=== PATIENT | female | born 1970 ===

== ENCOUNTER → 2020-02-05 07:34 | Outpatient (BNVA) | payer OTHER, SELFPAY | PROVIDERS: PCP Physician Assistant Medical; Visit Provider Student in an Organized Health Care Education/Training Program | DX: Z76.89 Persons encountering health services in other specified circumstances (principal) ==

== ENCOUNTER → 2020-05-20 07:28 | Outpatient (BNVA) | payer OTHER, SELFPAY | PROVIDERS: PCP Physician Assistant Medical; Referring Provider Physician Assistant Medical; Visit Provider Student in an Organized Health Care Education/Training Program | DX: Z76.89 Persons encountering health services in other specified circumstances (principal) ==

== ENCOUNTER → 2020-06-24 07:29 | Outpatient (BNVA) | payer OTHER, SELFPAY | PROVIDERS: PCP Physician Assistant Medical; Visit Provider Student in an Organized Health Care Education/Training Program ==

== ENCOUNTER → 2020-12-08 08:58 | Outpatient (BNVA) | payer OTHER, SELFPAY | PROVIDERS: PCP Physician Assistant Medical; Visit Provider Student in an Organized Health Care Education/Training Program ==

== ENCOUNTER → 2021-03-10 08:02 | Outpatient (BNVA) | payer OTHER, SELFPAY | PROVIDERS: PCP Physician Assistant Medical; Visit Provider Nurse Practitioner Family ==

== ENCOUNTER 2021-04-13 15:53 | Outpatient (REF) | payer OTHER, SELFPAY ==
[2021-04-13 16:04] LABS: MANUAL DIFF FLAG NO
[2021-04-13 16:06] LABS: Basophils Absolute Auto 0.1 X10*3/uL (0.0-0.2); Basophils Percent Auto 0.9 % (0-2); Eosinophils Absolute Auto 0.3 X10*3/uL (0.0-0.4); Eosinophils Percent Auto 2.5 % (0-4); Hematocrit 41.8 % (37.0-47.0); Hemoglobin 14.1 g/dl (12.0-16.0); Imm Gran Abs Auto 0.05 X10*3/uL (0.00-0.03); Imm Gran Pct Auto 0.4 % (0.0-0.4); Lymphocytes Absolute Auto 1.6 X10*3/uL (1.2-4.9); Lymphocytes Percent Auto 13.5 % (20-40); Mean Corpuscular HGB Conc 33.7 g/dl (31.0-35.0); Mean Corpuscular Hemoglobin 29.6 pg (27.0-33.0); Mean Corpuscular Volume 87.6 fL (80.0-98.0); Mean Platelet Volume 10.1 fL (9.4-12.3); Monocytes Absolute Auto 0.7 X10*3/uL (0.1-1.2); Monocytes Percent Auto 5.4 % (2-11); Neutrophils Absolute Auto 9.3 x10*3/uL (2.0-8.3); Neutrophils Percent Auto 77.3 % (45-73); Platelet Count 164 X10*3/uL (160-400); Red Blood Count 4.77 X10*6/uL (4.20-5.50); Red Cell Distribution Width 12.5 % (11.0-16.0)
[2021-04-13 16:32] LABS: Alanine Aminotransferase 30 U/L (0-31); Albumin Level 4.5 g/dL (3.5-5.0); Alkaline Phosphatase 59 U/L (39-117); Anion Gap 13 (12-20); Aspartate Amino Transferase 22 U/L (5-31); Bilirubin Total 0.2 mg/dL (0.0-1.0); Blood Urea Nitrogen 11 mg/dL (9-16); C Reactive Protein 0.37 mg/dL (< or = 0.50); Calcium 10.3 mg/dL (8.4-10.2); Carbon Dioxide 26 mmol/L (22-29); Chloride 105 mmol/L (96-108); Cholesterol 238 mg/dL; Estimated Glomerular Filt Rate > 60; Glucose Random 78 mg/dL (60-115); HDL Cholesterol 44 mg/dL; LDL Cholesterol Calculated 147 mg/dl; Potassium 4.2 mmol/L (3.3-5.1); Sodium 140 mmol/L (135-145); Total Protein 7.2 g/dL (6.5-8.0); Triglycerides 236 mg/dL
[2021-04-13 16:54] LABS: Erythrocyte Sedimentation Rate 9 MM/HR (0-20)
[2021-04-13 17:57] LABS: Reflex LDLD? No
== END 2021-04-13 15:54 | disposition home or self-care (01) ==
LOC: HO.LAB 15:53
PROVIDERS: PCP Physician Assistant Medical; Visit Provider Nurse Practitioner Family
DX: L40.50 Arthropathic psoriasis, unspecified (principal)
CPT/HCPCS: 36415; 80053; 80061; 85025; 85652; 86140

== ENCOUNTER → 2021-07-12 11:02 | Outpatient (BNVA) | payer OTHER, SELFPAY | PROVIDERS: PCP Physician Assistant Medical; Visit Provider Nurse Practitioner Family ==

== ENCOUNTER 2021-10-06 12:40 | Outpatient (REF) | payer OTHER, SELFPAY ==
[2021-10-06 12:53] LABS: MANUAL DIFF FLAG NO
[2021-10-06 13:08] LABS: Basophils Absolute Auto 0.2 X10*3/uL (0.0-0.2); Basophils Percent Auto 1.7 % (0-2); Eosinophils Absolute Auto 0.5 X10*3/uL (0.0-0.4); Eosinophils Percent Auto 5.8 % (0-4); Hemoglobin 13.4 g/dl (12.0-16.0); Imm Gran Abs Auto 0.02 X10*3/uL (0.00-0.03); Imm Gran Pct Auto 0.2 % (0.0-0.4); Lymphocytes Absolute Auto 1.9 X10*3/uL (1.2-4.9); Lymphocytes Percent Auto 21.1 % (20-40); Mean Corpuscular HGB Conc 34.4 g/dl (31.0-35.0); Mean Corpuscular Hemoglobin 29.3 pg (27.0-33.0); Mean Corpuscular Volume 85.3 fL (80.0-98.0); Mean Platelet Volume 9.9 fL (9.4-12.3); Monocytes Absolute Auto 0.6 X10*3/uL (0.1-1.2); Neutrophils Absolute Auto 5.8 x10*3/uL (2.0-8.3); Neutrophils Percent Auto 64.2 % (45-73); Platelet Count 163 X10*3/uL (160-400); Red Blood Count 4.57 X10*6/uL (4.20-5.50); Red Cell Distribution Width 12.3 % (11.0-16.0)
[2021-10-06 13:49] LABS: Alanine Aminotransferase 36 U/L (0-31); Albumin Level 4.3 g/dL (3.5-5.0); Alkaline Phosphatase 61 U/L (39-117); Anion Gap 13 (12-20); Aspartate Amino Transferase 26 U/L (5-31); Bilirubin Total 0.5 mg/dL (0.0-1.0); Blood Urea Nitrogen 11 mg/dL (9-16); C Reactive Protein 0.58 mg/dL (< or = 0.50); Calcium 10.1 mg/dL (8.4-10.2); Carbon Dioxide 27 mmol/L (22-29); Chloride 102 mmol/L (96-108); Estimated Glomerular Filt Rate > 60; Glucose Random 88 mg/dL (60-115); Sodium 138 mmol/L (135-145); Total Protein 6.7 g/dL (6.5-8.0)
[2021-10-06 13:50] LABS: Erythrocyte Sedimentation Rate 9 MM/HR (0-20)
== END 2021-10-06 12:41 | disposition home or self-care (01) ==
LOC: HO.LAB 12:40
PROVIDERS: Visit Provider Nurse Practitioner Family
DX: L40.50 Arthropathic psoriasis, unspecified (principal)
CPT/HCPCS: 36415; 80053; 85025; 85652; 86140

== ENCOUNTER → 2021-11-17 13:52 | Outpatient (REF) | payer OTHER, SELFPAY ==
--- NOTE | 2021-11-17 14:09 | CA_ITS ---
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 Normal LV systolic and diastolic function 2. Normal cardiac valvular Doppler 3. Normal RV systolic pressure 4. No gross pericardial effusion Findings Left Ventricle Normal left ventricular size, thickness, and systolic function. The visually estimated ejection fraction is between 55-60%. Spectral Doppler is indicative of a normal filling pattern. Right Ventricle Normal right ventricular cavity size and systolic function. Atria The left atrium is normal in size. There is no evidence of interatrial shunt. The right atrium is normal in size. Aortic Valve The aortic valve structure and function is likely normal. There is no aortic valve stenosis. There is no aortic valve regurgitation. Mitral Valve There is mild anterior and posterior mitral leaflet thickening. There is trace mitral valve regurgitation. There is no mitral valve stenosis. Pulmonic Valve The pulmonic valve was not well visualized. Tricuspid Valve Likely normal tricuspid valve structure and function. There is trace tricuspid valve regurgitation. The right ventricular systolic pressure is normal. The right ventricular systolic pressure is 26 mmHg. Normal right atrial pressure. There is no evidence of pulmonary hypertension. Great Vessels All visible segments of the aorta are normal in size. The pulmonary artery was not well visualized. Venous The inferior vena cava is normal in size and collapses greater than 50% with inspiration. Pericardium/Pleural There is no evidence of pericardial effusion. Prior Study Comparison No prior study available for comparison. Measurements 2D Linear Measurements IVSd: 0.98 0.6-0.9/0.6-1.0 cm LVIDd: 4.23 3.9-5.3/4.2-5.9 cm LVIDd Index: 1.84 2.4-3.2/2.2-3.1 cm/m2 LVIDs: 3.27 2.0-3.6 cm LVPWd: 0.96 0.7-1.1 cm LA Diam: 3.70 2.7-3.8/3.0-4.0 cm LAIDs Index: 1.61 1.5-2.3 cm/m2 LV Mass: 165.80 67-162/88-224 g LV Mass Index: 72.09 43-95/49-115 g/m2 LVOT Diam: 2.40 3.0+(-)1.3 cm 2D Systolic Function EF 4C: 53.60 >55% EF 2C: 56.60 >55% EF BiP: 55.20 >55% Mitral Valve MV Pk E: 0.86 MV PK A: 0.74 MV Decel Time: 233.00 E/A: 1.20 E'Lateral: 8.38 E'Medial: 8.16 E/E' Med: 10.50 E/E' Lat: 10.20 PHT: 68.00 MVA PHT: 3.24 Decel [place]: 3.68 Aortic Valve AoV Pk Lico: 1.31 AoV Mn Lico: 0.91 AoV VTI: 0.27 AoV Pk Grad: 7.00 Aov Mn Grad: 4.00 JUAN DANIEL Cont.VTI: 3.63 LVOT LVOT Pk Lico: 0.99 LVOT Mn Lico: 0.67 LVOT VTI: 0.22 LVOT Pk Grad: 4.00 LVOT Mn Grad: 2.00 LVOT Diam: 2.40 LVOT Area: 4.52 Diastolic Function MV Pk E: 0.86 MV Pk A: 0.74 E/A: 1.20 E'Medial: 8.16 E/E' Med: 10.50 E' Laterial: 8.38 E/E' Lat: 10.20 Right Ventricle TAPSE (mm): 20.80 TVS' Lico: 14.10 Tricuspid Valve TR Pk Lico: 2.39 TR Pk Grad: 23.00 RA Press: 3.00 RVSP: 26.00 Great Vessels Aorta Sinus of Valsalva: 3.64 2.0-3.[address] [place]: 2.90 1.7-3.4 cm Ao Asc: 3.60 2.1-3.4 cm Updated in Other Vendor System with Status of Final Nilo Perry MD electronically signed on 11/19/2021 1:07:20 PM with status of Final
== END ==
LOC: HO.CARD 13:52
PROVIDERS: Visit Provider Nurse Practitioner Family
DX: R00.2 Palpitations (principal); R60.1 Generalized edema
CPT/HCPCS: 93306

== ENCOUNTER 2022-01-11 10:26 | Outpatient (REF) | payer OTHER, SELFPAY ==
[2022-01-13 05:12] LABS: Lyme Abs Screen <0.90 index
== END 2022-01-11 10:27 | disposition home or self-care (01) ==
LOC: HO.10HDL 10:26
PROVIDERS: Visit Provider Nurse Practitioner Family
DX: M25.50 Pain in unspecified joint (principal)
CPT/HCPCS: 36415; 86617; 86618

== ENCOUNTER 2022-03-14 07:34 | Outpatient (REF) | payer OTHER, SELFPAY ==
[2022-03-14 08:02] LABS: MANUAL DIFF FLAG NO
[2022-03-14 08:04] LABS: Basophils Absolute Auto 0.1 X10*3/uL (0.0-0.2); Basophils Percent Auto 1.5 % (0-2); Eosinophils Absolute Auto 0.4 X10*3/uL (0.0-0.4); Eosinophils Percent Auto 4.4 % (0-4); Hemoglobin 15.4 g/dl (12.0-16.0); Imm Gran Abs Auto 0.02 X10*3/uL (0.00-0.03); Imm Gran Pct Auto 0.2 % (0.0-0.4); Lymphocytes Absolute Auto 1.7 X10*3/uL (1.2-4.9); Lymphocytes Percent Auto 20.4 % (20-40); Mean Corpuscular Hemoglobin 29.7 pg (27.0-33.0); Mean Corpuscular Volume 84.8 fL (80.0-98.0); Mean Platelet Volume 9.7 fL (9.4-12.3); Monocytes Absolute Auto 0.4 X10*3/uL (0.1-1.2); Monocytes Percent Auto 4.9 % (2-11); Neutrophils Absolute Auto 5.6 x10*3/uL (2.0-8.3); Neutrophils Percent Auto 68.6 % (45-73); Platelet Count 190 X10*3/uL (160-400); Red Blood Count 5.19 X10*6/uL (4.20-5.50); Red Cell Distribution Width 12.4 % (11.0-16.0); White Blood Count 8.1 X10*3/uL (4.8-10.8)
[2022-03-14 08:19] LABS: Alanine Aminotransferase 25 U/L (0-31); Albumin Level 4.6 g/dL (3.5-5.0); Alkaline Phosphatase 74 U/L (39-117); Anion Gap 16 (12-20); Aspartate Amino Transferase 19 U/L (5-31); Bilirubin Total 0.3 mg/dL (0.0-1.0); Blood Urea Nitrogen 17 mg/dL (9-16); Calcium 9.5 mg/dL (8.4-10.2); Carbon Dioxide 21 mmol/L (22-29); Chloride 105 mmol/L (96-108); Cholesterol 250 mg/dL; Estimated Glomerular Filt Rate > 60; Glucose Fasting 102 mg/dL (60-99); HDL Cholesterol 40 mg/dL; LDL Cholesterol Calculated 142 mg/dl; Magnesium 1.7 mg/dL (1.6-2.6); Potassium 4.2 mmol/L (3.3-5.1); Sodium 138 mmol/L (135-145); Total Protein 7.5 g/dL (6.5-8.0); Triglycerides 342 mg/dL
[2022-03-14 08:24] LABS: Estimated Average Glucose 100 mg/dL; Hemoglobin A1c % 5.1 %
[2022-03-14 08:32] LABS: Fibrinogen 500 MG/DL (259-690)
[2022-03-14 08:33] LABS: D Dimer High Sensitivity 277 NG/ML
[2022-03-14 08:41] LABS: Ferritin 69 ng/mL (10-250); Insulin 35 uU/mL (2-29); Thyroid Stimulating Hormone 2.12 uIU/mL (0.32-4.0); Vitamin D 25-OH Total 42.4 ng/mL (>30)
[2022-03-14 09:04] LABS: Vitamin B12 1059 pg/mL (200-900)
[2022-03-14 09:11] LABS: Cortisol Random 8.7 ug/dL
[2022-03-14 12:57] LABS: Glucose 2 Hour PP 97 mg/dL (60-115)
[2022-03-16 23:57] LABS: Triiodothyronine T3 Free 3.3 pg/mL (2.3-4.2)
[2022-03-17 00:27] LABS: DHEA Sulfate 50 mcg/dL (5-167)
[2022-03-17 00:42] LABS: Thyroglobulin Antibodies 4 IU/mL (< or = 1); Thyroid Peroxidase Antibodies 102 IU/mL (<9)
[2022-03-17 01:33] LABS: Follicle Stimulating Hormone 31.1 mIU/mL; Lutenizing Hormone 10.2 mIU/mL; Prolactin 6.7 ng/mL
[2022-03-19 17:27] LABS: EBV-VCA IgG Ab >750.00 U/mL; EBV-VCA IgM Ab <36.00 U/mL
[2022-03-19 17:32] LABS: Homocysteine 6.3 umol/L (<10.4)
[2022-03-19 18:07] LABS: CRP High Sensitivity 3.8 mg/L
[2022-03-20 01:02] LABS: Zinc 89 mcg/dL (60-130)
[2022-03-21 04:06] LABS: Magnesium, RBC 4.9 mg/dL (4.0-6.4)
[2022-03-21 12:42] LABS: CA-125 11 U/mL (<35)
[2022-03-22 14:06] LABS: Testosterone, Total 15 ng/dL (2-45)
[2022-03-22 22:36] LABS: Estradiol Free 0.37 pg/mL; Estradiol, Ultrasensitive 18 pg/mL
[2022-03-23 22:11] LABS: Progesterone <0.1 ng/mL
[2022-03-27 15:27] LABS: Cortisol, Free 0.18 mcg/dL
[2022-03-28 09:36] LABS: DHEA, Unconjugated 156 ng/dL
== END 2022-03-14 07:35 | disposition home or self-care (01) ==
LOC: HO.LAB 07:34
PROVIDERS: Visit Provider Preventive Medicine Public Health & General Preventive Medicine
DX: Z01.84 Encounter for antibody response examination (principal); N95.1 Menopausal and female climacteric states; E28.1 Androgen excess; E27.8 Other specified disorders of adrenal gland; R89.1 Abnormal level of hormones in specimens from other organs, systems and tissues; E03.9 Hypothyroidism, unspecified; E78.2 Mixed hyperlipidemia; E88.1 Lipodystrophy, not elsewhere classified; R73.09 Other abnormal glucose; E16.1 Other hypoglycemia; E61.8 Deficiency of other specified nutrient elements; E61.2 Magnesium deficiency; E55.9 Vitamin D deficiency, unspecified; E53.8 Deficiency of other specified B group vitamins; R79.9 Abnormal finding of blood chemistry, unspecified; R79.89 Other specified abnormal findings of blood chemistry
CPT/HCPCS: 36415; 80053; 80061; 82306; 82530; 82533; 82607; 82626; 82627; 82670; 82681; 82728; 82951; 83001; 83002; 83036; 83090; 83525; 83735; 84144; 84146; 84402; 84403; 84439; 84443; 84481; 84630; 85025; 85379; 85384; 86141; 86304; 86376; 86664; 86665; 86800

== ENCOUNTER 2022-06-29 07:44 | Outpatient (REF) | payer OTHER, SELFPAY ==
[2022-06-29 10:34] LABS: MANUAL DIFF FLAG NO
[2022-06-29 10:46] LABS: Basophils Percent Auto 0.2 % (0-2); Eosinophils Percent Auto 0.1 % (0-4); Hematocrit 42.2 % (37.0-47.0); Hemoglobin 14.4 g/dl (12.0-16.0); Imm Gran Abs Auto 0.07 X10*3/uL (0.00-0.03); Imm Gran Pct Auto 0.4 % (0.0-0.4); Lymphocytes Absolute Auto 1.9 X10*3/uL (1.2-4.9); Lymphocytes Percent Auto 10.3 % (20-40); Mean Corpuscular HGB Conc 34.1 g/dl (31.0-35.0); Mean Corpuscular Hemoglobin 29.9 pg (27.0-33.0); Mean Corpuscular Volume 87.7 fL (80.0-98.0); Mean Platelet Volume 10.6 fL (9.4-12.3); Monocytes Absolute Auto 0.7 X10*3/uL (0.1-1.2); Neutrophils Absolute Auto 15.5 x10*3/uL (2.0-8.3); Platelet Count 186 X10*3/uL (160-400); Red Blood Count 4.81 X10*6/uL (4.20-5.50); Red Cell Distribution Width 12.5 % (11.0-16.0); White Blood Count 18.2 X10*3/uL (4.8-10.8)
[2022-06-29 11:06] LABS: Alanine Aminotransferase 24 U/L (0-31); Aspartate Amino Transferase 13 U/L (5-31); C Reactive Protein 0.23 mg/dL (< or = 0.50); Estimated Glomerular Filt Rate > 60
[2022-06-29 11:14] LABS: Alanine Aminotransferase 26 U/L (0-31); Albumin Level 4.5 g/dL (3.5-5.0); Alkaline Phosphatase 65 U/L (39-117); Anion Gap 12 (12-20); Aspartate Amino Transferase 14 U/L (5-31); Bilirubin Total 0.4 mg/dL (0.0-1.0); Blood Urea Nitrogen 22 mg/dL (9-16); Calcium 9.7 mg/dL (8.4-10.2); Carbon Dioxide 25 mmol/L (22-29); Chloride 107 mmol/L (96-108); Cholesterol 195 mg/dL; Estimated Glomerular Filt Rate > 60; Glucose Fasting 91 mg/dL (60-99); HDL Cholesterol 44 mg/dL; LDL Cholesterol Calculated 119 mg/dl; Potassium 4.3 mmol/L (3.3-5.1); Sodium 140 mmol/L (135-145); Total Protein 6.9 g/dL (6.5-8.0); Triglycerides 161 mg/dL
[2022-06-29 11:15] LABS: D Dimer High Sensitivity < 150 NG/ML
[2022-06-29 11:20] LABS: Ferritin 64 ng/mL (10-250); Insulin 30 uU/mL (2-29); Thyroid Stimulating Hormone 1.62 uIU/mL (0.32-4.0); Vitamin D 25-OH Total 65.1 ng/mL (>30)
[2022-06-29 11:31] LABS: Erythrocyte Sedimentation Rate 5 MM/HR (0-20)
[2022-06-29 13:50] LABS: Amphetamine Screen Urine Not Detected (Not Detect); Barbiturates, Urine Not Detected (Not Detect); Benzodiazepines Screen Urine Not Detected (Not Detect); Cannabinoid Screen Urine Not Detected (Not Detect); Cocaine Screen Urine Not Detected (Not Detect); Fentanyl, urine Not Detected (Not Detect); Opiate Screen Urine Not Detected (Not Detect); Phencyclidine Screen Urine Not Detected (Not Detect)
[2022-06-29 14:19] LABS: Microalbum/Creatinine Ratio Ur 45.5 ug/mg cr
[2022-06-30 14:22] LABS: CRP High Sensitivity 2.1 mg/L
[2022-06-30 17:52] LABS: Follicle Stimulating Hormone 30.3 mIU/mL
[2022-07-02 15:14] LABS: Thyroid Peroxidase Antibodies 38 IU/mL (<9)
[2022-07-06 20:09] LABS: Estradiol Ultra Sensitive 27 pg/mL
== END 2022-06-29 07:45 | disposition home or self-care (01) ==
LOC: HO.10HDL 07:44
PROVIDERS: Absent Provider Preventive Medicine Public Health & General Preventive Medicine; Visit Provider Nurse Practitioner Family
DX: L40.50 Arthropathic psoriasis, unspecified (principal); N95.1 Menopausal and female climacteric states; E03.9 Hypothyroidism, unspecified; E78.2 Mixed hyperlipidemia; E88.1 Lipodystrophy, not elsewhere classified; E55.9 Vitamin D deficiency, unspecified; R79.89 Other specified abnormal findings of blood chemistry; E61.1 Iron deficiency; Z79.899 Other long term (current) drug therapy; Z78.9 Other specified health status
CPT/HCPCS: 36415; 80053; 80061; 80307; 80373; 82043; 82306; 82565; 82670; 82728; 83001; 83525; 84443; 84450; 84460; 85025; 85379; 85652; 86140; 86141; 86376

== ENCOUNTER 2022-07-06 12:24 | Outpatient (REF) | payer OTHER, SELFPAY ==
--- NOTE | ~2022-07-06 | MM_ITS ---
EXAMINATION: MM SCREENING DIGITAL BREAST TOMOSYNTHESIS, BILATERAL CLINICAL INFORMATION: Screening. Asymptomatic. No known family history breast cancer. The lifetime risk of breast cancer based on the Tyrer-Cuzick Model is 11%. COMPARISON: Outside mammography: 07/12/2020, 08/04/2018, 05/09/2017, 02/02/2016, 01/31/2016 ([facility]) TECHNIQUE: Digital breast tomosynthesis is performed in both the craniocaudal and mediolateral oblique views along with computer-aided detection (CAD). Synthesized 2D images are generated from the tomosynthesis. FINDINGS: There are scattered areas of fibroglandular density (ACR BI-RADS breast composition Category b). Parenchymal pattern is similar to prior outside studies. Scattered fine fibronodular changes are again noted without developing density or architectural abnormality or significant mass. No abnormal calcifications. The axilla and skin contours are unremarkable. No significant changes. MM/MM tomosynthesis screening BI IMPRESSION: No mammographic evidence of malignancy. ASSESSMENT: BI-RADS 2: Benign RECOMMENDATION: Routine annual mammography screening. This patient's information was entered into a reminder system with a target due date for their next mammogram.
== END 2022-07-06 12:25 | disposition home or self-care (01) ==
LOC: HO.MAMMO 12:24
PROVIDERS: Visit Provider Preventive Medicine Public Health & General Preventive Medicine
DX: Z12.31 Encounter for screening mammogram for malignant neoplasm of breast (principal)
CPT/HCPCS: 77063; 77067

== ENCOUNTER → 2022-07-25 07:27 | Outpatient (BNVA) | payer OTHER, SELFPAY | PROVIDERS: PCP Preventive Medicine Public Health & General Preventive Medicine; Visit Provider Nurse Practitioner Family | DX: Z13.89 Encounter for screening for other disorder (principal) ==

== ENCOUNTER 2022-11-17 08:24 | Outpatient (REF) | payer OTHER, SELFPAY ==
[2022-11-17 09:08] LABS: MANUAL DIFF FLAG NO
[2022-11-17 09:09] LABS: Basophils Absolute Auto 0.1 X10*3/uL (0.0-0.2); Basophils Percent Auto 1.4 % (0-2); Eosinophils Absolute Auto 0.3 X10*3/uL (0.0-0.4); Eosinophils Percent Auto 3.5 % (0-4); Hematocrit 40.5 % (37.0-47.0); Hemoglobin 14.1 g/dl (12.0-16.0); Imm Gran Abs Auto 0.02 X10*3/uL (0.00-0.03); Imm Gran Pct Auto 0.2 % (0.0-0.4); Lymphocytes Absolute Auto 1.5 X10*3/uL (1.2-4.9); Lymphocytes Percent Auto 18.7 % (20-40); Mean Corpuscular HGB Conc 34.8 g/dl (31.0-35.0); Mean Corpuscular Hemoglobin 29.9 pg (27.0-33.0); Mean Platelet Volume 10.4 fL (9.4-12.3); Monocytes Absolute Auto 0.4 X10*3/uL (0.1-1.2); Monocytes Percent Auto 5.2 % (2-11); Neutrophils Absolute Auto 5.7 x10*3/uL (2.0-8.3); Platelet Count 158 X10*3/uL (160-400); Red Blood Count 4.71 X10*6/uL (4.20-5.50); Red Cell Distribution Width 12.2 % (11.0-16.0)
[2022-11-17 09:38] LABS: Estimated Average Glucose 94 mg/dL; Hemoglobin A1c % 4.9 %
[2022-11-17 09:39] LABS: D Dimer High Sensitivity < 150 NG/ML
[2022-11-17 10:15] LABS: Alanine Aminotransferase 24 U/L (0-31); Albumin Level 4.3 g/dL (3.5-5.0); Alkaline Phosphatase 64 U/L (39-117); Anion Gap 13 (12-20); Aspartate Amino Transferase 18 U/L (5-31); Bilirubin Total 0.5 mg/dL (0.0-1.0); Blood Urea Nitrogen 20 mg/dL (9-16); Calcium 9.6 mg/dL (8.4-10.2); Carbon Dioxide 24 mmol/L (22-29); Chloride 105 mmol/L (96-108); Estimated Glomerular Filt Rate > 60; Glucose Fasting 89 mg/dL (60-99); Potassium 4.2 mmol/L (3.3-5.1); Sodium 138 mmol/L (135-145); Total Protein 6.9 g/dL (6.5-8.0)
[2022-11-17 10:33] LABS: Ferritin 86 ng/mL (10-250); Thyroid Stimulating Hormone 2.25 uIU/mL (0.32-4.0); Vitamin D 25-OH Total 69.8 ng/mL (>30)
[2022-11-17 10:40] LABS: Vitamin B12 1256 pg/mL (200-900)
[2022-11-17 10:57] LABS: Insulin 14 uU/mL (2-29)
[2022-11-17 11:39] LABS: Glucose 2 Hour PP 98 mg/dL (60-115)
[2022-11-19 01:44] LABS: Follicle Stimulating Hormone 58.5 mIU/mL
[2022-11-20 17:33] LABS: EBV-VCA IgG Ab >750.00 U/mL; EBV-VCA IgM Ab <36.00 U/mL
[2022-11-21 06:48] LABS: Zinc 88 mcg/dL (60-130)
[2022-11-21 15:03] LABS: Mycoplasma Pneumoniae - IgG 2.27 (<=0.90); Mycoplasma Pneumoniae - IgM 89 U/mL (<770)
[2022-11-22 18:03] LABS: CRP High Sensitivity 2.1 mg/L
[2022-11-23 11:04] LABS: CA-125 8 U/mL (<35)
[2022-11-23 16:59] LABS: Vitamin B1 24 nmol/L (8-30)
[2022-11-23 18:18] LABS: Testosterone, Free 1.9 pg/mL (0.1-6.4); Testosterone, Total 10 ng/dL (2-45)
[2022-11-30 22:04] LABS: Estradiol, Ultrasensitive 17 pg/mL
== END 2022-11-17 08:25 | disposition home or self-care (01) ==
LOC: HO.LAB 08:24
PROVIDERS: PCP Preventive Medicine Public Health & General Preventive Medicine; Visit Provider Preventive Medicine Public Health & General Preventive Medicine
DX: N95.1 Menopausal and female climacteric states (principal); E03.9 Hypothyroidism, unspecified; E88.81 Metabolic syndrome and other insulin resistance; E16.1 Other hypoglycemia; R79.9 Abnormal finding of blood chemistry, unspecified; E53.8 Deficiency of other specified B group vitamins; E61.8 Deficiency of other specified nutrient elements; Z78.9 Other specified health status; R79.89 Other specified abnormal findings of blood chemistry; E61.1 Iron deficiency; J15.9 Unspecified bacterial pneumonia; B27.90 Infectious mononucleosis, unspecified without complication; E55.9 Vitamin D deficiency, unspecified
CPT/HCPCS: 36415; 80053; 82306; 82607; 82670; 82681; 82728; 82947; 83001; 83036; 83525; 84402; 84403; 84425; 84443; 84630; 85025; 85379; 86141; 86304; 86664; 86665; 86738

== ENCOUNTER 2023-02-15 09:07 | Outpatient (AMB) | payer OTHER, SELFPAY ==
[2023-02-15 11:08] VITALS: BP 150/70; PULSE 89; O2SAT 97; BMI 40.7
--- NOTE | 2023-02-15 11:08 | MHC.OFFWIV ---
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 Patient complaining of wheezing, shortness of breath, and cough x 1 week since mold exposure. Hhe has been utilizing her inhalers and nebulizers at home with mild relief. She states that the cough has persisted and she feels more short of breath with heavy exertion. She denies any fevers or chills or congestion/rhinorrhea. [facility]LY [facility], [facility] Medical History Asthma Depression Glaucoma Lyme disease PCOS (polycystic ovarian syndrome) Surgical History History of hysterectomy Varicose vein of leg Social History Household Members: Significant Other Housing: House Are you a primary administrator health care facility to a significant other at home: No Do you presently have visiting nurse or other home services: No Alcohol intake: never Patient Tobacco Use Status: Former Tobacco user Second Hand Smoke Exposure: No service: No Current occupational status: employed Current occupation: [employer] Current occupational exposures/hazards: Yes Review of Systems Const All systems reviewed & are unremarkable except as noted in HPI and below Reports no additional complaints Eyes Reports no additional complaints ENT Reports no additional complaints Card Reports no additional complaints Resp Reports no additional complaints GI Reports no additional complaints Reports no additional complaints Musc Reports no additional complaints Skin/Breast Reports system reviewed and no additional complaints, except as documented Neuro Reports no additional complaints Psych Reports no additional complaints Endo Reports no additional complaints Antoine/Lymph Reports no additional complaints Aller/Immun Reports no additional complaints Physical Exam Vital Signs: Last Vital Signs Pulse 89 10/13/23 11:08 BP 150/70 H 02/15/23 11:08 Pulse Ox 97 02/15/23 11:08 Oxygen Delivery Method Room Air 02/15/23 11:08 BMI result Body Mass Index 40.7 Const Other: Vital signs reviewed. Constitutional: Non-toxic appearing. No acute distress. Well-developed and well-nourished. HEENT: Normocephalic and atraumatic. Tympanic membranes without erythema, edema, or bulging bilaterally. External auditory canals without erythema or edema bilaterally. Moist mucous membranes. No pharyngeal erythema or exudates. Skin: Warm and dry. No rashes or lesions noted. Neck: Full and painless range of motion. No cervical lymphadenopathy. Cardio: Regular rate and rhythm. No murmurs, gallops, or rubs. No lower extremity edema. No JVD. Pulmonary: No respiratory distress. No accessory muscle usage. Scant expiratory wheezing throughout. Occasional cough. Gastrointestinal: Soft, nontender, and nondistended in all 4 quadrants. Normoactive bowel sounds in all 4 quadrants. Genitourinary: No CVA tenderness. Musculoskeletal: Normal range of motion in joints throughout the body. No deformity or other signs of injury. Neuro: Alert and oriented x4. Cranial nerves 2-12 grossly intact. No focal deficits appreciated. Psych: Normal mood and affect. Assessment & Plan Assessment & Plan (1) Acute asthmatic bronchitis: Code(s): J45.909 - Unspecified asthma, uncomplicated Plan: This is a 52-year-old female presenting with cough, wheezing, and shortness of breath in the setting of mold exposure. On physical examination, she has scant expiratory wheezing but no respiratory distress or accessory muscle usage. Her vital signs are stable and she is overall nontoxic appearing. Her physical exam is otherwise benign. Her history and physical most consistent with an acute asthmatic bronchitis in the setting of mold exposure. Patient was sent home on a prednisone taper as well as a refill on her nebulizer solutions. She was advised to follow-up here go to the emergency room if she were to develop worsening sputum production, worsening shortness of breath, or worsening cough. Patient verbalized understanding and is agreeable with the plan. Medications: New prednisone Take 4 tablets daily x3 days followed by 3 tablets daily x3 days followed by 2 tablets daily x3 days followed by 1 tablet daily x3 days followed by 1/2 tablet daily x2 days. 10 mg PO DIRECTED 31 tabs 0RF ipratropium-albuterol 0.5 mg-3 mg(2.5 mg base)/3 mL 3 mL inhalation Q6-8H PRN 90 mL 0RF wheezing Coding Level of Care Code New Pt Level 3 (16081) Diagnoses Acute asthmatic bronchitis J45.909
== END 2023-02-15 11:32 | disposition home or self-care (01) ==
PROVIDERS: PCP Preventive Medicine Public Health & General Preventive Medicine; Visit Provider Physician Assistant Medical
DX: J45.909 Unspecified asthma, uncomplicated (principal)
CPT/HCPCS: 99203

== ENCOUNTER 2023-04-02 07:40 | Outpatient (REF) | payer OTHER, SELFPAY ==
[2023-04-02 11:19] LABS: Alanine Aminotransferase 21 U/L (0-31); Albumin Level 4.2 g/dL (3.5-5.0); Alkaline Phosphatase 59 U/L (39-117); Anion Gap 11 (12-20); Aspartate Amino Transferase 17 U/L (5-31); Bilirubin Total 0.4 mg/dL (0.0-1.0); Blood Urea Nitrogen 17 mg/dL (9-16); Calcium 9.3 mg/dL (8.4-10.2); Carbon Dioxide 24 mmol/L (22-29); Chloride 106 mmol/L (96-108); Estimated Glomerular Filt Rate > 60; Glucose Random 85 mg/dL (60-115); Potassium 4.2 mmol/L (3.3-5.1); Sodium 137 mmol/L (135-145); Total Protein 6.8 g/dL (6.5-8.0)
[2023-04-02 11:26] LABS: Ferritin 95 ng/mL (10-250); Insulin 12 uU/mL (2-29); Thyroid Stimulating Hormone 2.42 uIU/mL (0.32-4.0); Vitamin D 25-OH Total 56.6 ng/mL (>30)
[2023-04-02 11:32] LABS: Vitamin B12 987 pg/mL (200-900)
[2023-04-03 07:28] LABS: Follicle Stimulating Hormone 16.3 mIU/mL
[2023-04-03 08:10] LABS: Triiodothyronine T3 Free 3.2 pg/mL (2.3-4.2)
[2023-04-03 10:29] LABS: Thyroglobulin Antibodies 1 IU/mL (< or = 1); Thyroid Peroxidase Antibodies 28 IU/mL (<9)
[2023-04-06 12:39] LABS: Testosterone, Free 1.1 pg/mL (0.1-6.4); Testosterone, Total 12 ng/dL (2-45)
[2023-04-06 21:58] LABS: Estradiol, Ultrasensitive 76 pg/mL
== END 2023-04-02 07:41 | disposition home or self-care (01) ==
LOC: HO.10HDL 07:40
PROVIDERS: Visit Provider Preventive Medicine Public Health & General Preventive Medicine
DX: E66.1 Drug-induced obesity (principal); E88.810 Metabolic syndrome; E55.9 Vitamin D deficiency, unspecified; E53.8 Deficiency of other specified B group vitamins; E03.9 Hypothyroidism, unspecified; N95.1 Menopausal and female climacteric states; E61.1 Iron deficiency
CPT/HCPCS: 36415; 80053; 82306; 82607; 82670; 82681; 82728; 83001; 83525; 84402; 84403; 84439; 84443; 84481; 86376; 86800

== ENCOUNTER 2023-08-12 10:22 | Outpatient (REF) | payer OTHER, SELFPAY ==
[2023-08-12 13:16] LABS: MANUAL DIFF FLAG NO
[2023-08-12 13:19] LABS: Basophils Absolute Auto 0.1 X10*3/uL (0.0-0.2); Basophils Percent Auto 0.9 % (0-2); Eosinophils Absolute Auto 0.2 X10*3/uL (0.0-0.4); Hematocrit 42.2 % (37.0-47.0); Hemoglobin 14.5 g/dl (12.0-16.0); Imm Gran Abs Auto 0.02 X10*3/uL (0.00-0.03); Imm Gran Pct Auto 0.2 % (0.0-0.4); Lymphocytes Absolute Auto 1.8 X10*3/uL (1.2-4.9); Lymphocytes Percent Auto 16.5 % (20-40); Mean Corpuscular HGB Conc 34.4 g/dl (31.0-35.0); Mean Corpuscular Hemoglobin 30.1 pg (27.0-33.0); Mean Corpuscular Volume 87.7 fL (80.0-98.0); Mean Platelet Volume 10.3 fL (9.4-12.3); Monocytes Absolute Auto 0.4 X10*3/uL (0.1-1.2); Monocytes Percent Auto 3.9 % (2-11); Neutrophils Absolute Auto 8.5 x10*3/uL (2.0-8.3); Neutrophils Percent Auto 76.5 % (45-73); Platelet Count 206 X10*3/uL (160-400); Red Blood Count 4.81 X10*6/uL (4.20-5.50); Red Cell Distribution Width 11.8 % (11.0-16.0)
[2023-08-12 13:44] LABS: Alanine Aminotransferase 18 U/L (0-31); Albumin Level 4.4 g/dL (3.5-5.0); Alkaline Phosphatase 61 U/L (39-117); Anion Gap 10 (12-20); Aspartate Amino Transferase 14 U/L (5-31); Bilirubin Total 0.3 mg/dL (0.0-1.0); Blood Urea Nitrogen 15 mg/dL (9-16); C Reactive Protein 0.26 mg/dL (< or = 0.50); Calcium 9.6 mg/dL (8.4-10.2); Carbon Dioxide 26 mmol/L (22-29); Chloride 106 mmol/L (96-108); Cholesterol 178 mg/dL (<200); Estimated Glomerular Filt Rate > 60; Glucose Random 82 mg/dL (60-115); HDL Cholesterol 42 mg/dL (>40); LDL Cholesterol Calculated 98 mg/dL (<100); Potassium 4.4 mmol/L (3.3-5.1); Sodium 138 mmol/L (135-145); Total Protein 7.2 g/dL (6.5-8.0); Triglycerides 191 mg/dL (<150)
[2023-08-12 14:01] LABS: Erythrocyte Sedimentation Rate 5 MM/HR (0-20)
== END 2023-08-12 10:23 | disposition home or self-care (01) ==
LOC: HO.10HDL 10:22
PROVIDERS: Visit Provider Nurse Practitioner Family
DX: L40.50 Arthropathic psoriasis, unspecified (principal); Z79.899 Other long term (current) drug therapy
CPT/HCPCS: 36415; 80053; 80061; 85025; 85652; 86140

== ENCOUNTER 2023-08-15 14:01 | Outpatient (AMB) | payer OTHER, SELFPAY ==
--- NOTE | 2023-08-15 14:05 | MHC.OFFVIS ---
Vital Signs 08/15/23 14:15 Height 5 ft 7 in Weight 256 lb 13.416 oz BMI 40.2 BP 124/84 Blood Pressure Location Rt brachial Position Sitting Pulse 87 Pulse Source Pulse Oximeter Pulse Oximetry (%) 98 Oxygen Delivery Method Room Air Intake Visit Reasons: psoriatic arthritis Intake Note: Patient last seen 07/25/22 by Roseann, presents today for follow up. 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 Wagner is a 53-year-old female who returns for follow-up of psoriatic arthritis. She was last seen July 2022. She continues on hydroxychloroquine 200 mg daily and says her joint pain and psoriasis has essentially remained the same has described below. However today she has some some increased achiness which she says largely because of the weather. She says her left ankle is also swollen. She stopped Xeljanz. 07/23/2022 visit Suki: Patient continues on Xeljanz XR. She has reestablished with Endocrine for fatigue and PCOS. Patient reports she was experiencing chronic generalized intermittent aching in her hands, wrists, and back. She was also experiencing intermittent swelling and fatigue. She states since last visit her primary care doctor in [place] started her on hydroxychloroquine 200mg po daily and all of her pain/fatigue symptoms have resolved. She is interested in tapering off Xeljanz XR. She reports 20 lb weight loss, she attributes her weight loss to drinking celery juice every morning. She states her bilateral knee pain has been stable. She received bilateral knee injections with [facility] approximately 1 week ago. She states overall she is feeling much better. She denies any joint pain or swelling at this time. She states her psoriasis is well controlled with very small dry patches on both elbows. [facility] Medical History (Updated 08/30/23 @ 08:34 by KAMALA Bustillos) Left ankle pain Long-term current use of high risk medication other than anticoagulant PCOS (polycystic ovarian syndrome) Asthma Depression Glaucoma Lyme disease Surgical History History of hysterectomy Varicose vein of leg Social History Household Members: Significant Other Housing: House Are you a primary geriatric personal care aide to a significant other at home: No Do you presently have visiting nurse or other home services: No Alcohol intake: never Patient Tobacco Use Status: Former Tobacco user Second Hand Smoke Exposure: No service: No Current occupational status: employed Current occupation: [employer] Current occupational exposures/hazards: Yes Review of Systems Const All systems reviewed & are unremarkable except as noted in HPI and below Physical Exam Vital Signs: Last Vital Signs Pulse 87 08/15/23 14:15 BP 124/84 08/15/23 14:15 Pulse Ox 98 08/15/23 14:15 Oxygen Delivery Method Room Air 08/15/23 14:15 BMI result Body Mass Index 40.2 APPEARANCE: Patient in no acute distress EYES: no redness, eyelids normal EARS: External ear normal NOSE/SINUS: Airflow through both nares, no nasal discharge, no bleeding THROAT: Oral mucosa moist, no ulcerations NECK: No thyromegaly or masses, no adenopathy, trachea midline. HEART: Regular rhythm, S1-S2 heard, no murmurs, rubs or gallops. LUNG: Clear to auscultation throughout bilaterally, respiratory rate regular nonlabored. EXTREMITIES: No edema, no calf tenderness, normal peripheral pulses. NEURO: Oriented and alert x3. No focal weakness. Gait normal. SKIN: No neoplastic lesions. Normal color and turgor. Slight patches of dry skin on bilateral elbows. JOINT EXAM: Cervical: Normal range of motion without tenderness. Thoracic: And normal range of motion without tenderness. Lumbar Spine: Normal range of motion, no tenderness to palpation. Hands: LEFT:? Normal pain-free range of motion without, swelling, increased warmth or erythema. Able to make a full fist and has a good extended insurance clerk strength. Slight tenderness to palpation at the base of the thumb. RIGHT: Normal pain free range of motion without tenderness, swelling, increased warmth erythema. To make a full fist and has good extended insurance clerk strength. Slight tenderness to palpation at the base of the thumb. Wrists: Normal pain-free range of motion without tenderness, swelling, increased warmth or erythema. Elbows: Normal pain-free range of motion without tenderness, swelling, increased warmth or erythema. Shoulders:? Full range of motion without pain. No tenderness, weakness, swelling, increased warmth or erythema. Hip bursa:.? No tenderness. Knees: LEFT:?? Normal pain-free range of motion. No tenderness, swelling, increased warmth or erythema.? There is no effusion or crepitation. RIGHT: Normal pain free range of motion. No tenderness, swelling, increased warmth or erythema. No effusion or crepitation. Ankles:.? Normal pain-free range of motion with left mild tenderness, left swelling but no increased warmth or erythema. Feet:.? Normal pain-free range of motion with mild tenderness to left dorsum, but no swelling, increased warmth or erythema. Results Reviewed Results Reviewed: Laboratory Tests 08/12/23 10:25 WBC 11.0 H RBC 4.81 Hgb 14.5 Hct 42.2 ESR 5 Creatinine 0.76 AST 14 ALT 18 C-Reactive Protein 0.26 Assessment & Plan Assessment & Plan (1) Psoriatic arthritis: Comment: Methotrexate: 01/09/2017- stopped d/t alopecia Humira: 01/15/2017 - 06/21/2017- no improvement in joint pain Trialed on Simponi per notes, unable to locate script/may have come from dermatology Cosentyx: 06/21/2017- 01/2019 no improvement in joint pain Xeljanz: 07/2019- present Code(s): L40.50 - Arthropathic psoriasis, unspecified Category: Medical Plan: Patient with psoriatic arthritis, history of dactylitis in fingers and toes. On Xeljanz XR since July 2019. No synovitis or psoriasis on exam. She has tenderness to palpation at the base of the both thumbs likely due to OA. Her psoriatic arthritis appears to be well controlled. Inflammatory markers are stable, LFTs, CBC, lipids are stable. Patient started hydroxychloroquine by her PCP with further improvement in her joint pain and fatigue. She would like to see how she does off Xeljanz. I recommend she switch to Xeljanz 5 mg once a day and monitor her symptoms. She will follow-up in 3 months or sooner if needed. I will request her PCP note from [place]. (2) Psoriasis: Code(s): L40.9 - Psoriasis, unspecified Category: Medical (3) Lumbar spondylosis: Code(s): M47.816 - Spondylosis without myelopathy or radiculopathy, lumbar region Category: Medical (4) Left ankle pain: Code(s): M25.572 - Pain in left ankle and joints of left foot Category: Medical Qualifiers: Chronicity: chronic Qualified Code(s): M25.572 - Pain in left ankle and joints of left foot; G89.29 - Other chronic pain Plan #Psoriasis: Ms. Wagner with a history of psoriasis was on Xeljanz XR which she has since stopped. Her psoriasis appear well controlled at this time with only minor patches to bilateral elbows. The patient seems to think that hydroxychloroquine 200 mg q.d. has been adequate for both her psoriasis and her joint pains. She does not desire this time to take any other medications for this. #Lumbar spondylosis. MRI of the lumbar spine 02/18/2020 with degenerative changes at the L4- L5 and L5-S1 levels with mild narrowing of spinal canal and subarticular recess at L4-L5, although no definitive nerve root displacement or compression. Patient also had MRI of her pelvis which was negative for sacroiliitis 07/08/2020. Her pain is well controlled at this this time using Tramadol. Will continue tramadol 50 mg po BID. #Psoriatic arthritis/ Left ankle swelling: She is currently on no adequate treatment for psoriatic arthritis. It it does not appear at this point that her back pain is a consequence of PSA. The ankle pain and swelling she says did exist even while she was on Xeljanz. I will Will prescribe a course of prednisone and obtain uric acid level as this could also be gout. I will obtain also inflammatory markers. Thirty-five minutes spent reviewing chart, evaluating patient and documenting. Orders: Orders C Reactive Protein 4 Months L40.9 - Psoriasis, unspecified, L40.50 - Arthropathic psoriasis, unspecified Erythrocyte Sedimentation Rate 4 Months L40.9 - Psoriasis, unspecified, L40.50 - Arthropathic psoriasis, unspecified Complete Blood Count Auto Diff 4 Months L40.9 - Psoriasis, unspecified, L40.50 - Arthropathic psoriasis, unspecified Comprehensive Met. Panel 4 Months L40.9 - Psoriasis, unspecified, L40.50 - Arthropathic psoriasis, unspecified Uric Acid 08/15/23 M25.572 - Pain in left ankle and joints of left foot Medications: New prednisone orally daily; 2 tablets per day x 10 days 1 tablet per day x 10 days 25 tabs 0RF L40.9 - Psoriasis, unspecified, L40.50 - Arthropathic psoriasis, unspecified, M25.572 - Pain in left ankle and joints of left foot Refilled tramadol 50 mg PO BID PRN 60 tabs 1RF pain M47.816 - Spondylosis without myelopathy or radiculopathy, lumbar region Coding Level of Care Code Est Pt Level 4 (98897) Diagnoses Psoriatic arthritis L40.50 Psoriasis L40.9 Lumbar spondylosis M47.816 Chronic pain of left ankle M25.572; G89.29 Chronicity: chronic
[2023-08-15 14:15] VITALS: BP 124/84; PULSE 87; O2SAT 98; BMI 40.2
== END 2023-08-15 15:13 | disposition home or self-care (01) ==
PROVIDERS: PCP Preventive Medicine Public Health & General Preventive Medicine; Visit Provider Nurse Practitioner Family
DX: L40.50 Arthropathic psoriasis, unspecified (principal); L40.9 Psoriasis, unspecified; M47.816 Spondylosis without myelopathy or radiculopathy, lumbar region; M25.572 Pain in left ankle and joints of left foot; G89.29 Other chronic pain
CPT/HCPCS: 99214

== ENCOUNTER → 2023-08-15 14:01 | Outpatient (BNVA) | payer OTHER, SELFPAY | PROVIDERS: PCP Preventive Medicine Public Health & General Preventive Medicine; Visit Provider Nurse Practitioner Family ==

== ENCOUNTER 2023-08-29 10:08 | Outpatient (REF) | payer OTHER, SELFPAY ==
[2023-08-29 10:42] LABS: MANUAL DIFF FLAG NO
[2023-08-29 11:32] LABS: Basophils Absolute Auto 0.1 X10*3/uL (0.0-0.2); Basophils Percent Auto 1.5 % (0-2); Eosinophils Absolute Auto 0.3 X10*3/uL (0.0-0.4); Eosinophils Percent Auto 3.5 % (0-4); Hematocrit 41.7 % (37.0-47.0); Hemoglobin 14.6 g/dl (12.0-16.0); Imm Gran Abs Auto 0.02 X10*3/uL (0.00-0.03); Imm Gran Pct Auto 0.2 % (0.0-0.4); Lymphocytes Absolute Auto 1.9 X10*3/uL (1.2-4.9); Mean Corpuscular Hemoglobin 30.5 pg (27.0-33.0); Mean Corpuscular Volume 87.2 fL (80.0-98.0); Mean Platelet Volume 10.5 fL (9.4-12.3); Monocytes Absolute Auto 0.5 X10*3/uL (0.1-1.2); Monocytes Percent Auto 5.2 % (2-11); Neutrophils Absolute Auto 5.9 x10*3/uL (2.0-8.3); Neutrophils Percent Auto 67.6 % (45-73); Platelet Count 186 X10*3/uL (160-400); Red Blood Count 4.78 X10*6/uL (4.20-5.50); Red Cell Distribution Width 11.9 % (11.0-16.0); White Blood Count 8.7 X10*3/uL (4.8-10.8)
[2023-08-29 11:46] LABS: D Dimer High Sensitivity < 150 NG/ML
[2023-08-29 11:47] LABS: Estimated Average Glucose 100 mg/dL; Hemoglobin A1c % 5.1 % (<6.0)
[2023-08-29 12:32] LABS: Alanine Aminotransferase 25 U/L (0-31); Albumin Level 4.6 g/dL (3.5-5.0); Alkaline Phosphatase 65 U/L (39-117); Anion Gap 11 (12-20); Aspartate Amino Transferase 19 U/L (5-31); Bilirubin Total 0.5 mg/dL (0.0-1.0); Blood Urea Nitrogen 13 mg/dL (9-16); Calcium 10.2 mg/dL (8.4-10.2); Carbon Dioxide 26 mmol/L (22-29); Chloride 106 mmol/L (96-108); Cholesterol 192 mg/dL (<200); Estimated Glomerular Filt Rate > 60; Glucose Fasting 82 mg/dL (60-99); HDL Cholesterol 38 mg/dL (>40); LDL Cholesterol Calculated 103 mg/dL (<100); Magnesium 2.2 mg/dL (1.6-2.6); Potassium 4.3 mmol/L (3.3-5.1); Sodium 139 mmol/L (135-145); Total Protein 7.4 g/dL (6.5-8.0); Triglycerides 259 mg/dL (<150)
[2023-08-29 12:34] LABS: Ferritin 99 ng/mL (10-250); Free T4 (Free Thyroxine) 0.89 ng/dL (0.71-1.85); Insulin 11 uU/mL (2-29); Vitamin D 25-OH Total 36.3 ng/mL (>30)
[2023-08-30 07:08] LABS: Triiodothyronine T3 Free 3.3 pg/mL (2.3-4.2)
[2023-08-30 07:38] LABS: Follicle Stimulating Hormone 21.3 mIU/mL
[2023-08-30 11:39] LABS: Thyroglobulin 4.9 ng/mL; Thyroid Peroxidase Antibodies 98 IU/mL (<9)
[2023-08-30 22:13] LABS: CRP High Sensitivity 4.1 mg/L
[2023-09-01 22:19] LABS: Zinc 74 mcg/dL (60-130)
[2023-09-03 14:14] LABS: Magnesium, RBC 6.4 mg/dL (4.0-6.4)
[2023-09-06 15:28] LABS: Testosterone, Total 11 ng/dL (2-45)
[2023-09-07 23:48] LABS: Estradiol Free 1.34 pg/mL; Estradiol, Ultrasensitive 79 pg/mL
== END 2023-08-29 10:09 | disposition home or self-care (01) ==
LOC: HO.LAB 10:08
PROVIDERS: Nurse Practitioner Family; Visit Provider Preventive Medicine Public Health & General Preventive Medicine
DX: M25.572 Pain in left ankle and joints of left foot (principal); N95.1 Menopausal and female climacteric states; E03.9 Hypothyroidism, unspecified; E78.2 Mixed hyperlipidemia; E55.9 Vitamin D deficiency, unspecified; R79.9 Abnormal finding of blood chemistry, unspecified; E61.2 Magnesium deficiency; E61.1 Iron deficiency; Z78.9 Other specified health status
CPT/HCPCS: 36415; 80053; 80061; 82306; 82670; 82681; 82728; 83001; 83036; 83525; 83735; 84402; 84403; 84432; 84439; 84443; 84481; 84550; 84630; 85025; 85379; 86141; 86376

== ENCOUNTER 2024-02-28 08:02 | Outpatient (AMB) | payer OTHER, SELFPAY ==
--- NOTE | 2024-02-28 08:04 | A.OFFVIS_ITS ---
Vital Signs 02/28/24 08:06 Height 5 ft 7 in Weight 252 lb 3.341 oz BMI 39.5 BP 130/74 Blood Pressure Location Lt brachial Position Sitting Pulse 67 Pulse Source Pulse Oximeter Pulse Oximetry (%) 97 Oxygen Delivery Method Room Air Intake Visit Reasons: PSA/lm Intake Note: Patient is here for follow up on PSA, last seen on the office by Sara cota on 08/15/23. Allergies Sulfa (Sulfonamide Antibiotics) Allergy (Unknown, Verified 02/28/24 08:07) dizzy latex Allergy (Verified 02/28/24 08:07) rash HPI Comments Details: Patient is a 53-year-old female with psoriasis and psoriatic arthritis who presents for follow-up. Interval History: Patient last seen 08/15/2023 with Sara Cota. At that time she had self- discontinued her Xeljanz. Her psoriasis was controlled and her arthritis was for the most part controlled on Plaquenil. She was having some ankle pain and was given prednisone but patient wisely did not take it has this could have potentially exacerbated her psoriasis. Today, patient states that she continues to have pain involving her lower back and her 1st CMC joint bilaterally. But no longer has any episodes of dactylitis or prolonged morning stiffness. Her psoriasis is maintained with topical formulations Rheumatologic History: Diagnosed in 2018. Psoriatic arthritis Longstanding history of Psoriasis Methotrexate: 01/09/2017- stopped d/t alopecia Humira: 01/15/2017 - 06/21/2017- no improvement in joint pain Trialed on Simponi per notes, unable to locate script/may have come from dermatology [facility]. Not effective Cosentyx: 06/21/2017- 01/2019 no improvement in joint pain Xeljanz: 07/2019- 2021 Plaquenil 400mg daily. Since 2021 Current Rheumatologic Medications: Plaquenil 400mg daily [facility] Medical History (Updated 08/30/23 @ 08:34 by KAMALA Bustillos) Left ankle pain Long-term current use of high risk medication other than anticoagulant PCOS (polycystic ovarian syndrome) Asthma Depression Glaucoma Lyme disease Surgical History History of hysterectomy Varicose vein of leg Social History Household Members: Significant Other Housing: House Are you a primary behavioral health care manager to a significant other at home: No Do you presently have visiting nurse or other home services: No Alcohol intake: never Patient Tobacco Use Status: Former Tobacco user Second Hand Smoke Exposure: No service: No Current occupational status: employed Current occupation: [employer] Current occupational exposures/hazards: Yes Review of Systems Const Details: Review of Systems Constitutional: Denies fever, chills, weight loss ENT: Denies vision changes, eye pain or eye redness, dental caries, dry mouth GI: Denies nausea, vomiting, diarrhea, abdominal pain, change in BM Pulm: Denies SOB, WARREN, hemoptysis, wheezing Cards: Denies chest pain, palpitations Skin: Denies Raynaud's, rash, nail changes, photosensitivity, [employer]: Denies headaches, weakness, paresthesias, recurrent falls MSK: as per HPI All other systems reviewed and are unremarkable except noted above Physical Exam Vital Signs: Last Vital Signs Pulse 67 02/28/24 08:06 BP 130/74 02/28/24 08:06 Pulse Ox 97 02/28/24 08:06 Oxygen Delivery Method Room Air 02/28/24 08:06 BMI result Body Mass Index 39.5 Physical Examination Patient well appearing and in no apparent painful distress Able to rise from chair without support. ?Gait normal. Constitutional Mucous membranes pink and moist patient alert and cooperative HEENT Conjunctiva and sclera clear. ?Pupils equal round and reactive to light. ?No lymphadenopathy. ?Normal dentition. Respiratory System Normal respiratory effort and able to speak in complete sentences. ?Clear to auscultation bilaterally. ?No crackles, rales, rhonchi, wheezes heard. Cardiac System Regular rate and rhythm. ?S1 and S2 heard no murmurs. ?Radial pulses intact bilaterally MSK No deformity, swelling, abnormalities noted to bilateral hands. ?No evidence of synovitis. ?Able to move all joints with full range of motion, without limitation. Hands:.??Normal pain-free range of motion without tenderness, swelling, incre ased warmth or erythema. Able to make a full fist and has a good rehab nursing tech strength. Wrists: Normal pain-free range of motion without tenderness, swelling, increased warmth or erythema. Elbows: Full range of motion without pain. No tenderness, weakness, swelling, increased warmth or erythema. Shoulders: Full range of motion without pain. No tenderness, weakness, swelling, increased warmth or erythema. Hips: Full range of motion without pain. Hip bursa:.??No tenderness. Knees:.???Normal pain-free range of motion without tenderness, swelling, increased warmth or erythema.? Crepitations noted Ankles:.??Normal pain-free range of motion without tenderness, swelling, increased warmth or erythema. Feet:.??Normal pain-free range of motion without tenderness, swelling, increased warmth or erythema. Tender points:??No tenderness to digital palpation at the occiput, trapezius, second rib, lateral epicondyle, knees, greater trochanter bilaterally, and left gluteal. Results Reviewed Results Reviewed: Laboratory Tests 08/12/23 08/29/23 10:25 10:39 WBC 8.7 RBC 4.78 Hgb 14.6 Hct 41.7 Plt Count 186 Sodium 139 Potassium 4.3 Chloride 106 Carbon Dioxide 26 BUN 13 Creatinine 0.73 AST 19 ALT 25 C-Reactive Protein 0.26 Assessment & Plan Assessment & Plan (1) Psoriatic arthritis: Comment: Methotrexate: 01/09/2017- stopped d/t alopecia Humira: 01/15/2017 - 06/21/2017- no improvement in joint pain Trialed on Simponi per notes, unable to locate script/may have come from dermatology Cosentyx: 06/21/2017- 01/2019 no improvement in joint pain Xeljanz: 07/2019- present Code(s): L40.50 - Arthropathic psoriasis, unspecified Category: Medical Plan: #PsA Patient with psoriatic arthritis on a background of a long history of psoriasis. She is currently on minimal immunosuppression with Plaquenil. She says it takes the edge off enough that she can manage her pain. My concern is that she may develop fibromyalgia given this prolonged dysregulated pain that she has bee n experiencing. However today on exam she does not have any positive fibromyalgia tender points. I discussed this with her and also discussed potentially adding Otezla and gabapentin/pregabalin to her regimen. Information given about these medications and patient states she will think about it. She is reluctant to really add more immunosuppression especially given her history with failed immunosuppression in the past. (2) Psoriasis: Code(s): L40.9 - Psoriasis, unspecified Category: Medical Plan: #Psoriasis Stable on topical medications Plan I spent 30 minutes reviewing the record and labs, seeing the patient, discussing the treatment plan and documenting in the medical record ? For next visit: * Follow-up if she is willing to start gabapentin or Otezla Coding Level of Care Code Est Pt Level 4 (31724) Complex EM visit Add On G2211 Diagnoses Psoriatic arthritis L40.50 Psoriasis L40.9
[2024-02-28 08:06] VITALS: BP 130/74; PULSE 67; O2SAT 97; BMI 39.5
== END 2024-02-28 08:45 | disposition home or self-care (01) ==
PROVIDERS: PCP Preventive Medicine Public Health & General Preventive Medicine; Visit Provider Student in an Organized Health Care Education/Training Program
DX: L40.50 Arthropathic psoriasis, unspecified (principal); L40.9 Psoriasis, unspecified
CPT/HCPCS: 99214

== ENCOUNTER → 2024-02-28 08:02 | Outpatient (BNVA) | payer OTHER, SELFPAY | PROVIDERS: PCP Preventive Medicine Public Health & General Preventive Medicine; Visit Provider Student in an Organized Health Care Education/Training Program ==

== ENCOUNTER 2024-03-30 11:29 | Outpatient (REF) | payer OTHER, SELFPAY ==
[2024-03-30 12:03] LABS: MANUAL DIFF FLAG NO
[2024-03-30 12:52] LABS: Basophils Absolute Auto 0.1 X10*3/uL (0.0-0.2); Basophils Percent Auto 1.4 % (0-2); Eosinophils Absolute Auto 0.3 X10*3/uL (0.0-0.4); Eosinophils Percent Auto 3.6 % (0-4); Hematocrit 40.1 % (37.0-47.0); Hemoglobin 13.5 g/dl (12.0-16.0); Imm Gran Abs Auto 0.04 X10*3/uL (0.00-0.03); Imm Gran Pct Auto 0.5 % (0.0-0.4); Lymphocytes Absolute Auto 1.5 X10*3/uL (1.2-4.9); Lymphocytes Percent Auto 18.4 % (20-40); Mean Corpuscular HGB Conc 33.7 g/dl (31.0-35.0); Mean Corpuscular Hemoglobin 28.7 pg (27.0-33.0); Mean Corpuscular Volume 85.3 fL (80.0-98.0); Mean Platelet Volume 10.1 fL (9.4-12.3); Monocytes Absolute Auto 0.5 X10*3/uL (0.1-1.2); Neutrophils Absolute Auto 5.6 x10*3/uL (2.0-8.3); Neutrophils Percent Auto 70.1 % (45-73); Platelet Count 150 X10*3/uL (160-400)
[2024-03-30 13:02] LABS: Estimated Average Glucose 100 mg/dL; Hemoglobin A1C 112.6869 umol/L; Hemoglobin A1c % 5.1 % (<6.0); Total Hemoglobin (HGBA1C) 3519.2679 umol/L
[2024-03-30 13:34] LABS: Alanine Aminotransferase 23 U/L (0-31); Albumin Level 4.2 g/dL (3.5-5.0); Alkaline Phosphatase 62 U/L (39-117); Anion Gap 10 (12-20); Aspartate Amino Transferase 23 U/L (5-31); Bilirubin Total 0.4 mg/dL (0.0-1.0); Blood Urea Nitrogen 12 mg/dL (9-16); C Reactive Protein 0.41 mg/dL (< or = 0.50); Calcium 9.3 mg/dL (8.4-10.2); Carbon Dioxide 25 mmol/L (22-29); Chloride 106 mmol/L (96-108); Estimated Glomerular Filt Rate > 60; Glucose Random 79 mg/dL (60-115); Potassium 3.8 mmol/L (3.3-5.1); Sodium 137 mmol/L (135-145); Total Protein 6.6 g/dL (6.5-8.0)
[2024-03-30 13:56] LABS: Ferritin 81 ng/mL (10-250); Free T4 (Free Thyroxine) 0.96 ng/dL (0.71-1.85); Thyroid Stimulating Hormone 2.36 uIU/mL (0.32-4.0); Vitamin D 25-OH Total 28.9 ng/mL (>30)
[2024-03-30 13:58] LABS: Vitamin B12 574 pg/mL (200-900)
[2024-03-30 14:13] LABS: Insulin 7 uU/mL (2-29)
[2024-03-31 14:24] LABS: DHEA Sulfate 54 mcg/dL (5-167); Follicle Stimulating Hormone 32.9 mIU/mL; Triiodothyronine T3 Free 2.9 pg/mL (2.3-4.2)
[2024-04-01 09:04] LABS: CA-125 8 U/mL (<35)
[2024-04-04 00:09] LABS: Zinc 82 mcg/dL (60-130)
[2024-04-04 17:03] LABS: Vitamin B1 9 nmol/L (8-30)
[2024-04-06 14:08] LABS: Testosterone, Free 1.2 pg/mL (0.1-6.4); Testosterone, Total 20 ng/dL (2-45)
[2024-04-16 23:43] LABS: Estradiol Free 1.18 pg/mL; Estradiol, Ultrasensitive 87 pg/mL
== END 2024-03-30 11:30 | disposition home or self-care (01) ==
LOC: HO.LAB 11:29
PROVIDERS: PCP Preventive Medicine Public Health & General Preventive Medicine; Visit Provider Preventive Medicine Public Health & General Preventive Medicine
DX: E61.1 Iron deficiency (principal); N95.1 Menopausal and female climacteric states; E03.9 Hypothyroidism, unspecified; E88.810 Metabolic syndrome; E16.1 Other hypoglycemia; R79.9 Abnormal finding of blood chemistry, unspecified; E53.8 Deficiency of other specified B group vitamins; E55.9 Vitamin D deficiency, unspecified; E61.2 Magnesium deficiency; Z78.9 Other specified health status
CPT/HCPCS: 36415; 80053; 82306; 82607; 82627; 82670; 82681; 82728; 83001; 83036; 83525; 84402; 84403; 84425; 84439; 84443; 84481; 84630; 85025; 86140; 86304

== ENCOUNTER 2024-07-01 07:24 | Outpatient (AMB) | payer OTHER, SELFPAY ==
--- OUTSIDE RECORDS SUMMARY | 2024-07-01 07:26 | XMS_ITS | Patient Health Record ---
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 . . 2-3x/week for 3-4 weeks 03/19/2017 Not-Taking Hydroxychloroquine Sulfate 200 MG as directed Orally 2x a day Active Albuterol Active Estradiol 10 MCG 1 tablet Vaginal Two times a Week for 30 day(s) Active Spironolactone 100 MG 1 tablet Orally Active ASO Ankle/Foot Stablizing AFO As directed Wear Daily for as needed 04/01/2017 Not-Taking Doxycycline Not-Taki ng traMADol HCl Active Gabapentin Not-Takin g Linzess 145 MCG 1 capsule at least 30 minutes before the first meal of the day on an empty stomach Orally Once a day Not-Taking Prednisone Not-Takin g Azelastine-Fluticasone Active Advair Diskus Not-Ta estephania Fluoxetine 20 mg Not-Takin g Methotrexate Not-Mark ing ibuprofen Active Senna Not-Taking Folic Acid Not-Takin g Clobetasol & Clobetasol Emul Not-Taking Work Note . . . Patient is completely disabled from work until 04/01/17 03/19/2017 Not-Taking Work Note . . . Return to work on 04/03/17 for half days to start and can increase hours as tolerated 04/01/2017 Not-Taking Fexofenadine HCl Not -Taking Tetracycline HCl Not -Taking LamISIL 250 MG 1 tablet Orally Once a day for 7 days, STOP for 21 days (pulse dose 1 week per month) repeat each month for 28 Not-Taking Cosentyx Not-Taking Prednisone Not-Taknino g LamISIL AT 1 % 1 application to affected area Externally Twice a day to affected areas on feet for 30 days 12/03/2017 Not-Taking Humira Not-Taking erythromycin ointmentfor eye N ot-Taking Ciclopirox Olamine 0.77 % 1 application to affected area Externally Twice a day to effected areas on feet for 30 days 09/25/2016 Not-Taking Work Note . . . Due to foot pain, patinet to be off of work for at least 5 work days up to 14 days 03/05/2017 Not-Taking Niacin Not-Taking Vitamin E Not-Taking Fish Oil Not-Taking DuoNeb Not-Taking Custom Orthotics as directed 08/29/2016 Not-Taking Tata Not-Taking Proventil Not-Taking Neurontin 300 MG 1 capsule Orally once a day for 30 day(s) 03/05/2017 Not-Taking ASO Ankle/Foot Stablizing AFO As directed Wear Daily for as needed 05/03/2017 Not-Taking Compression Stockings 20-30mm Hg as directed 05/28/2017 Not-Taking Zioptan Not-Taking Erythromycin Not-Mark ing Custom Orthotics as directed A ctive Singulair Not-Taking Biotin Not-Taking Vitamin C Active Vitamin D 1000 UNIT 1 tablet Orally Once a day Active Montelukast Sodium N ot-Taking Zinc Active levoFLOXacin Not-Mark ing Vitamin B Complex 1000 Not-Taking CoQ-10 Active AFO-Hinged as directed Wear Daily for as needed Not-Taking Work Note-Appointment . . . Pt had a scheduled appointment today for . 12/06/2021 Active Timolol Hemihydrate Not-Taking Jublia Not-Taking Amoxicillin Not-Taki ng Loratadine Not-Takin g Social History Tobacco Use: Social History Observation Description Date Details (start date - stop date) Former Smoker NA - NA Tobacco Use/Smoking Question Answer Notes Are you a: former smoker Additional Findings: Tobacco Non-User Ex-cigaret te smoker Alcohol Screen Question Answer Notes Did you have a drink contain ing alcohol in the past year? Yes How often did you have a dri nk containing alcohol in the past year? Monthly or less (1 point) Points 1 Interpretation Negative Tobacco use other than smoking: Question Answer Notes Are you an other tobacco user? 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 (M19.072) Active confirmed Problem 824141285 Neuritis of left sural nerve (G57.82) Active confirmed Problem 267979912 Psoriasis of brendon l (L40.9) Active confirmed Plan Of Treatment Pending Test Test Name Order Date X ray : Ankle, left 3V 12/06/2021 X ray : Ankle, left 3V 02/22/2023 *Uric Acid, Serum 03/12/2017 ESR 03/12/2017 *Liver Function Test (LFT) 12/03/2017 *Liver Function Test (LFT) 05/03/2017 X ray : Foot, left 3V 07/04/2021 X ray : Foot, left 3V 09/11/2021 X ray : Foot, left 3V 12/06/2021 X ray : Foot, left 3V 02/22/2023 X ray : Foot, right 3V 01/18/2015 [id number] TENDON SHEATH/LIGAMENT 0 01/18/2015 X ray : Ankle, right 3V 05/03/2017 LFT 10/16/2016 CRP 03/12/2017 Insurance Providers Payer Name Payer Address Payer Phone Subscriber Number Group Number Insured Name Patient Relationship to Insured Coverage Start Date Coverage End Date [employer] Benefits [address] [address] [place] [address] [id number] Zahida Wagner Self - patient is the insured Medical (General) History Medical History History ICD Code Arthritis asthma Varicose veins Fibromyalgia Psoriasis/eczema Lyme disease Glaucoma Broken bones Neuropathy Sinus conditions Psoriatic arthritis hypermobility CAD (Cholesterol) Depression Headaches/Migraines High blood pressure Numbness Reflux ( GERD) Sciatica chronic sinusitis Chicken pox Behcet's disease Autoimmune disorder Vericose Veins Hives Irritable bowel syndrome Surgical History Surgery Date(Month/Year) hysterectomy 2010
--- OUTSIDE RECORDS SUMMARY | 2024-07-01 07:26 | XMS_ITS | Data Portability ---
[facility] Organization [facility], Main Office Address [address] [place] [address] Care Team Providers Care Electrical Instrumentation Technician Name Role Phone MARTINKEVINJUDI Primary Care Provider [phone] ELIJAH YU Ship Officer PEYTON CHAPMAN Sleep Medicine [facility] ERAPY (JUAN MANUEL JONES) Orthopedic Surgeon CHIP COBIAN Lead Manufacturing Technician HEDY DEL VALLE Lbd Teacher Assessment Encounter Date Assessment Date Assessment LastModified by Organization Details LastModified Time 03/02/2020 03/02/2020 This service was provided using telemedicine. Patient consented to video & audio visit Patient was located at other Provider was located in the office. No other persons participated in the telemedicine visit except for the patient unless otherwise indicated here. Total time of visit was 35 minutes. Not available 03/02/2020 11:52:38 04/04/2020 04/04/2020 This service was provided using telemedicine. Patient consented to video & audio visit Patient was located at at home Provider was located in the office. No other persons participated in the telemedicine visit except for the patient unless otherwise indicated here. Total time of visit was 24 minutes. Not available 04/04/2020 15:17:10 09/12/2020 09/12/2020 This service was provided using telemedicine. Patient consented to video & audio visit Patient was located at other Provider was located in the office. No other persons participated in the telemedicine visit except for the patient unless otherwise indicated here. {{}} Total time of visit was 24 minutes. Not available 09/12/2020 14:33:56 Plan of Treatment Reminders Order Date Submit Date Provider Last Modified By Organization Details Last Modified Time Details Appointments None recorded. Lab lipid panel, serum 2021 022 [email or web address] [facility], [address], [address], [place], [address], 3 11:42:52 CMP, serum or plasma 2021 022 [email or web address] [facility], [address], [address], [place], [address], 3 11:42:53 TSH, serum or plasma 2021 022 [email or web address] [facility], [address], [address], [place], [address], 3 11:42:52 HbA1c (hemoglob in A1c), blood 2021 022 BLANCO [facility], [address], [address], [place], [address], 2 15:26:55 microalbu min, urine 2021 022 BL[facility]CO [facility], [address], [address], [place], [address], 2 16:13:00 CBC w/ auto diff 2021 022 [email or web address] [facility], [address], [address], [place], [address], 3 11:42:53 lipid panel, serum 2020 021 BLANCO [facility], [address], [address], [place], [address], 1 11:56:41 HbA1c (hemoglob in A1c), blood 2020 021 [facility]CO [facility], [address], [address], [place], [address], 1 14:36:27 CMP, serum or plasma 2020 021 [facility], [address], [address], [place], [address], 1 11:56:39 TSH, serum or plasma 2020 021 [facility], [address], [address], [place], [address], 1 12:03:41 HbA1c (hemoglob in A1c), blood 2020 BLANCO [facility], [address], [address], [place], [address], 1 11:41:24 Referral gastroent erologist referral - Constipat ion and uper GI issues . Also, pt. might be due for colonosco py. 2020 021 [facility], [address], [place], [address], 2 09:52:37 hematolog ist/oncol ogist referral - Progressi ve leukocyto sis, psoriatic arhtropat hy on biologics . 2019 020 [email or web address] Rosalina Barillas MD, [address] [place], [address], 0 09:46:53 Procedures None recorded. Surgeries None recorded. Imaging MAMMO, screening , bilateral 2021 022 [email or web address] [facility] ([facility]), [address], [place], [address], 2 08:25:51 bone density - Estrogen deficienc y and chronic use of prednison e. 2020 021 [facility]), [address], [place], [address], 08:34:43 MAMMO, screening , bilateral 2020 021 [facility]), [address], [place], [address], 08:34:24 Medication Orders Ventolin HFA 90 mcg/actua tion aerosol inhaler 2021 022 [id number], [address] [facility], [place], [address], 18:53:23 Patient TargetsNo targets recorded. Patient Instructions Encounter Date Encounter Id Patient Instructions Last Modified By Organization Details Last Modified Time 06/10/2020 [id number] prediabetes: car e instructions Not available 06/10/2020 12:11:53 eating healthy foods: care instructions Not available 06/10/2020 12:11:53 gastroesophageal reflux disease (GERD): care instructions Not available 06/10/2020 11:58:37 anxiety disorder : care instructions Not available 06/10/2020 11:59:22 high blood press ure: care instructions Not available 06/10/2020 12:10:55 dash diet: care instructions Not available 06/10/2020 12:10:55 12/27/2021 [id number] starting a weigh t loss plan: care instructions Not available 12/27/2021 16:01:30 albumin-creatini ne ratio: about this test Not available 12/27/2021 15:58:01 polycystic ovary syndrome: care instructions Not available 12/27/2021 15:27:18 dash diet: care instructions Not available 12/27/2021 16:01:30 Reason for Referral Progressive leukocytosis, ps oriatic arhtropathy on biologics. Referring Physician: Judi Martin, Internal Medicine, Encounter Date: 03/02/2020 Lbd Teacher Referral for Altered bowel function Constipation and uper GI issues . Also, pt. might be due for colonoscopy. Referring Physician: Judi Martin, Internal Medicine, Encounter Date: 06/10/2020 Results Created Date Observation Date Name Description Value Unit Range Abnormal Flag Note LastModifiedBy Organization Detail LastModifiedTime 11/18/1911/17/2020 HEMOG LOBIN A1C hemoglobin A1C 5.1 % (4.0-5 .6) MONIT ORING : In known diabe tic patie nts, hemog lobin A1c targe ts shoul d be discu ssed with healt h care provi alcon. DIAGN OSTIC USE: The Ameri can Diabe rosa maria Assoc iatio n (ADA) and the World Healt h Organ izati on (WHO) recom mend the use of HbA1c to diagn ose diabe rosa maria using a thres hold of 6.5%. Patie nts who have an HbA1c betwe en 5.7% and 6.4% are consi dered at incre ased risk for devel oping diabe rosa maria in the futur eTiffani CAUTI ON: False ly low HbA1c resul ts may be obser yuriy in patie nts with hemol ytic anemi a, homoz ygous forms of abnor mal hemog lobin (e.g. SS, CC, SC), pregn chiqui, recen t blood loss or hemog lobin F great er than 7%. Fruct osami ne may be used as an alter emily test in these cases . REFER ENCE: ADA: Stand ards of Medic al Care in Diabe rosa maria 2019, The Journ al of Clini karen and Appli ed Resea rc and Educa tion Volum e 43, Suppl ement 1 Not Available [facility] (Centralized Electronic Ordering - All Locations) Patient Can Go To The Location Of Their Choice, 11/17/2020 11:41:24 11/18/1911/17/2020 COMPR EHENS ADONAY METAB OLIC PANL glucose 90 mg/dL (70-99 ) Not Available [facility] (Centralized Electronic Ordering - All Locations) Patient Can Go To The Location Of Their Choice, 11/17/2020 11:56:39 11/18/1911/17/2020 COMPR EHENS ADONAY METAB OLIC PANL BUN 14 mg/dL (6-20) Not Available [facility] (Centralized Electronic Ordering - All Locations) Patient Can Go To The Location Of Their Choice, 11/17/2020 11:56:39 11/18/1911/17/2020 COMPR EHENS ADONAY METAB OLIC PANL creatinine 0.7 mg/dL (0.5-1 .0) Not Available [facility] (Centralized Electronic Ordering - All Locations) Patient Can Go To The Location Of Their Choice, 11/17/2020 11:56:39 11/18/1911/17/2020 COMPR EHENS ADONAY METAB OLIC PANL sodium 138 mmol/ L (133-1 45) Not Available [facility] (Centralized Electronic Ordering - All Locations) Patient Can Go To The Location Of Their Choice, 11/17/2020 11:56:39 11/18/1911/17/2020 COMPR EHENS ADONAY METAB OLIC PANL potassium 4.7 mmol/ L (3.6-5 .2) Not Available [facility] (Centralized Electronic Ordering - All Locations) Patient Can Go To The Location Of Their Choice, 11/17/2020 11:56:39 11/18/1911/17/2020 COMPR EHENS ADONAY METAB OLIC PANL chloride 103 mmol/ L (98-10 7) Not Available [facility] (Centralized Electronic Ordering - All Locations) Patient Can Go To The Location Of Their Choice, 11/17/2020 11:56:39 11/18/1911/17/2020 COMPR EHENS ADONAY METAB OLIC PANL bicarbonate 26 mmol/ L (22-29 ) Not Available [facility] (Centralized Electronic Ordering - All Locations) Patient Can Go To The Location Of Their Choice, 11/17/2020 11:56:39 11/18/1911/17/2020 COMPR EHENS ADONAY METAB OLIC PANL anion gap 9 (4-17) Not Available [facility] (Centralized Electronic Ordering - All Locations) Patient Can Go To The Location Of Their Choice, 11/17/2020 11:56:39 11/18/1911/17/2020 COMPR EHENS ADONAY METAB OLIC PANL albumin 4.9 gm/dL (3.4-4 .8) high Not Available [facility] (Centralized Electronic Ordering - All Locations) Patient Can Go To The Location Of Their Choice, 11/17/2020 11:56:39 11/18/1911/17/2020 COMPR EHENS ADONAY METAB OLIC PANL calcium 9.8 mg/dL (8.6-1 0.5) Not Available [facility] (Centralized Electronic Ordering - All Locations) Patient Can Go To The Location Of Their Choice, 11/17/2020 11:56:39 11/18/1911/17/2020 COMPR EHENS ADONAY METAB OLIC PANL bilirubin,to smooth 0.3 mg/dL (0-1.2 ) Not Available [facility] (Centralized Electronic Ordering - All Locations) Patient Can Go To The Location Of Their Choice, 11/17/2020 11:56:39 11/18/1911/17/2020 COMPR EHENS ADONAY METAB OLIC PANL total protein 7.0 gm/dL (6.2-8 .2) Not Available [facility] (Centralized Electronic Ordering - All Locations) Patient Can Go To The Location Of Their Choice, 11/17/2020 11:56:39 11/18/1911/17/2020 COMPR EHENS ADONAY METAB OLIC PANL Ag ratio 2.3 Not Available [facility] (Centralized Electronic Ordering - All Locations) Patient Can Go To The Location Of Their Choice, 11/17/2020 11:56:39 11/18/1911/17/2020 COMPR EHENS ADONAY METAB OLIC PANL AST 20 U/L (0-32) Not Available [facility] (Centralized Electronic Ordering - All Locations) Patient Can Go To The Location Of Their Choice, 11/17/2020 11:56:39 11/18/1911/17/2020 COMPR EHENS ADONAY METAB OLIC PANL alk phos 59 U/L (35-10 4) Not Available [facility] (Centralized Electronic Ordering - All Locations) Patient Can Go To The Location Of Their Choice, 11/17/2020 11:56:39 11/18/1911/17/2020 COMPR EHENS ADONAY METAB OLIC PANL ALT 27 U/L (0-33) Not Available [facility] (Centralized Electronic Ordering - All Locations) Patient Can Go To The Location Of Their Choice, 11/17/2020 11:56:39 11/18/1911/17/2020 COMPR EHENS ADONAY METAB OLIC PANL est GFR non 99 mL/mi n/1.7 3_M2 Creat inine based estim ated glome rular filtr ation rate (eGFR ) is calcu lated using the Chron ic Kidne y Disea se Epide miolo gy Colla borat ion (CKD- EPI). The CKD-E PI creat inine equat ion has not been valid ated in child martha (<18 years ), pregn ant women or in some racia l or ethni c subgr oups other than Cauca sians and Afric an Ameri cans. Not Available [facility] (Centralized Electronic Ordering - All Locations) Patient Can Go To The Location Of Their Choice, 11/17/2020 11:56:39 11/18/1911/17/2020 COMPR EHENS ADONAY METAB OLIC PANL est GFR 115 mL/mi n/1.7 3_M2 Creat inine based estim ated glome rular filtr ation rate (eGFR ) is calcu lated using the Chron ic Kidne y Disea se Epide miolo gy Colla borat ion (CKD- EPI). The CKD-E PI creat inine equat ion has not been valid ated in child martha (<18 years ), pregn ant women or in some racia l or ethni c subgr oups other than Cauca sians and Afric an Ameri cans. Not Available [facility] (Centralized Electronic Ordering - All Locations) Patient Can Go To The Location Of Their Choice, 11/17/2020 11:56:39 11/18/1911/17/2020 LIPID PANEL cholesterol, total 229 mg/dL (<200) high Not Available [facility] (Centralized Electronic Ordering - All Locations) Patient Can Go To The Location Of Their Choice, 11/17/2020 11:56:41 11/18/1911/17/2020 LIPID PANEL triglyceride 242 mg/dL (<150) high Not Available [facility] (Centralized Electronic Ordering - All Locations) Patient Can Go To The Location Of Their Choice, 11/17/2020 11:56:41 11/18/1911/17/2020 LIPID PANEL HDL chol 45 mg/dL (>39) Not Available [facility] (Centralized Electronic Ordering - All Locations) Patient Can Go To The Location Of Their Choice, 11/17/2020 11:56:41 11/18/1911/17/2020 LIPID PANEL LDL cholesterol, calculated 136 mg/dL (0-130 ) high Not Available [facility] (Centralized Electronic Ordering - All Locations) Patient Can Go To The Location Of Their Choice, 11/17/2020 11:56:41 11/18/1911/17/2020 LIPID PANEL non HDL cholesterol (calc) 184 mg/dL (<160) high Not Available [facility] (Centralized Electronic Ordering - All Locations) Patient Can Go To The Location Of Their Choice, 11/17/2020 11:56:41 11/18/1911/17/2020 TSH TSH 2.17 uIU/m L (0.4-4 .2) Not Available [facility] (Centralized Electronic Ordering - All Locations) Patient Can Go To The Location Of Their Choice, 11/17/2020 12:03:41 11/18/1911/18/2020 COVID -19 ANTIB ANKIT, IGG, SPIKE covid-19, IgG NEGATI VE Refer ence range : NEGAT ADONAY (NOTE ) This sampl e does not conta in detec table SARS- CoV-2 IgG antib odies . This negat adonay resul t does not rule out SARS- CoV-2 infec tion. Corre latio n with epide miolo gic risk facto rs and other clini karen and labor atory findi ngs is recom marylou d. Serol ogic resul ts shoul d not be used as the sole basis to diagn ose or exclu de recen t SARS- CoV-2 infec tion. This assay was perfo rmed using the DiaSo rin Liais on(R) SARS- CoV-2 S1/S2 IgG assay . This test has not been FDA clear ed or appro yuriy. This test has been autho rized by FDA under an Emerg ency Use Autho rizat ion (EUA) . This test is only autho rized for the durat ion of the decla ratio n that circu mstan silvia exist justi fying the autho rizat ion of emerg ency use of in vitro diagn ostic s for detec tion and/o r diagn osis of COVID -19 under Secti on 564(b )(1) of the Act, 21 U.S.C . 360bb b-3(b )(1), unles s the autho rizat ion is termi nated or revok ed soone r. This test has been autho rized only for detec ting the prese nce of antib odies again st SARS- CoV-2 , not for any other virus es or patho gens. This assay detec ts antib odies again st SARS- CoV-2 spike prote in inclu ding the nurse receptionist tor sheldon jose n (RBD) . Test perfo rmed by [facility], [address], [facility] [place] [address] Not Available [facility] (Centralized Electronic Ordering - All Locations) Patient Can Go To The Location Of Their Choice, [id number] 11/18/2020 07:07:11 02/29/20 20 02/29/2020 endov enous ablat ion thera py, laser (PROC ) No observ ation record ed. Ariella Granado MD [address], [place], [address], 03/01/2020 18:50:20 03/03/20 20 02/18/2020 MRI, lumba r spine , w/o contr ast No observ ation record ed. [email or web address] Not Available 2019 12:53:31 05/27/19 21 05/27/2020 XR, abdom en + pelvi s No observ ation record ed. [email or web address] [facility] [address], [place], [address], 05/30/2020 09:19:14 05/30/19 21 05/27/2020 XR, angio gram, pelvi c No observ ation record ed. [email or web address] [facility] Orders [address], [place], [address], 05/30/2020 11:27:46 07/13/1907/12/2020 DEXA, axial skele ton ====== ====== ====== ====== ====== ====== ====== ====== ====== ====== ===== Bone Densit y Report ====== ====== ====== ====== ====== ====== ====== ====== ====== ====== ===== Name: SUSAN MORAN t ID: [id number] Age: 49 Sex: Female Ethnic ity: White Date of : 1970 ------ ------ ------ ------ ------ ------ ------ ------ ------ ------ ----- Indica tion: ZACARIAS CASTRO Referr sofi Marie er: MAY MARTIN Study: Bone densit ometry was [facility]. Exam Date: July 12, 2020 Access ion number : [id number] Bone Densit y: ------ ------ ------ ------ ------ ------ ------ ------ ------ ------ ----- Region BMD T-scor e Z-scor e Classi ficati on ------ ------ ------ ------ ------ ------ ------ ------ ------ ------ ----- AP Spine (L1-L4 ) 1.155 1.0 1.7 Normal Femora l Neck (Left) 0.985 1.2 2.0 Normal Total Hip (Left) 1.301 2.9 3.4 Normal ------ ------ ------ ------ ------ ------ ------ ------ ------ ------ ----- World [facility] Organi zation criter ia for BMD impres agustín classi gunner campbell ts as: Normal (T-sco re at or above -1.0), Osteop enia (T-sco re betwee n -1.0 and -2.5), or Osteop orosis (T-sco re at or below -2.5). 10-subha kowalski Fractu re Risk: ------ ------ ------ ------ ------ ------ ------ ------ ------ ------ ----- FRAX not report ed rocco bolden: All T-scor es for Spine Total, Hip Total, Femora l Neck at or above -1.0 ------ ------ ------ ------ ------ ------ ------ ------ ------ ------ ----- Clinic al Inform ation Cynthia ed by Hunter jimenez: ------ ------ ------ ------ ------ ------ ------ ------ ------ ------ ----- Has used the follow ing medica tions: HRT (i.e. estrog en/hor solange therap y), Cynthia San Has the follow ing medica l condit ions: Inflam matory bowel diseas es, Hyster ectomy Hunter omalley m height was 68.0 Menopa use Age: 40 Onset of menses at age 12 Number of childr en 0 ------ ------ ------ ------ ------ ------ ------ ------ ------ ------ ----- Impres agustín: The hunter jimenez has normal bone densit y as determ ined by WHO criter ia. A repeat bone densit y assess ment should be consid ered in two years. Report ed by: Matt allred MD on 2020 3:28:0 0 PM. Dictat ed By: Matt Duff MD Dictat ed Date/T rhina: 3:29 pm Review ed By: Matt Duff MD Signed By: Matt Duff MD Signed Date/T rhina: 3:29 pm Transc ribed By: CHULA Transc ribed Date/T rhina: 3:29 pm Hunter jimenez Class: Outpat ient [facility] (Outpt Imaging) [address], [place], [address], 07/13/2020 10:40:58 07/13/19 21 07/12/2020 bone densi ty No observ ation record ed. [facility] Orders [address], [place], [address], 07/13/2020 10:40:58 07/14/19 21 07/12/2020 MAMMO , scree juliocesar, digit al, bilat eral PROCED URE: MM Digita l Mammo Screen ing INDICA TION: Screen ing for breast cancer . No known palpab le abnorm alitie s. COMPAR SARA: BBWC and CAITLIN dating back to 016. TECHNI QUE: Full-f ield digita l CC and MLO 3D tomosy nthesi s images of both breast s were acquir ed. Comput er-aid ed detect ion (CAD) was utiliz ed in the interp retati on of this study. DENSIT Y: The breast tissue contai ns scatte red areas of fibrog landul ar densit y. FINDIN GS: No suspic ious masses , suspic ious microc alcifi cation s, or areas of thalia ectura l distor tion are seen in either breast to sugges t malign chiqui. Stable tiny benign -appea ring focal asymme try inferi or left breast . IMPRES AGUSTÍN: No mammog raphic eviden ce of malign chiqui. RECOMM ENDATI ON: Annual mammog raphic screen ing BI-RAD S: 2 (Benig n) Lay letter mailed to hunter jimenez WSN: [id number] Orderi ng Physic alex: May Martin Dictat ed By: Sadaf Chang MD, I Dictat ed Date/T rhina: 10:10 am Review ed By: Sadaf Chang MD, I Signed By: Sadaf Chang MD, I Signed Date/T rhina: 10:10 am Transc ribed By: CSB Transc riptio n Date/T rhina: 10:01 am Birads : Hunter jimenez Class: Outpat ient [email or web address] [facility] (Outpt Imaging) [address], [place], [address], 07/13/2020 15:59:32 07/14/19 21 07/12/2020 MAMMO , scree juliocesar, bilat eral No observ ation record ed. [email or web address] [facility] Orders [address], [place], [address], 07/13/2020 15:59:32 12/30/19 22 11/17/2021 trans -thor acic echoc ardio gram (TTE) (PROC ) No observ ation record ed. [facility] [address], [place], [address], 12/29/2021 14:58:26 Result Notes None recorded. Problems Name Problem SNOMED Code Status Onset Date Resolution Date Notes Provider Name and Address Organization Details Recorded Time Mixed hyperlip idemia 414575753 Active 2017 Judi Martin [employer] [address], [place], [address], [facility] 8 15:40:00 Leukocyt osis 695166754 Completed 201707/17/2017 Judi [employer] [address], [place], [address], [facility] 1 14:19:49 Asthma 840610849 Completed 201706/17/2017 Judi DaltonFrolikC [address], [place], [address], [facility] 8 16:13:58 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 Judi Martin [employer] [address], [place], [address], [facility] 8 15:41:06 Major depressi ve disorder 731273147 Completed 201706/17/2017 Judi Martin [employer] [address], [place], [address], [facility] 8 15:45:52 Generali zed anxiety disorder 05135456 Active 2017 Judi Martin [employer] [address], [place], [address], [facility] 8 15:42:16 Insomnia 346260594 Completed 201706/10/2020 Judi Martin [employer] [address], [place], [address], [facility] 1 12:10:13 Psoriasi s 0558753 Completed 201711/02/2019 Judi Martin PA-C [address], [place], [address], [facility] 0 11:06:51 Lyme disease 04341375 Active 2017 pos IgG +4 bands in 2011 and pos IgG and IgM in 2015. Judi Martin PA-C [address], [place], [address], [facility] 8 15:43:26 Glaucoma 41999246 Completed 201706/10/2020 Judi Martin PA-C [address], [place], [address], [facility] 1 12:10:31 Constipa tion 85638656 Active 2017 Judi Martin PA-C [address], [place], [address], [facility] 8 15:43:47 Primary dysthymi a 50349228 Active 2017 Judi Martin PA-C [address], [place], [address], [facility] 8 15:46:00 Nicotine dependen ce 07534927 Active 2017 Judi Martin PA-C [address], [place], [address], [facility] 8 15:46:26 Psoriati c arthriti s 207803660 Completed 201711/02/2019 Judi Martin PA-C [address], [place], [address], [facility] 0 11:06:59 Ocular rosacea 382666464 Active 2017 Judi Martin PA-C [address], [place], [address], [facility] 8 15:57:35 Mild intermit tent asthma 910001109 Completed 201712/08/2018 Judi Martin PA-C [address], [place], [address], [facility] 9 16:17:26 Benign essentia l hyperten agustín 7251427 Active 2017 [facility] 8 09:35:30 Thromboc ytopenic disorder 855078655 Active 2017 seen and evaluated by hem/onc. Need to do yearly CBC . Judi Martin PA-C [address], [place], [address], [facility] 0 11:07:53 Ventricu lar prematur e beats 30767219 Active 2017 Tao iraheta, [facility] 8 09:57:26 Environm ental allergy 786697694 Active 2017 Judi Martin PA-C [address], [place], [address], [facility] 8 11:21:54 Obstruct adonay sleep apnea syndrome 00053485 Active 2017 not using CPAP Judi Martin PA-C [address], [place], [address], [facility] 2 16:06:30 Psoriasi s with arthropa thy Active 2018 Judi Martin PA-C [address], [place], [address], [facility] 9 14:53:43 Leukocyt osis 516908557 Completed 201812/08/2018 Judi Martin PA-C [address], [place], [address], [facility] 1 14:19:49 Exacerba tion of intermit tent asthma 889344837 Completed 201808/07/2019 Judi Martin PA-C [address], [place], [address], [facility] 0 16:46:29 Allergic asthma 065536440 Active 2018 Judi Martin PA-C [address], [place], [address], [facility] 9 16:20:36 Venous stasis 92379811 Active 2018 Judi Martin PA-C [address], [place], [address], [facility] 9 16:35:54 Deviated nasal septum 505181861 Active 2018 Judi Martin PA-C [address], [place], [address], [facility] 9 16:47:06 Morbid obesity 971784324 Active 2018 [facility] 9 14:24:20 Prediabe rosa maria [id number] Active 2019 Judi Martin PA-C [address], [place], [address], [facility] 0 15:21:17 Leukocyt osis 566466701 Active 2020 reactive secondary to psoriatic arthropfa thy, asthma flairs, prednison e, cellujlit is. Seen by hem/onc. Discharge d. Judi Martin PA-C [address], [place], [address], [facility] 1 14:19:49 Irritabl e bowel syndrome 06901670 Active 2020 Judi Martin PA-C [address], [place], [address], [facility] 1 11:58:57 Pruritic disorder 702081888 Active [facility] [address], [place], [address], [facility] 1 12:01:06 Chronic pain syndrome 219960441 Active 2021 see rheumatol ogy notes from October of 2021 [facility] [address], [place], [address], [facility] 2 15:14:07 Subclini karen hypothyr oidism 76159060 Active 2021 [facility] [address], [place], [address], [facility] 2 15:17:16 Problem Notes None recorded. Procedures Surgical History Date Name Laterality Status Provider Name and Address Organization Details Recorded Time 07/13/19 21 Most Recent Mammogram completed [facility] 07/13/2020 15:58:44 08/05/19 19 Mammogram both breasts completed [facility] 08/04/2018 16:21:51 05/28/19 19 injection of knee joint completed [facility] 06/30/2018 16:22:25 02/05/20 18 injection completed [facility] 08/29/2018 11:57:59 06/22/19 17 Date of Last Colonoscopy completed [facility] 12/27/2021 15:06:00 06/18/19 17 Egd diagnostic brush wash completed [facility] 06/29/2020 09:53:31 06/18/19 17 Colonoscopy completed [facility] 06/29/2020 09:54:50 Hysterectomy completed [facility] 06/17/2017 15:42:16 Imaging Results Imaging Date Name Status LastModified by Organization Details LastModified Time 02/29/2020 endovenous ablation therapy, laser (PROC) completed [email or web address] Ariella Granado MD [address], [place], [address], 03/01/2020 18:50:20 02/18/2020 MRI, lumbar spine, w/o contrast completed stephanie Information not available 03/17/2020 12:53:31 05/27/2020 XR, abdomen + pelvis completed stephanie [facility] [address], [place], [address], 05/30/2020 09:19:14 05/27/2020 XR, angiogram, pelvic completed stephanie [facility] Orders [address], [place], [address], 05/30/2020 11:27:46 07/12/2020 DEXA, axial skeleton completed [facility] [address] [place], [address], 07/13/2020 10:40:58 07/12/2020 bone density completed [facility] Orders [address], [place], [address], 07/13/2020 10:40:58 07/12/2020 MAMMO, screening, digital, bilateral completed [email or web address] ([facility]) [address] [place], [address], 07/13/2020 15:59:32 07/12/2020 MAMMO, screening, bilateral completed [email or web address] [facility] Orders [address], [place], [address], 07/13/2020 15:59:32 11/17/2021 trans-thoracic echocardiogram (TTE) (PROC) completed [facility] [address], [place], [address], 12/29/2021 14:58:26 Procedure Notes None recorded. Medical Equipment None Reported. Allergies Allergen ID Allergen Name Allergen Category Reaction Reaction Severity Criticality Documentation Date Start Date Code Code System Note Provider Name and Address Organization Details Recorded Time 54833 latex environme nt,medica tion rash severe Not available 06/17/2017 98027 91 RxNorm Bridget[facility] 8 15:41:43 49165 Substance with sulfonami de structure and antibacte rial mechanism of action (substanc e) medicatio n dizziness Not available Not available 06/17/2017 04580 8003 SNOMED [facility]t [facility] 8 15:41:43 45497 Plaquenil medicatio n hallucina tions severe Not available 12/03/201770339 2 RxNorm KALANI [facility] 1 11:04:06 48688 Celebrex medicatio n Not available Not available Not available 12/10/2018 96633 7 RxNorm conta ins sulfa Judi Yunier SANTAMARIA [address] [facility] [address], [place], [address], [facility] 9 10:40:07 Medications Name Sig Start Date Stop Date Status Note LastModified by Organization Details LastModified Time vitamin d3 5000 unit tabs 07/07 completed Not Available Not Available Not Available natural vitamin d-3 5000 unit tabs 07/07 completed Not Available Not Available Not Available celecoxib 200 mg capsule Take 1 capsule every day by oral route for 30 days. 12/10 completed Not Available Not Available Not Available fluoxetine 40 mg capsule Take 1 capsule every day by oral route as directed. 05/30 completed no dx in chart Not Available Not Available Not Available cyclobenza juhi 10 mg tablet TAKE 1 TABLET BY MOUTH EVERY DAY FOR 10 DAYS 12/29 completed Not Available Not Available Not Available amoxicilli n 500 mg capsule TAKE 1 CAPSULE BY MOUTH THREE TIMES A DAY UNTIL GONE 12/27 completed Not Available Not Available Not Available atorvastat in 40 mg tablet Take 1 tablet every day by oral route for 90 days. 12/29 completed Not Available Not Available Not Available clotrimazo le 10 mg bertrand 03/02 completed Not Available Not Available Not Available prednisone 10 mg tablet Take 4 tablets every day by oral route with meals for 10 days. 12/29 completed Not Available Not Available Not Available doxycyclin e hyclate 100 mg capsule TAKE 1 CAPSULE BY MOUTH EVERY DAY 09/12 completed Not Available Not Available Not Available ipratropiu m 0.5 mg-albuter ol 3 mg (2.5 mg base)/3 mL nebulizati on soln INHALE 3 ML 4 TIMES A DAY BY NEBULIZAT ION ROUTE 06/10 completed Not Available Not Available Not Available ibuprofen 800 mg tablet TAKE 1 TABLET BY MOUTH TWICE A DAY NEEDED FOR PAIN active Not Available Not Available No t Available tizanidine 4 mg tablet TAKE 1 TABLET BY MOUTH AT BEDTIME NEEDED FOR MUSCLE SPASTICIT Y. 06/10 completed Not Available Not Available Not Available fluconazol e 150 mg tablet Take 1 tablet by oral route for 2 days. 05/30 completed Not Available Not Available Not Available tretinoin 0.025 % topical cream 03/02 completed Not Available Not Available Not Available Claritin 10 mg tablet Take 1 tablet every day by oral route. active Not Available Not Available No t Available spironolac tone 100 mg tablet Take 1 tablet twice a day by oral route. active Not Available Not Available No t Available doxycyclin e hyclate 50 mg capsule 12/19 completed Not Available Not Available Not Available prednisone 5 mg tablet PLEASE SEE ATTACHED FOR DETAILED DIRECTION S 12/27 completed Not Available Not Available Not Available Zyrtec 10 mg tablet Take 1 tablet every day by oral route. active Not Available Not Available No t Available fexofenadi ne 180 mg tablet Take 1 tablet every day by oral route. 05/30 completed Not Available Not Available Not Available tramadol 50 mg tablet TAKE 1 TABLET BY MOUTH TWICE A DAY active Not Available Not Available No t Available lidocaine- prilocaine 2.5 %-2.5 % topical cream APPLY TO AFFECTED LEG 2 HRS BEFORE THE PROCEDURE . APPLY THICK LAYER & LOOSELY COVER W/ PLASTIC WRAP. 06/10 completed Not Available Not Available Not Available tetracycli ne 250 mg capsule 12/19 completed Not Available Not Available Not Available terbinafin e HCl 250 mg tablet Take 1 tablet every day by oral route. 02/07 completed Not Available Not Available Not Available famotidine 20 mg tablet 03/02 completed Not Available Not Available Not Available baclofen 10 mg tablet Take 1 tablet twice a day by oral route with meals for 30 days. 06/10 completed prn Not Available Not Available Not Available doxycyclin e monohydrat e 100 mg capsule TAKE 1 CAPSULE BY MOUTH TWICE A DAY FOR 7 DAYS, STAY OUT OF THE SUN WHILE TAKING THIS 03/02 completed Not Available Not Available Not Available cephalexin 500 mg capsule PLEASE SEE ATTACHED FOR DETAILED DIRECTION S 06/10 completed Not Available Not Available Not Available erythromyc in 5 mg/gram (0.5 %) eye ointment 12/19 completed Not Available Not Available Not Available triamcinol one acetonide 0.1 % topical ointment 03/02 completed Not Available Not Available Not Available calcipotri lacey 0.005 % topical cream 04/04 completed Not Available Not Available Not Available ranitidine 150 mg tablet 04/04 completed Not Available Not Available Not Available lisinopril 10 mg tablet TAKE 1 TABLET BY MOUTH EVERY DAY 12/27 completed Not Available Not Available Not Available polymyxin B sulfate 10,000 unit-trime thoprim 1 mg/mL eye drops Instill 1 drop 6 times a day by ophthalmi c route as directed for 7 days. 05/30 completed Not Available Not Available Not Available dapsone 25 mg tablet TAKE 1 TABLET BY MOUTH EVERY DAY 12/27 completed Not Available Not Available Not Available mupirocin calcium 2 % topical cream 03/02 completed Not Available Not Available Not Available gabapentin 300 mg capsule 12/19 completed Not Available Not Available Not Available omeprazole 20 mg capsule,de layed release TAKE 1 CAPSULE BY MOUTH EVERY DAY 12/27 completed Not Available Not Available Not Available folic acid 1 mg tablet Take 1 mg twice a day by oral route for 30 days. 03/02 completed Not Available Not Available Not Available montelukas t 10 mg tablet TAKE 1 TABLET BY MOUTH EVERY DAY 12/27 completed Not Available Not Available Not Available hydroxyzin e HCl 25 mg tablet TAKE ONE TABLET BY MOUTH ONCE DAILY AT BEDTIME 12/27 completed Not Available Not Available Not Available codeine 10 mg-guaifen esin 100 mg/5 mL oral liquid Take 10 mL every 4 hours by oral route for 5 days. 07/30 completed Not Available Not Available Not Available estradiol 0.5 mg tablet TAKE 1 TABLET BY MOUTH EVERY DAY active Not Available Not Available No t Available clobetasol 0.05 % topical ointment APPLY TO AFFECTED AREAS ON HANDS & FEET TWICE DAILY FOR UP TO 2 WKS, BREAK 1 WK NEEDED FOR FLARES 12/27 completed Not Available Not Available Not Available azelastine 137 mcg (0.1 %) nasal spray [place] 137 microgram s as needed by nasal route for 90 days. 06/10 completed Not Available Not Available Not Available estradiol 0.01% (0.1 mg/gram) vaginal cream INSERT 0.1 G EVERY DAY BY VAGINAL ROUTE FOR 30 DAYS. 12/29 completed Not Available Not Available Not Available albuterol sulfate HFA 90 mcg/actuat ion aerosol inhaler TAKE 2 PUFFS BY MOUTH EVERY 4 HOURS NEEDED active Not Available Not Available No t Available betamethas one dipropiona te 0.05 % topical ointment 03/02 completed Not Available Not Available Not Available fluoxetine 20 mg capsule TAKE 2 CAPSULES BY MOUTH EVERY DAY 12/27 completed Not Available Not Available Not Available doxycyclin e hyclate 100 mg tablet TAKE 1 TABLET BY MOUTH EVERY DAY FOR 14 DAYS 12/27 completed Not Available Not Available Not Available amoxicilli n 875 mg-potassi um clavulanat e 125 mg tablet TAKE 1 TABLET BY MOUTH TWICE A DAY 12/29 completed Not Available Not Available Not Available tobramycin 0.3 %-dexameth asone 0.1 % eye drops,susp ension INSTILL 1 DROP INTO LEFT EYE THREE TIMES A DAY FOR 1 WEEK 03/02 completed Not Available Not Available Not Available calcipotri lacey 0.005 % topical ointment 04/04 completed Not Available Not Available Not Available clindamyci n 1 % lotion 03/02 completed Not Available Not Available Not Available Humira 40 mg/0.8 mL subcutaneo us syringe kit Inject 0.8 mL every 2 weeks by subcutane ous route. 07/17 completed Not Available Not Available Not Available erythromyc in 12/19 completed Not Available Not Available Not Available azelastine 12/19 completed Not Available Not Available Not Available timolol 12/03 completed Not Available Not Available Not Available Symbicort 160 mcg-4.5 mcg/actuat ion HFA aerosol inhaler Inhale 1 puff as needed by inhalatio n route for 90 days. 12/27 completed Not Available Not Available Not Available Simponi 50 mg/0.5 mL subcutaneo us syringe 12/19 completed Not Available Not Available Not Available Panoxyl 10 % topical cleanser USE DAILY BODY WASH 03/02 completed Not Available Not Available Not Available azelastine 205.5 mcg (0.15 %) nasal spray INSTILL 1 TO 2 SPRAYS INTO EACH NOSTRIL TWICE A DAY NEEDED active Not Available Not Available No t Available Tata Allergy 1 po qd active Not Available Not Available Not Available Chantix Starting Month Box 0.5 mg (11)-1 mg (42) tablets in dose pack Take 1 startr pk every day by oral route. 12/29 completed Not Available Not Available Not Available Zioptan (PF) 0.0015 % eye drops in a dropperett e INSTILL 1 DROP INTO AFFECTED EYE(S) BY OPHTHALMI C ROUTE ONCE DAILY 12/03 completed Not Available Not Available Not Available tobramycin 12/03 completed Not Available Not Available Not Available Linzess 145 mcg capsule TAKE 1 CAPSULE BY MOUTH EVERY DAY active prn Not Available Not Available No t Available Cosentyx 150 mg/mL subcutaneo us syringe Inject 1 mg every month by sub-q route for 28 days. 11/01 completed Not Available Not Available Not Available Cosentyx take as directed 12/19 completed Not Available Not Available Not Available ProAir RespiClick 90 mcg/actuat ion breath activated Inhale 2 puffs every 4 hours by inhalatio n route as needed for 30 days. 03/02 completed Not Available Not Available Not Available Xeljanz XR 11 mg tablet,ext ended release Take 1 tablet every day by oral route for 30 days. 12/27 completed Not Available Not Available Not Available Linzess 72 mcg capsule 1 CAPSULE BY MOUTH DAILY,DO NOT CRUSH OR CHEW 08/24 /2022 completed Not Available Not Available Not Available Adult Multivitam in Extra VitD3 05/30 completed Not Available Not Available Not Available Wixela Inhub 250 mcg-50 mcg/dose powder for inhalation INHALE 1 PUFF BY MOUTH TWICE A DAY 03/02 completed Not Available Not Available Not Available Wixela Inhub 500 mcg-50 mcg/dose powder for inhalation TAKE 1 PUFF BY MOUTH TWICE A DAY 10/23 completed Not Available Not Available Not Available Vitals Date Recorded Body height Provider Name an d Address Organization Details Last Updated DateTime 03/02/2020 172.72 cm Demetria [facility] 03/02/2020 10:53:27 Date Recorded Body height Provider Name an d Address Organization Details Last Updated DateTime 04/04/2020 172.72 cm Dayan Thakur [facility] 04/04/2020 14:36:36 Date Recorded Body height Body mass index (BMI) Body weight Heart rate Oxygen saturation Oxygen saturation in Arterial blood by Pulse oximetry Body temperature Systolic blood pressure Diastolic blood pressure Provider Name and Address Organization Details Last Updated DateTime 1 172.72 cm 41.1 kg/m2 831624. 94 g 87 /min 97 % 97 % 97.34 [degF] 121 mm[Hg] 83 mm[Hg] Dayan Thakur [facility] 1 11:19:09 Date Recorded Body height Provider Name an d Address Organization Details Last Updated DateTime 09/12/2020 172.72 cm Bri Centeno [facility] 09/12/2020 13:54:32 Date Recorded Body height Body mass index (BMI) Body weight Oxygen saturation Oxygen saturation in Arterial blood by Pulse oximetry Heart rate Body temperature Systolic blood pressure Diastolic blood pressure Provider Name and Address Organization Details Last Updated DateTime 2 172.72 cm 41.2 kg/m2 103784. 53 g 98 % 98 % 73 /min 97.88 [degF] 125 mm[Hg] 75 mm[Hg] Debra Calvert [facility] 2 14:58:21 Social History Question Answer Notes LastModified by Organizat ion Details LastModified Time Tobacco Smoking Status Former Smoker Liza Bragg [facility] 12/30/2019 10:19:51 Do You Have An Advance Directive? No [email or web address] Information not available 12/27/2021 What Is Your Level Of Alcohol Consumption? None Information not available 06/17/2017 Is Blood Transfusion Acceptable In An Emergency? No [email or web address] Information not available 12/27/2021 What Is Your Level Of Caffeine Consumption? Moderate Information not available 06/17/2017 How Much Tobacco Do You Chew? None Information not available 06/17/2017 Are You Currently Employed? Yes Information not available 06/17/2017 What Type Of Diet Are You Following? SPECIFIC [email or web address] Information not available 12/27/2021 Which Illicit Or Recreational Drugs Have You Used? None Information not available 12/03/2017 Do You Or Have You Ever Used E-cigarettes Or Vape? 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 6-10yearssinc [email or web address] Information not available 03/02/2020 Live Alone Or With Others? With Others Boyfriend [email or web address] Information not available 12/27/2021 Do You Take Precautions To Prevent Distracted Driving? No [email or web address] Information not available 12/27/2021 How Often Do You Need To Have Someone Help You When You Read Instructions, Pamphlets, Or Other Written Material From Your Doctor Or Pharmacy? Sometimes [email or web address] Information not available 12/27/2021 Have You Served In The ? No Information not available 03/02/2020 Have You Or Anyone In Your Household Had Any Of The Following Symptoms In The Last 14 Days: Sore Throat, Cough, Chills, Body Aches For Unknown Reasons, Shortness Of Breath For Unknown Reasons, Loss Of Smell, Loss Of Taste, Fever At Or Greater Than 100 Degrees Fahrenheit? No Information not available 03/02/2020 Are You Or Anyone In Your Household A Health Care Provider Or Emergency Responder? No Information not available 03/02/2020 To The Best Of Your Knowledge Have You Been In Close Proximity To Any Individual Who Tested Positive For COVID-19? No Information not available 03/02/2020 Have You Recently Traveled To A COVID-19 High Risk Area Or Gathering In The Last 10 Days? No Information not available 06/10/2020 What Was The Date Of Your Most Recent Tobacco Screening? 12/27/2021 [email or web address] Information not available 12/27/2021 How Many Children Do You Have? 0 Information not available 12/03/2017 Are You Sexually Active? No [email or web address] Information not available 12/08/2018 At What Age Did You Start Smoking Tobacco? 17 Information not available 12/03/2017 Are You Passively Exposed To Smoke? No [email or web address] Information not available 12/27/2021 Do You Or Have You Ever Used Smokeless Tobacco? Never Used Smokeless Tobacco Information not available 03/02/2020 How Much Tobacco Do You Smoke? No [email or web address] Information not available 12/27/2021 How Many Years Have You Smoked Tobacco? 12 On And Off Information not available 12/03/2017 Do You Or Have You Ever Used Any Other Forms Of Tobacco Or Nicotine? No [email or web address] Information not available 12/27/2021 Sex: Unknown Functional Status Question Answer Note LastModified by Organizat ion Details LastModified Time Are you able to walk? YESWOREST [email or web address] Information not available 12/27/2021 Are you able to care for yourself? Yes Information not available 06/17/2017 What is your exercise level? None due to injury / arthritis Information not available 12/03/2017 Mental Status None recorded. Family History Relationship Description Onset Age of this Age Resolved Age Notes LastModified by Organization Details LastModified Time Maternal Aunt Kidney disease 35 41 [email or web address] Not available 12/08 15:44:15 Mother Arthritis 60 [email or web address] Not availa ble 12/08/2018 15:44:15 Father Arthritis 30 [email or web address] Not available 12/27/2021 14:51:06 Maternal Grandfather Kidney disease 70 Not available 12/08 15:44:15 Brother History of malignant neoplasm of brain 22 27 [email or web address] Not available 12/08 15:50:41 Medical History Condition Response Gout N Other N Kidney Stones N Blood Diseases N Hyperthyroidism N Breast Cancer N Hypothyroidism N Lung Disease N Depression Y COPD N Defects or Inherited Disease N Anesthesia Complications N Headaches/Migraines N Anxiety Disorder N Varicose Veins Y Obesity Y Vision or Eye Problems Y Arthritis Y Head Injury/Concussion N Infertility N Polyps N Congenital Anomalies N Acid Reflux (GERD) Y Cancer N Stroke N ADHD N Endometriosis N High Cholesterol N Liver Disease N Fibromyalgia Y Kidney Disease N Heart Problems N Ear or Hearing Problems N Hospitalizations N Thyroid Problems N GI Problems Y Acne Y Eating Disorder N Skin Problems Y Anemia N Constipation Y Bladder Problems N Mental Illness N Diabetes N Ovarian Cancer N Blood Transfusions N Seizures/Epilepsy N Tuberculosis N AIDS/HIV N Congestive Heart Failure (CHF) N Eczema N Abuse/Domestic Violence N Diverticulitis N Asthma Y Allergies Y Reflux/GERD Y Hepatitis N Pulmonary Embolism N Hypertension N Chicken Pox N Autism Spectrum Disorder (ASD) N Osteoporosis N Gynecological History Statement/Question Response Date of Last Pap Smear Date of Last Colonoscopy 06/22/2016 Most Recent Mammogram 07/12/2020 Desired Control Method Hysterectom y Obstetrics History GPAL:G 0 P 0 0 0 0 Immunizations Vaccine Type Date Status Note Provider Nam e and Address Organization Details Recorded Time Influenza, recombinant, quadrivalent, PF 7 completed [facility] 06/17/2017 15:52:23 Tdap 3 completed Judi Martin PA-C [address], [address] 06/17/2017 16:10:56 Influenza, split virus, quadrivalent, preservative 0 completed KAL[facility] 06/10/2020 11:17:31 Past Encounters Encounter ID Performer Location Encounter Start Date Encounter Closed Date Diagnosis/Indication Diagnosis SNOMED-CT Code Diagnosis ICD10 Code Diagnosis Note [id number] Jaylan Olmedo MD Main Office [address] [facility] [address] [place] [address] 06/17/2017 15:18:29 06/17/2017 16:40:55 Mixed hyperlipidemia 644869575 E78.2 Mild inter mittent asthma 479057882 J45.20 Stable. Continue montelukas t daily. Constipation 63516368 K5 9.00 Continue LInzess. F/u with Dr. Aguillon. Primary dysthymia 382371 05 F34.1 Continue Fluoxetine 20 mg. Psoriatic arthritis 1563 58426 L40.50 F/u with rheumatolo gist. Continue HUmira and Tramadol PRN. Leukocytosis 443392558 D 72.829 repeat labs Nicotine dependence 5629 4008 F17.200 Fatigue 52345667 R53.83 Body mass index 30+ - obesity 154743132 E66.01 Z68.41 Elevated blood-pressure reading without diagnosis of hypertension 522930533 R03.0 [id number] Khris Hartman MD Main Office [address] [facility] [address] [place] [address] 07/17/2017 08:45:31 07/17/2017 10:03:23 Nicotine dependence 44422058 F17.200 pt will start chantix that she was prescribed . Mixed hyperlipidemia 267 941770 E78.2 Pt will provide a fasting blood sample withing 3 months including direct LDL. Consider start of statins due to increased cardiovasc risks , PCOS/metab olic syndrome. Body mass index 40+ - severely obese 908814907 E66.01 Z68.41 pt agrees to see a nutritioni st and start follow low carb/ fat diet. Benign ess ential hypertension 0902044 I10 Blood pressure has been under 140/90 for past three weeks. pt instructed to continue to check bp daily and report any readings over 140/90. Pt instructed to seek medical attention in the even she developes CO, COB, dizziness. If BP becomes elevated continuous ly, will consider ACEI Rx. DASH diet is recommende d to follow and discussed. Thrombocyt openic disorder 978020423 D69.6 will refer to hematology for follow up and treatment. Ventricula r premature beats 75488614 I49.3 Will monitor, pt instructed to report continuous bouts of PVC/palpit ations. instructed to seek medical attention in the event she develops CP, SOB, CP radiation. [id number] Mayank Talley MD Main Office [address] [facility] [address] [facility] [place] [address] 12/03/2017 10:23:05 12/03/2017 12:01:26 Adult health examination 361975184 Z00.00 up to date on vaccines Benign ess ential hypertension 2182740 I10 stable on diet and with some weight loss. Continue monitoring . Ventricula r premature beats 07472375 I49.3 Will monitor, pt instructed to report continuous bouts of PVC/palpit ations. instructed to seek medical attention in the event she develops CP, SOB, CP radiation. Nicotine dependence 5629 4008 F17.200 Continue trying to quit on your own . Can also retry Chantix. Body mass index 30+ - obesity 247603576 E66.01 Z68.41 Mixed hyperlipidemia 267 141833 E78.2 Pt will provide a fasting blood sample including direct LDL. Consider start of statins due to increased cardiovasc risks , PCOS/metab olic syndrome. Insomnia 509894023 G47.0 0 stable and improved Snoring 36245353 R06.83 schedule for polysomnog crystal Mild inter mittent asthma 245752738 J45.20 Stable. Continue montelukas t daily.Vent jessica PRN. Primary dysthymia 934123 05 F34.1 Continue Fluoxetine 20 mg. Constipation 17449215 K5 9.00 Continue LInzess. F/u with Dr. Aguillon. Generalize d anxiety disorder 47464106 F41.1 continue meds [id number] Khris Hartman MD Main Office [address] [facility] [address] [place] [address] 12/19/2017 11:26:28 12/19/2017 12:31:14 Acute pharyngitis 014343371 J02.9 likely d/t pnd - see below Acute sinusitis 18345669 J01.90 if cannot clear sxs, then consider ent eval, rec probiotics as well. 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 Warm compress BID, arm elevation. F/u 3-4 days if needed. [id number] Judi Martin PA-C Main Office [address] [facility] [address] [place] [address] 05/30/2018 14:11:00 05/30/2018 15:12:15 Menopausal flushing 682439194 N95.1 start small dose estradiol f/u in 1 m. Vaginal dryness 40658879 N89.8 Psoriasis with arthropathy 66703239 L40.50 sees rheum. Was not tried on COTE II. Will try celebrex daily to avoid overusing Advil which usually helps her if taken with Tramadol. 142816 Judi Martin PA-C Main Office [address] [address] [address] [place] [address] 06/30/2018 08:37:11 06/30/2018 09:53:18 Leukocytosis 511034057 D72.829 repeat labs Exacerbati on of intermittent asthma 449680939 J45.21 if repeat CBC is stable , start Prednisone taper as directed for 10 days, Nebulizer at every 4-6 hrs or HFA. Essential hypertension 65916085 I10 Mixed hyperlipidemia 267 130365 E78.2 Pt will provide a fasting blood sample including direct LDL in 3 months. Consider start of statins due to increased cardiovasc risks , PCOS/metab olic syndrome. [id number] Judi Martin PA-C Main Office [address] [address] [address] [place] [address] 07/07/2018 09:57:29 07/07/2018 10:56:12 Acute sinusitis 41954876 J01.90 Asthmatic bronchitis 405 267299 J45.909 R/o pneumonia. Chest XRAy as well as increase Prednisone back to 50 mg and start taper over . Nebulizer every 4 hrs and continue using ADvair D. [id number] Judi Martin PA-C Main Office [address] [address] [place] [place] [address] 07/30/2018 15:08:49 07/30/2018 16:21:38 Benign essential hypertension 9626123 I10 Continue Lisinopril 10 mg daily, low sodium diet. Continue trying to lose weight. 404393 Barb Tuttle Main Office [address] [address] [place] [place] [address] 10/23/2018 13:21:21 10/23/2018 14:20:06 Multiple joint pain 30376925 M25.50 check rheumatolo gy labs, pt sees rheumatolo gist in [place], will followup with her. Hs followup with Judi up coming Tick bite 22323039 S00.9 6XA check labs Fatigue 53479288 R53.83 Await lab testing to see if pt has tick borne illness, rest, hydration. Eruption 807948975 R21 pt sees dermatolog y has upcoming appointmen t. Thrombocyt openic disorder 248020128 D69.6 checking cbc for platelets 069279 Sierra Azul Main Office [address] [facility] [address] [place] [address] 12/08/2018 15:28:43 12/08/2018 17:01:12 Adult health examination 879724433 Z00.00 up to date on vaccines Benign ess ential hypertension 6151565 I10 Continue Lisinopril 10 mg daily, low sodium diet. Continue trying to lose weight.rep eat labs. Allergic asthma 43981786 6 J45.909 Obstructiv e sleep apnea syndrome 12699754 G47.33 Mixed hyperlipidemia 267 663636 E78.2 Retest fasting lipids in 4 m. Generalize d anxiety disorder 79709526 F41.1 continue current meds Psoriasis with arthropathy 25745600 L40.50 continue prednisone taper. F/u wit rheum. Venous stasis 51440135 I 87.8 Body mass index 30+ - obesity 785129674 Z68.41 Morbid obesity 983611437 E66.01 [id number] Judi Martin PA-C Main Office [address] [facility] [address] [place] [address] 08/07/2019 13:18:32 08/10/2019 06:42:02 Psoriatic arthritis 003515413 L40.50 F/u with rheumatolo gist. Moderate p ersistent asthma 864270077 J45.40 Prednisone PRN for acute asthma. Pt. was encouraged to f/u with her pulmonary. Due to her asthma and psoriatic arthropath y she is at higher risk for mortality if exposed to and acquires COVID-19 infection. [id number] Judi Martin PA-C Telehealt h [address] [facility] [address] [place] [address] 11/02/2019 08:38:53 11/02/2019 15:40:33 Prediabetes 735798199 R73.03 retest labs. Mixed hyperlipidemia 267 692092 E78.2 Retest fasting lipids prior to physical in December. Pt. is willing to retry statins at smaller dose ifresults of fasting test show lipidelvat ion again. Inflammati on of sacroiliac joint 05569317 M46.1 Start prednisone taper as directed and muscle relaxant at HS. Continue heat and tens unit use. If pain does not sign. decrease or persists, pt. is given referral to [facility] for trigger point injections . 184815 Judi Martin PA-C VPEP h [address] [facility] [address] [place] [address] 12/30/2019 09:10:16 12/30/2019 13:02:39 Leukocytosis 403457873 D72.829 significan t leukocytos is and respirator y distress. ? asthma exacerb. with Prednisone effect on WBCs or acute infection, ? COVID,pneu monia. Pt. is immuno compromise d. Recommend to go to the ER for further testing. Acute resp iratory distress 963640107 R06.03 referred to the ER. 660305 Judi Martin PA-C 7fgamet h [address] [facility] [address] [facility] [place] [address] 03/02/2020 09:21:32 03/02/2020 12:01:28 Psoriasis with arthropathy 06309444 L40.50 Continue current meds under rheumatolo gy. FMLA forms to be completed. Moderate p ersistent asthma 133829903 J45.40 Prednisone PRN for acute asthma. Pt. was encouraged to f/u with her pulmonary. Due to her asthma and psoriatic arthropath y she is at higher risk for mortality if exposed to and acquires COVID-19 infection. Venous stasis 48792815 I 87.8 complicate d by cellulitis post procedures . F/u with Dr. Granado Leukocytosis 267893989 D 72.829 Encouraged to have hem/onc consult. PT. has multiple comorbidit ies and immune suppressio n, on biologics. [id number] Judi Martin PA-C VPEP h [address] [facility] [address] [place] [address] 04/04/2020 14:22:44 04/04/2020 15:50:41 Psoriasis 8516904 L40.9 flares despite biologic. Pt. has mahin with rheum and dermatolog y coming up/ ADvised to take zyrtec 10 mg by day and bendryl at HS and use topical steroids. PT. will discuss further with derm. tomorrow. [id number] Judi Martin PA-C Main Office [address] [facility] [address] [place] [address] 06/10/2020 10:59:58 06/10/2020 12:59:33 Adult health examination 680980731 Z00.00 up to date on vaccines Prediabetes 245131350 R7 3.03 retest labs. Polycystic ovary syndrome 145053710 E28.2 continue on spironolac tone. Thrombocyt openic disorder 486969558 D69.6 will refer to hematology for follow up and treatment. Primary dysthymia 533928 05 F34.1 Continue Fluoxetine 20 mg. Obstructiv e sleep apnea syndrome 40935665 G47.33 Morbid obesity 757464941 E66.01 Mixed hyperlipidemia 267 483853 E78.2 stable as of last year. Lyme disease 33453487 A6 9.20 stable. Leukocytosis 446275814 D 72.829 reactive in nature due to prednisone . Generalize d anxiety disorder 50692000 F41.1 continue current meds Constipation 29778730 K5 9.00 Continue Linzess. F/u with Dr. Aguillon. Allergic asthma 92303522 6 J45.909 Continue current meds. Screening for malignant neoplasm of breast 079230321 Z12.39 Altered adal wel function 11224289 R19.4 Irritable bowel syndrome 00531492 K58.9 alternatin g patter . takes Linzess. Overdue for GI visit. Last colonoscop y is unknown, but reports normal with 10 year recall. Gastroesop hageal reflux disease 067115881 K21.9 f/u with the GI . Continue PPI. Pruritic disorder 134145 002 L29.9 started after flu vaccine. Takes dapsone. Body mass index 40+ - severely obese 001227581 E66.01 Z68.41 Pt. is trying to lose weight by cutting down on carbs, but is limited in exercise due to psoriatic arthropath y. Screening for osteoporosis 413699436 Z13.820 refer for bone density scan. Benign ess ential hypertension 8155115 I10 Continue Lisinopril 10 mg daily. Weight gain 0070850 R63. 5 [id number] Judi Martin PA-C Telehealt h [address] [facility] [address] [place] [address] 09/12/2020 12:41:27 09/12/2020 14:51:05 Moderate persistent asthma 035893989 J45.40 Stable extrinsic moderate asthma. Continue symbicort BID and montelukas t as well as claritin 10mg. F/u with allergy as scheduled. Benign ess ential hypertension 5977743 I10 Stable HTN. Continue Lisinopril 10 mg daily. Mixed hyperlipidemia 267 707792 E78.2 stable as of last year.repea t fasting lipids. Prediabetes 899586751 R7 3.03 retest labs. Pruritic disorder 995001 002 L29.9 f/u with allergy. 768382 Sierra Azul Main Office [address] [facility] [address] [place] [address] 12/27/2021 14:49:27 12/27/2021 16:13:13 Adult health examination 871631226 Z00.00 Chronic pain syndrome 37 0034406 G89.4 Pt. reports inadequate pain control. Has multifacto rial chronic diffuse body pain and joint pain. Tramadol prescribed as BID by rheumatolo gist. I advised pt. to seek second opinion in [place] for her persistent chronic pain and swelling. Pt. is overall unsatisfie d with local pain and rheumatolo [facility] care. Screening for malignant neoplasm of breast 465731306 Z12.39 Screening for malignant neoplasm of cervix 897504924 Z12.4 Pt. had hysterecto my. Has PCOS. 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 Allergic asthma 92767510 6 J45.909 Continue current meds. Benign ess ential hypertension 8550025 I10 continue low sodium diet. Body mass index 40+ - severely obese 639547394 E66.01 Z68.41 Pt. is trying to lose weight by cutting down on carbs, but is limited in exercise due to psoriatic arthropath y. Mixed hyperlipidemia 267 934717 E78.2 retest lipids Prediabetes 850889195 R7 3.03 retest labs. Obstructiv e sleep apnea syndrome 06305394 G47.33 not using CPAP. Osteoarthr itis of knee 475981065 M17.0 F/u with orthopedic s. Polycystic ovary syndrome 733357995 E28.2 continue on spironolac tone. Psoriasis with arthropathy 16679094 L40.50 F/u rheumatolo gy , local or in [place]. Thrombocyt openic disorder 786074707 D69.6 reactive thrombocyt openia [facility] hypothyroidism 29589733 E02 Generalize d anxiety disorder 84879877 F41.1 continue current meds Irritable bowel syndrome 29070203 K58.9 Continue LInzess Edema of l ower extremity 775849639 R60.0 Ventricula r premature beats 49963935 I49.3 echo done recently at [facility]. STable occasional palpitatio ns. Health Concerns Section Related Observation LastModified by Organization Detai ls LastModified Time None Recorded Concern Status LastModified by Organization Details LastModified Time None Recorded Advance Directives Directive N: Payers Encounter Date Sequence Insurance Name Policy Number Policy Clarke Covered Member ID Clarke Member ID Guarantor Name 03/02/2020 1 [facility] ([facility] [id number] Susan Wagner [id number] Susan Wagner 04/04/2020 1 [facility] (O) [id number] 23 Susan Esteslla [id number] Susan Esteslla 06/10/2020 1 [facility] ([facility]) [id number] 23 Susan Acostaa [id number] Susan Acostaa 09/12/2020 1 [facility] (O) [id number] 23 Susan Esteslla [id number] Susan Esteslla 12/27/2021 1 [employer] [facility] ([facility]) [id number] Susan Wagner [id number] Susan Wagner Notes Date Note Type Note Provider Name and Address Organization Details Recorded Time 03/02/2020 text/html 49 year old fema le for FMLA re applications. Pt. applied based on Dx of psoriatic arthropathy with frequent flares. Pt. sees acquisitions analyst monthly and is currently treated with biologic ( Xeljanz XR) . Pt. experiences chronic joint pains and is treated with Tramadol and ibuprofen for pain. Pt. is treated with Prednisone tapers for arthritic flares. REcently had more flares than usual. Als, had endovenous ablations in both legs complicated by cellulitis in both extremities. Currently on Abx. Pt. required more frequent doctor's visit for the past 4 months as well as absences from wk due to pain. Lastly, pt. has h/o moderate persistent asthma with flares as well. She is currently on Symbicort twice daily and rescue meds and nebulizer therapy. Pt. needs to be absent from wk at least once per week due to her medical appointments and flares due to arthropathy and/or asthma. Judi Martin PA-C [address] [address], [place], [address], [facility] 03/02/2020 11:57:02 04/04/2020 text/html 49 year old fema le with h/o psoriatic arthropathy on biologic c/o intense itching in both hands and feet for past several days. Pt. has skin psoriasis and has f/u with dermatology tomorrow. No rash on feet , but has red patches on hands. Have been taking benadryl at HS and during the day causing sedation. Judi Martin PA-C [address] [address], [place], [address], [facility] 04/04/2020 15:18:29 06/10/2020 text/html Generic HPI TemplateReported bypatient.Notes:49 year old female for annual PE. 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 Has ovaries in. Does not wish to see FLOOR SANDING MACHINE OPERATOR> REports perimenopausal symptoms with worsening hot flashes. Takes estradiol 0.5 mg but 2-3 times weekly only. Mammogram is overdue.Vaccines> Had flu vaccine and Tdap is up to date.Colonoscopy --- had one ? 5 years ago. NO reports in chart. Has IBS with alternating pattern and is on linzess. Was seen at [facility]. Continue with bowel trouble. On PPI.MDD and LACY. STable on fluoxetine. PHQ score is 0.Psoriatic arthropathy. On Xeljanz. Sees rheumatology regularly. Reports skin is better. On Ibuprofen and tramadol prn for arthropathy.Asthma. Stable at this time on Symbicort and ventolin.HTN is stable on lisinopril. Judi Martin PA-C [address] [facility] [address], [place], [address], [facility] 06/10/2020 13:54:38 09/12/2020 text/html Asthma F/UReport ed bypatient.Quality:symp toms are stable and infrequent Severity:does not interfere with daily activities Associated Symptoms:no fatigue; no cough; no changes in productivity; no shortness of breathNotes:Pt. is on symbicort and montelukast . allergy f/u is coming up.Hypertension F/UReported bypatient.Associated Symptoms:no dizziness; no lightheadedness; no chest pain; no shortness of breath; no palpitations; no edema; no calf pain with exertion Lifestyle:limiting/anthony iding salt;not exercising regularly Medications:taking medications as directed; no side effects from medication; checks blood pressure at home, range: 50 year old female for f/u.Psoriatic arthropathy followed at [facility].On Xeljanz for the past year. Doing better since 20 lb weight loss on weight watcher in the past 1-2 months.Hand and foot pruritis. Seen by neurology so far and has mahin. pending with allergy. IN the mean time , feet are not itchy any longer since pt. switched from tata to claritin. Judi Martin PA-C [address] [facility] [address], [place], [address], [facility] 09/12/2020 14:37:25 12/27/2021 text/html Generic HPI TemplateReported bypatient.Notes:51 year old female for annual physical.H/o psoriatic arthritis , sees acquisitions analyst at [facility], supposed to take Xeljanz but discontinue last January . Rheum under impression pt. is still taking medication. Continues with c/o diffuse chronic pain and swelling in her body. Last seen by rheum in October. C/o shortness of breath on exertion, fatigue. Obstructive sleep apnea ,not using CPAP . Tried various masks which she could not tolerate. Extensive Labs done in August and September were reviewed and mostly normal. Lupus test is 5 bands positive, but p. was told by rheum needs 56 bands to treat again. Pt. is convinced Lupus is being ignored by the provider and unaddressed. Also, reports Tramadol 50 mg BID is not taking care of pain. PT. routinely not sleeping well due to pain, sleeps in the chair propped up with pillows.PHQ and LACY scores are normal today, but pt. reports anxiety related to pain mostly.Allergic asthma is stable. Pt. is on antihistamines and azelastine spray.IBS with constipation , on Linzess and had colonoscopy i 2017.BMI remains high due to inability to exercise with pain.Diet controlled HTN on low sodium. Test periodically at work and home.PCOS. NO diabetes as per last test. Needs new A1c and lipids. Sierra iraheta, [facility] 12/28/2021 08:51:02 OBGyn Episode No OBEpisode recorded.
--- OUTSIDE RECORDS SUMMARY | 2024-07-01 07:26 | XMS_ITS ---
Author Organization [facility] Address [address] [place] [address] Care Team Providers Care Cigarette Making Examiner Name Role Phone Nikkie Kaufman Primary Care Provider Unavailab Erica Campuzano [phone] REASON FOR VISIT xray disc Encounters Encounter Location Date Provider Diagnosis [facility] [address] [place] [address] 06/03/2023 Erica Arnett Plan Of Treatment No Information Progress Notes * MOISES Zahida LDOB:[birth year] (52 yo F)Acc No.[id number]:06/03/2023 Patient:?Zahida Wagner :1970???Age:52 Y???Sex:Female Address:[address] [place] [address], [place], [address] * true * Date:? Generated for Danica boone/Louis/eTransmitting on:?07/01/2024 07:26 AM EST
--- OUTSIDE RECORDS SUMMARY | 2024-07-01 07:27 | XMS_ITS ---
[facility] Address [address] [place] [address] Care Team Providers Care Online Merchandising Manager Name Role Phone Nikkie Kaufman Primary Care Provider Unavailab Erica Campuzano Unavailable [phone] Allergies Allergen (clinical drug ingredient) Drug/Non Drug Allergy documented on EMR Reaction Allergy Type Onset Date Status adhesive tape rash Drug Allergy Act winsome Latex rash Drug Allergy Active Substance with sulfonamide structure and antibacterial mechanism of action (substance) Sulfa Antibiotics Unknown Drug Allergy Active REASON FOR VISIT PCP - 01/2023, Foot pain Medications Medication SIG (Take, Route, Frequency, Duration) Notes Start Date End Date Status Work Note-Appointment . . . Pt had a scheduled appointment today for . 12/06/2021 Active Timolol Hemihydrate Not-Taking Vitamin E Not-Taking Fish Oil Not-Taking DuoNeb Not-Taking Zinc Active Vitamin B Complex 1000 Not-Taking CoQ-10 Active AFO-Hinged as directed Wear Daily for as needed Not-Taking Vitamin D 1000 UNIT 1 tablet Orally Once a day Active ibuprofen Active Folic Acid Not-Takin g Singulair Not-Taking Biotin Not-Taking Vitamin C Active traMADol HCl Active Linzess 145 MCG 1 capsule at least 30 minutes before the first meal of the day on an empty stomach Orally Once a day Not-Taking Azelastine-Fluticasone Active Fluoxetine 20 mg Not-Takin g Spironolactone 100 MG 1 tablet Orally Active Montelukast Sodium N ot-Taking levoFLOXacin Not-Mark ing Hydroxychloroquine Sulfate 200 MG as directed Orally 2x a day Active Albuterol Active Estradiol 10 MCG 1 tablet Vaginal Two times a Week for 30 day(s) Active Clobetasol & Clobetasol Emul Not-Taking Custom Orthotics as directed A ctive Jublia Not-Taking Amoxicillin Not-Taki ng Loratadine Not-Takin g Gabapentin Not-Takin g Prednisone Not-Takin g Advair Diskus Not-Ta estephania Methotrexate Not-Mark ing Senna Not-Taking ASO Ankle/Foot Stablizing AFO As directed Wear Daily for as needed 04/01/2017 Not-Taking Doxycycline Not-Taki ng Physical Therapy . . . 2-3x/week for 3-4 weeks 03/19/2017 Not-Taking Work Note . . . Patient is completely disabled from work until 04/01/17 03/19/2017 Not-Taking Work Note . . . Return to work on 04/03/17 for half days to start and can increase hours as tolerated 04/01/2017 Not-Taking LamISIL AT 1 % 1 application to [...] days up to 14 days 03/05/2017 Not-Taking LamISIL 250 MG 1 tablet Orally Once a day for 7 days, STOP for 21 days (pulse dose 1 week per month) repeat each month for 28 Not-Taking Cosentyx Not-Taking Prednisone Not-Takin g Tetracycline HCl Not -Taking Niacin Not-Taking ASO Ankle/Foot Stablizing AFO As directed Wear Daily for as needed 05/03/2017 Not-Taking Compression Stockings 20-30mm Hg as directed 05/28/2017 Not-Taking Zioptan Not-Taking Erythromycin Not-Mark ing Fexofenadine HCl Not -Taking Custom Orthotics as directed 08/29/2016 Not-Taking Tata Not-Taking Proventil Not-Taking Neurontin 300 MG 1 capsule Orally once a day for 30 day(s) 03/05/2017 Not-Taking Social History Tobacco Use: Social History Observation [...] Problem Status W/U Status Risk Notes Problem [id number] Neuritis of left sural nerve (G57.82) Active confirmed Vital Signs Height 5ft 8in in 02/22/2023 Weight 250 lbs 02/22/2023 BMI 38.01 kg/m2 02/22/2023 Encounters Encounter Location Date Provider Diagnosis [facility] [place] [address] [place] [address] 02/22/2023 Erica Perica Pain in left ankle a nd joints of left foot M25.572 ; Posterior tibial tendon dysfunction (PTTD) of left lower extremity M21.42 ; Osteoarthritis of left ankle and foot M19.072 ; Tendonitis of ankle, left M77.52 ; Peroneal tendonitis of left lower extremity M76.72 and Neuritis of left sural nerve G57.82 Assessments Encounter Date Diagnosis (ICD Code) Assessment Notes Treatment Notes Treatment Clinical Notes Section Notes 02/22/2023 Pain in left ankle and joints of left foot (ICD-10 - M25.572) 02/22/2023 Posterior tibial tendon dysfunction (PTTD) of left lower extremity (ICD-10 - M21.42) 02/22/2023 Osteoarthritis of left ankle and foot (ICD-10 - M19.072) 02/22/2023 Tendonitis of ankle, left (ICD-10 - M77.52) 02/22/2023 Peroneal tendonitis of left lower extremity (ICD-10 - M76.72) 02/22/2023 Neuritis of left sural nerve (ICD-10 - G57.82) Plan Of Treatment Medication Medication Name Sig Start Date Stop Date Notes Custom Orthotics as directed Pending Test Test Name Order Date X ray : Ankle, left 3V 02/22/2023 X ray : Foot, left 3V 02/22/2023 Next Appt Details Follow Up: prn, Reason: Progress Notes * Zahida DE LEON LDOB:[birth year] (52 yo F)Acc No.[id number]:02/22/2023 Progress Note Patient:Zahida Ramsay Provider:?Erica Arnett DPM :1970???Age:52 Y???Sex:Female D ate:02/22/2023 Address:[address] [place] [address], [facility] Pcp:Nikkie Kaufman Subjective: * Chief Complaints: * ???PCP - 01/2023Foot pain * HPI: ???Foot Pain:?Nature:?aching, swelling, shooting.?Location:?Outside, ankle and rearfoot?LEFT;.?Duration:?several months.?Onset:?gradual , denies trauma.?Course:?worse , recurrent.?Aggrevated:?any pressure, standing, walking , job/occupation.?Treatments:?rest, walking cast boot, innersoles, disability from work, Gabapentin, Tramadol, physical therapy at [facility]-pt states PT made it worse and has D/C PT, 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 rest, EPAT x 6 in the past; recently change in shoes to [employer] M[employer]IV[employer] again, ASO brace was not comfortable to wear.? * ROS:?General/Constitutional:?Nausea?denies, denies, denies.?Vomiting?denies, denies, denies.?Hunger Thirst?denies, denies, denies.?Loss appetite?denies, denies, denies.?Chills?denies, denies, denies.?Fatigue?denies, denies, denies.?Fever?denies, denies, denies.?Night Sweats?denies, denies, denies.?Unexplained weight loss?denies, denies, denies.?Unexplained weight gain?denies, denies, denies.?HEENTM:?Dentures?denies, denies, denies.?Dizziness?denies, denies, denies.?Glasses/contacts?denies, denies, denies.?Retinopathy?denies, denies, denies.?Blurred/double vision?denies, denies, denies.?TMJ?denies, denies, denies.?Discharge/drainage?denies, denies, denies.?Implants?denies, denies, denies.?Sore throat?denies, denies, denies.?Dental implants?denies, denies, denies.?Hard of hearing ?denies, denies, denies.?Difficulty chewing/swallowing/speaking denies, denies, denies.?Nose bleeds?denies, denies, denies.?Sore mouth?denies, denies, denies.?Respiratory:?On Oxygen?denies, denies, denies.?Pneumonia/pleurisy?denies, denies, denies.?Bronchitis?denies, denies, denies.?Emphysema?denies, denies, denies.?Coughing?denies, denies, denies.?Cough blood?denies, denies, denies.?Shortness of breath?denies, denies, denies.?Wheezing?denies, denies, denies.?Cardiovascular:?Pacemaker?denies, denies, denies.?MVP?denies, denies, denies.?WPW?denies, denies, denies.?CHF?denies, denies, denies.?Heart attack?denies, denies, denies.?Septal defect?denies, denies, denies.?Rapid beat denies, denies, denies.?Chest pain ?denies, denies, denies.?Atrial Fib.?denies, denies, denies.?Murmur/Palpitations?denies, denies, denies.?Gastrointestinal:?Hemorrhoids?denies, denies, denies.?Stomach/Abdominal pain?denies, denies, denies.?Dark blood stool?denies, denies, denies.?Irritable bowel ?denies, denies, denies.?Constipation?denies, denies, denies.?Diarrhea?denies, denies, denies.?Hematology:?Swelling?denies, denies, denies.?Clots?denies, denies, denies.?Varicose Veins?denies, denies, denies.?Bruising?denies, denies, denies.?Bleeding problem?denies, denies, denies.?Genitourinary:?Blood urine?denies, denies, denies.?Frequent/Painfu/urination/bladder control?denies, denies, denies.?Kidney stones?denies, denies, denies.?Infection (UTI)?denies, denies, denies.?Nephropathy?denies, denies, denies. sex trans dis (STD)?denies, denies, denies.?Prostate?denies, denies, denies.?Musculoskeletal:?Hammertoes?denies, denies, denies.?Bunions?denies, denies, denies.?Back Pain?denies, denies, denies.?Muscle Cramps/ Resting?denies, denies, denies.?Muscle cramps / walking?denies, denies, denies.?Generalized aches and pains?denies, denies, denies.?Weakness?denies, denies, denies.?Integ.:?[place]?denies, denies, denies.?Scars?denies, denies, denies.?Corns/calluses?denies, denies, denies.?Ingrown nails?denies, denies, denies.?Painful nails?denies, denies, denies.?Open Sores?denies, denies, denies.?Rashes?denies, denies, denies.?Neurologic:?Difficulty sleeping?denies, denies, denies.?Brain disorder?denies, denies, denies.?Numbness?denies, denies, denies.?Balance trouble?denies, denies, denies.?Confusion?denies, denies, denies.?Fainting/blackouts?denies, denies, denies.?Tingling?denies, denies, denies.?Tremors?denies, denies, denies.? * Medical History:? * Surgical History:?hysterecto my 2010 * Hospitalization/Major Diagno stic Procedure:?Denies Past Hospitalization * Family History:?Mother: conrado bolden, diagnosed with Family history of arthritis, Unspecified essential hypertension.?Father: alive, foot problems, poor circulation, diagnosed with Family history of arthritis, Other malignant neoplasm of unspecified site.?Paternal Grand Father: kidney/liver disease, diagnosed with Family history of arthritis, Unspecified cerebral artery occlusion with cerebral infarction, Other malignant neoplasm of unspecified site.?Maternal uncle: kidney/liver disease, heart attack, diagnosed with Other malignant neoplasm of unspecified site.?Paternal Grand Mother: diagnosed with Family history of arthritis, Unspecified cerebral artery occlusion with cerebral infarction, Other malignant neoplasm of unspecified site.?Maternal Grand Mother: diagnosed with Family history of arthritis, Unspecified cerebral artery occlusion with cerebral infarction, Other malignant neoplasm of unspecified site.?Maternal Grand Father: diagnosed with Family history of arthritis, Unspecified cerebral artery occlusion with cerebral infarction, Other malignant neoplasm of unspecified site.?Paternal uncle: diagnosed with Unspecified heart disease.?Maternal aunt: diagnosed with Other malignant neoplasm of unspecified site.?Siblings: diagnosed with Other malignant neoplasm of unspecified site.? * Social History:?Tobacco Use:?Tobacco Use/Smoking?Are you a:?former smoker ?Additional Findings: Tobacco Non-User?Ex-cigarette smoker ?Tobacco use other than smoking?Are you an other tobacco user??No ???Drugs/Alcohol:?Drugs?Have you used drugs other than those for medical reasons in the past 12 months??No ?Alcohol Screen?Did you have a drink containing alcohol in the past year??Yes ?How often did you have a drink containing alcohol in the past year??Monthly or less (1 point) ?Points?1 ?Interpretation?Negative * Medications:?TakingHydroxych loroquine Sulfate 200 MG Tablet as directed Orally , Notes: 2x a dayAlbuterol Estradiol 10 MCG Tablet 1 tablet Vaginal Two times a WeekSpironolactone 100 MG Tablet 1 tablet Orally traMADol HCl Azelastine- Fluticasone ibuprofen Vitamin C Vitamin D 1000 UNIT Tablet 1 tablet Orally Once a dayZinc CoQ-10 Work Note-Appointment . . . . Pt had a scheduled appointment todayTaking Hydroxychloroquine Sulfate 200 MG Tablet as directed Orally , Notes: 2x a dayTaking Albuterol Taking Estradiol 10 MCG Tablet 1 tablet Vaginal Two times a WeekTaking Spironolactone 100 MG Tablet 1 tablet Orally Taking traMADol HCl Taking Azelastine-Fluticasone Taking ibuprofen Taking Vitamin C Taking Vitamin D 1000 UNIT Tablet 1 tablet Orally Once a dayTaking Zinc Taking CoQ-10 Taking Work Note-Appointment . . . . Pt had a scheduled appointment todayNot- Taking/PRNLinzess 145 MCG Capsule 1 capsule at least 30 minutes before the first meal of the day on an empty stomach Orally Once a dayFluoxetine , Notes: 20 mgFolic Acid Singulair Biotin Vitamin B Complex 1000 AFO-Hinged as directed Wear DailyCustom Orthotics as directed Timolol Hemihydrate Vitamin E Fish Oil DuoNeb Custom Orthotics as directed Tata Proventil Neurontin 300 MG Capsule 1 capsule Orally once a dayASO Ankle/Foot Stablizing AFO As directed Wear DailyCompression Stockings 20-30mm Hg closed toe- knee high as directed Zioptan Erythromycin Fexofenadine HCl Tetracycline HCl Niacin LamISIL 250 MG Tablet 1 tablet Orally Once a day for 7 days, STOP for 21 days (pulse dose 1 week per month) repeat each monthCosentyx Prednisone LamISIL AT 1 % Cream 1 application to affected area Externally Twice a day to affected areas on feetHumira erythromycin , Notes: ointmentfor eyeCiclopirox Olamine 0.77 % Cream 1 application to affected area Externally Twice a day to effected areas on feetWork Note . . . . Due to foot pain, patinet to be off of work for at least 5 work days up to 14 daysPhysical Therapy . . . . 2-3x/weekWork Note . . . . Patient is completely disabled from work until 04/01/17Work Note . . . . Return to work on 04/03/17 for half days to start and can increase hours as toleratedASO Ankle/Foot Stablizing AFO As directed Wear DailyDoxycycline Gabapentin Prednisone Advair Diskus Methotrexate Senna Clobetasol & Clobetasol Emul Jublia Amoxicillin Loratadine Montelukast Sodium levoFLOXacin Medication List reviewed and reconciled with the patientNot- Taking/PRN Linzess 145 MCG Capsule 1 capsule at least 30 minutes before the first meal of the day on an empty stomach Orally Once a dayNot-Taking/PRN Fluoxetine , Notes: 20 mgNot-Taking/PRN Folic Acid Not-Taking/PRN Singulair Not-Taking/PRN Biotin Not-Taking/PRN Vitamin B Complex 1000 Not-Taking/PRN AFO-Hinged as directed Wear DailyNot-Taking/PRN Custom Orthotics as directed Not-Taking/PRN Timolol Hemihydrate Not-Taking/PRN Vitamin E Not-Taking/PRN Fish Oil Not-Taking/PRN DuoNeb Not- Taking/PRN Custom Orthotics as directed Not-Taking/PRN Tata Not-Taking/PRN Proventil Not-Taking/PRN Neurontin 300 MG Capsule 1 capsule Orally once a dayNot- Taking/PRN ASO Ankle/Foot Stablizing AFO As directed Wear DailyNot-Taking/PRN Compression Stockings 20-30mm Hg closed toe- knee high as directed Not-Taking/PRN Zioptan Not- Taking/PRN Erythromycin Not-Taking/PRN Fexofenadine HCl Not-Taking/PRN Tetracycline HCl Not-Taking/PRN Niacin Not-Taking/PRN LamISIL 250 MG Tablet 1 tablet Orally Once a day for 7 days, STOP for 21 days (pulse dose 1 week per month) repeat each monthNot-Taking/PRN Cosentyx Not-Taking/PRN Prednisone Not-Taking/PRN LamISIL AT 1 % Cream 1 application to affected area Externally Twice a day to affected areas on feetNot-Taking/PRN Humira Not-Taking/PRN erythromycin , Notes: ointmentfor eyeNot-Taking/PRN Ciclopirox Olamine 0.77 % Cream 1 application to affected area Externally Twice a day to effected areas on feetNot-Taking/PRN Work Note . . . . Due to foot pain, patinet to be off of work for at least 5 work days up to 14 daysNot-Taking/PRN Physical Therapy . . . . 2-3x/weekNot-Taking/PRN Work Note . . . . Patient is completely disabled from work until 04/01/17Not-Taking/PRN Work Note . . . . Return to work on 04/03/17 for half days to start and can increase hours as toleratedNot-Taking/PRN ASO Ankle/Foot Stablizing AFO As directed Wear DailyNot-Taking/PRN Doxycycline Not-Taking/PRN Gabapentin Not-Taking/PRN Prednisone Not-Taking/PRN Advair Diskus Not-Taking/PRN Methotrexate Not-Taking/PRN Senna Not-Taking/PRN Clobetasol & Clobetasol Emul Not-Taking/PRN Jublia Not-Taking/PRN Amoxicillin Not-Taking/PRN Loratadine Not-Taking/PRN Montelukast Sodium Not-Taking/PRN levoFLOXacin Medication List reviewed and reconciled with the patient * Allergies:?adhesive tape: ra shLatex: rashSulfa Antibioticsyes[Allergies Verified] Objective: * Vitals:?Ht: 5ft 8in, Wt:250, BMI:38.01, Shoe size: 10-11, Ht-cm: 172.72 cm, Wt- k.4 kg. * Examination: ???Orthopedic: ?MUSCLE STRENGTH:?5/5 all groups in a symmetrical fashion , B/L , 5/5 all groups in a symmetrical fashion , B/L.?GAIT ABNORMALITY:? antalgic, Pronated, abducted.?FOOT MORPHOLOGY:?Rigid medial/plantar protrusion of Midfoot at area of Navicular tuberosity, B/L, L>R??Pes Planus structure, Semi-rigid.?TENDONITIS:?Mld Pain on palpation, inflammation, and fusiform swelling to , Posterior Tibial Tendon as it passes through the tarsal tunnel to insertion at navicular tuberosity , Pain on palpation, inflammation, and fusiform swelling to , Peroneal Complex , LEFT.?ANKLE PAIN LOCATED:? LEFT Pain on palpation to , Lateral ankle.?FOOTWEAR:? good condition, no orthotic.?General Examination: ?GENERAL APPEARANCE:?Reveals a pleasant, alert, well nourished, well developed, well hydrated individual, who demonstrates proper attention to hygene/body habitus, and is in no acute distress.?ORIENTED:?person, place, and time.?Neurological: ?SENSORY:?Neurological exam reveals intact sensorium, pain sensation normal, vibration sensation intact, pinprick sensation is normal in the lower extremities, Pt denies, anesthesia, burning, paresthesia, tingling, B/L.?DEEP TENDON REFLEXES:?Achilles, 2/4, B/L.?Vascular: ?DP PULSES:?3/4, B/L.?PT PULSES:?3/4, B/L.?CAPILLARY FILL TIME:?immediate, all digits, B/L.?SKIN TEMPERTURE GRADIENT OF THE LOWER EXTERMITIES:?warm to cool, proximal to distal, B/L.?HAIR GROWTH/TEXTURE/ELASTICITY/TURGOR:?normal, B/L.?PIGMENTATION:?normal, B/L.?EDEMA:?absent, B/L.?Dermatologic: ?SKIN FINDINGS:?Skin exam reveals normal texture, elasticity, and turgor. There are no masses. The interspaces are clear.?X-Rays - IMAGING REPORT: ?Clinical Indication(s):?Evaluate Biomechanical Deformity.?Views:? 3 views of Ankle LEFT AP LAT LO, 3 views of Foot, LEFT, AP, LAT, LO.?Findings:? normal bone and soft tissue density consistent for Pt's age and sex dorsal degenerative changes of the tarsal joints navicular/cuneiform plantar subluxation with anterior cyma line, No signs of Ankle joint space narrowing.?Foot structure:? reveals excess pronation with anterior break in cyme line increased talar declination decreased calcaneal inclination.?Fracture:?Negative fractures identified.? Assessment: * Assessment: 1.?Pain in left ankle and yris ints of left foot - M25.572?2.?Posterior tibial tendon dysfunction (PTTD) of left lower extremity - M21.42 (Primary), Chronic problem, Worse (4)?3. Osteoarthritis of left ankle and foot - M19.072?4.?Tendonitis of ankle, left - M77.52?5.?Peroneal tendonitis of left lower extremity - M76.72?6.?Neuritis of left sural nerve - G57.82? Plan: * Treatment: * Imaging:? * ?Imaging: X ray : Foot, left 3V * Procedure Codes:?00523 X-RAY EXAM OF LEFT ANKLE 3V, Modifiers: 26 , [id number] X- RAY EXAM OF LEFT FOOT 3V, Modifiers: 26 , LT * Preventive Medicine:? ??Counseling:?Discussion:?-14: Office or other outpatient visit for the evaluation and management of an established patient, which required a medically appropriate history and/or examination and MODERATE level of DECISION MAKING for: 1 OR MORE CHRONIC PROBLEM(S) THATS WORSENING, 2 STABLE CHRONIC PROBLEMS, A NEWLY DIAGNOSED PROBLEM WITH UNCERTAIN PROGNOSIS, AN ACUTE COMPLICATED INJURY WITH MULTIPLE TREATMENT OPTIONS, OR AN ACUTE PROBLEM WITH ACCOMPANYING SYSTEMIC SYMPTOMS, THAT POSE(S) A MODERATE RISK OF MORBIDITY. THIS CONDITION MAY ALSO INCLUDE RX DRUG MANAGEMENT, OR A DECISON FOR MINOR SURGERY. The visit on the day of the encounter encompassed interpreting the data and educating the patient as to the nature of their condition, treatment options available according to their individual PMH, meds, allergies, and overall health/living conditions, as well as any potential risks or complications that may occur from a failure to adhere to, and participate in, the recommended course of therapy. The discussion included a complete verbal, and/or written explanation of the examination results, any x-rays taken, the proposed diagnosis, and outline of the treatment plan. A schedule for future care needs was also explained. The patient verbalized an understanding of the instructions at this time and agreed to be an active participant in their treatment. If the patient should think of any questions or concerns after the visit, I have encouraged the patient to call the office.?BioMech.:?I discussed the Pts foot biomechanics with them and how it relates to their problem.?Orthotics:?I explained to the Pt the benefits of OT use. I explained that orthoses are medically necessary to decrease the foot pain through proper mechanical control, support of their foot, decrease stretch/strain on the plantar fascia , decrease stretch/strain on the arch and tibial tendon , decrease pronation, Rx custom orthotics given and recommended Live Everyday.?P.R.I.C.E.:?The Pt. was counseled on P.R.I.C.E./NSAIDS (if well tolerated) to help speed recovery from their painful condition, Tendonitis: I explained to the patient the etiology and treatment options including: Rest, Ice, NSAIDs only if well tolerated after meals, New/supportive Shoegear, Strappings and Tapings, Stretching exercises, Deep Tissue Massage, OTC inserts, Custom Orthoses, Night splints, Physical Therapy, Discussed and reviewed the X-rays with the patient. We discussed how the findings relate to the patients symptoms/complaints. Answered any and all questions..?X-rays:?Discussed and reviewed the X-rays with the patient. We discussed how the findings relate to the patients symptoms/complaints. Answered any and all questions..? * Follow Up:?prn * Images: * Sign off status: Completed true * Provider:Dereje Arnett, KERVIN Date:? Generated for Danica boone/Louis/Lalaitting on:?07/01/2024 07:26 AM EST History and Physical Notes * HPI (History of Present Illness) Category Sub-Category Detail Notes Category Not es Foot Pain Nature: aching, swelling, shooting Location: Outside, ankle and r earfoot LEFT; Duration: several months Onset: gradual , denies tra loretta Course: worse , recurrent Aggravated: any pressure, standi ng, walking , job/occupation Treatments: rest, walking cast b oot, innersoles, disability from work, Gabapentin, Tramadol, physical therapy at [facility]-pt states PT made it worse and has D/C PT, 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 rest, EPAT x 6 in the past; recently change in shoes to HOKA, EPAT again, ASO brace was not comfortable to wear Examination Category Sub-Category Detail Notes Category Not es Neurological SENSORY: Neurological exa m reveals intact sensorium, pain sensation normal, vibration sensation intact, pinprick sensation is normal in the lower extremities, Pt denies, anesthesia, burning, paresthesia, tingling, B/L DEEP TENDON REFLEXES: Achilles, 2/4, B/L Dermatologic SKIN FINDINGS: Skin exam reveal s normal texture, elasticity, and turgor. There are no masses. The interspaces are clear Orthopedic GAIT ABNORMALITY: antalgic, Pronated, abd ucted FOOT MORPHOLOGY: Rigid medial/plantar protrusion of Midfoot at area of Navicular tuberosity, B/L, L>R Pes Planus structure, Semi-rigid ANKLE PAIN LOCATED: LEFT Pain on palpati on to , Lateral ankle FOOTWEAR: good condition, no o rthotic TENDONITIS: Mld Pain on palpatio n, inflammation, and fusiform swelling to , Posterior Tibial Tendon as it passes through the tarsal tunnel to insertion at navicular tuberosity , Pain on palpation, inflammation, and fusiform swelling to , Peroneal Complex , LEFT MUSCLE STRENGTH: 5/5 all groups in a symmetrical fashion , B/L , 5/5 all groups in a symmetrical fashion , B/L General Examination GENERAL APPEARANCE: Reveals a pleasant, alert, well nourished, well developed, well hydrated individual, who demonstrates proper attention to hygene/body habitus, and is in no acute distress ORIENTED: person, place, and t rhina Vascular DP PULSES (B): 3/4, B/L PT PULSES (B): 3/4, B/L CAPILLARY FILL TIME: immediate, all digi ts, B/L TEMPERTURE GRADIENT (C): warm to cool, p roximal to distal, B/L TROPHIC CONDITION-TEXTURE/ELASTICITY/TURGOR/HAIR GROWTH (B): normal, B/L EDEMA (C): absent, B/L PIGMENTATION: normal, B/L X-Rays - IMAGING REPORT Findings: normal b one and soft tissue density consistent for Pt's age and sex dorsal degenerative changes of the tarsal joints navicular/cuneiform plantar subluxation with anterior cyma line, No signs of Ankle joint space narrowing Fracture: Negative fractures i dentified Foot structure: reveals excess prona tion with anterior break in cyme line increased talar declination decreased calcaneal inclination Views: 3 views of Ankle LEF T AP LAT LO, 3 views of Foot, LEFT, AP, LAT, LO Clinical Indication(s): Evaluate Biomech anical Deformity
--- NOTE | 2024-07-01 07:31 | A.OFFVIS_ITS ---
Vital Signs 07/01/24 07:37 Height 5 ft 7 in Weight 257 lb 15.053 oz BMI 40.4 BP 140/100 H Blood Pressure Location Lt brachial Position Sitting Pulse 75 Pulse Source Pulse Oximeter Pulse Oximetry (%) 97 Oxygen Delivery Method Room Air Intake Visit Reasons: PSA Intake Note: Patient presents for PsA. Allergies Sulfa (Sulfonamide Antibiotics) Allergy (Unknown, Verified 07/01/24 07:36) dizzy latex Allergy (Verified 07/01/24 07:36) rash Medication List - Last Reconciled 07/01/24 by Riya Kingston MD azelastine 1 spray intranasal BID cetirizine (Zyrtec) 10 mg PO DAILY estradiol 10 mcg vaginal DAILY fexofenadine (Tata Allergy) 180 mg PO DAILY hydroxychloroquine 200 mg PO DAILY ibuprofen 800 mg PO BID PRN ipratropium-albuterol 0.5 mg-3 mg(2.5 mg base)/3 mL 3 mL inhalation Q6-8H PRN loratadine (Claritin) 10 mg PO DAILY magnesium oxide 500 mg PO DAILY spironolactone 100 mg PO DAILY tramadol 50 mg PO BID PRN zinc 50 mg PO DAILY HPI Comments Details: Patient is a 53-year-old female with polyarticular osteoarthritis, psoriasis and psoriatic arthritis who presents for follow-up. Interval History: Patient last seen February 2024 with me. At that time she was only maintained on Plaquenil. Her psoriasis was controlled and her arthritis was for the most part controlled on Plaquenil. Discussed treatment such as Otezla the treatment of her psoriasis / psoriatic arthritis and gave her information about this medication for her to think about it Today, Patient reports that she feels swollen and is attributing it to recently eating [place]ian food take gout. Prior to eating the take out patient states that she was at her baseline and doing well Asked patient if she would like to consider adding the medication Otezla and patient at this time feels that she is managing her pain with her current medications and does not wish to add any further medications to her regimen. Reports that she is due for gel injections. Usually gets Euflexxa Rheumatologic History: Diagnosed in 2018. Psoriatic arthritis Longstanding history of Psoriasis Methotrexate: 01/09/2017- stopped d/t alopecia Humira: 01/15/2017 - 06/21/2017- no improvement in joint pain Trialed on Simponi per notes, unable to locate script/may have come from dermatology [facility]. Not effective Cosentyx: 06/21/2017- 01/2019 no improvement in joint pain Xeljanz: 07/2019- 2021 Plaquenil 400mg daily. Since 2021 Current Rheumatologic Medications: Plaquenil 400mg daily [facility] Medical History (Updated 07/01/24 @ 08:10 by Riya Kingston MD) Encounter for monitoring of hydroxychloroquine therapy Bilateral primary osteoarthritis of knee Left ankle pain Long-term current use of high risk medication other than anticoagulant PCOS (polycystic ovarian syndrome) Asthma Depression Glaucoma Lyme disease Surgical History History of hysterectomy Varicose vein of leg Social History Household Members: Significant Other Housing: House Are you a primary day care provider to a significant other at home: No Do you presently have visiting nurse or other home services: No Alcohol intake: never Patient Tobacco Use Status: Former Tobacco user Second Hand Smoke Exposure: No service: No Current occupational status: employed Current occupation: [employer] Current occupational exposures/hazards: Yes Review of Systems Const Details: Review of Systems Constitutional: Denies fever, chills, weight loss ENT: Denies vision changes, eye pain or eye redness, dental caries, dry mouth GI: Denies nausea, vomiting, diarrhea, abdominal pain, change in BM Pulm: Denies SOB, WARREN, hemoptysis, wheezing Cards: Denies chest pain, palpitations Skin: Denies Raynaud's, rash, nail changes, photosensitivity, HAND FILER BALANCE WHEEL: Denies headaches, weakness, paresthesias, recurrent falls MSK: as per HPI All other systems reviewed and are unremarkable except noted above Physical Exam Vital Signs: Last Vital Signs Pulse 75 07/01/24 07:37 BP 140/100 H 07/01/24 07:37 Pulse Ox 97 07/01/24 07:37 Oxygen Delivery Method Room Air 07/01/24 07:37 BMI result Body Mass Index 40.4 Vital signs reviewed Physical Examination CONSTITUITIONAL Patient alert and cooperative. Well appearing and in no apparent painful distress HEENT Conjunctiva and sclera clear. Pupils equal round and reactive to light. No lymphadenopathy. CHEST/RESPIRATORY SYSTEM Normal respiratory effort and able to speak in complete sentences. Clear to auscultation bilaterally. No crackles, rales, rhonchi, wheezes heard. CARDIAC SYSTEM Regular rate and rhythm. S1 and S2 heard no murmurs. Radial pulses intact bilaterally MSK Hands: Good tester equipment strength bilaterally. No deformities noted. No synovitis noted to the MCPs, PIPs or DIPs. No tenderness to palpation of these joints. Wrists: Full range of motion at the wrists without pain. No tenderness to palpation or synovitis noted to the wrists. Elbows: Full range of motion without pain. No tenderness, weakness, swelling, increased warmth or erythema. Shoulders: Full range of motion without pain. No tenderness, weakness, swelling, increased warmth or erythema. Hips: Full range of motion without pain. Hip bursa: No tenderness to palpation Knees: Full range of motion. No tenderness, swelling, increased warmth or erythema.?No effusion or crepitations Ankles: Full range of motion. No tenderness, swelling, increased warmth or erythema.? Feet: Negative squeeze test. No tenderness to palpation or swelling of the MTPs. Tender points:?No tenderness to palpation of the bilateral trapezius, supraspinatus, greater trochanters, anterior costochondral junctions, bilateral gluteal areas, bilateral suboccipital muscle insertions SKIN Skin intact without rashes. Results Reviewed Results Reviewed: Laboratory Tests 03/30/24 12:01 WBC 8.0 RBC 4.70 Hgb 13.5 Hct 40.1 Plt Count 150 L Sodium 137 Potassium 3.8 Chloride 106 Carbon Dioxide 25 BUN 12 Creatinine 0.73 Total Bilirubin 0.4 AST 23 ALT 23 C-Reactive Protein 0.41 25-OH Vitamin D Total 28.9 L Assessment & Plan Assessment & Plan (1) Psoriatic arthritis: Comment: Methotrexate: 01/09/2017- stopped d/t alopecia Humira: 01/15/2017 - 06/21/2017- no improvement in joint pain Trialed on Simponi per notes, unable to locate script/may have come from dermatology Cosentyx: 06/21/2017- 01/2019 no improvement in joint pain Xeljanz: 07/2019- present Code(s): L40.50 - Arthropathic psoriasis, unspecified Category: Medical Plan: #PsA Patient with psoriatic arthritis on a background of a long history of psoriasis. She is currently on minimal immunosuppression with Plaquenil. She says it takes the edge off enough that she can manage her pain. My concern is that she may develop fibromyalgia given this prolonged dysregulated pain that she has been experiencing. However today on exam she does not have any positive fibromyalgia tender points. I discussed this with her and also discussed potentially adding Otezla and gabapentin/pregabalin to her regimen. She has decided that she would like to hold off on adding any medications at this time. She is reluctant to add more immunosuppression especially given her history with failed immunosuppression. Her current symptoms she blames on her most recent Bulgarian food take out intake and is currently doing a detox and hoping that things will resolve. Informed her that if anything changes she is to reach out to the office Plan - Plaquenil 200mg daily - Topical steroids as per derm - RTC 4-5 months - Labs before visit: CBC, CMP, ESR, CRP, hepatitis panel, T spot (2) Psoriasis: Code(s): L40.9 - Psoriasis, unspecified Category: Medical Plan: #Psoriasis Stable on topical medications (3) Bilateral primary osteoarthritis of knee: Code(s): M17.0 - Bilateral primary osteoarthritis of knee Category: Medical Plan: #Bilateral Knee OA Patient with bilateral knee OA previously getting gel injections but Orthopedics interested in getting her knee injections here. Discussed Durolane versus Euflexxa as an option for the patient and information given to the patient on Durolane. She will reach out to the office with her decision in the meantime she can use topical diclofenac on her knees as well as her hands for her 1st CMC OA Plan - Bilateral knee XRs - Topical diclofenac gel 1% - To schedule gel injections (4) Encounter for monitoring of hydroxychloroquine therapy: Code(s): Z51.81 - Encounter for therapeutic drug level monitoring; Z79.899 - Other jail (current) drug therapy Category: Medical Plan: #Long-term Use of Hydroxychloroquine Discussed with patient the risks and benefits of hydroxychloroquine in managing the rheumatic condition Benefits include: - Reduced pain, reduce mortality, maintenance of remission and reduction of flares Risks include: - GI upset, skin hyperpigmentation, retinal toxicity (especially after more than 5 years of use), myopathy Advised yearly ophthalmology visits Last ophthalmology visit: [ ] Plan I spent 30 minutes reviewing the record and labs, seeing the patient, discussing the treatment plan and documenting in the medical record Orders: Orders Complete Blood Count Auto Diff 4 Months L40.50 - Arthropathic psoriasis, unspecified C Reactive Protein 4 Months L40.50 - Arthropathic psoriasis, unspecified Erythrocyte Sedimentation Rate 4 Months L40.50 - Arthropathic psoriasis, unspecified Hepatitis A,B,C Profile 4 Months L40.50 - Arthropathic psoriasis, unspecified T Spot TB 4 Months L40.50 - Arthropathic psoriasis, unspecified XR knee RT 3V Today M17.0 - Bilateral primary osteoarthritis of knee XR knee LT 3V Today M17.0 - Bilateral primary osteoarthritis of knee XR knee standing BI Today M17.0 - Bilateral primary osteoarthritis of knee Comprehensive Met. Panel 4 Months L40.50 - Arthropathic psoriasis, unspecified Medications: New hydroxychloroquine 200 mg PO DAILY 90 tabs 1RF L40.50 - Arthropathic psoriasis, unspecified diclofenac sodium 1% apply to bilateral hands 4 times a day 4 grams topical QID 100 grams 5RF M17.0 - Bilateral primary osteoarthritis of knee Discontinued prednisone Discontinued Reason: Doctor's Order orally daily; 2 tablets per day x 10 days 1 tablet per day x 10 days 25 tabs 0RF L40.50 - Arthropathic psoriasis, unspecified, L40.9 - Psoriasis, unspecified, M25.572 - Pain in left ankle and joints of left foot Coding Level of Care Code Est Pt Level 4 (18584) Complex EM visit Add On G2211 Diagnoses Psoriatic arthritis L40.50 Psoriasis L40.9 Bilateral primary osteoarthritis of knee M17.0 Encounter for monitoring of hydroxychloroquine therapy Z51.81; Z79.89
[2024-07-01 07:37] VITALS: BP 140/100; PULSE 75; O2SAT 97; BMI 40.4
== END 2024-07-01 08:01 | disposition home or self-care (01) ==
PROVIDERS: PCP Preventive Medicine Public Health & General Preventive Medicine; Visit Provider Student in an Organized Health Care Education/Training Program
DX: L40.50 Arthropathic psoriasis, unspecified (principal); L40.9 Psoriasis, unspecified; M17.0 Bilateral primary osteoarthritis of knee; Z51.81 Encounter for therapeutic drug level monitoring; Z79.899 Other long term (current) drug therapy
CPT/HCPCS: 99214

== ENCOUNTER 2024-08-25 13:48 | Emergency (ER) | payer OTHER, SELFPAY ==
--- NOTE | ~2024-08-25 | XR_ITS ---
EXAMINATION: XR CHEST CLINICAL INFORMATION: Chest pain COMPARISON: None available. TECHNIQUE: Frontal view of the chest was obtained. FINDINGS: Mild prominence of the interstitial markings. No consolidation, pleural effusion or pneumothorax. Cardiomediastinal silhouette size is normal. Multilevel thoracic spondylosis. Patient's large body habitus/obesity. XR/XR chest 1V IMPRESSION: Mild interstitial lung edema versus acute small airway inflammatory process in the correct clinical settings. Electronically signed by: Bashir Pitts MD 08/25/2024 03:00 PM EDT
--- NOTE | 2024-08-25 13:50 | ECG_ITS ---
Test Reason : CHEST PAIN Blood Pressure : */* mmHG Vent. Rate : 70 BPM Atrial Rate : 70 BPM P-R Int : 148 ms QRS Dur : 94 ms QT Int : 442 ms P-R-T Axes : 37 -8 39 degrees QTcB Int : 477 ms Normal sinus rhythm Moderate voltage criteria for LVH, may be normal variant ( R in aVL , Alirio product ) Cannot rule out Anterior infarct , age undetermined Abnormal ECG No previous ECGs available Referred By: Generic ED Physician Electronically Signed By: FREDDY PATEL
[2024-08-25 14:12] VITALS: BP 143/69; PULSE 69; RESP 18; TEMP 36.6; O2SAT 97; BMI 39.2
--- NOTE | 2024-08-25 14:14 | ED.GENADULT ---
HPI - General Adult General Chief complaint: Chest Pain Stated complaint: Chest pain Time Seen by Provider: 08/25/24 16:33 Source: patient Mode of arrival: ambulatory Limitations: no limitations History of Present Illness ED Provider: Lupillo Rao HPI narrative: 54 yold female Psorasis, osteoarthrtis of knee, and lumbar spondylosis presents to the ED for resolved epigastric pain radiating to chest during lunch. Pataient felt acid burning gassy sensation that resolved after 10 minutes. patient presently asymptomatic. Related Data Home Medications ?Medication ?Instructions ?Recorded ?Confirmed azelastine 137 mcg (0.1 %) nasal 1 spray intranasal BID 02/03/20 07/01/24 spray magnesium oxide 500 mg capsule 500 mg PO DAILY 02/03/20 07/01/24 spironolactone 100 mg tablet 100 mg PO DAILY 02/03/20 07/01/24 zinc 50 mg tablet 50 mg PO DAILY 02/03/20 07/01/24 cetirizine 10 mg tablet (Zyrtec) 10 mg PO DAILY 07/12/21 07/01/24 fexofenadine 180 mg tablet 180 mg PO DAILY 07/12/21 07/01/24 (Tata Allergy) loratadine 10 mg tablet (Claritin) 10 mg PO DAILY 07/12/21 07/01/24 estradiol 10 mcg vaginal tablet 10 mcg vaginal DAILY 08/15/23 07/01/24 Previous Rx's ?Medication ?Instructions ?Recorded ipratropium 0.5 mg-albuterol 3 mg 3 ml inhalation Q6-8H PRN wheezing 02/15/23 (2.5 mg base)/3 mL nebulization #90 mL soln ibuprofen 800 mg tablet 800 mg PO BID PRN for pain #60 tabs 06/19/24 diclofenac sodium 1 % topical gel 4 g topical QID #100 grams 07/01/24 hydroxychloroquine 200 mg tablet 200 mg PO DAILY #90 tabs 07/01/24 tramadol 50 mg tablet 50 mg PO BID PRN pain #60 tabs 07/21/24 famotidine 20 mg tablet (Pepcid) 20 mg PO BID #14 tabs 08/25/24 Allergies Allergy/AdvReac Type Severity Reaction Status Date / Time Sulfa (Sulfonamide Allergy Unknown dizzy Verified 08/25/24 14:14 Antibiotics) latex Allergy rash Verified 08/25/24 14:14 Review of Systems Review of Systems: resolved epigastric pain Yes all other systems are reviewed and are negative [facility] Past Medical History Medical History (Updated 08/26/24 @ 00:00 by Samson Santiago) Encounter for monitoring of hydroxychloroquine therapy Bilateral primary osteoarthritis of knee Left ankle pain Long-term current use of high risk medication other than anticoagulant PCOS (polycystic ovarian syndrome) Asthma Depression Glaucoma Lyme disease Surgical History History of hysterectomy Varicose vein of leg Social History Social History Household Members: Significant Other Housing: House Are you a primary healthcare educator to a significant other at home: No Do you presently have visiting nurse or other home services: No Alcohol intake: never Patient Tobacco Use Status: Former Tobacco user Second Hand Smoke Exposure: No Advance Directives: No Advance Directives Information Provided: Yes service: No Current occupational status: employed Current occupation: [employer] Current occupational exposures/hazards: Yes Physical Exam ED Vital Signs: Vital Signs - 24 hr 08/25/24 14:12 Temperature 98 F Pulse Rate 69 Respiratory Rate 18 Blood Pressure 143/69 H Pulse Oximetry 97 Oxygen Delivery Method Room Air BMI result Body Mass Index 39.2 Const General: cooperative, healthy appearing, comfortable, no acute distress, well developed, alert, awake and Physically active Orientation/consciousness: patient oriented x3 HENMT Head: Yes normal to inspection, Yes No palpable skull fracture present, Yes normocephalic and Yes atraumatic Eyes General: appearance normal, both eyes and all related structures Neck Neck: Yes normal visual inspection, Yes full ROM, Yes no lymphadenopathy, Yes no meningeal signs, Yes trachea midline, Yes supple, No anterior neck swelling and No tender Chest Chest palpation & inspection: normal inspection of the chest and normal palpation of entire chest wall Resp Effort & Inspection: normal respiratory effort and able to speak in complete sentences Auscultation: clear to auscultation bilaterally Cardio Jugular venous distension: no JVD Heart sounds: S1 normal heart sound present and S2 normal heart sound present GI Inspection: Yes normal to inspection Palpation (GI): Soft to palpation, not firm, nontender, no guarding and not rigid General: Yes no CVA tenderness Back/Spine/Pelvis Back: no CVA tenderness and No back tenderness Skin General skin exam: no rashes or lesions noted, elasticity normal and turgor normal Neuro General: patient oriented x3, gait normal, tone normal, moves all extremities, Normal light touch and pain sensation, no meningeal signs, no focal motor deficits and CN's II-XI intact bilaterally Extrem General: Yes normal to inspection, Yes full ROM and Yes capillary refill normal Course Course Course Narrative: RME: 54 yold female with no pmh presents to the ED for midsternal chest pain/epigatric area that occurred after lunch. patient presently has no pain. patient denies any syncopal espise. labs, EKG, Chest ordered. Medical Decision Making Medical Decision Making [facility] Narrative: 54-year-old female presents to the ED epigastric midsternal chest pain that began today and resolved on its own. Patient is presently asymptomatic. Patient denies any epigastric or chest pain. Patient denies ever having shortness of breath, leg swelling, calf pain, clears pleurisy, feve, referred back pain, lower abdominal pain, urinary symptoms, or chills. Patient denies any coughing. Patient denies any drooling or change in voice. Initial EKG negative STEMI. First troponin negative. Chest x-ray shows airway space diseases vs interstitial lung edema. patient has no respiratory symptoms. I will not treat for CHF or PNeumonia. Liver pancreas enzymes normal. Patient explained worrisome signs and informed to return to the ED immediately. Patient blood pressure elevated at end of ED visist. patient informed to record her blood pressures and present to her PCP. Patient has no nuero deficits. not suspecting MS, Stroke, kidney failure, aortic dissection, AAA, pancreaitits, cholecystiss, CHF, Pneumonia, or any life threatening eitology. Differential Diagnosis Differential Diagnoses: The differential diagnosis associated with the presentation includes (Pneumonia, MS, GERD) Admission/Observation Consideration of admission/observation: Escalation of care including admission/observation considered Lab Data [facility] Lab Attestation statement: I reviewed the patient's lab results. 08/25/24 14:44 08/25/24 14:45 Labs: Lab Results 08/25/24 08/25/24 08/25/24 Range/Units 14:44 14:45 16:46 WBC 7.9 (4.8-10.8) X10*3/uL RBC 4.54 (4.20-5.50) X10*6/uL Hgb 13.6 (12.0-16.0) g/dl Hct 38.6 (37.0-47.0) % MCV 85.0 (80.0-98.0) fL MCH 30.0 (27.0-33.0) pg MCHC 35.2 H (31.0-35.0) g/dl RDW 12.4 (11.0-16.0) % Plt Count 142 L (160-400) X10*3/uL MPV 10.3 (9.4-12.3) fL Immature Gran % (Auto) 0.4 (0.0-0.4) % Neut % (Auto) 68.6 (45-73) % Lymph % (Auto) 20.9 (20-40) % Davidson % (Auto) 4.3 (2-11) % Eos % (Auto) 4.7 H (0-4) % Baso % (Auto) 1.1 (0-2) % Lymph # (Auto) 1.6 (1.2-4.9) X10*3/uL Davidson # (Auto) 0.3 (0.1-1.2) X10*3/uL Eos # (Auto) 0.4 (0.0-0.4) X10*3/uL Baso # (Auto) 0.1 (0.0-0.2) X10*3/uL Abs Immat Gran (auto) 0.03 (0.00-0.03) X10*3/uL Absolute Neuts (auto) 5.4 (2.0-8.3) x10*3/uL Absolute Nucleated RBC 0.000 (0.0-0.012) X10*3/uL Nucleated RBC % (auto) 0.0 (0.0-0.2) /100WBC PT 11.1 (10.9-12.4) SEC INR 1.0 (0.9-1.1) APTT 29.7 (26.0-36.8) SEC Sodium 140 (135-145) mmol/L Potassium 4.4 (3.3-5.1) mmol/L Chloride 106 (96-108) mmol/L Carbon Dioxide 27 (22-29) mmol/L Anion Gap 11 L (12-20) BUN 11 (9-16) mg/dL Creatinine 0.74 (0.5-1.4) mg/dL Estim Creat Clear Calc 112.9 Estimated GFR > 60 Random Glucose 122 H (60-115) mg/dL Calcium 8.7 D (8.4-10.2) mg/dL Total Bilirubin 0.2 (0.0-1.0) mg/dL AST 26 (5-31) U/L ALT 21 (0-31) U/L Alkaline Phosphatase 63 (39-117) U/L Troponin I High Sens < 2.7 < 2.7 (<3.5-17.0) ng/L B-Natriuretic Peptide 17 (<100) pg/mL Total Protein 6.4 L (6.5-8.0) g/dL Albumin 4.0 (3.5-5.0) g/dL Lipase 25 (8-78) U/L Beta HCG, Quant < 2 mIU/mL Independent Interpretation I performed an independent interpretation of an: EKG (Negative STEMI) and Plain X-Ray Independent Historian Clinical information obtained from an independent historian. History obtained from or confirmed by: Other Prescription Management I considered prescription management with: Other (Pepcid) Discharge Plan Discharge Clinical Impression: Chest pain, Dyspepsia, GERD (gastroesophageal reflux disease) Patient Disposition: Home, Self-Care Instructions: Chest Pain (ED), Gastroesophageal Reflux Disease (ED) Additional Instructions: Your EKG, blood work, and x-ray were reassuring. Your chest x-ray showed airway space disease versus interstitial lung edema. Your history/physical exam does not match chest x-ray reading. Presently no need for treatment. Your physical exam and labs do not indicate pneumonia or heart failure. Recommend follow-up with your primary care provider. Return to the ED immediately for any chest pain, shortness of breath, coughing up blood, abdominal pain, leg swelling, pitting edema, nausea, vomitting, dysuria, hematuria, flank pain, drooling, change in voice, inability tolerate solid food/liquids, or any other concerning symptoms. EXAMINATION: XR CHEST CLINICAL INFORMATION: Chest pain COMPARISON: None available. TECHNIQUE: Frontal view of the chest was obtained. FINDINGS: Mild prominence of the interstitial markings. No consolidation, pleural effusion or pneumothorax. Cardiomediastinal silhouette size is normal. Multilevel thoracic spondylosis. Patient's large body habitus/obesity. XR/XR chest 1V IMPRESSION: Mild interstitial lung edema versus acute small airway inflammatory process in the correct clinical settings. Electronically signed by: Bashir Pitts MD 08/25/2024 03:00 PM EDT RP Prescriptions: New famotidine [Pepcid] 20 mg tablet 20 mg PO BID Qty: 14 0RF No Action ibuprofen 800 mg tablet 800 mg PO BID PRN (Reason: for pain) Qty: 60 3RF tramadol 50 mg tablet 50 mg PO BID PRN (Reason: pain) Qty: 60 5RF ipratropium-albuterol 0.5 mg-3 mg(2.5 mg base)/3 mL solution for nebulization 3 ml inhalation Q6-8H PRN (Reason: wheezing) Qty: 90 0RF spironolactone 100 mg tablet 100 mg PO DAILY magnesium oxide 500 mg capsule 500 mg PO DAILY azelastine 137 mcg (0.1 %) aerosol,spray 1 spray intranasal BID Rx Instructions: administer into each nostril zinc 50 mg tablet 50 mg PO DAILY fexofenadine [Tata Allergy] 180 mg tablet 180 mg PO DAILY cetirizine [Zyrtec] 10 mg tablet 10 mg PO DAILY loratadine [Claritin] 10 mg tablet 10 mg PO DAILY estradiol 10 mcg tablet 10 mcg vaginal DAILY hydroxychloroquine 200 mg tablet 200 mg PO DAILY Qty: 90 1RF diclofenac sodium 1 % gel 4 g topical QID Qty: 100 5RF Rx Instructions: apply to bilateral hands 4 times a day Stand Alone Forms: Work/School Release Interventions: ED Discharge Assessment Last Done: 08/25/24 18:29 Discharge Date/Time: 08/25/24 18:32 Print Language: Belarusian
[2024-08-25 14:51] LABS: MANUAL DIFF FLAG NO
[2024-08-25 15:01] LABS: Prothrombin Time 11.1 SEC (10.9-12.4)
[2024-08-25 15:04] LABS: Partial Thromboplastin Time 29.7 SEC (26.0-36.8)
[2024-08-25 15:05] LABS: Basophils Absolute Auto 0.1 X10*3/uL (0.0-0.2); Basophils Percent Auto 1.1 % (0-2); Eosinophils Absolute Auto 0.4 X10*3/uL (0.0-0.4); Eosinophils Percent Auto 4.7 % (0-4); Hematocrit 38.6 % (37.0-47.0); Hemoglobin 13.6 g/dl (12.0-16.0); Imm Gran Abs Auto 0.03 X10*3/uL (0.00-0.03); Imm Gran Pct Auto 0.4 % (0.0-0.4); Lymphocytes Absolute Auto 1.6 X10*3/uL (1.2-4.9); Lymphocytes Percent Auto 20.9 % (20-40); Mean Corpuscular HGB Conc 35.2 g/dl (31.0-35.0); Mean Platelet Volume 10.3 fL (9.4-12.3); Monocytes Absolute Auto 0.3 X10*3/uL (0.1-1.2); Monocytes Percent Auto 4.3 % (2-11); Neutrophils Absolute Auto 5.4 x10*3/uL (2.0-8.3); Neutrophils Percent Auto 68.6 % (45-73); Platelet Count 142 X10*3/uL (160-400); Red Blood Count 4.54 X10*6/uL (4.20-5.50); Red Cell Distribution Width 12.4 % (11.0-16.0); White Blood Count 7.9 X10*3/uL (4.8-10.8)
[2024-08-25 15:11] LABS: Alanine Aminotransferase 21 U/L (0-31); Alkaline Phosphatase 63 U/L (39-117); Anion Gap 11 (12-20); Aspartate Amino Transferase 26 U/L (5-31); Bilirubin Total 0.2 mg/dL (0.0-1.0); Blood Urea Nitrogen 11 mg/dL (9-16); Calcium 8.7 mg/dL (8.4-10.2); Carbon Dioxide 27 mmol/L (22-29); Chloride 106 mmol/L (96-108); Creatinine Clr Calc Pharmacy 112.9; Estimated Glomerular Filt Rate > 60; Glucose Random 122 mg/dL (60-115); Lipase 25 U/L (8-78); Potassium 4.4 mmol/L (3.3-5.1); Sodium 140 mmol/L (135-145); Total Protein 6.4 g/dL (6.5-8.0)
[2024-08-25 15:16] LABS: B Type Natriuretic Peptide 17 pg/mL (<100); HCG Quantitative < 2 mIU/mL
[2024-08-25 15:20] LABS: Troponin-I High Sensitivity < 2.7 ng/L (<3.5-17.0)
--- OUTSIDE RECORDS SUMMARY | 2024-08-25 17:23 | XMS_ITS | Data Portability ---
Author Organization [facility], Main Office Address [address] [place] [address] Care Team Providers Care Parking Assistant Name Role Phone MARTINKEVINJUDI Primary Care Provider ELIJAH YU Furniture Assembler PEYTON CHAPMAN Sleep Medicine [facility] (JUAN MANUEL JONES) Orthopedic Surgeon CHIP COBIAN Rehabilitation Services Coordinator HEDY DEL VALLE Diamond Wheel Edger Assessment Encounter Date Assessment Date Assessment LastModified [...] panel, serum 2021 022 [email or web address] [facility], [address], [place], [address], 3 11:42:52 CMP, serum or plasma 2021 022 [email or web address] [facility], [address], [place], [address], 3 11:42:53 TSH, serum or plasma 2021 022 [email or web address] [facility], [address], [place], [address], 3 11:42:52 HbA1c (hemoglob in A1c), blood 2021 022 [facility], [address], [place], [address], 2 15:26:55 microalbu min, urine 2021 022 [facility], [address], [place], [address], 2 16:13:00 CBC w/ auto diff 2021 022 [email or web address] [facility], [address], [address], [place], [address], 3 11:42:53 lipid panel, serum 2020 021 [facility], [address], [place], [address], 1 11:56:41 HbA1c (hemoglob in A1c), blood 2020 021 [facility], [address], [place], [address], 1 14:36:27 CMP, serum or plasma 2020 021 [facility], [address], [place], [address], 1 11:56:39 TSH, serum or plasma 2020 021 [facility], [address], [place], [address], 1 12:03:41 HbA1c (hemoglob in A1c), blood 2020 [facility], [address], [place], [address], 1 11:41:24 Referral gastroent erologist referral - Constipat ion and uper GI issues . Also, pt. might be due for colonosco py. 2020 021 [email or web address] [facility], [address] [facility], [place], [address], 2 09:52:37 hematolog ist/oncol ogist referral - Progressi ve leukocyto sis, psoriatic arhtropat hy on biologics . 2019 020 Rosalina Barillas MD, [address] [place], [address], 0 09:46:53 Procedures None recorded. Surgeries None recorded. Imaging MAMMO, screening , bilateral 2021 022 [facility] ([facility][Note 3]), [address], [place], [address], 2 08:25:51 bone density - Estrogen deficienc y and chronic use of prednison e. 2020 021 [facility]), [address], [place], [address], 08:34:43 MAMMO, screening , bilateral 2020 021 [facility]), [address], [place], [address], 08:34:24 Medication Orders Ventolin HFA 90 mcg/actua tion aerosol inhaler 2021 022 [id number], [address] [facility], [place], [address], 18:53:23 Patient TargetsNo targets recorded. Patient Instructions Encounter Date Encounter Id Patient Instructions Last Modified By Organization Details Last Modified Time 06/10/2020 [id number] prediabetes: car e instructions Not available 06/10/2020 12:11:53 eating healthy foods: care instructions Not available 06/10/2020 12:11:53 gastroesophageal reflux disease (GERD): care instructions Not available 06/10/2020 11:58:37 anxiety disorder : care instructions Not available 06/10/2020 11:59:22 high blood press ure: care instructions Not available 06/10/2020 12:10:55 dash diet: care instructions Not available 06/10/2020 12:10:55 12/27/2021 [id number] starting a weigh t loss plan: care instructions Not available 12/27/2021 16:01:30 albumin-creatini ne ratio: about this test Not available 12/27/2021 15:58:01 polycystic ovary syndrome: care instructions Not available 12/27/2021 15:27:18 dash diet: care instructions Not available 12/27/2021 16:01:30 Reason for Referral Progressive leukocytosis, ps oriatic arhtropathy on biologics. Referring Physician: Judi Martin, Internal Medicine, Encounter Date: 03/02/2020 Diamond Wheel Edger Referral for Altered bowel function Constipation and [...] CoV-2 spike prote in inclu ding the studio receptionist tor sheldon jose n (RBD) . Test perfo rmed by [facility], [address], [place] [address] Not Available [facility] (Centralized Electronic Ordering - All Locations) Patient Can Go To The Location Of Their Choice, [id number] 11/18/2020 07:07:11 02/29/20 20 02/29/2020 endov enous ablat ion thera py, laser (PROC ) No observ ation record ed. Ariella Granado MD [address] [facility] [address], [place], [address], 03/01/2020 18:50:20 03/03/20 20 02/18/2020 MRI, lumba r spine , w/o contr ast No observ ation record ed. [email or web address] Not Available 2019 12:53:31 05/27/19 21 05/27/2020 XR, abdom en + pelvi s No observ ation record ed. [email or web address] [facility] [address], [place], [address], 05/30/2020 09:19:14 05/30/19 21 05/27/2020 XR, angio gram, pelvi c No observ ation record ed. [facility] Orders [address], [place], [address], 05/30/2020 11:27:46 07/13/1907/12/2020 DEXA, axial skele ton ====== ====== ====== ====== ====== ====== ====== ====== ====== ====== ===== Bone Densit y Report ====== ====== ====== ====== ====== ====== ====== ====== ====== ====== ===== Name: SUSAN MORAN t ID: [id number] Age: 49 Sex: Female Ethnic ity: White Date of : 1970 ------ ------ ------ ------ ------ ------ ------ ------ ------ ------ ----- Indica tion: ZACARIAS CASTRO Referr sofi aMrie er: MAY MARTIN Study: Bone densit ometry was [facility]. Exam Date: July 12, 2020 Access ion number : [id number] Bone Densit y: ------ ------ ------ [...] ------ ------ ------ ------ ------ ----- World [facility] zation criter ia for BMD impres [...] 3:29 pm Hunter jimenez Class: Outpat ient [facility] (Outpt Imaging) [address], [place], [address], 07/13/2020 10:40:58 07/13/19 21 07/12/2020 bone densi ty No observ ation record ed. [facility] Orders [address], [place], [address], 07/13/2020 10:40:58 07/14/19 21 07/12/2020 MAMMO , [...] Lay letter mailed to hunter jimenez WSN: [id number] Orderi ng Physic alex: May Martin Dictat ed By: Sadaf Chang MD, I Dictat ed Date/T rhina: 10:10 am Review ed By: Sadaf Chang MD, I Signed By: Sadaf Chang MD, I Signed Date/T rhina: 10:10 am Transc ribed By: CSB Transc riptio n Date/T rhina: 10:01 am Birads : Hunter jimenez Class: Outpat ient [email or web address] [facility] (Outpt Imaging) [address], [place], [address], 07/13/2020 15:59:32 07/14/19 21 07/12/2020 MAMMO , scree juliocesar, bilat eral No observ ation record ed. [email or web address] [facility] Orders [address], [place], [address], 07/13/2020 15:59:32 12/30/19 22 11/17/2021 trans -thor acic echoc ardio gram (TTE) (PROC ) No observ ation record ed. [facility] [address], [place], [address], 12/29/2021 14:58:26 Result Notes None recorded. Problems Name Problem SNOMED Code Status Onset Date Resolution Date Notes Provider Name and Address Organization Details Recorded Time Mixed hyperlip idemia 106379707 Active 2017 Judi Martin fintonic-C [address], [place], [address], [facility] 8 15:40:00 Leukocyt osis 490652339 Completed 201707/17/2017 Judi DaltonOn Demand TherapeuticsC [address], [place], [address], [facility] 1 14:19:49 Asthma 198229738 Completed 201706/17/2017 Judi [employer] [address], [place], [address], [facility] 8 16:13:58 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 Judi Martin [employer] [address], [place], [address], [facility] 8 15:41:06 Major depressi ve disorder 454425835 Completed 201706/17/2017 Judi Martin [employer] [address], [place], [address], [facility] 8 15:45:52 Generali zed anxiety disorder 88407037 Active 2017 Judi Martin [employer]-C [address], [place], [address], [facility] 8 15:42:16 Insomnia 030729336 Completed 201706/10/2020 Judi Martin [employer] [address], [place], [address], [facility] 1 12:10:13 Psoriasi s 5395263 Completed 201711/02/2019 Judi Martin PA-C [address], [place], [address], [facility] 0 11:06:51 Lyme disease 68978795 Active 2017 pos IgG +4 bands in 2011 and pos IgG and IgM in 2015. Judi Martin PA-C [address], [place], [address], [facility] 8 15:43:26 Glaucoma 27336151 Completed 201706/10/2020 Judi Martin PA-C [address], [place], [address], [facility] 1 12:10:31 Constipa tion 38602239 Active 2017 Judi Martin PA-C [address], [place], [address], [facility] 8 15:43:47 Primary dysthymi a 93457055 Active 2017 Judi Martin PA-C [address], [place], [address], [facility] 8 15:46:00 Nicotine dependen ce 52501387 Active 2017 Judi Martin PA-C [address], [place], [address], [facility] 8 15:46:26 Psoriati c arthriti s 154311270 Completed 201711/02/2019 Judi Martni PA-C [address], [place], [address], [facility] 0 11:06:59 Ocular rosacea 486113359 Active 2017 Judi Martin PA-C [address], [place], [address], [facility] 8 15:57:35 Mild intermit tent asthma 982460934 Completed 201712/08/2018 Judi Martin PA-C [address], [place], [address], [facility] 9 16:17:26 Benign essentia l hyperten agustín 6097067 Active 2017 Tao iraheta, [facility] 8 09:35:30 Thromboc ytopenic disorder 403244882 Active 2017 seen and evaluated by hem/onc. Need to do yearly CBC . Judi Martin PA-C [address], [place], [address], [facility] 0 11:07:53 Ventricu lar prematur e beats 28133425 Active 2017 Tao iraheta, [facility] 8 09:57:26 Environm ental allergy 507675416 Active 2017 Judi Martin PA-C [address], [place], [address], [facility] 8 11:21:54 Obstruct adonay sleep apnea syndrome 97777372 Active 2017 not using CPAP Judi Martin PA-C [address], [place], [address], [facility] 2 16:06:30 Psoriasi s with arthropa thy Active 2018 Judi Martin PA-C [address], [place], [address], [facility] 9 14:53:43 Leukocyt osis 515065627 Completed 201812/08/2018 Judi Martin PA-C [address], [place], [address], [facility] 1 14:19:49 Exacerba tion of intermit tent asthma 222582804 Completed 201808/07/2019 Judi Martin PA-C [address], [place], [address], [facility] 0 16:46:29 Allergic asthma 986266441 Active 2018 Judi Martin PA-C [address], [place], [address], [facility] 9 16:20:36 Venous stasis 20795520 Active 2018 Judi Martin PA-C [address], [place], [address], [facility] 9 16:35:54 Deviated nasal septum 971580503 Active 2018 Judi Martin PA-C [address], [place], [address], [facility] 9 16:47:06 Morbid obesity 171768110 Active 2018 Sierra Azul [facility] 9 14:24:20 Prediabe rosa maria 783159644 Active 2019 Judi Martin PA-C [address], [place], [address], [facility] 0 15:21:17 Leukocyt osis 818901496 Active 2020 reactive secondary to psoriatic arthropfa thy, asthma flairs, prednison e, cellujlit is. Seen by hem/onc. Discharge d. Judi Martin PA-C [address], [place], [address], [facility] 1 14:19:49 Irritabl e bowel syndrome 61632558 Active 2020 Judi Martin PA-C [address], [place], [address], [facility] 1 11:58:57 Pruritic disorder 442213431 [facility] [address], [place], [address], [facility] 1 12:01:06 Chronic pain syndrome 326279023 Active 2021 see rheumatol ogy notes from October [facility] [address], [place], [address], [facility] 2 15:14:07 Subclini karen hypothyr oidism 09811719 Active 2021 [facility] [address], [place], [address], [facility] 2 15:17:16 Problem Notes None recorded. Procedures Surgical History Date Name Laterality Status Provider Name and Address Organization Details Recorded Time 07/13/19 21 Most Recent Mammogram completed Irma Calixto [facility] 07/13/2020 15:58:44 08/05/19 19 Mammogram both breasts completed Alexandraphylicia Cueto [facility] 08/04/2018 16:21:51 05/28/19 19 injection of knee joint completed Alexandraphylicia Cueto [facility] 06/30/2018 16:22:25 02/05/20 18 injection completed Alexandra Money [facility] 08/29/2018 11:57:59 06/22/19 17 Date of Last Colonoscopy completed Debra Calvert MA [facility] 12/27/2021 15:06:00 06/18/19 17 Egd diagnostic brush wash completed Shana Hicks [facility] 06/29/2020 09:53:31 06/18/19 17 Colonoscopy completed Shana Hicks [facility] 06/29/2020 09:54:50 Hysterectomy completed Bridgett Barrios [facility] 06/17/2017 15:42:16 Imaging Results Imaging Date Name Status LastModified by Organization Details LastModified Time 02/29/2020 endovenous ablation therapy, laser (PROC) completed [email or web address] Ariella Granado MD [address], [place], [address], 03/01/2020 18:50:20 02/18/2020 MRI, lumbar spine, w/o contrast completed stephanie Information not available 03/17/2020 12:53:31 05/27/2020 XR, abdomen + pelvis completed stephanie [facility] [address], [place], [address], 05/30/2020 09:19:14 05/27/2020 XR, angiogram, pelvic completed stephanie [facility] Orders [address], [place], [address], 05/30/2020 11:27:46 07/12/2020 DEXA, axial skeleton completed [facility] (Outpt Imaging) [address] [place], [address], 07/13/2020 10:40:58 07/12/2020 bone density completed [facility] Imaging Orders [address], [place], [address], 07/13/2020 10:40:58 07/12/2020 MAMMO, screening, digital, bilateral completed [email or web address] (Out[facility] Imaging) [address] [place], [address], 07/13/2020 15:59:32 07/12/2020 MAMMO, screening, bilateral completed [email or web address] [facility] Orders [address], [place], [address], 07/13/2020 15:59:32 11/17/2021 trans-thoracic echocardiogram (TTE) (PROC) completed [facility] [address], [place], [address], 12/29/2021 14:58:26 Procedure Notes None recorded. Medical Equipment None Reported. Allergies Allergen ID Allergen Name Allergen Category Reaction Reaction Severity Criticality Documentation Date Start Date Code Code System Note Provider Name and Address Organization Details Recorded Time 05576 latex environme nt,medica tion rash severe Not available 06/17/2017 58155 91 RxNorm Bridgett Barrios myrtle [facility] 8 15:41:43 46340 Substance with sulfonami de structure and antibacte rial mechanism of action (substanc e) medicatio n dizziness Not available Not available 06/17/2017 92198 8003 SNOMED Bridgett Denis iraheta [facility] 8 15:41:43 90515 Plaquenil medicatio n hallucina tions severe Not available 12/03/201791046 2 RxNorm KALANI Hickman [facility] 1 11:04:06 24497 Celebrex medicatio n Not available Not available Not available 12/10/2018 93020 7 RxNorm conta ins sulfa Judi Yunier SANTAMARIA [address] [facility] [address], [place], [address], [facility] 9 10:40:07 Medications Name Sig Start Date [...] azelastine 137 mcg (0.1 %) nasal spray Hanna 137 microgram s as needed by nasal [...] DateTime 03/02/2020 172.72 cm Demetria Colby MA [facility] 03/02/2020 10:53:27 Date Recorded Body height Provider Name an d Address Organization Details Last Updated DateTime 04/04/2020 172.72 cm Dayan Thakur MA [facility] 04/04/2020 14:36:36 Date Recorded Body height Body mass index (BMI) Body weight Heart rate Oxygen saturation Oxygen saturation in Arterial blood by Pulse oximetry Body temperature Systolic blood pressure Diastolic blood pressure Provider Name and Address Organization Details Last Updated DateTime 1 172.72 cm 41.1 kg/m2 232976. 94 g 87 /min 97 % 97 % 97.34 [degF] 121 mm[Hg] 83 mm[Hg] Dayan Thakur [facility] 1 11:19:09 Date Recorded Body height Provider Name an d Address Organization Details Last Updated DateTime 09/12/2020 172.72 cm Bri Centeno MA [facility] 09/12/2020 13:54:32 Date Recorded Body height Body mass index (BMI) Body weight Oxygen saturation Oxygen saturation in Arterial blood by Pulse oximetry Heart rate Body temperature Systolic blood pressure Diastolic blood pressure Provider Name and Address Organization Details Last Updated DateTime 2 172.72 cm 41.2 kg/m2 541596. 53 g 98 % 98 % 73 /min 97.88 [degF] 125 mm[Hg] 75 mm[Hg] Debra Calvert MA [facility] 2 14:58:21 Social History Question Answer Notes LastModified by Organizat ion Details LastModified Time Tobacco Smoking Status Former Smoker Liza Bragg [facility] 12/30/2019 10:19:51 Do You Have An Advance Directive? No [email or web address] Information not available 12/27/2021 What Is Your Level Of Alcohol Consumption? None Information not available 06/17/2017 Is Blood Transfusion Acceptable In An Emergency? No Information not available 12/27/2021 What Is Your Level Of Caffeine Consumption? Moderate Information not available 06/17/2017 How Much Tobacco Do You Chew? None Information not available 06/17/2017 Are You Currently Employed? Yes Information not available 06/17/2017 What Type Of Diet Are You Following? SPECIFIC [email or web address] Information not available 12/27/2021 Which Illicit Or Recreational Drugs Have You Used? None Information not available 12/03/2017 Do You Or Have You Ever Used E-cigarettes Or Vape? 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 6-10yearssinc [email or web address] e Information not available 03/02/2020 Live Alone Or With Others? With Others Boyfriend [email or web address] Information not available 12/27/2021 Do You Take Precautions To Prevent Distracted Driving? No Information not available 12/27/2021 How Often Do You Need To Have Someone Help You When You Read Instructions, Pamphlets, Or Other Written Material From Your Doctor Or Pharmacy? Sometimes [email or web address] Information not available 12/27/2021 Have You Served [...] Gathering In The Last 10 Days? No [email or web address] Information not available 06/10/2020 What Was The Date Of Your Most Recent Tobacco Screening? 12/27/2021 [email or web address] Information not available 12/27/2021 How Many Children Do You Have? 0 Information not available 12/03/2017 Are You Sexually Active? No [email or web address] Information not available 12/08/2018 At What Age Did You Start Smoking Tobacco? 17 Information not available 12/03/2017 Are You Passively Exposed To Smoke? No [email or web address] Information not available 12/27/2021 Do You Or Have You Ever Used Smokeless Tobacco? Never Used Smokeless Tobacco Information not available 03/02/2020 How Much Tobacco Do You Smoke? No [email or web address] Information not available 12/27/2021 How Many Years Have You Smoked Tobacco? 12 On And Off Information not available 12/03/2017 Do You Or Have You Ever Used Any Other Forms Of Tobacco Or Nicotine? No Information not available 12/27/2021 Sex: Unknown Functional Status Question Answer Note LastModified by Organizat ion Details LastModified Time Are you able to walk? YESWOREST [email or web address] Information not available 12/27/2021 Are you able to care for yourself? Yes Information not available 06/17/2017 What is your exercise level? None due to injury / arthritis Information not available 12/03/2017 Mental Status None recorded. Family History Relationship Description Onset Age of this Age Resolved Age Notes LastModified by Organization Details LastModified Time Maternal Aunt Kidney disease 35 41 Not available 12/08 15:44:15 Mother Arthritis 60 [email or web address] Not availa ble 12/08/2018 15:44:15 Father Arthritis 30 [email or web address] Not available 12/27/2021 14:51:06 Maternal Grandfather Kidney disease 70 [email or web address] Not available 12/08 15:44:15 Brother History of malignant neoplasm of brain 22 27 [email or web address] Not available 12/08 15:50:41 Medical History Condition Response Other N Gout N Kidney Stones N Blood Diseases N Hyperthyroidism N Breast Cancer N Depression Y COPD N Lung Disease N Hypothyroidism N Defects or Inherited Disease N Anesthesia Complications N Headaches/Migraines N Varicose Veins Y Anxiety Disorder N Obesity Y Vision or Eye Problems Y Arthritis Y Head Injury/Concussion N Polyps N Infertility N Congenital Anomalies N Acid Reflux (GERD) Y Cancer N Stroke N ADHD N Endometriosis N High Cholesterol N Liver Disease N Fibromyalgia Y Kidney Disease N Heart Problems N Ear or Hearing Problems N Hospitalizations N Thyroid Problems N GI Problems Y Acne Y Eating Disorder N Skin Problems Y Anemia N Constipation Y Bladder Problems N Mental Illness N Ovarian Cancer N Diabetes N Blood Transfusions N Seizures/Epilepsy N Tuberculosis N AIDS/HIV N Congestive Heart Failure (CHF) N Eczema N Diverticulitis N Abuse/Domestic Violence N Asthma Y Allergies Y Reflux/GERD Y [...] recombinant, quadrivalent, PF 7 completed Bridgett iraheta [facility] 06/17/2017 15:52:23 Tdap 3 completed Judi Martin PA-C [address], [address] 06/17/2017 16:10:56 Influenza, split virus, quadrivalent, preservative 0 completed KALANI Hickman [facility] 06/10/2020 11:17:31 Past Encounters Encounter ID Performer Location Encounter Start Date Encounter Closed Date Diagnosis/Indication Diagnosis SNOMED-CT Code Diagnosis ICD10 Code Diagnosis Note [id number] Jaylan Olmedo MD Main Office [address] [facility] [address] [place] [address] 06/17/2017 15:18:29 06/17/2017 16:40:55 Mixed hyperlipidemia 896996453 E78.2 Mild inter mittent asthma 763589862 J45.20 Stable. Continue montelukas t daily. Constipation 04196451 K5 9.00 Continue LInzess. F/u with Dr. Aguillon. Primary dysthymia 793668 05 F34.1 Continue Fluoxetine 20 mg. Psoriatic arthritis 1563 87129 L40.50 F/u with rheumatolo gist. Continue HUmira and Tramadol PRN. Leukocytosis 068015697 D 72.829 repeat labs Nicotine dependence 5629 4008 F17.200 Fatigue 27073716 R53.83 Body mass index 30+ - obesity 833042481 E66.01 Z68.41 Elevated blood-pressure reading without diagnosis of hypertension 444192852 R03.0 [id number] Khris Hartman MD Main Office [address] [facility] [address] [place] [address] 07/17/2017 08:45:31 07/17/2017 10:03:23 Nicotine dependence 59782894 F17.200 pt will start chantix that she was prescribed . Mixed hyperlipidemia 267 831182 E78.2 Pt will provide a fasting blood sample withing 3 months including direct LDL. Consider start of statins due to increased cardiovasc risks , PCOS/metab olic syndrome. Body mass index 40+ - severely obese 031016234 E66.01 Z68.41 pt agrees to see a nutritioni st and start follow low carb/ fat diet. Benign ess ential hypertension 9580584 I10 Blood pressure has been under 140/90 for past three weeks. pt instructed to continue to check bp daily and report any readings over 140/90. Pt instructed to seek medical attention in the even she developes CO, COB, dizziness. If BP becomes elevated continuous ly, will consider ACEI Rx. DASH diet is recommende d to follow and discussed. Thrombocyt openic disorder 917408700 D69.6 will refer to hematology for follow up and treatment. Ventricula r premature beats 67583083 I49.3 Will monitor, pt instructed to report continuous bouts of PVC/palpit ations. instructed to seek medical attention in the event she develops CP, SOB, CP radiation. [id number] Mayank Talley MD Main Office [address] [facility] [address] [facility] [place] [address] 12/03/2017 10:23:05 12/03/2017 12:01:26 Adult health examination 523668430 Z00.00 up to date on vaccines Benign ess ential hypertension 9915583 I10 stable on diet and with some weight loss. Continue monitoring . Ventricula r premature beats 36672606 I49.3 Will monitor, pt instructed to report continuous bouts of PVC/palpit ations. instructed to seek medical attention in the event she develops CP, SOB, CP radiation. Nicotine dependence 5629 4008 F17.200 Continue trying to quit on your own . Can also retry Chantix. Body mass index 30+ - obesity 468751180 E66.01 Z68.41 Mixed hyperlipidemia 267 175720 E78.2 Pt will provide a fasting blood sample including direct LDL. Consider start of statins due to increased cardiovasc risks , PCOS/metab olic syndrome. Insomnia 940487387 G47.0 0 stable and improved Snoring 02259509 R06.83 schedule for polysomnog crystal Mild inter mittent asthma 367944639 J45.20 Stable. Continue montelukas t daily.Vent jessica PRN. Primary dysthymia 862594 05 F34.1 Continue Fluoxetine 20 mg. Constipation 91288180 K5 9.00 Continue LInzess. F/u with Dr. Aguillon. Generalize d anxiety disorder 40691583 F41.1 continue meds [id number] Khris Hartman MD Main Office [address] [facility] [address] [place] [address] 12/19/2017 11:26:28 12/19/2017 12:31:14 Acute pharyngitis 239926099 J02.9 likely d/t pnd - see below Acute sinusitis 81550713 J01.90 if cannot clear sxs, then consider ent eval, rec probiotics as well. 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 Warm compress BID, arm elevation. F/u 3-4 days if needed. [id number] Judi Martin PA-C Main Office [address] [facility] [address] [place] [address] 05/30/2018 14:11:00 05/30/2018 15:12:15 Menopausal flushing 991260259 N95.1 start small dose estradiol f/u in 1 m. Vaginal dryness 00755134 N89.8 Psoriasis with arthropathy 43026116 L40.50 sees rheum. Was not tried on COTE II. Will try celebrex daily to avoid overusing Advil which usually helps her if taken with Tramadol. [id number] Judi Martin PA-C Main Office [address] [address] [address] [place] [address] 06/30/2018 08:37:11 06/30/2018 09:53:18 Leukocytosis 618807935 D72.829 repeat labs Exacerbati on of intermittent asthma 925911639 J45.21 if repeat CBC is stable , start Prednisone taper as directed for 10 days, Nebulizer at every 4-6 hrs or HFA. Essential hypertension 35478549 I10 Mixed hyperlipidemia 267 679559 E78.2 Pt will provide a fasting blood sample including direct LDL in 3 months. Consider start of statins due to increased cardiovasc risks , PCOS/metab olic syndrome. [id number] Judi Martin PA-C Main Office [address] [address] [address] [place] [address] 07/07/2018 09:57:29 07/07/2018 10:56:12 Acute sinusitis 43132279 J01.90 Asthmatic bronchitis 405 353161 J45.909 R/o pneumonia. Chest XRAy as well as increase Prednisone back to 50 mg and start taper over . Nebulizer every 4 hrs and continue using ADvair D. [id number] Judi Martin PA-C Main Office [address] [address] [place] [place] [address] 07/30/2018 15:08:49 07/30/2018 16:21:38 Benign essential hypertension 0968646 I10 Continue Lisinopril 10 mg daily, low sodium diet. Continue trying to lose weight. 174766 Barb Tuttle Main Office [address] [address] [place] [place] [address] 10/23/2018 13:21:21 10/23/2018 14:20:06 Multiple joint pain 53072795 M25.50 check rheumatolo gy labs, pt sees rheumatolo gist in [place], will followup with her. Hs followup with Judi up coming Tick bite 43323529 S00.9 6XA check labs Fatigue 78061813 R53.83 Await lab testing to see if pt has tick borne illness, rest, hydration. Eruption 071730647 R21 pt sees dermatolog y has upcoming appointmen t. Thrombocyt openic disorder 213904521 D69.6 checking cbc for platelets 472921 Sierra Azul Main Office [address] [facility] [address] [place] [address] 12/08/2018 15:28:43 12/08/2018 17:01:12 Adult health examination 583804708 Z00.00 up to date on vaccines Benign ess ential hypertension 8935221 I10 Continue Lisinopril 10 mg daily, low sodium diet. Continue trying to lose weight.rep eat labs. Allergic asthma 57218086 6 J45.909 Obstructiv e sleep apnea syndrome 07831570 G47.33 Mixed hyperlipidemia 267 908294 E78.2 Retest fasting lipids in 4 m. Generalize d anxiety disorder 41019219 F41.1 continue current meds Psoriasis with arthropathy 32917081 L40.50 continue prednisone taper. F/u wit rheum. Venous stasis 23699138 I 87.8 Body mass index 30+ - obesity 703823392 Z68.41 Morbid obesity 251787932 E66.01 700611 Judi Martin PA-C Main Office [address] [facility] [address] [place] [address] 08/07/2019 13:18:32 08/10/2019 06:42:02 Psoriatic arthritis 307589999 L40.50 F/u with rheumatolo gist. Moderate p ersistent asthma 669562234 J45.40 Prednisone PRN for acute asthma. Pt. was encouraged to f/u with her pulmonary. Due to her asthma and psoriatic arthropath y she is at higher risk for mortality if exposed to and acquires COVID-19 infection. [id number] Judi Martin PA-C [employer] [address] [facility] [address] [place] [address] 11/02/2019 08:38:53 11/02/2019 15:40:33 Prediabetes 777402930 R73.03 retest labs. Mixed hyperlipidemia 267 933848 E78.2 Retest fasting lipids prior to physical in December. Pt. is willing to retry statins at smaller dose ifresults of fasting test show lipidelvat ion again. Inflammati on of sacroiliac joint 78449304 M46.1 Start prednisone taper as directed and muscle relaxant at HS. Continue heat and tens unit use. If pain does not sign. decrease or persists, pt. is given referral to [facility] for trigger point injections . [id number] Judi Martin PA-C [employer] h [address] [facility] [address] [place] [address] 12/30/2019 09:10:16 12/30/2019 13:02:39 Leukocytosis 410031089 D72.829 significan t leukocytos is and respirator y distress. ? asthma exacerb. with Prednisone effect on WBCs or acute infection, ? COVID,pneu monia. Pt. is immuno compromise d. Recommend to go to the ER for further testing. Acute resp iratory distress 447901159 R06.03 referred to the ER. [id number] Judi Martin PA-C [employer] [facility] [address] [facility] [address] [facility] [place] [address] 03/02/2020 09:21:32 03/02/2020 12:01:28 Psoriasis with arthropathy 01704496 L40.50 Continue current meds under rheumatolo gy. FMLA forms to be completed. Moderate p ersistent asthma 845291704 J45.40 Prednisone PRN for acute asthma. Pt. was encouraged to f/u with her pulmonary. Due to her asthma and psoriatic arthropath y she is at higher risk for mortality if exposed to and acquires COVID-19 infection. Venous stasis 79217102 I 87.8 complicate d by cellulitis post procedures . F/u with Dr. Granado Leukocytosis 830022468 D 72.829 Encouraged to have hem/onc consult. PT. has multiple comorbidit ies and immune suppressio n, on biologics. 391363 Judi Martin PA-C [employer] h [address] [facility] [address] [place] [address] 04/04/2020 14:22:44 04/04/2020 15:50:41 Psoriasis 4204626 L40.9 flares despite biologic. Pt. has mahin with rheum and dermatolog y coming up/ ADvised to take zyrtec 10 mg by day and bendryl at HS and use topical steroids. PT. will discuss further with derm. tomorrow. [id number] Judi Martin PA-C Main Office [address] [facility] [address] [place] [address] 06/10/2020 10:59:58 06/10/2020 12:59:33 Adult health examination 790878792 Z00.00 up to date on vaccines Prediabetes 260124041 R7 3.03 retest labs. Polycystic ovary syndrome 980532373 E28.2 continue on spironolac tone. Thrombocyt openic disorder 342729734 D69.6 will refer to hematology for follow up and treatment. Primary dysthymia 622565 05 F34.1 Continue Fluoxetine 20 mg. Obstructiv e sleep apnea syndrome 21670526 G47.33 Morbid obesity 173696380 E66.01 Mixed hyperlipidemia 267 461633 E78.2 stable as of last year. Lyme disease 65173112 A6 9.20 stable. Leukocytosis 165354587 D 72.829 reactive in nature due to prednisone . Generalize d anxiety disorder 69832293 F41.1 continue current meds Constipation 13538159 K5 9.00 Continue Linzess. F/u with Dr. Aguillon. Allergic asthma 03427583 6 J45.909 Continue current meds. Screening for malignant neoplasm of breast 979012265 Z12.39 Altered adal wel function 73903997 R19.4 Irritable bowel syndrome 48756108 K58.9 alternatin g patter . takes Linzess. Overdue for GI visit. Last colonoscop y is unknown, but reports normal with 10 year recall. Gastroesop hageal reflux disease 454383210 K21.9 f/u with the GI . Continue PPI. Pruritic disorder 511052 002 L29.9 started after flu vaccine. Takes dapsone. Body mass index 40+ - severely obese 317760445 E66.01 Z68.41 Pt. is trying to lose weight by cutting down on carbs, but is limited in exercise due to psoriatic arthropath y. Screening for osteoporosis 293350257 Z13.820 refer for bone density scan. Benign ess ential hypertension 9960763 I10 Continue Lisinopril 10 mg daily. Weight gain 1485709 R63. 5 [id number] Judi Martin PA-C [facility] [facility] [address] [facility] 207 [place] [address] 09/12/2020 12:41:27 09/12/2020 14:51:05 Moderate persistent asthma 644360745 J45.40 Stable extrinsic moderate asthma. Continue symbicort BID and montelukas t as well as claritin 10mg. F/u with allergy as scheduled. Benign ess ential hypertension 7526257 I10 Stable HTN. Continue Lisinopril 10 mg daily. Mixed hyperlipidemia 267 737923 E78.2 stable as of last year.repea t fasting lipids. Prediabetes 400292655 R7 3.03 retest labs. Pruritic disorder 677331 002 L29.9 f/u with allergy. [id number] Sierra Azul Main Office [address] [facility] 207 [place] [address] 12/27/2021 14:49:27 12/27/2021 16:13:13 Adult health examination 591712359 Z00.00 Chronic pain syndrome 37 1881916 G89.4 Pt. reports inadequate pain control. Has multifacto rial chronic diffuse body pain and joint pain. Tramadol prescribed as BID by rheumatolo gist. I advised pt. to seek second opinion in [place] for her persistent chronic pain and swelling. Pt. is overall unsatisfie d with local pain and rheumatolo special care hospital care. Screening for malignant neoplasm of breast 891092576 Z12.39 Screening for malignant neoplasm of cervix 758269277 Z12.4 Pt. had hysterecto my. Has PCOS. Not seeing [facility]EL [facility]. Allergic asthma 96460240 6 J45.909 Continue current meds. Benign ess ential hypertension 9083843 I10 continue low sodium diet. Body mass index 40+ - severely obese 210473264 E66.01 Z68.41 Pt. is trying to lose weight by cutting down on carbs, but is limited in exercise due to psoriatic arthropath y. Mixed hyperlipidemia 267 335528 E78.2 retest lipids Prediabetes 888478248 R7 3.03 retest labs. Obstructiv e sleep apnea syndrome 23106541 G47.33 not using CPAP. Osteoarthr itis of knee 065467871 M17.0 F/u with orthopedic s. Polycystic ovary syndrome 857444930 E28.2 continue on spironolac tone. Psoriasis with arthropathy 19139104 L40.50 F/u rheumatolo gy , local or in [place]. Thrombocyt openic disorder 289289156 D69.6 reactive thrombocyt openia Subclinica l hypothyroidism 99206911 E02 Generalize d anxiety disorder 80622985 F41.1 continue current meds Irritable bowel syndrome 63692447 K58.9 Continue LInzess Edema of l ower extremity 799768677 R60.0 Ventricula r premature beats 83037047 I49.3 echo done recently at [facility]. STable occasional palpitatio ns. Health Concerns Section Related Observation LastModified by Organization Detai ls LastModified Time None Recorded Concern Status LastModified by Organization Details LastModified Time None Recorded Advance Directives Directive N: Payers Encounter Date Sequence Insurance Name Policy Number Policy Clarke Covered Member ID Clarke Member ID Guarantor Name 03/02/2020 1 [facility] ([facility] [id number] Susan Wagner [id number] Susan Wagner 04/04/2020 1 [facility] ([place]) [id number] 23 Susan Mazella [id number] Susan Esteslla 06/10/2020 1 [facility] ([place]) [id number] 23 Susan Esteslla [id number] Susan Esteslla 09/12/2020 1 [facility] ([place]) [id number] 23 Susan Esteslla [id number] Susan Esteslla 12/27/2021 1 [employer] [facility] (PPO) [id number] Susan Wagner [id number] Susan Wagner Notes Date Note Type Note Provider Name and Address Organization Details Recorded Time 03/02/2020 text/html 49 year old fema le for FMLA re applications. Pt. applied based on Dx of psoriatic arthropathy with frequent flares. Pt. sees outreach team member monthly and is currently treated with biologic [...] arthropathy and/or asthma. Judi Martin PA-C [address] [address], [place], [address], [facility] 03/02/2020 11:57:02 04/04/2020 text/html 49 year old [...] day causing sedation. Judi Martin PA-C [address] [address], [place], [address], [facility] 04/04/2020 15:18:29 06/10/2020 text/html Generic HPI TemplateReported bypatient.Notes:49 year old female for annual PE. Does not see PANEL WIRER as she had complete hysterectomy. Has ovaries in. Does not wish to see PANEL WIRER> REports perimenopausal symptoms with worsening hot flashes. Takes estradiol 0.5 mg but 2-3 times weekly only. Mammogram is overdue.Vaccines> Had flu vaccine and Tdap is up to date.Colonoscopy --- had one ? 5 years ago. NO reports in chart. Has IBS with alternating pattern and is on linzess. Was seen at [facility]. Continue with bowel trouble. On PPI.MDD and LACY. STable on fluoxetine. PHQ score is 0.Psoriatic arthropathy. On Xeljanz. Sees rheumatology regularly. Reports skin is better. On Ibuprofen and tramadol prn for arthropathy.Asthma. Stable at this time on Symbicort and ventolin.HTN is stable on lisinopril. Judi Martin PA-C [address] [facility] [address], [place], [address], [facility] 06/10/2020 13:54:38 09/12/2020 text/html Asthma F/UReport ed [...] old female for f/u.Psoriatic arthropathy followed at [facility].On Xeljanz for the past year. Doing better since 20 lb weight loss on weight watcher in the past 1-2 months.Hand and foot pruritis. Seen by neurology so far and has mahin. pending with allergy. IN the mean time , feet are not itchy any longer since pt. switched from tata to claritin. Judi Martin PA-C [address] [facility] [address], [place], [address], [facility] 09/12/2020 14:37:25 12/27/2021 text/html Generic HPI TemplateReported bypatient.Notes:51 year old female for annual physical.H/o psoriatic arthritis , sees outreach team member at [facility], supposed to take Xeljanz but discontinue [...] Needs new A1c and lipids. Sierra iraheta, [facility] 12/28/2021 08:51:02 OBGyn Episode No OBEpisode recorded.
--- OUTSIDE RECORDS SUMMARY | 2024-08-25 17:24 | XMS_ITS | Patient Health Record ---
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
--- OUTSIDE RECORDS SUMMARY | 2024-08-25 17:24 | XMS_ITS ---
Author Organization [facility] Address [address] [place] [address] Care Team Providers Care Pearl Fisherman Name Role Phone Nikkie Kaufman Primary Care Provider Unavailab Erica Campuzano [phone] REASON FOR VISIT xray disc Encounters Encounter Location Date Provider Diagnosis [address] [address] 06/03/2023 Erica Arnett Plan Of Treatment No Information Progress Notes * MOISES Zahida LDOB:[birth year] (52 yo F)Acc No.[id number]:06/03/2023 Patient:?Zahida Wagner :1970???Age:52 Y???Sex:Female Address:[address] [place] [address], [place], [address] * true * Date:? Generated for Ifeanyii paolo/Louis/eTransmitting on:?08/25/2024 05:23 PM EDT
[2024-08-25 17:42] LABS: Troponin-I High Sensitivity < 2.7 ng/L (<3.5-17.0)
[2024-08-25 18:29] VITALS: BP 180/92; PULSE 63; RESP 16; TEMP 36.6; O2SAT 98
[2024-08-25 18:32] VITALS: BP 173/80
== END 2024-08-25 18:32 | disposition home or self-care (01) ==
PROVIDERS: Physician Assistant; Absent Provider Preventive Medicine Public Health & General Preventive Medicine; Emergency Provider Emergency Medicine
DX: K21.9 Gastro-esophageal reflux disease without esophagitis (principal); R10.2 Pelvic and perineal pain; R07.89 Other chest pain; R06.02 Shortness of breath; R10.13 Epigastric pain; Z79.899 Other long term (current) drug therapy; Z87.891 Personal history of nicotine dependence
CPT/HCPCS: 36415; 71045; 80053; 83690; 83880; 84484; 84702; 85025; 85610; 85730; 93005; 99283

== ENCOUNTER → 2024-08-25 13:50 | Outpatient (BNV) | payer OTHER, SELFPAY | PROVIDERS: Absent Provider Preventive Medicine Public Health & General Preventive Medicine; Emergency Provider Emergency Medicine; Visit Provider Internal Medicine | DX: R94.31 Abnormal electrocardiogram [ECG] [EKG] (principal); R07.9 Chest pain, unspecified | CPT/HCPCS: 93010 ==

== ENCOUNTER → 2024-08-25 14:15 | Outpatient (BNV) | payer OTHER, SELFPAY | PROVIDERS: Absent Provider Preventive Medicine Public Health & General Preventive Medicine; Visit Provider Radiology Diagnostic Radiology | DX: J84.9 Interstitial pulmonary disease, unspecified (principal) | CPT/HCPCS: 71045 ==

== ENCOUNTER 2024-09-16 11:06 | Outpatient (REF) | payer OTHER, SELFPAY ==
--- NOTE | ~2024-09-16 | XR_ITS ---
XR KNEE MG 3V HISTORY: Bilateral primary osteoarthritis of knee, chronic knee pain right greater than left. COMPARISON: None available. TECHNIQUE: AP view bilateral knees standing, lateral , tunnel, and patellofemoral views bilateral knees. FINDINGS: RIGHT KNEE: No fracture, dislocation, or suspicious bone lesion. Severe degenerative arthritis medial compartment [id number]-[id number] appearance, mild subchondral sclerosis, and prominent marginal osteophytic spurs. There is compensatory widening of the lateral compartment with mild varus angulation of the joint. Moderate degenerative arthritis in the patellofemoral joint, with marginal productive osteophytes and moderate joint space narrowing. Mild spurring of the tibial spines. No evidence of joint effusion. Soft tissues appear normal. LEFT KNEE: No fracture, dislocation, or suspicious bone lesion. Moderate to severe degenerative arthritis medial compartment with near cvlo-ge-gfge appearance, and prominent marginal osteophytic spurs. There is compensatory widening of the lateral compartment with mild varus angulation of the joint. Moderate degenerative arthritis in the patellofemoral joint, with marginal productive osteophytes and moderate joint space narrowing. Mild spurring of the tibial spines. No evidence of joint effusion. Soft tissues appear normal. XR/XR Knee Mg 4V IMPRESSION: RIGHT KNEE: 1. Tricompartmental osteoarthrosis, severe in the medial compartment with rleb-pp-dlno appearance. Mild varus angulation of the joint. LEFT KNEE: 1. Tricompartmental osteoarthrosis, moderate to severe in the medial compartment with near phiy-ht-tcya appearance. Mild varus angulation of the joint. Electronically signed by: Eyad Dong MD 09/16/2024 02:42 PM EDT
--- OUTSIDE RECORDS SUMMARY | 2024-09-16 12:13 | XMS_ITS ---
Author Organization [facility] Address [address] [place] [address] Care Team Providers Care Placement Manager Name Role Phone Nikkie Kaufman Primary Care Provider Unavailab Erica Campuzano [phone] REASON FOR VISIT xray disc Encounters Encounter Location Date Provider Diagnosis [address] [address] 06/03/2023 Erica Arnett Plan Of Treatment No Information Progress Notes * MOISES Zahida LDOB:[birth year] (52 yo F)Acc No.[id number]:06/03/2023 Patient:?Zahida Wagner :1970???Age:52 Y???Sex:Female Address:[address] [place] [address], [place], [address] * true * Date:? Generated for Ifeanyii paolo/Louis/eTransmitting on:?09/16/2024 12:12 PM EDT
--- OUTSIDE RECORDS SUMMARY | 2024-09-16 12:13 | XMS_ITS | Data Portability ---
Author Organization [facility], Main Office Address [address] [facility] [address] [place] [address] Care Team Providers Care Ancillary Services Manager Name Role Phone MARTINKEVINJUDI Primary Care Provider [phone] ELIJAH YU Bridge Worker Apprentice PEYTON CHAPMAN Sleep Medicine [facility] ERAPY (JUAN MANUEL JNOES) Orthopedic Surgeon CHIP COBIAN Home Theater Installer HEDY DEL VALLE Ticketing Clerk [phone] Assessment Encounter Date Assessment Date Assessment LastModified [...] panel, serum 2021 022 [email or web address] [facility], [address], [place], [address], 3 11:42:52 CMP, serum or plasma 2021 022 [email or web address] [facility], [address], [place], [address], 3 11:42:53 TSH, serum or plasma 2021 022 [email or web address] [facility], [address], [place], [address], 3 11:42:52 HbA1c (hemoglob in A1c), blood 2021 022 BL[facility]CO [facility], [address], [place], [address], 2 15:26:55 microalbu min, urine 2021 022 [facility], [address], [address], [place], [address], 2 16:13:00 CBC w/ auto diff 2021 022 [email or web address] [facility], [address], [place], [address], 3 11:42:53 lipid panel, serum 2020 021 [facility], [address], [place], [address], 1 11:56:41 HbA1c (hemoglob in A1c), blood 2020 021 [facility], [address], [place], [address], 1 14:36:27 CMP, serum or plasma 2020 021 [facility], [address], [place], [address], 1 11:56:39 TSH, serum or plasma 2020 021 [facility], [address], [place], [address], 1 12:03:41 HbA1c (hemoglob in A1c), blood 2020 BL[facility], [address], [place], [address], 1 11:41:24 Referral gastroent erologist referral - Constipat ion and uper GI issues . Also, pt. might be due for colonosco py. 2020 021 [email or web address] [facility], [address] [facility], [place], [address], 2 09:52:37 hematolog ist/oncol ogist referral - Progressi ve leukocyto sis, psoriatic arhtropat hy on biologics . 2019 020 [email or web address] Rosalina Barillas MD, [address] [place], [address], 0 09:46:53 Procedures None recorded. Surgeries None recorded. Imaging MAMMO, screening , bilateral 2021 022 [email or web address] [facility] ([facility]), [address], [place], [address], 2 08:25:51 bone density - Estrogen deficienc y and chronic use of prednison e. 2020 021 [facility]), [address], [place], [address], 08:34:43 MAMMO, screening , bilateral 2020 021 [facility]), [address], [place], [address], 08:34:24 Medication Orders Ventolin HFA 90 mcg/actua tion aerosol inhaler 2021 022 [id number], [address] [facility], [place], [address], 18:53:23 Patient TargetsNo targets recorded. Patient Instructions Encounter Date Encounter Id Patient Instructions Last Modified By Organization Details Last Modified Time 06/10/2020 [id number] prediabetes: car e instructions Not available 06/10/2020 12:11:53 eating healthy foods: care instructions Not available 06/10/2020 12:11:53 gastroesophageal reflux disease (GERD): care instructions Not available 06/10/2020 11:58:37 anxiety disorder : care instructions Not available 06/10/2020 11:59:22 high blood press ure: care instructions Not available 06/10/2020 12:10:55 dash diet: care instructions Not available 06/10/2020 12:10:55 12/27/2021 [id number] starting a weigh t loss plan: care instructions Not available 12/27/2021 16:01:30 albumin-creatini ne ratio: about this test Not available 12/27/2021 15:58:01 polycystic ovary syndrome: care instructions Not available 12/27/2021 15:27:18 dash diet: care instructions Not available 12/27/2021 16:01:30 Reason for Referral Progressive leukocytosis, ps oriatic arhtropathy on biologics. Referring Physician: Judi Martin, Internal Medicine, Encounter Date: 03/02/2020 Ticketing Clerk Referral for Altered bowel function Constipation and [...] CoV-2 spike prote in inclu ding the hotel or motel receptionist tor sheldon jose n (RBD) . Test perfo rmed by [facility], [address], [place] [address] Not Available [facility] (Centralized Electronic Ordering - All Locations) Patient Can Go To The Location Of Their Choice, [id number] 11/18/2020 07:07:11 02/29/20 20 02/29/2020 endov enous ablat ion thera py, laser (PROC ) No observ ation record ed. Ariella Granado MD [address] [facility] [address], [place], [address], 03/01/2020 18:50:20 03/03/20 20 02/18/2020 MRI, lumba r spine , w/o contr ast No observ ation record ed. [email or web address] Not Available 2019 12:53:31 05/27/19 21 05/27/2020 XR, abdom en + pelvi s No observ ation record ed. [email or web address] [facility] [address], [place], [address], 05/30/2020 09:19:14 05/30/19 21 05/27/2020 XR, angio gram, pelvi c No observ ation record ed. [facility] Orders [address], [place], [address], 05/30/2020 11:27:46 07/13/1907/12/2020 DEXA, axial skele ton ====== ====== ====== ====== ====== ====== ====== ====== ====== ====== ===== Bone Densit y Report ====== ====== ====== ====== ====== ====== ====== ====== ====== ====== ===== Name: SUSAN MORAN t ID: [id number] Age: 49 Sex: Female Ethnic ity: White Date of : 1970 ------ ------ ------ ------ ------ ------ ------ ------ ------ ------ ----- Indica tion: ZACARIAS CASTRO Referr sofi Marie er: MAY MARTIN Study: Bone densit ometry was [facility]. Exam Date: July 12, 2020 Access ion number : [id number] Bone Densit y: ------ ------ ------ [...] ------ ------ ------ ------ ------ ----- World [facility] Organi zation criter ia for BMD impres [...] 3:29 pm Hunter jimenez Class: Outpat ient [facility] (Outpt Imaging) [address], [place], [address], 07/13/2020 10:40:58 07/13/19 21 07/12/2020 bone densi ty No observ ation record ed. [facility] Orders [address], [place], [address], 07/13/2020 10:40:58 07/14/19 21 07/12/2020 MAMMO , [...] Lay letter mailed to hunter jimenez WSN: [id number] Orderi ng Physic alex: May Martin Dictat ed By: Sadaf Chang MD, I Dictat ed Date/T rhina: 10:10 am Review ed By: Sadaf Chang MD, I Signed By: Sadaf Chang MD, I Signed Date/T rhina: 10:10 am Transc ribed By: CSB Transc riptio n Date/T rhina: 10:01 am Birads : Hunter jimenez Class: Outpat ient [email or web address] [facility] (Outpt Imaging) [address], [place], [address], 07/13/2020 15:59:32 07/14/19 21 07/12/2020 MAMMO , scree juliocesar, bilat eral No observ ation record ed. [email or web address] [facility] Orders [address], [place], [address], 07/13/2020 15:59:32 12/30/19 22 11/17/2021 trans -thor acic echoc ardio gram (TTE) (PROC ) No observ ation record ed. [facility] [address], [place], [address], 12/29/2021 14:58:26 Result Notes None recorded. Problems Name Problem SNOMED Code Status Onset Date Resolution Date Notes Provider Name and Address Organization Details Recorded Time Mixed hyperlip idemia 290994954 Active 2017 Judi Martin [employer] [address], [place], [address], [facility], [place] 8 15:40:00 Leukocyt osis 053326607 Completed 201707/17/2017 Judi DaltonSoufunC [address], [place], [address], [facility], [place] 1 14:19:49 Asthma 108009490 Completed 201706/17/2017 Judi DaltonSoufunC [address], [place], [address], [facility], [place] 8 16:13:58 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 Judi Martin [employer] [address], [place], [address], [facility], [place] 8 15:41:06 Major depressi ve disorder 122588168 Completed 201706/17/2017 Judi Martin [employer] [address], [place], [address], [facility], [place] 8 15:45:52 Generali zed anxiety disorder 12520649 Active 2017 Judi Martin [employer] [address], [place], [address], [facility], [place] 8 15:42:16 Insomnia 637620245 Completed 201706/10/2020 Judi Martin [employer] [address], [place], [address], [facility], [place] 1 12:10:13 Psoriasi s 3613945 Completed 201711/02/2019 Judi Martin PA-C [address], [place], [address], [facility], [place] 0 11:06:51 Lyme disease 64541560 Active 2017 pos IgG +4 bands in 2011 and pos IgG and IgM in 2015. Judi Martin PA-C [address], [place], [address], [facility], [place] 8 15:43:26 Glaucoma 10671668 Completed 201706/10/2020 Judi Martin PA-C [address], [place], [address], [facility], [place] 1 12:10:31 Constipa tion 27319736 Active 2017 Judi Martin PA-C [address], [place], [address], [facility], [place] 8 15:43:47 Primary dysthymi a 41757653 Active 2017 Judi Martin PA-C [address], [place], [address], [facility], [place] 8 15:46:00 Nicotine dependen ce 92228868 Active 2017 Judi Martin PA-C [address], [place], [address], [facility], [place] 8 15:46:26 Psoriati c arthriti s 919387208 Completed 201711/02/2019 Judi Martin PA-C [address], [place], [address], [facility], [place] 0 11:06:59 Ocular rosacea 282352007 Active 2017 Judi Martin PA-C [address], [place], [address], [facility], [place] 8 15:57:35 Mild intermit tent asthma 687796377 Completed 201712/08/2018 Judi Martin PA-C [address], [place], [address], [facility], [place] 9 16:17:26 Benign essentia l hyperten agustín 4818189 Active 2017 Tao iraheta, [facility] 8 09:35:30 Thromboc ytopenic disorder 223115652 Active 2017 seen and evaluated by hem/onc. Need to do yearly CBC . Judi Martin PA-C [address], [place], [address], [facility], [place] 0 11:07:53 Ventricu lar prematur e beats 00984575 Active 2017 Tao iraheta, [facility] 8 09:57:26 Environm ental allergy 228343416 Active 2017 Judi Martin PA-C [address], [place], [address], [facility], [place] 8 11:21:54 Obstruct adonay sleep apnea syndrome 36064841 Active 2017 not using CPAP Judi Martin PA-C [address], [place], [address], [facility], [place] 2 16:06:30 Psoriasi s with arthropa thy Active 2018 Judi Martin PA-C [address], [place], [address], [facility], [place] 9 14:53:43 Leukocyt osis 141226269 Completed 201812/08/2018 Judi Martin PA-C [address], [place], [address], [facility], [place] 1 14:19:49 Exacerba tion of intermit tent asthma 790497019 Completed 201808/07/2019 Judi Martin PA-C [address], [place], [address], [facility], [place] 0 16:46:29 Allergic asthma 263514544 Active 2018 Judi Martin PA-C [address], [place], [address], [facility], [place] 9 16:20:36 Venous stasis 65961716 Active 2018 Judi Martin PA-C [address], [place], [address], [facility], [place] 9 16:35:54 Deviated nasal septum 151461814 Active 2018 Judi Martin PA-C [address], [place], [address], [facility], [place] 9 16:47:06 Morbid obesity 028836532 Active 2018 [facility] 9 14:24:20 Prediabe rosa maria 183782474 Active 2019 Judi Martin PA-C [address], [place], [address], [facility], [place] 0 15:21:17 Leukocyt osis 462791856 Active 2020 reactive secondary to psoriatic arthropfa thy, asthma flairs, prednison e, cellujlit is. Seen by hem/onc. Discharge d. Judi Martin PA-C [address], [place], [address], [facility], [place] 1 14:19:49 Irritabl e bowel syndrome 15677458 Active 2020 Judi Martin PA-C [address], [place], [address], [facility], [place] 1 11:58:57 Pruritic disorder 937280407 [facility] [address], [place], [address], [facility], [place] 1 12:01:06 Chronic pain syndrome 383858800 Active 2021 see rheumatol ogy notes from [facility] [address], [place], [address], [facility], [place] 2 15:14:07 Subclini karen hypothyr oidism 07809355 Active 2021 [facility] [address], [place], [address], [facility], [place] 2 15:17:16 Problem Notes None recorded. Procedures Surgical History Date Name Laterality Status Provider Name and Address Organization Details Recorded Time 07/13/19 21 Most Recent Mammogram completed Irma Calixto [facility] 07/13/2020 15:58:44 08/05/19 19 Mammogram both breasts completed Alexandraphylicia Cueto [facility] 08/04/2018 16:21:51 05/28/19 19 injection of knee joint completed Alexandraphylicia Cueto [facility] 06/30/2018 16:22:25 02/05/20 18 injection completed Alexandra Money [facility] 08/29/2018 11:57:59 06/22/19 17 Date of Last Colonoscopy completed Debra Calvert MA [facility] 12/27/2021 15:06:00 06/18/19 17 Egd diagnostic brush wash completed Shana Hicks [facility] 06/29/2020 09:53:31 06/18/19 17 Colonoscopy completed Shana Hicks [facility] 06/29/2020 09:54:50 Hysterectomy completed Bridgett Barrios [facility] 06/17/2017 15:42:16 Imaging Results Imaging Date Name Status LastModified by Organization Details LastModified Time 02/29/2020 endovenous ablation therapy, laser (PROC) completed [email or web address] Ariella Granado MD [address], [place], [address], 03/01/2020 18:50:20 02/18/2020 MRI, lumbar spine, w/o contrast completed stephanie Information not available 03/17/2020 12:53:31 05/27/2020 XR, abdomen + pelvis completed stephanie [facility] [address], [place], [address], 05/30/2020 09:19:14 05/27/2020 XR, angiogram, pelvic completed stephanie [facility] Orders [address], [place], [address], 05/30/2020 11:27:46 07/12/2020 DEXA, axial skeleton completed [facility] (Outpt Imaging) [address] [place], [address], 07/13/2020 10:40:58 07/12/2020 bone density completed [facility] Orders [address], [place], [address], 07/13/2020 10:40:58 07/12/2020 MAMMO, screening, digital, bilateral completed [email or web address] (Out[facility] Imaging) [address] [place], [address], 07/13/2020 15:59:32 07/12/2020 MAMMO, screening, bilateral completed [email or web address] [facility] Orders [address], [place], [address], 07/13/2020 15:59:32 11/17/2021 trans-thoracic echocardiogram (TTE) (PROC) completed [facility] [address], [place], [address], 12/29/2021 14:58:26 Procedure Notes None recorded. Medical Equipment None Reported. Allergies Allergen ID Allergen Name Allergen Category Reaction Reaction Severity Criticality Documentation Date Start Date Code Code System Note Provider Name and Address Organization Details Recorded Time 08142 latex environme nt,medica tion rash severe Not available 06/17/2017 54445 91 RxNorm Bridgett Barrios myrtle [facility] 8 15:41:43 53329 Substance with sulfonami de structure and antibacte rial mechanism of action (substanc e) medicatio n dizziness Not available Not available 06/17/2017 80349 8003 SNOMED Bridgett Denis iraheta [facility] 8 15:41:43 82241 Plaquenil medicatio n hallucina tions severe Not available 12/03/201782938 2 RxNorm KALANI Hickman [facility] 1 11:04:06 29298 Celebrex medicatio n Not available Not available Not available 12/10/2018 03345 7 RxNorm conta ins sulfa Judi Yunier SANTAMARIA [address] [facility] [address], [place], [address], [facility], [place] 9 10:40:07 Medications Name Sig Start Date [...] azelastine 137 mcg (0.1 %) nasal spray [place] 137 microgram s as needed by nasal [...] DateTime 03/02/2020 172.72 cm Demetria Colby MA [facility] 03/02/2020 10:53:27 Date Recorded Body height Provider Name an d Address Organization Details Last Updated DateTime 04/04/2020 172.72 cm Dayan Thakur MA [facility] 04/04/2020 14:36:36 Date Recorded Body height Body mass index (BMI) Body weight Heart rate Oxygen saturation Oxygen saturation in Arterial blood by Pulse oximetry Body temperature Systolic blood pressure Diastolic blood pressure Provider Name and Address Organization Details Last Updated DateTime 1 172.72 cm 41.1 kg/m2 066423. 94 g 87 /min 97 % 97 % 97.34 [degF] 121 mm[Hg] 83 mm[Hg] Dayan Thakur [facility] 1 11:19:09 Date Recorded Body height Provider Name an d Address Organization Details Last Updated DateTime 09/12/2020 172.72 cm Bri Centeno MA [facility] 09/12/2020 13:54:32 Date Recorded Body height Body mass index (BMI) Body weight Oxygen saturation Oxygen saturation in Arterial blood by Pulse oximetry Heart rate Body temperature Systolic blood pressure Diastolic blood pressure Provider Name and Address Organization Details Last Updated DateTime 2 172.72 cm 41.2 kg/m2 317373. 53 g 98 % 98 % 73 /min 97.88 [degF] 125 mm[Hg] 75 mm[Hg] Debra Calvert MA [facility] 2 14:58:21 Social History Question Answer Notes LastModified by Organizat ion Details LastModified Time Tobacco Smoking Status Former Smoker Liza Bragg [facility] 12/30/2019 10:19:51 Do You Have An Advance Directive? No [email or web address] Information not available 12/27/2021 Is Blood Transfusion Acceptable In An Emergency? No [email or web address] Information not available 12/27/2021 What Is Your Level Of Caffeine Consumption? Moderate Information not available 06/17/2017 How Much Tobacco Do You Chew? None Information not available 06/17/2017 What Type Of Diet Are You Following? SPECIFIC Information not available 12/27/2021 Which Illicit Or Recreational Drugs Have You Used? None Information not available 12/03/2017 When Did You Quit Smoking? 6-10yearssin [email or web address] tte Information not available 03/02/2020 Live Alone Or With Others? With Others Boyfriend [email or web address] Information not available 12/27/2021 Do You Take Precautions To Prevent Distracted Driving? No Information not available 12/27/2021 How Often Do You Need To Have Someone Help You When You Read Instructions, Pamphlets, Or Other Written Material From Your Doctor Or Pharmacy? Sometimes [email or web address] Information not available 12/27/2021 Have You Served [...] Gathering In The Last 10 Days? No [email or web address] Information not available 06/10/2020 What Was The Date Of Your Most Recent Tobacco Screening? 12/27/2021 [email or web address] Information not available 12/27/2021 How Many Children Do You Have? 0 Information not available 12/03/2017 Are You Sexually Active? No [email or web address] Information not available 12/08/2018 At What Age Did You Start Smoking Tobacco? 17 Information not available 12/03/2017 Are You Passively Exposed To Smoke? No [email or web address] Information not available 12/27/2021 How Much Tobacco Do You Smoke? No [email or web address] Information not available 12/27/2021 How Many Years Have You Smoked Tobacco? 12 On And Off Information not available 12/03/2017 Sex: Unknown Functional Status Question Answer Note LastModified by Organizat ion Details LastModified Time Do you or have you ever used any other forms of tobacco or nicotine? No Information not available 12/27/2021 What is your level of alcohol consumption? None Information not available 06/17/2017 Do you or have you ever used smokeless tobacco? Never used smokeless tobacco Information not available 03/02/2020 Are you currently employed? Yes Information not available 06/17/2017 Are you able to walk? YESWOREST Information not available 12/27/2021 Are you able to care for yourself? 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 Never used electronic cigarettes [email or web address] Information not available 12/27/2021 What is your exercise level? None due to injury / arthritis Information not available 12/03/2017 Mental Status None recorded. Family History Relationship Description Onset Age of this Age Resolved Age Notes LastModified by Organization Details LastModified Time Maternal Aunt Kidney disease 35 41 [email or web address] Not available 12/08 15:44:15 Mother Arthritis 60 [email or web address] Not availa ble 12/08/2018 15:44:15 Father Arthritis 30 [email or web address] Not available 12/27/2021 14:51:06 Maternal Grandfather Kidney disease 70 Not available 12/08 15:44:15 Brother History of malignant neoplasm of brain 22 27 Not available 12/08 15:50:41 Medical History Condition [...] recombinant, quadrivalent, PF 7 completed Bridgett iraheta [facility] 06/17/2017 15:52:23 Tdap 3 completed Judi Martin PA-C [address], [address] 06/17/2017 16:10:56 Influenza, split virus, quadrivalent, preservative 0 completed KALANI Hickman [facility] 06/10/2020 11:17:31 Past Encounters Encounter ID Performer Location Encounter Start Date Encounter Closed Date Diagnosis/Indication Diagnosis SNOMED-CT Code Diagnosis ICD10 Code Diagnosis Note [id number] Judi Martin PA-C Main Office [address] [facility] [address] [place] [address] 06/17/2017 15:18:29 06/17/2017 16:40:55 Mixed hyperlipidemia 915386809 E78.2 Mild inter mittent asthma 696717585 J45.20 Stable. Continue montelukas t daily. Constipation 14241395 K5 9.00 Continue LInzess. F/u with Dr. Aguillon. Primary dysthymia 508392 05 F34.1 Continue Fluoxetine 20 mg. Psoriatic arthritis 1563 64008 L40.50 F/u with rheumatolo gist. Continue HUmira and Tramadol PRN. Leukocytosis 797532264 D 72.829 repeat labs Nicotine dependence 5629 4008 F17.200 Fatigue 51715272 R53.83 Body mass index 30+ - obesity 401569194 E66.01 Z68.41 Elevated blood-pressure reading without diagnosis of hypertension 927794285 R03.0 [id number] Judi Martin PA-C Main Office [address] [facility] [address] [place] [address] 07/17/2017 08:45:31 07/17/2017 10:03:23 Nicotine dependence 96213725 F17.200 pt will start chantix that she was prescribed . Mixed hyperlipidemia 267 526987 E78.2 Pt will provide a fasting blood sample withing 3 months including direct LDL. Consider start of statins due to increased cardiovasc risks , PCOS/metab olic syndrome. Body mass index 40+ - severely obese 691284320 E66.01 Z68.41 pt agrees to see a nutritioni st and start follow low carb/ fat diet. Benign ess ential hypertension 1053034 I10 Blood pressure has been under 140/90 for past three weeks. pt instructed to continue to check bp daily and report any readings over 140/90. Pt instructed to seek medical attention in the even she developes CO, COB, dizziness. If BP becomes elevated continuous ly, will consider ACEI Rx. DASH diet is recommende d to follow and discussed. Thrombocyt openic disorder 781373086 D69.6 will refer to hematology for follow up and treatment. Ventricula r premature beats 15501239 I49.3 Will monitor, pt instructed to report continuous bouts of PVC/palpit ations. instructed to seek medical attention in the event she develops CP, SOB, CP radiation. [id number] Judi Martin PA-C Main Office [address] [facility] [address] [place] [address] 12/03/2017 10:23:05 12/03/2017 12:01:26 Adult health examination 628709693 Z00.00 up to date on vaccines Benign ess ential hypertension 2476614 I10 stable on diet and with some weight loss. Continue monitoring . Ventricula r premature beats 51964617 I49.3 Will monitor, pt instructed to report continuous bouts of PVC/palpit ations. instructed to seek medical attention in the event she develops CP, SOB, CP radiation. Nicotine dependence 5629 4008 F17.200 Continue trying to quit on your own . Can also retry Chantix. Body mass index 30+ - obesity 240528524 E66.01 Z68.41 Mixed hyperlipidemia 267 657264 E78.2 Pt will provide a fasting blood sample including direct LDL. Consider start of statins due to increased cardiovasc risks , PCOS/metab olic syndrome. Insomnia 751331146 G47.0 0 stable and improved Snoring 90390314 R06.83 schedule for polysomnog crystal Mild inter mittent asthma 885320540 J45.20 Stable. Continue montelukas t daily.Vent jessica PRN. Primary dysthymia 026162 05 F34.1 Continue Fluoxetine 20 mg. Constipation 42001667 K5 9.00 Continue LInzess. F/u with Dr. Aguillon. Generalize d anxiety disorder 92757965 F41.1 continue meds [id number] Eduardo Martin PA-C Main Office [address] [facility] [address] [facility] [place] [address] 12/19/2017 11:26:28 12/19/2017 12:31:14 Acute pharyngitis 495074311 J02.9 likely d/t pnd - see below Acute sinusitis 83905474 J01.90 if cannot clear sxs, then consider ent eval, rec probiotics as well. 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 Warm compress BID, arm elevation. F/u 3-4 days if needed. [id number] Jaylan Olmedo MD Main Office [address] [facility] [address] [place] [address] 05/30/2018 14:11:00 05/30/2018 15:12:15 Menopausal flushing 860046146 N95.1 start small dose estradiol f/u in 1 m. Vaginal dryness 51149794 N89.8 Psoriasis with arthropathy 66827954 L40.50 sees rheum. Was not tried on COTE II. Will try celebrex daily to avoid overusing Advil which usually helps her if taken with Tramadol. [id number] Stephanie gunn MD Main Office [address] [address] [place] [address] 06/30/2018 08:37:11 06/30/2018 09:53:18 Leukocytosis 491927132 D72.829 repeat labs Exacerbati on of intermittent asthma 834790153 J45.21 if repeat CBC is stable , start Prednisone taper as directed for 10 days, Nebulizer at every 4-6 hrs or HFA. Essential hypertension 85815193 I10 Mixed hyperlipidemia 267 820084 E78.2 Pt will provide a fasting blood sample including direct LDL in 3 months. Consider start of statins due to increased cardiovasc risks , PCOS/metab olic syndrome. [id number] Stephanie gunn MD Main Office [address] [address] [place] [address] 07/07/2018 09:57:29 07/07/2018 10:56:12 Acute sinusitis 46940481 J01.90 Asthmatic bronchitis 405 013481 J45.909 R/o pneumonia. Chest XRAy as well as increase Prednisone back to 50 mg and start taper over . Nebulizer every 4 hrs and continue using ADvair D. [id number] Stephanie gunn MD Main Office [address] [facility] [address] [place] [address] 07/30/2018 15:08:49 07/30/2018 16:21:38 Benign essential hypertension 2487116 I10 Continue Lisinopril 10 mg daily, low sodium diet. Continue trying to lose weight. [id number] Khris Hartman MD Main Office [address] [facility] [address] [facility] [place] [address] 10/23/2018 13:21:21 10/23/2018 14:20:06 Pain of multiple joints 40375770 M25.50 check rheumatolo gy labs, pt sees rheumatolo gist in [place], will followup with her. Hs followup with Judi up coming Tick bite 47807251 S00.9 6XA check labs Fatigue 47952386 R53.83 Await lab testing to see if pt has tick borne illness, rest, hydration. Eruption 598215820 R21 pt sees dermatolog y has upcoming appointmen t. Thrombocyt openic disorder 419501219 D69.6 checking cbc for platelets [id number] Jaylan Olmedo MD Main Office [address] [place] [address] 12/08/2018 15:28:43 12/08/2018 17:01:12 Adult health examination 817664700 Z00.00 up to date on vaccines Benign ess ential hypertension 2520528 I10 Continue Lisinopril 10 mg daily, low sodium diet. Continue trying to lose weight.rep eat labs. Allergic asthma 70194721 6 J45.909 Obstructiv e sleep apnea syndrome 36195108 G47.33 Mixed hyperlipidemia 267 910586 E78.2 Retest fasting lipids in 4 m. Generalize d anxiety disorder 97307120 F41.1 continue current meds Psoriasis with arthropathy 52618371 L40.50 continue prednisone taper. F/u wit rheum. Venous stasis 49775076 I 87.8 Body mass index 30+ - obesity 642968277 Z68.41 Morbid obesity 738775370 E66.01 [id number] Jaylan Olmedo MD Main Office [address] [facility] [address] [place] [address] 08/07/2019 13:18:32 08/10/2019 06:42:02 Psoriatic arthritis 366190786 L40.50 F/u with rheumatolo gist. Moderate p ersistent asthma 954905498 J45.40 Prednisone PRN for acute asthma. Pt. was encouraged to f/u with her pulmonary. Due to her asthma and psoriatic arthropath y she is at higher risk for mortality if exposed to and acquires COVID-19 infection. [id number] Jaylan Olmedo MD [address] [place] [address] 11/02/2019 08:38:53 11/02/2019 15:40:33 Prediabetes 305198381 R73.03 retest labs. Mixed hyperlipidemia 267 232319 E78.2 Retest fasting lipids prior to physical in December. Pt. is willing to retry statins at smaller dose ifresults of fasting test show lipidelvat ion again. Inflammati on of sacroiliac joint 46871917 M46.1 Start prednisone taper as directed and muscle relaxant at HS. Continue heat and tens unit use. If pain does not sign. decrease or persists, pt. is given referral to [facility] for trigger point injections . [id number] Mayank Talley MD [address] [place] [address] 12/30/2019 09:10:16 12/30/2019 13:02:39 Leukocytosis 532307823 D72.829 significan t leukocytos is and respirator y distress. ? asthma exacerb. with Prednisone effect on WBCs or acute infection, ? COVID,pneu monia. Pt. is immuno compromise d. Recommend to go to the ER for further testing. Acute resp iratory distress 204857089 R06.03 referred to the ER. [id number] Jaylan Olmedo MD [address] [address] 03/02/2020 09:21:32 03/02/2020 12:01:28 Psoriasis with arthropathy 74514867 L40.50 Continue current meds under rheumatolo gy. FMLA forms to be completed. Moderate p ersistent asthma 075671233 J45.40 Prednisone PRN for acute asthma. Pt. was encouraged to f/u with her pulmonary. Due to her asthma and psoriatic arthropath y she is at higher risk for mortality if exposed to and acquires COVID-19 infection. Venous stasis 62564532 I 87.8 complicate d by cellulitis post procedures . F/u with Dr. Granado Leukocytosis 360631978 D 72.829 Encouraged to have hem/onc consult. PT. has multiple comorbidit ies and immune suppressio n, on biologics. [id number] Jaylan Olmedo MD Telehealt h [address] [facility] [address] [place] [address] 04/04/2020 14:22:44 04/04/2020 15:50:41 Psoriasis 5832013 L40.9 flares despite biologic. Pt. has mahin with rheum and dermatolog y coming up/ ADvised to take zyrtec 10 mg by day and bendryl at HS and use topical steroids. PT. will discuss further with derm. tomorrow. [id number] Judi Martin PA-C Main Office [address] [facility] [address] [place] [address] 06/10/2020 10:59:58 06/10/2020 12:59:33 Adult health examination 492851027 Z00.00 up to date on vaccines Prediabetes 498938020 R7 3.03 retest labs. Polycystic ovary syndrome 146118751 E28.2 continue on spironolac tone. Thrombocyt openic disorder 907610545 D69.6 will refer to hematology for follow up and treatment. Primary dysthymia 305800 05 F34.1 Continue Fluoxetine 20 mg. Obstructiv e sleep apnea syndrome 98641547 G47.33 Morbid obesity 289529940 E66.01 Mixed hyperlipidemia 267 561395 E78.2 stable as of last year. Lyme disease 07597860 A6 9.20 stable. Leukocytosis 575169217 D 72.829 reactive in nature due to prednisone . Generalize d anxiety disorder 91482440 F41.1 continue current meds Constipation 06415420 K5 9.00 Continue Linzess. F/u with Dr. Aguillon. Allergic asthma 87658113 6 J45.909 Continue current meds. Screening for malignant neoplasm of breast 176954053 Z12.39 Altered adal wel function 38735639 R19.4 Irritable bowel syndrome 30527315 K58.9 alternatin g patter . takes Linzess. Overdue for GI visit. Last colonoscop y is unknown, but reports normal with 10 year recall. Gastroesop hageal reflux disease 400706014 K21.9 f/u with the GI . Continue PPI. Pruritic disorder 134467 002 L29.9 started after flu vaccine. Takes dapsone. Body mass index 40+ - severely obese 218069552 E66.01 Z68.41 Pt. is trying to lose weight by cutting down on carbs, but is limited in exercise due to psoriatic arthropath y. Screening for osteoporosis 867440652 Z13.820 refer for bone density scan. Benign ess ential hypertension 2223621 I10 Continue Lisinopril 10 mg daily. Weight gain 7204217 R63. 5 [id number] Judi Martin PA-C Telehealt h [address] [facility] [address] [place] [address] 09/12/2020 12:41:27 09/12/2020 14:51:05 Moderate persistent asthma 852344704 J45.40 Stable extrinsic moderate asthma. Continue symbicort BID and montelukas t as well as claritin 10mg. F/u with allergy as scheduled. Benign ess ential hypertension 6258162 I10 Stable HTN. Continue Lisinopril 10 mg daily. Mixed hyperlipidemia 267 313942 E78.2 stable as of last year.repea t fasting lipids. Prediabetes 371778107 R7 3.03 retest labs. Pruritic disorder 586161 002 L29.9 f/u with allergy. [id number] Meera Orr MD Main Office [address] [facility] [address] [place] [address] 12/27/2021 14:49:27 12/27/2021 16:13:13 Adult health examination 252603900 Z00.00 Chronic pain syndrome 37 2581279 G89.4 Pt. reports inadequate pain control. Has multifacto rial chronic diffuse body pain and joint pain. Tramadol prescribed as BID by rheumatolo gist. I advised pt. to seek second opinion in [place] for her persistent chronic pain and swelling. Pt. is overall unsatisfie d with local pain and rheumatolo gi care. Screening for malignant neoplasm of breast 768404709 Z12.39 Screening for malignant neoplasm of cervix 570330511 Z12.4 Pt. had hysterecto my. Has PCOS. 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 Allergic asthma 77532427 6 J45.909 Continue current meds. Benign ess ential hypertension 4484352 I10 continue low sodium diet. Body mass index 40+ - severely obese 693925824 E66.01 Z68.41 Pt. is trying to lose weight by cutting down on carbs, but is limited in exercise due to psoriatic arthropath y. Mixed hyperlipidemia 267 893305 E78.2 retest lipids Prediabetes 858610226 R7 3.03 retest labs. Obstructiv e sleep apnea syndrome 20113580 G47.33 not using CPAP. Osteoarthr itis of knee 221494935 M17.0 F/u with orthopedic s. Polycystic ovary syndrome 666207467 E28.2 continue on spironolac tone. Psoriasis with arthropathy 39642293 L40.50 F/u rheumatolo gy , local or in [place]. Thrombocyt openic disorder 983259775 D69.6 reactive thrombocyt openia Subclinica l hypothyroidism 35569906 E02 Generalize d anxiety disorder 65142218 F41.1 continue current meds Irritable bowel syndrome 44893574 K58.9 Continue LInzess Edema of l ower extremity 082197893 R60.0 Ventricula r premature beats 81754720 I49.3 echo done recently at [facility]. STable occasional palpitatio ns. Health Concerns Section Related Observation LastModified by Organization Detai ls LastModified Time None Recorded Concern Status LastModified by Organization Details LastModified Time None Recorded Advance Directives Directive N: Payers Encounter Date Sequence Insurance Name Policy Number Policy Clarke Covered Member ID Clarke Member ID Guarantor Name 03/02/2020 1 [facility] [id number] 23 Susan Wagner [id number] Susan Wagner 04/04/2020 1 [facility] (O) [id number] 23 Susan Wagner [id number] Susan Wagner 06/10/2020 1 [facility] (PPO) [id number] 23 Susan Wagner [id number] Susan Wagner 09/12/2020 1 [facility] ([facility]) [id number] 23 Susan Wagner [id number] Susan Wagner 12/27/2021 1 [employer] [facility] (PPO) [id number] Susan Wagner [id number] Susan Wagner Notes Date Note Type Note Provider Name and Address Organization Details Recorded Time 03/02/2020 text/html 49 year old fema le for FMLA re applications. Pt. applied based on Dx of psoriatic arthropathy with frequent flares. Pt. sees yeast stacker monthly and is currently treated with biologic [...] arthropathy and/or asthma. Judi Martin PA-C [address] [address], [place], [address], [facility], [place] 03/02/2020 11:57:02 04/04/2020 text/html 49 year old [...] day causing sedation. Judi Martin PA-C [address] [address], [place], [address], [facility], [place] 04/04/2020 15:18:29 06/10/2020 text/html Generic HPI TemplateReported bypatient.Notes:49 year old female for annual PE. Does not see [facility] HELPER as she had complete hysterectomy. Has ovaries in. Does not wish to see BL[facility]SM[facility] HELPER> REports perimenopausal symptoms with worsening hot flashes. Takes estradiol 0.5 mg but 2-3 times weekly only. Mammogram is overdue.Vaccines> Had flu vaccine and Tdap is up to date.Colonoscopy --- had one ? 5 years ago. NO reports in chart. Has IBS with alternating pattern and is on linzess. Was seen at [facility]. Continue with bowel trouble. On PPI.MDD and LACY. STable on fluoxetine. PHQ score is 0.Psoriatic arthropathy. On Xeljanz. Sees rheumatology regularly. Reports skin is better. On Ibuprofen and tramadol prn for arthropathy.Asthma. Stable at this time on Symbicort and ventolin.HTN is stable on lisinopril. Judi Martin PA-C [address] [facility] [address], [place], [address], [facility] [place] 06/10/2020 13:54:38 09/12/2020 text/html Asthma F/UReport ed [...] old female for f/u.Psoriatic arthropathy followed at [facility].On Xeljanz for the past year. Doing better since 20 lb weight loss on weight watcher in the past 1-2 months.Hand and foot pruritis. Seen by neurology so far and has mahin. pending with allergy. IN the mean time , feet are not itchy any longer since pt. switched from tata to claritin. Judi Martin PA-C [address] [facility] [address], [place], [address], [facility] [place] 09/12/2020 14:37:25 12/27/2021 text/html Generic HPI TemplateReported bypatient.Notes:51 year old female for annual physical.H/o psoriatic arthritis , sees yeast stacker at [facility], supposed to take Xeljanz but discontinue [...] test. Needs new A1c and lipids. Sierra iraheta [facility] 12/28/2021 08:51:02 OBGyn Episode No OBEpisode recorded.
--- OUTSIDE RECORDS SUMMARY | 2024-09-16 12:13 | XMS_ITS | Patient Health Record ---
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
== END 2024-09-16 11:07 | disposition home or self-care (01) ==
LOC: HO.XRAY 11:06
PROVIDERS: Visit Provider Student in an Organized Health Care Education/Training Program
DX: M17.0 Bilateral primary osteoarthritis of knee (principal)
CPT/HCPCS: 73564

== ENCOUNTER → 2024-09-16 12:36 | Outpatient (BNV) | payer OTHER, SELFPAY | PROVIDERS: Visit Provider Radiology Diagnostic Radiology | DX: M17.0 Bilateral primary osteoarthritis of knee (principal) | CPT/HCPCS: 73564 ==

== ENCOUNTER 2024-10-19 13:58 | Outpatient (REF) | payer OTHER, SELFPAY ==
--- OUTSIDE RECORDS SUMMARY | 2024-10-19 15:39 | XMS_ITS | Data Portability ---
Author Organization [facility], Main Office Address [address] [facility] [address] [place] [address] Care Team Providers Care Timers Inspector Name Role Phone MARTINKEVINJUDI Primary Care Provider ELIJAH YU Track Service Person PEYTON CHAPMAN Sleep Medicine [facility] (JUAN MANUEL JONES) Orthopedic Surgeon CHIP COBIAN Petroleum Analyst HEDY DEL VALLE Regional Program Manager Assessment Encounter Date Assessment Date Assessment LastModified [...] panel, serum 2021 022 [email or web address] [facility], [address], [place], [address], 3 11:42:52 CMP, serum or plasma 2021 022 [email or web address] [facility], [address], [place], [address], 3 11:42:53 TSH, serum or plasma 2021 022 [email or web address] [facility], [address], [place], [address], 3 11:42:52 HbA1c (hemoglob in A1c), blood 2021 022 BLANCO [facility], [address], [address], [place], [address], 2 15:26:55 microalbu min, urine 2021 022 [facility]CO [facility], [address], [place], [address], 2 16:13:00 CBC w/ auto diff 2021 022 [email or web address] [facility], [address], [place], [address], 3 11:42:53 lipid panel, serum 2020 021 BL[facility]CO [facility], [address], [place], [address], 1 11:56:41 HbA1c (hemoglob in A1c), blood 2020 021 [facility]CO [facility], [address], [place], [address], 1 14:36:27 CMP, serum or plasma 2020 021 [facility], [address], [place], [address], 1 11:56:39 TSH, serum or plasma 2020 021 [facility], [address], [place], [address], 1 12:03:41 HbA1c (hemoglob in A1c), blood 2020 021 [facility], [address], [place], [address], 1 11:41:24 Referral gastroent erologist referral - Constipat ion and uper GI issues . Also, pt. might be due for colonosco py. 2020 021 [facility], [address] [facility], [place], [address], 2 09:52:37 hematolog ist/oncol ogist referral - Progressi ve leukocyto sis, psoriatic arhtropat hy on biologics . 2019 020 [email or web address] Barillas MD, [address] [place], [address], 0 09:46:53 Procedures None recorded. Surgeries None recorded. Imaging MAMMO, screening , bilateral 2021 022 [email or web address] [facility] ([facility]), [address], [place], [address], 2 08:25:51 bone density - Estrogen deficienc y and chronic use of prednison e. 2020 021 [facility]), [address], [place], [address], 08:34:43 MAMMO, screening , bilateral 2020 021 [facility] ([facility]), [address], [place], [address], 08:34:24 Medication Orders Ventolin HFA 90 mcg/actua tion aerosol inhaler 2021 022 [id number], [address] [facility], [place], [address], 18:53:23 Patient TargetsNo targets recorded. Patient Instructions Encounter Date Encounter Id Patient Instructions Last Modified By Organization Details Last Modified Time 06/10/2020 [id number] prediabetes: car e instructions Not available 06/10/2020 12:11:53 eating healthy foods: care instructions Not available 06/10/2020 12:11:53 gastroesophageal reflux disease (GERD): care instructions Not available 06/10/2020 11:58:37 anxiety disorder : care instructions Not available 06/10/2020 11:59:22 high blood press ure: care instructions Not available 06/10/2020 12:10:55 dash diet: care instructions Not available 06/10/2020 12:10:55 12/27/2021 [id number] starting a weigh t loss plan: care instructions Not available 12/27/2021 16:01:30 albumin-creatini ne ratio: about this test Not available 12/27/2021 15:58:01 polycystic ovary syndrome: care instructions Not available 12/27/2021 15:27:18 dash diet: care instructions Not available 12/27/2021 16:01:30 Reason for Referral Progressive leukocytosis, ps oriatic arhtropathy on biologics. Referring Physician: Judi Martin, Internal Medicine, Encounter Date: 03/02/2020 Regional Program Manager Referral for Altered bowel function Constipation and [...] of Clini karen and Appli ed Resea [facility] and Educa tion Volum e 43, Suppl [...] recom marylou d. Serol ogic resul ts donny d not be used as the sole [...] CoV-2 spike prote in inclu ding the receptionist secretary tor sheldon jose n (RBD) . Test perfo rmed by [facility], [address], [place] [address] Not Available [facility] (Centralized Electronic Ordering - All Locations) Patient Can Go To The Location Of Their Choice, [id number] 11/18/2020 07:07:11 02/29/20 20 02/29/2020 endov enous ablat ion thera py, laser (PROC ) No observ ation record ed. Ariella Granado MD [address] [facility] [address], [place], [address], 03/01/2020 18:50:20 03/03/20 20 02/18/2020 MRI, lumba r spine , w/o contr ast No observ ation record ed. Not Available 2019 12:53:31 05/27/19 21 05/27/2020 XR, abdom en + pelvi s No observ ation record ed. [email or web address] [facility] [address], [place], [address], 05/30/2020 09:19:14 05/30/19 21 05/27/2020 XR, angio gram, pelvi c No observ ation record ed. [email or web address] [facility] Orders [address], [place], [address], 05/30/2020 11:27:46 07/13/1907/12/2020 DEXA, axial skele ton ====== ====== ====== ====== ====== ====== ====== ====== ====== ====== ===== Bone Densit y Report ====== ====== ====== ====== ====== ====== ====== ====== ====== ====== ===== Name: BASHIR Rose SUSANLOIDA jimenez ID: [id number] Age: 49 Sex: Female Ethnic ity: White Date of : 1970 ------ ------ ------ ------ ------ ------ ------ ------ ------ ------ ----- Indica tion: ZACARIAS CASTRO Referr sofi Marie er: MAY MARTIN Study: Bone densit ometry was [facility] med. Exam Date: July 12, 2020 Access ion number : [id number] Bone Densit y: ------ ------ ------ [...] ------ ------ ------ ------ ------ ----- World Health Organi zation criter ia for BMD impres agustín classi gunner campbell ts as: Normal (T-sco re at or above -1.0), Osteop enia (T-sco re betwee n -1.0 and -2.5), or Osteop orosis (T-sco re at or below -2.5). 10-subha kowalski Fractu re Risk: ------ ------ ------ ------ ------ ------ ------ ------ ------ ------ ----- FRAX not report ed rocco e: All T-scor es for Spine Total, Hip Total, Femora l Neck at or above -1.0 ------ ------ ------ ------ ------ ------ ------ ------ ------ ------ ----- Clinic al Inform ation Cynthia ed by Hunter t: ------ ------ ------ ------ ------ ------ ------ ------ ------ ------ ----- Has used the follow ing medica tions: HRT (i.e. estrog en/hor solange therap y), Cynthia San Has the follow ing medica l condit ions: Inflam matory bowel diseas es, Hyster ectomy Hunter saunders height was 68.0 Menopa use Age: 40 [...] 3:29 pm Hunter jimenez Class: Outpat ient [facility] (Outpt Imaging) [address] , [place], [address], 07/13/2020 10:40:58 07/13/19 21 07/12/2020 bone densi ty No observ ation record ed. [facility] Orders [address], [place], [address], 07/13/2020 10:40:58 07/14/19 21 07/12/2020 MAMMO , [...] Lay letter mailed to hunter jimenez WSN: [id number] Orderi ng Physic alex: May Martin Dictat ed By: Sadaf Chang MD, I Dictat ed Date/T rhina: 10:10 am Review ed By: Sadaf Chang MD, I Signed By: Sadaf Chang MD, I Signed Date/T rhina: 10:10 am Transc ribed By: CSB Transc riptio n Date/T rhina: 10:01 am Birads : Hunter jimenez Class: Outpat ient [email or web address] [facility] (Outpt Imaging) [address], [place], [address], 07/13/2020 15:59:32 07/14/19 21 07/12/2020 MAMMO , scree juliocesar, bilat eral No observ ation record ed. [email or web address] [facility] Orders [address], [place], [address], 07/13/2020 15:59:32 12/30/19 22 11/17/2021 trans -thor acic echoc ardio gram (TTE) (PROC ) No observ ation record ed. [facility] [address], [place], [address], 12/29/2021 14:58:26 Result Notes Documentation Provider Name and Address Organization Details Recorded Time Dexa, Axial Skeleton : Bone Density Report Name: SUSAN DE LEON Age: 49 Sex: Female Ethnicity: White Date of : 1970 Indication: POSTMENOPAUSAL. Referring Provider: JUDI MARTIN Study: Bone densitometry was performed. Exam Date: July 12, 2020 Accession number: [id number] Bone Density: Region BMD T-score Z-score Classification AP Spine (L1-L4) 1.155 1.0 1.7 Normal Femoral Neck (Left) 0.985 1.2 2.0 Normal Total Hip (Left) 1.301 2.9 3.4 Normal World Health Organization criteria for BMD impression classify patients as: Normal (T-score at or above -1.0), Osteopenia (T-score between -1.0 and -2.5), or Osteoporosis (T-score at or below -2.5). 10-year Fracture Risk: FRAX not reported because: All T-scores for Spine Total, Hip Total, Femoral Neck at or above -1.0 Clinical Information Provided by Patient: Has used the following medications: HRT (i.e. estrogen/hormone therapy), Vitamin D Has the following medical conditions: Inflammatory bowel diseases, Hysterectomy Patient maximum height was 68.0 Menopause Age: 40 Onset of menses at age 12 Number of children 0 Impression: The patient has normal bone density as determined by WHO criteria. A repeat bone density assessment should be considered in two years. Reported by: Matt Chilel MD on 07/12/2020 3:28:00 PM. Dictated By: Matt Chilel MD Dictated Date/Time: 07/12/20 3:29 pm Reviewed By: Matt Chilel MD Signed By: Matt Chilel MD Signed Date/Time: 07/12/20 3:29 pm Transcribed By: CHULA Transcribed Date/Time: 07/12/20 3:29 pm Patient Class: Outpatient Judi Martin PA-C [address], [place], [address], [facility] 07/12/2020 21:33:09 Mammo, Screening, Digital, Bilateral : PROCEDURE: MM Digital Mammo Screening INDICATION: Screening for breast cancer. No known palpable abnormalities. COMPARISON: BBWC and CAITLIN dating back to 01/31/2016. TECHNIQUE: Full-field digital CC and MLO 3D tomosynthesis images of both breasts were acquired. Computer-aided detection (CAD) was utilized in the interpretation of this study. DENSITY: The breast tissue contains scattered areas of fibroglandular density. FINDINGS: No suspicious masses, suspicious microcalcifications, or areas of architectural distortion are seen in either breast to suggest malignancy. Stable tiny benign-appearing focal asymmetry inferior left breast. IMPRESSION: No mammographic evidence of malignancy. RECOMMENDATION: Annual mammographic screening BI-RADS: 2 (Benign) Lay letter mailed to patient WSN: [id number] Ordering Physician: Judi Martin Dictated By: Sadaf Chang MD, I Dictated Date/Time: 07/13/20 10:10 am Reviewed By: Sadaf Chang MD, I Signed By: Sadaf Chang MD, I Signed Date/Time: 07/13/20 10:10 am Transcribed By: CHULA Conduit Mechanic Date/Time: 07/13/20 10:01 am Birads: Patient Class: Outpatient Irma iraheta [facility] 07/13/2020 15:59:32 Problems Name Problem SNOMED Code Status Onset Date Resolution Date Notes Provider Name and Address Organization Details Recorded Time Mixed hyperlip idemia 601034032 Active 2017 Judi JASON-C [address], [place], [address], [facility] 8 15:40:00 Leukocyt osis 172923427 Completed 201707/17/2017 Judi JASON-C [address], [place], [address], [facility] 1 14:19:49 Asthma 396954177 Completed 201706/17/2017 Judi JASON-C [address], [place], [address], [facility] 8 16:13:58 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 Judi JASON-C [address], [place], [address], [facility] 8 15:41:06 Major depressi ve disorder 856450163 Completed 201706/17/2017 Judi Yunier JASON-C [address], [place], [address], [facility] 8 15:45:52 Generali zed anxiety disorder 98400800 Active 2017 Judi JASON-C [address], [place], [address], [facility] 8 15:42:16 Insomnia 655285749 Completed 201706/10/2020 Judi JASON-C [address], [place], [address], [facility] 1 12:10:13 Psoriasi s 1645770 Completed 201711/02/2019 Judi JASON-C [address], [place], [address], [facility] 0 11:06:51 Lyme disease 77843564 Active 2017 pos IgG +4 bands in 2011 and pos IgG and IgM in 2016. Judi Yunier JASON-C [address], [place], [address], [facility] 8 15:43:26 Glaucoma 43970395 Completed 201706/10/2020 Judi Martin PA-C [address], [place], [address], [facility] 1 12:10:31 Constipa tion 54188480 Active 2017 Judi Martin PA-C [address], [place], [address], [facility] 8 15:43:47 Primary dysthymi a 22748378 Active 2017 Judi Martin PA-C [address], [place], [address], [facility] 8 15:46:00 Nicotine dependen ce 80630652 Active 2017 Judi Martin PA-C [address], [place], [address], [facility] 8 15:46:26 Psoriati c arthriti s 270077296 Completed 201711/02/2019 Judi Martin PA-C [address], [place], [address], [facility] 0 11:06:59 Ocular rosacea 402344451 Active 2017 Judi Martin PA-C [address], [place], [address], [facility] 8 15:57:35 Mild intermit tent asthma 473778845 Completed 201712/08/2018 Judi Martin PA-C [address], [place], [address], [facility] 9 16:17:26 Benign essentia l hyperten agustín 6148802 [facility] 2017 [facility] 8 09:35:30 Thromboc ytopenic disorder 308887220 Active 2017 seen and evaluated by hem/onc. Need to do yearly CBC . Judi Martin PA-C [address], [place], [address], [facility] 0 11:07:53 Ventricu lar prematur e beats 97808259 Active 2017 [facility] 8 09:57:26 Environm ental allergy 140149438 Active 2017 Judi Martin PA-C [address], [place], [address], [facility] 8 11:21:54 Obstruct adonay sleep apnea syndrome 19771940 Active 2017 not using CPAP Judi Martin PA-C [address], [place], [address], [facility] 2 16:06:30 Psoriasi s with arthropa thy Active 2018 Judi Martin PA-C [address], [place], [address], [facility] 9 14:53:43 Leukocyt osis 911378416 Completed 201812/08/2018 Judi Martin PA-C [address], [place], [address], [facility] 1 14:19:49 Exacerba tion of intermit tent asthma 714327622 Completed 201808/07/2019 Judi Martin PA-C [address], [place], [address], [facility] 0 16:46:29 Allergic asthma 943829828 Active 2018 Judi Martin PA-C [address], [place], [address], [facility] 9 16:20:36 Venous stasis 74887163 Active 2018 Judi Martin PA-C [address], [place], [address], [facility] 9 16:35:54 Deviated nasal septum 408307821 Active 2018 Judi Martin PA-C [address], [place], [address], [facility] 9 16:47:06 Morbid obesity 627820062 Active 2018 [facility] 9 14:24:20 Prediabe rosa maria 091229145 Active 2019 Judi Martin PA-C [address], [place], [address], [facility] 0 15:21:17 Leukocyt osis 359342568 Active 2020 reactive secondary to psoriatic arthropfa thy, asthma flairs, prednison e, cellujlit is. Seen by hem/onc. Preston d. Judi Martin PA-C [address], [place], [address], [facility] 1 14:19:49 Irritabl e bowel syndrome 18164199 Active 2020 Judi Martin PA-C [address], [place], [address], [facility] 1 11:58:57 Pruritic disorder 199674686 Active 2020 Judi Martin PA-C [address], [place], [address], [facility] 1 12:01:06 Chronic pain syndrome 154828929 Active 2021 see rheumatol ogy notes from October of 2021 Judi Martin PA-C [address], [place], [address], [facility] 2 15:14:07 Subclini karen hypothyr oidism 37116277 Active 2021 Judi Martin PA-C [address] [facility] [address], [place], [address], [facility] 2 15:17:16 Problem Notes None recorded. Procedures Surgical History Date Name Laterality Status Provider Name and Address Organization Details Recorded Time 07/13/19 21 Most Recent Mammogram completed Irma Calixto [facility] 07/13/2020 15:58:44 08/05/19 19 Mammogram both breasts completed Alexandraphylicia Cueto [facility] 08/04/2018 16:21:51 05/28/19 19 injection of knee joint completed Alexandraphylicia Cueto [facility] 06/30/2018 16:22:25 02/05/20 18 injection completed Alexandraphylicia Cueto [facility] 08/29/2018 11:57:59 06/22/19 17 Date of Last Colonoscopy completed Debra Calvert [facility] [place] 12/27/2021 15:06:00 06/18/19 17 Egd diagnostic brush wash completed Shana Hicks [facility] 06/29/2020 09:53:31 06/18/19 17 Colonoscopy completed Shana Hicks [facility] 06/29/2020 09:54:50 Hysterectomy completed Bridgett Barrios [facility] 06/17/2017 15:42:16 Imaging Results None recorded. Procedure Notes None recorded. Medical Equipment None Reported. Allergies Allergen ID Allergen Name Allergen Category Reaction Reaction Severity Criticality Documentation Date Start Date Code Code System Note Provider Name and Address Organization Details Recorded Time 85388 latex environme nt,medica tion rash severe Not available 06/17/2017 89537 91 RxNorm Bridgett iraheta [facility] 8 15:41:43 10352 Substance with sulfonami de structure and antibacte rial mechanism of action (substanc e) medicatio n dizziness Not available Not available 06/17/2017 70776 8003 SNOMED Bridgett Barrios null, [facility] 8 15:41:43 07475 Plaquenil medicatio n hallucina tions severe Not available 12/03/201749861 2 RxNorm Dayan KALANI Thakur, [facility] 1 11:04:06 37063 Celebrex medicatio n Not available Not available Not available 12/10/2018 23430 7 RxNorm conta ins sulfa Judi Yunier SANTAMARIA [address] [facility] [address], [facility] [place], [address], [facility] 9 10:40:07 Medications Name Sig Start Date [...] azelastine 137 mcg (0.1 %) nasal spray [place] 137 microgram s as needed by nasal [...] BY MOUTH DAILY,DO NOT CRUSH OR CHEW 12/27 completed Not Available Not Available Not [...] Not Available Vitals Date Recorded Body height Body mass index (BMI) Body weight Heart rate Oxygen saturation Oxygen saturation in Arterial blood by Pulse oximetry Body temperature Systolic blood pressure Diastolic blood pressure Provider Name and Address Organization Details Last Updated DateTime 1 172.72 cm 41.1 kg/m2 742277. 94 g 87 /min 97 % 97 % 97.34 [degF] 121 mm[Hg] 83 mm[Hg] Dayan Thakur [facility] 1 11:19:09 Date Recorded Body height Provider Name an d Address Organization Details Last Updated DateTime 09/12/2020 172.72 cm Bri Centeno MA [facility] 09/12/2020 13:54:32 Date Recorded Body height Body mass index (BMI) Body weight Oxygen saturation Oxygen saturation in Arterial blood by Pulse oximetry Heart rate Body temperature Systolic blood pressure Diastolic blood pressure Provider Name and Address Organization Details Last Updated DateTime 2 172.72 cm 41.2 kg/m2 818457. 53 g 98 % 98 % 73 /min 97.88 [degF] 125 mm[Hg] 75 mm[Hg] Debra Calvert MA [facility] 2 14:58:21 Date Recorded Body height Provider Name an d Address Organization Details Last Updated DateTime 03/02/2020 172.72 cm Demetria Colby MA [facility] 03/02/2020 10:53:27 Date Recorded Body height Provider Name an d Address Organization Details Last Updated DateTime 04/04/2020 172.72 cm Dayan Thakur MA [facility] 04/04/2020 14:36:36 Social History Question Answer Notes LastModified by Organizat ion Details LastModified Time Tobacco Smoking Status Former Smoker Liza iraheta [facility] 12/30/2019 10:19:51 Do You Have An Advance Directive? No [email or web address] Information not available 12/27/2021 Is Blood Transfusion Acceptable In An Emergency? No [email or web address] Information not available 12/27/2021 What Is Your Level Of Caffeine Consumption? Moderate Information not available 06/17/2017 How Much Tobacco Do You Chew? None Information not available 06/17/2017 What Type Of Diet Are You Following? SPECIFIC [email or web address] Information not available 12/27/2021 Which Illicit Or Recreational Drugs Have You Used? None Information not available 12/03/2017 When Did You Quit Smoking? 6-10yearssin celastciarshe tte Information not available 03/02/2020 Live Alone Or With Others? With Others Boyfriend [email or web address] Information not available 12/27/2021 Do You Take Precautions To Prevent Distracted Driving? No [email or web address] Information not available 12/27/2021 How Often Do You Need To Have Someone Help You When You Read Instructions, Pamphlets, Or Other Written Material From Your Doctor Or Pharmacy? Sometimes [email or web address] Information not available 12/27/2021 Have You Served [...] Of Your Most Recent Tobacco Screening? 12/27/2021 [email or web address] Information not available 12/27/2021 How Many Children Do You Have? 0 Information not available 12/03/2017 Are You Sexually Active? No [email or web address] Information not available 12/08/2018 At What Age Did You Start Smoking Tobacco? 17 Information not available 12/03/2017 Are You Passively Exposed To Smoke? No [email or web address] Information not available 12/27/2021 How Much Tobacco Do You Smoke? No [email or web address] Information not available 12/27/2021 How Many Years Have You Smoked Tobacco? 12 On And Off Information not available 12/03/2017 Sex: Unknown Functional Status Question Answer Note LastModified by Organizat ion Details LastModified Time Do you or have you ever used any other forms of tobacco or nicotine? No [email or web address] Information not available 12/27/2021 What is your level of alcohol consumption? None Information not available 06/17/2017 Do you or have you ever used smokeless tobacco? Never used smokeless tobacco Information not available 03/02/2020 Are you currently employed? Yes Information not available 06/17/2017 Are you able to walk? YESWOREST [email or web address] Information not available 12/27/2021 Are you able to care for yourself? 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 Never used electronic cigarettes [email or web address] Information not available 12/27/2021 What is your exercise level? None due to injury / arthritis Information not available 12/03/2017 Mental Status None recorded. Family History Relationship Description Onset Age of this Age Resolved Age Notes LastModified by Organization Details LastModified Time Maternal Aunt Kidney disease 35 41 [email or web address] Not available 12/08 15:44:15 Mother Arthritis 60 [email or web address] Not availa ble 12/08/2018 15:44:15 Father Arthritis 30 [email or web address] Not available 12/27/2021 14:51:06 Maternal Grandfather Kidney disease 70 [email or web address] Not available 12/08 15:44:15 Brother History of malignant neoplasm of brain 22 27 [email or web address] Not available 12/08 15:50:41 Medical History Condition Response Gout N Other N Kidney Stones N Blood Diseases N Hyperthyroidism N Breast Cancer N COPD N Depression Y Lung Disease N Hypothyroidism N Defects or [...] recombinant, quadrivalent, PF 7 completed Bridgett iraheta [facility] 06/17/2017 15:52:23 Tdap 3 completed Judi Martin PA-C [address], [address] [facility] 06/17/2017 16:10:56 Influenza, split virus, quadrivalent, preservative 0 [facility] 11:17:31 Past Encounters Encounter ID Performer Location Encounter Start Date Encounter Closed Date Diagnosis/Indication Diagnosis SNOMED-CT Code Diagnosis ICD10 Code Diagnosis Note [id number] Judi Martin PA-C Main Office [address] [address] 06/17/2017 15:18:29 06/17/2017 16:40:55 Mixed hyperlipidemia 814566550 E78.2 Mild inter mittent asthma 501865225 J45.20 Stable. Continue montelukas t daily. Constipation 01142688 K5 9.00 Continue LInzess. F/u with Dr. Aguillon. Primary dysthymia 586682 05 F34.1 Continue Fluoxetine 20 mg. Psoriatic arthritis 1563 49124 L40.50 F/u with rheumatolo gist. Continue HUmira and Tramadol PRN. Leukocytosis 112643235 D 72.829 repeat labs Nicotine dependence 5629 4008 F17.200 Fatigue 44712125 R53.83 Body mass index 30+ - obesity 967568011 E66.01 Z68.41 Elevated blood-pressure reading without diagnosis of hypertension 128582021 R03.0 [id number] Judi Martin PA-C Main Office [address] [facility] [address] [place] [address] 07/17/2017 08:45:31 07/17/2017 10:03:23 Nicotine dependence 44601713 F17.200 pt will start chantix that she was prescribed . Mixed hyperlipidemia 267 470125 E78.2 Pt will provide a fasting blood sample withing 3 months including direct LDL. Consider start of statins due to increased cardiovasc risks , PCOS/metab olic syndrome. Body mass index 40+ - severely obese 425767369 E66.01 Z68.41 pt agrees to see a nutritioni st and start follow low carb/ fat diet. Benign ess ential hypertension 8591769 I10 Blood pressure has been under 140/90 for past three weeks. pt instructed to continue to check bp daily and report any readings over 140/90. Pt instructed to seek medical attention in the even she developes CO, COB, dizziness. If BP becomes elevated continuous ly, will consider ACEI Rx. DASH diet is recommende d to follow and discussed. Thrombocyt openic disorder 856044931 D69.6 will refer to hematology for follow up and treatment. Ventricula r premature beats 91993585 I49.3 Will monitor, pt instructed to report continuous bouts of PVC/palpit ations. instructed to seek medical attention in the event she develops CP, SOB, CP radiation. [id number] Judi Martin PA-C Main Office [address] [facility] [address] [place] [address] 12/03/2017 10:23:05 12/03/2017 12:01:26 Adult health examination 040603999 Z00.00 up to date on vaccines Benign ess ential hypertension 7709225 I10 stable on diet and with some weight loss. Continue monitoring . Ventricula r premature beats 95069455 I49.3 Will monitor, pt instructed to report continuous bouts of PVC/palpit ations. instructed to seek medical attention in the event she develops CP, SOB, CP radiation. Nicotine dependence 5629 4008 F17.200 Continue trying to quit on your own . Can also retry Chantix. Body mass index 30+ - obesity 561985316 E66.01 Z68.41 Mixed hyperlipidemia 267 915832 E78.2 Pt will provide a fasting blood sample including direct LDL. Consider start of statins due to increased cardiovasc risks , PCOS/metab olic syndrome. Insomnia 975886428 G47.0 0 stable and improved Snoring 60259449 R06.83 schedule for polysomnog crystal Mild inter mittent asthma 110489202 J45.20 Stable. Continue montelukas t daily.Vent jessica PRN. Primary dysthymia 988906 05 F34.1 Continue Fluoxetine 20 mg. Constipation 98800068 K5 9.00 Continue LInzess. F/u with Dr. Aguillon. Generalize d anxiety disorder 00631938 F41.1 continue meds [id number] Eduardo Martin PA-C Main Office [address] [address] [place] [address] 12/19/2017 11:26:28 12/19/2017 12:31:14 Acute pharyngitis 566290555 J02.9 likely d/t pnd - see below Acute sinusitis 44038592 J01.90 if cannot clear sxs, then consider ent eval, rec probiotics as well. 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 Warm compress BID, arm elevation. F/u 3-4 days if needed. [id number] Jaylan Olmedo MD Main Office [address] [facility] [address] [place] [address] 05/30/2018 14:11:00 05/30/2018 15:12:15 Menopausal flushing 354264688 N95.1 start small dose estradiol f/u in 1 m. Vaginal dryness 53743977 N89.8 Psoriasis with arthropathy 27230468 L40.50 sees rheum. Was not tried on COTE II. Will try celebrex daily to avoid overusing Advil which usually helps her if taken with Tramadol. [id number] Stephanie gunn MD Main Office [address] [facility] [address] [place] [address] 06/30/2018 08:37:11 06/30/2018 09:53:18 Leukocytosis 856488533 D72.829 repeat labs Exacerbati on of intermittent asthma 144267548 J45.21 if repeat CBC is stable , start Prednisone taper as directed for 10 days, Nebulizer at every 4-6 hrs or HFA. Essential hypertension 06794855 I10 Mixed hyperlipidemia 267 111421 E78.2 Pt will provide a fasting blood sample including direct LDL in 3 months. Consider start of statins due to increased cardiovasc risks , PCOS/metab olic syndrome. [id number] Stephanie gunn MD Main Office [address] [address] [place] [address] 07/07/2018 09:57:29 07/07/2018 10:56:12 Acute sinusitis 25128237 J01.90 Asthmatic bronchitis 405 087014 J45.909 R/o pneumonia. Chest XRAy as well as increase Prednisone back to 50 mg and start taper over . Nebulizer every 4 hrs and continue using ADvair D. [id number] Stephanie gunn MD Main Office [address] [address] [place] [address] 07/30/2018 15:08:49 07/30/2018 16:21:38 Benign essential hypertension 1338574 I10 Continue Lisinopril 10 mg daily, low sodium diet. Continue trying to lose weight. [id number] Khris Hartman MD Main Office [address] [facility] [address] [place] [address] 10/23/2018 13:21:21 10/23/2018 14:20:06 Pain of multiple joints 12367013 M25.50 check rheumatolo gy labs, pt sees rheumatolo gist in [place], will followup with her. Hs followup with Judi up coming Tick bite 46060285 S00.9 6XA check labs Fatigue 10223939 R53.83 Await lab testing to see if pt has tick borne illness, rest, hydration. Eruption 185560549 R21 pt sees dermatolog y has upcoming appointmen t. Thrombocyt openic disorder 280470597 D69.6 checking cbc for platelets [id number] Jaylan Olmedo MD Main Office [address] [facility] [address] [place] [address] 12/08/2018 15:28:43 12/08/2018 17:01:12 Adult health examination 104053873 Z00.00 up to date on vaccines Benign ess ential hypertension 1568577 I10 Continue Lisinopril 10 mg daily, low sodium diet. Continue trying to lose weight.rep eat labs. Allergic asthma 73442429 6 J45.909 Obstructiv e sleep apnea syndrome 31823201 G47.33 Mixed hyperlipidemia 267 047586 E78.2 Retest fasting lipids in 4 m. Generalize d anxiety disorder 07604154 F41.1 continue current meds Psoriasis with arthropathy 11288899 L40.50 continue prednisone taper. F/u wit rheum. Venous stasis 43642048 I 87.8 Body mass index 30+ - obesity 779292236 Z68.41 Morbid obesity 278037882 E66.01 [id number] Jaylan Olmedo MD Main Office [address] [facility] [address] [place] [address] 08/07/2019 13:18:32 08/10/2019 06:42:02 Psoriatic arthritis 163676372 L40.50 F/u with rheumatolo gist. Moderate p ersistent asthma 582349879 J45.40 Prednisone PRN for acute asthma. Pt. was encouraged to f/u with her pulmonary. Due to her asthma and psoriatic arthropath y she is at higher risk for mortality if exposed to and acquires COVID-19 infection. [id number] Jaylan Olmedo MD Telehealt h [address] [facility] [address] [place] [address] 11/02/2019 08:38:53 11/02/2019 15:40:33 Prediabetes 503698098 R73.03 retest labs. Mixed hyperlipidemia 267 347679 E78.2 Retest fasting lipids prior to physical in December. Pt. is willing to retry statins at smaller dose ifresults of fasting test show lipidelvat ion again. Inflammati on of sacroiliac joint 17683828 M46.1 Start prednisone taper as directed and muscle relaxant at HS. Continue heat and tens unit use. If pain does not sign. decrease or persists, pt. is given referral to [facility] for trigger point injections . [id number] Mayank Talley MD [facility] [address] [facility] [address] [facility] [address] 12/30/2019 09:10:16 12/30/2019 13:02:39 Leukocytosis 329122674 D72.829 significan t leukocytos is and respirator y distress. ? asthma exacerb. with Prednisone effect on WBCs or acute infection, ? COVID,pneu monia. Pt. is immuno compromise d. Recommend to go to the ER for further testing. Acute resp iratory distress 058457790 R06.03 referred to the ER. [id number] Jaylan Olmedo MD [facility] [address] [facility] [address] [place] [address] 03/02/2020 09:21:32 03/02/2020 12:01:28 Psoriasis with arthropathy 29470659 L40.50 Continue current meds under rheumatolo gy. FMLA forms to be completed. Moderate p ersistent asthma 341914585 J45.40 Prednisone PRN for acute asthma. Pt. was encouraged to f/u with her pulmonary. Due to her asthma and psoriatic arthropath y she is at higher risk for mortality if exposed to and acquires COVID-19 infection. Venous stasis 96796901 I 87.8 complicate d by cellulitis post procedures . F/u with Dr. Granado Leukocytosis 467441830 D 72.829 Encouraged to have hem/onc consult. PT. has multiple comorbidit ies and immune suppressio n, on biologics. [id number] Jaylan Olmedo MD [facility] [address] [facility] [address] [place] [address] 04/04/2020 14:22:44 04/04/2020 15:50:41 Psoriasis 6159926 L40.9 flares despite biologic. Pt. has mahin with rheum and dermatolog y coming up/ ADvised to take zyrtec 10 mg by day and bendryl at HS and use topical steroids. PT. will discuss further with derm. tomorrow. [id number] Judi Martin PA-C Main Office [address] [facility] [address] [place] [address] 06/10/2020 10:59:58 06/10/2020 12:59:33 Adult health examination 514068030 Z00.00 up to date on vaccines Prediabetes 843015089 R7 3.03 retest labs. Polycystic ovary syndrome 317140770 E28.2 continue on spironolac tone. Thrombocyt openic disorder 272501013 D69.6 will refer to hematology for follow up and treatment. Primary dysthymia 073225 05 F34.1 Continue Fluoxetine 20 mg. Obstructiv e sleep apnea syndrome 88008258 G47.33 Morbid obesity 355842014 E66.01 Mixed hyperlipidemia 267 519710 E78.2 stable as of last year. Lyme disease 05634839 A6 9.20 stable. Leukocytosis 659917120 D 72.829 reactive in nature due to prednisone . Generalize d anxiety disorder 59746174 F41.1 continue current meds Constipation 60255882 K5 9.00 Continue Linzess. F/u with Dr. Aguillon. Allergic asthma 33839982 6 J45.909 Continue current meds. Screening for malignant neoplasm of breast 231278525 Z12.39 Altered adal wel function 66333976 R19.4 Irritable bowel syndrome 73089604 K58.9 alternatin g patter . takes Linzess. Overdue for GI visit. Last colonoscop y is unknown, but reports normal with 10 year recall. Gastroesop hageal reflux disease 423686342 K21.9 f/u with the GI . Continue PPI. Pruritic disorder 534746 002 L29.9 started after flu vaccine. Takes dapsone. Body mass index 40+ - severely obese 301104319 E66.01 Z68.41 Pt. is trying to lose weight by cutting down on carbs, but is limited in exercise due to psoriatic arthropath y. Screening for osteoporosis 566450568 Z13.820 refer for bone density scan. Benign ess ential hypertension 8216019 I10 Continue Lisinopril 10 mg daily. Weight gain 5720964 R63. 5 [id number] Judi Martin PA-C Telehealt h [address] [facility] [address] [place] [address] 09/12/2020 12:41:27 09/12/2020 14:51:05 Moderate persistent asthma 214902564 J45.40 Stable extrinsic moderate asthma. Continue symbicort BID and montelukas t as well as claritin 10mg. F/u with allergy as scheduled. Benign ess ential hypertension 6529649 I10 Stable HTN. Continue Lisinopril 10 mg daily. Mixed hyperlipidemia 267 721134 E78.2 stable as of last year.repea t fasting lipids. Prediabetes 571689289 R7 3.03 retest labs. Pruritic disorder 978118 002 L29.9 f/u with allergy. [id number] Meera Orr MD Main Office [address] [facility] [address] [place] [address] 12/27/2021 14:49:27 12/27/2021 16:13:13 Adult health examination 504787677 Z00.00 Chronic pain syndrome 37 9768060 G89.4 Pt. reports inadequate pain control. Has multifacto rial chronic diffuse body pain and joint pain. Tramadol prescribed as BID by rheumatolo gist. I advised pt. to seek second opinion in [place] for her persistent chronic pain and swelling. Pt. is overall unsatisfie d with local pain and rheumatolo gic care. Screening for malignant neoplasm of breast 751583735 Z12.39 Screening for malignant neoplasm of cervix 507578322 Z12.4 Pt. had hysterecto my. Has PCOS. Not seeing GARMENT MANUFACTURER. Allergic asthma 86471351 6 J45.909 Continue current meds. Benign ess ential hypertension 4714963 I10 continue low sodium diet. Body mass index 40+ - severely obese 219084982 E66.01 Z68.41 Pt. is trying to lose weight by cutting down on carbs, but is limited in exercise due to psoriatic arthropath y. Mixed hyperlipidemia 267 719874 E78.2 retest lipids Prediabetes 542821328 R7 3.03 retest labs. Obstructiv e sleep apnea syndrome 57631620 G47.33 not using CPAP. Osteoarthr itis of knee 862838783 M17.0 F/u with orthopedic s. Polycystic ovary syndrome 460089377 E28.2 continue on spironolac tone. Psoriasis with arthropathy 05346029 L40.50 F/u rheumatolo gy , local or in [place]. Thrombocyt openic disorder 725611472 D69.6 reactive thrombocyt openia Subclinica l hypothyroidism 65253053 E02 Generalize d anxiety disorder 25819895 F41.1 continue current meds Irritable bowel syndrome 51711727 K58.9 Continue LInzess Edema of l ower extremity 619965109 R60.0 Ventricula r premature beats 44140278 I49.3 echo done recently at [facility]. STable occasional palpitatio ns. Health Concerns Section Related Observation LastModified by Organization Detai ls LastModified Time None Recorded Concern Status LastModified by Organization Details LastModified Time None Recorded Advance Directives Directive N: Payers Insurance Date Sequence Insurance Name Policy Number Policy Clarke Covered Member ID Clarke Member ID Guarantor Name 12/08/2018 1 [facility] [id number] Susan De Leon [id number] Susan De Leon 01/15/2024 1 [facility] (PPO) [id number] Susan De Leon [id number] Susan De Leon 12/27/2021 1 [facility] (PPO) [id number] Susan De Leon [id number] Susan De Leon 04/06/2018 PAYMENT PLAN Susan De Leon Notes Date Note Type Note Provider Name and Address Organization Details Recorded Time 03/02/2020 text/html 49 year old fema le for FMLA re applications. Pt. applied based on Dx of psoriatic arthropathy with frequent flares. Pt. sees estimation manager monthly and is currently treated with biologic [...] to arthropathy and/or asthma. Judi Martin PA-C [address] [facility] [address], [place], [address], [facility] 03/02/2020 11:57:02 04/04/2020 text/html 49 year old fema le with h/o psoriatic arthropathy on biologic c/o intense itching in both hands and feet for past several days. Pt. has skin psoriasis and has f/u with dermatology tomorrow. No rash on feet , but has red patches on hands. Have been taking benadryl at HS and during the day causing sedation. Judi Martin PA-C [address] [facility] [address], [place], [address], [facility] 04/04/2020 15:18:29 06/10/2020 text/html Generic HPI TemplateReported bypatient.Notes:49 year old female for annual PE. Does not see GARMENT MANUFACTURER as she had complete hysterectomy. Has ovaries in. Does not wish to see GARMENT MANUFACTURER> REports perimenopausal symptoms with worsening hot flashes. Takes estradiol 0.5 mg but 2-3 times weekly only. Mammogram is overdue.Vaccines> Had flu vaccine and Tdap is up to date.Colonoscopy --- had one ? 5 years ago. NO reports in chart. Has IBS with alternating pattern and is on linzess. Was seen at [facility]. Continue with bowel trouble. On PPI.MDD and LACY. STable on fluoxetine. PHQ score is 0.Psoriatic arthropathy. On Xeljanz. Sees rheumatology regularly. Reports skin is better. On Ibuprofen and tramadol prn for arthropathy.Asthma. Stable at this time on Symbicort and ventolin.HTN is stable on lisinopril. Judi Martin PA-C [address] [facility] [address], [place], [address], [facility] 06/10/2020 13:54:38 09/12/2020 text/html Asthma F/UReport ed [...] old female for f/u.Psoriatic arthropathy followed at [facility].On Xeljanz for the past year. Doing better since 20 lb weight loss on weight watcher in the past 1-2 months.Hand and foot pruritis. Seen by neurology so far and has mahin. pending with allergy. IN the mean time , feet are not itchy any longer since pt. switched from tata to claritin. Judi Martin PA-C [address], [address], [facility] 09/12/2020 14:37:25 12/27/2021 text/html Generic HPI TemplateReported bypatient.Notes:51 year old female for annual physical.H/o psoriatic arthritis , sees estimation manager at [facility], supposed to take Xeljanz but discontinue last [...] Needs new A1c and lipids. Sierra iraheta, [facility] 12/28/2021 08:51:02 OBGyn Episode No OBEpisode recorded.
[2024-10-19 17:38] LABS: MANUAL DIFF FLAG NO
[2024-10-19 17:50] LABS: Basophils Absolute Auto 0.1 X10*3/uL (0.0-0.2); Basophils Percent Auto 1.3 % (0-2); Eosinophils Absolute Auto 0.3 X10*3/uL (0.0-0.4); Eosinophils Percent Auto 3.9 % (0-4); Hematocrit 40.9 % (37.0-47.0); Hemoglobin 14.2 g/dl (12.0-16.0); Imm Gran Abs Auto 0.02 X10*3/uL (0.00-0.03); Imm Gran Pct Auto 0.3 % (0.0-0.4); Lymphocytes Absolute Auto 1.5 X10*3/uL (1.2-4.9); Mean Corpuscular HGB Conc 34.7 g/dl (31.0-35.0); Mean Corpuscular Hemoglobin 29.5 pg (27.0-33.0); Mean Corpuscular Volume 84.9 fL (80.0-98.0); Mean Platelet Volume 10.5 fL (9.4-12.3); Monocytes Absolute Auto 0.4 X10*3/uL (0.1-1.2); Monocytes Percent Auto 4.8 % (2-11); Neutrophils Absolute Auto 5.5 x10*3/uL (2.0-8.3); Neutrophils Percent Auto 70.7 % (45-73); Platelet Count 181 X10*3/uL (160-400); Red Blood Count 4.82 X10*6/uL (4.20-5.50); Red Cell Distribution Width 12.2 % (11.0-16.0); White Blood Count 7.7 X10*3/uL (4.8-10.8)
[2024-10-19 18:01] LABS: Alanine Aminotransferase 25 U/L (0-31); Albumin Level 4.3 g/dL (3.5-5.0); Alkaline Phosphatase 65 U/L (39-117); Anion Gap 11 (12-20); Aspartate Amino Transferase 23 U/L (5-31); Bilirubin Total 0.4 mg/dL (0.0-1.0); Blood Urea Nitrogen 11 mg/dL (9-16); C Reactive Protein 0.53 mg/dL (< or = 0.50); Calcium 9.2 mg/dL (8.4-10.2); Carbon Dioxide 26 mmol/L (22-29); Chloride 107 mmol/L (96-108); Estimated Glomerular Filt Rate > 60; Glucose Random 104 mg/dL (60-115); Potassium 4.2 mmol/L (3.3-5.1); Sodium 140 mmol/L (135-145); Total Protein 6.5 g/dL (6.5-8.0)
[2024-10-19 18:34] LABS: Erythrocyte Sedimentation Rate 2 MM/HR (0-20)
[2024-10-20 03:51] LABS: HBS Num1 10.17 mIU/mL (0-7.99); HBc Num1 0.11 S/CO (0.00-0.79); HBsAGNum1 0.41 S/CO (0.00-0.99); Hepatitis A Antibody IgM 0.19 Index (0-0.79); Hepatitis B Core Antibody Nonreactive (Nonreactive); Hepatitis B Surface Antigen Negative (Negative); ~HepC Num1 0.11 S/CO (0.00-0.79); ~Hepatitis A Antibody IgM Nonreactive (Nonreactive); ~Hepatitis C Antibody Nonreactive (Nonreactive)
[2024-10-20 04:41] LABS: HBS Num2 9.85 mIU/mL (0-7.99); HBS Num3 10.04 mIU/mL (0-7.99); ~Hepatitis B Surface Antibody GRAYZONE (Nonreactive)
[2024-10-22 01:54] LABS: TS Negative Control Passed; TS Panel A 0; TS Panel B 0; TS Positive Control Passed; TSpotTB Negative (Negative)
== END 2024-10-19 13:59 | disposition home or self-care (01) ==
LOC: HO.WFDLDS 13:58
PROVIDERS: Visit Provider Student in an Organized Health Care Education/Training Program
DX: L40.50 Arthropathic psoriasis, unspecified (principal)
CPT/HCPCS: 36415; 80053; 85025; 85652; 86140; 86481; 86704; 86706; 86709; 86803; 87340

== ENCOUNTER 2024-10-21 07:29 | Outpatient (AMB) | payer OTHER, SELFPAY ==
--- NOTE | 2024-10-21 07:32 | A.OFFVIS_ITS ---
Vital Signs 10/21/24 07:38 Height 5 ft 7 in Weight 253 lb 15.56 oz BMI 39.8 BP 152/90 H Blood Pressure Location Lt brachial Position Sitting Respiration 16 Pulse 81 Pulse Source Pulse Oximeter Pulse Oximetry (%) 98 Oxygen Delivery Method Room Air Intake Visit Reasons: PSA Intake Note: Patient presents for PsA follow up. Allergies Sulfa (Sulfonamide Antibiotics) Allergy (Unknown, Verified 10/21/24 07:38) dizzy latex Allergy (Verified 10/21/24 07:38) rash Medication List - Last Reconciled 10/21/24 by Riya Kingston MD azelastine 1 spray intranasal BID cetirizine (Zyrtec) 10 mg PO DAILY diclofenac sodium 1% 4 grams topical QID estradiol 10 mcg vaginal DAILY famotidine (Pepcid) 20 mg PO BID fexofenadine (Tata Allergy) 180 mg PO DAILY hydroxychloroquine 200 mg PO DAILY ibuprofen 800 mg PO BID PRN ipratropium-albuterol 0.5 mg-3 mg(2.5 mg base)/3 mL 3 mL inhalation Q6-8H PRN loratadine (Claritin) 10 mg PO DAILY magnesium oxide 500 mg PO DAILY spironolactone 100 mg PO DAILY tramadol 50 mg PO BID PRN zinc 50 mg PO DAILY HPI Comments Details: Patient is a 53-year-old female with polyarticular osteoarthritis, psoriasis and psoriatic arthritis who presents for follow-up. Interval History: Patient last seen 06/2024 with me. At that time she was only maintained on Plaquenil. Her psoriasis was controlled and her arthritis was for the most part controlled. Decided to hold off on starting Otezla. Today, Continues to do well Has appt with ortho to [facility] for surgery Concerned that she may have post op difficulty due to known OA in her left foot Rheumatologic History: Diagnosed in 2018. Psoriatic arthritis Longstanding history of Psoriasis Methotrexate: 01/09/2017- stopped d/t alopecia Humira: 01/15/2017 - 06/21/2017- no improvement in joint pain Trialed on Simponi per notes, unable to locate script/may have come from dermatology Enbrel. Not effective Cosentyx: 06/21/2017- 01/2019 no improvement in joint pain Xeljanz: 07/2019- 2021 Plaquenil 400mg daily. Since 2021 Current Rheumatologic Medications: Plaquenil 400mg daily [facility] Medical History (Updated 08/26/24 @ 00:00 by Samson Santiago) Encounter for monitoring of hydroxychloroquine therapy Bilateral primary osteoarthritis of knee Left ankle pain Long-term current use of high risk medication other than anticoagulant PCOS (polycystic ovarian syndrome) Asthma Depression Glaucoma Lyme disease Surgical History History of hysterectomy Varicose vein of leg Social History Household Members: Significant Other Housing: House Are you a primary customer care consultant to a significant other at home: No Do you presently have visiting nurse or other home services: No Alcohol intake: never Patient Tobacco Use Status: Former Tobacco user Second Hand Smoke Exposure: No service: No Current occupational status: employed Current occupation: [id number] Current occupational exposures/hazards: Yes Review of Systems Const Details: Review of Systems Constitutional: Denies fever, chills, weight loss ENT: Denies vision changes, eye pain or eye redness, dental caries, dry mouth GI: Denies nausea, vomiting, diarrhea, abdominal pain, change in BM Pulm: Denies SOB, WARREN, hemoptysis, wheezing Cards: Denies chest pain, palpitations Skin: Denies Raynaud's, rash, nail changes, photosensitivity, OSTEOPATHIC 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 Well appearing and in no apparent painful distress HEENT Conjunctiva and sclera clear. Pupils equal round and reactive to light. No lymphadenopathy. CHEST/RESPIRATORY SYSTEM Normal respiratory effort and able to speak in complete sentences. Clear to auscultation bilaterally. No crackles, rales, rhonchi, wheezes heard. CARDIAC SYSTEM Regular rate and rhythm. S1 and S2 heard no murmurs. 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 No deformities noted. No synovitis noted to the MCPs, PIPs or DIPs. No tenderness to palpation of these joints. Wrists: Full range of motion at the wrists without pain. No tenderness to palpation or synovitis noted to the wrists. Elbows: Full range of motion without pain. No tenderness, weakness, swelling, increased warmth or erythema. Shoulders: Full range of motion without pain. No tenderness, weakness, swelling, increased warmth or erythema. Knees: Full range of motion. No tenderness, swelling, increased warmth or erythema.?Crepitations felt bilaterally Ankles: Decreased ROM on the left with ankle plantarflexion especially. Feet: Negative squeeze test. No tenderness to palpation or swelling of the MTPs. Tender points:?No tenderness to palpation of the bilateral trapezius, supraspinatus, greater trochanters, anterior costochondral junctions, bilateral gluteal areas, bilateral suboccipital muscle insertions SKIN Skin intact without rashes. Results Reviewed Results Reviewed: Laboratory Tests 10/19/24 14:01 WBC 7.7 RBC 4.82 Hgb 14.2 Hct 40.9 Plt Count 181 D ESR 2 Sodium 140 Potassium 4.2 Chloride 107 Carbon Dioxide 26 BUN 11 Creatinine 0.65 AST 23 ALT 25 Alkaline Phosphatase 65 C-Reactive Protein 0.53 H FINDINGS: RIGHT KNEE: No fracture, dislocation, or suspicious bone lesion. Severe degenerative arthritis medial compartment [id number] appearance, mild subchondral sclerosis, and prominent marginal osteophytic spurs. There is compensatory widening of the lateral compartment with mild varus angulation of the joint. Moderate degenerative arthritis in the patellofemoral joint, with marginal productive osteophytes and moderate joint space narrowing. Mild spurring of the tibial spines. No evidence of joint effusion. Soft tissues appear normal. LEFT KNEE: No fracture, dislocation, or suspicious bone lesion. Moderate to severe degenerative arthritis medial compartment with near [id number] appearance, and prominent marginal osteophytic spurs. There is compensatory widening of the lateral compartment with mild varus angulation of the joint. Moderate degenerative arthritis in the patellofemoral joint, with marginal productive osteophytes and moderate joint space narrowing. Mild spurring of the tibial spines. No evidence of joint effusion. Soft tissues appear normal. IMPRESSION: RIGHT KNEE: 1. Tricompartmental osteoarthrosis, severe in the medial compartment with [id number] appearance. Mild varus angulation of the joint. LEFT KNEE: 1. Tricompartmental osteoarthrosis, moderate to severe in the medial compartment with near [id number] appearance. Mild varus angulation of the joint. Assessment & Plan Assessment & Plan (1) Psoriatic arthritis: Comment: Methotrexate: 01/09/2017- stopped d/t alopecia Humira: 01/15/2017 - 06/21/2017- no improvement in joint pain Trialed on Simponi per notes, unable to locate script/may have come from dermatology Cosentyx: 06/21/2017- 01/2019 no improvement in joint pain Xeljanz: 07/2019- present Code(s): L40.50 - Arthropathic psoriasis, unspecified Category: Medical Plan: #PsA Patient with psoriatic arthritis on a background of a long history of psoriasis. She is currently on minimal immunosuppression with Plaquenil. She says it takes the edge off enough that she can manage her pain. My concern is that she may develop fibromyalgia given this prolonged dysregulated pain that she has been experiencing. However today on exam she does not have any positive fibromyalgia tender points. I discussed this with her and also discussed potentially adding Otezla and gabapentin/pregabalin to her regimen. She has decided that she would like to hold off on adding any medications. She is reluctant to add more immunosuppression especially given her history with failed immunosuppression. Plan - Plaquenil 200mg daily - Topical steroids as per derm - RTC 6 months - Labs before visit: CBC, CMP, ESR, CRP (2) Psoriasis: Code(s): L40.9 - Psoriasis, unspecified Category: Medical Plan: #Psoriasis Stable on topical medications (3) Bilateral primary osteoarthritis of knee: Code(s): M17.0 - Bilateral primary osteoarthritis of knee Category: Medical Plan: #Bilateral Knee OA Patient with bilateral knee OA Follow up with ortho Plan - Topical diclofenac gel 1% (4) Encounter for monitoring of hydroxychloroquine therapy: Code(s): Z51.81 - Encounter for therapeutic drug level monitoring; Z79.899 - Other intermediate (current) drug therapy Category: Medical Plan: #Long-term Use of Hydroxychloroquine Discussed with patient the risks and benefits of hydroxychloroquine in managing the rheumatic condition Benefits include: - Reduced pain, reduce mortality, maintenance of remission and reduction of flares Risks include: - GI upset, skin hyperpigmentation, retinal toxicity (especially after more than 5 years of use), myopathy Advised yearly ophthalmology visits Plan I spent 28 minutes reviewing the record and labs, seeing the patient, discussing the treatment plan and documenting in the medical record Orders: Orders XR wrist LT min 3V Today L40.50 - Arthropathic psoriasis, unspecified XR hand RT min 3V Today L40.50 - Arthropathic psoriasis, unspecified XR foot LT min 3V Today L40.50 - Arthropathic psoriasis, unspecified XR ankle RT min 3V Today L40.50 - Arthropathic psoriasis, unspecified XR wrist RT min 3V Today L40.50 - Arthropathic psoriasis, unspecified XR hand LT min 3V Today L40.50 - Arthropathic psoriasis, unspecified XR foot RT min 3V Today L40.50 - Arthropathic psoriasis, unspecified XR ankle LT min 3V Today L40.50 - Arthropathic psoriasis, unspecified Coding Level of Care Code Est Pt Level 3 (51472) Complex EM visit Add On G2211 Diagnoses Psoriatic arthritis L40.50 Psoriasis L40.9 Bilateral primary osteoarthritis of knee M17.0 Encounter for monitoring of hydroxychloroquine therapy Z51.81; Z79.899
--- OUTSIDE RECORDS SUMMARY | 2024-10-21 07:32 | XMS_ITS | Data Portability ---
Author Organization [facility], Main Office Address [address] [place] [address] Care Team Providers Care Staple Fiber Washer Name Role Phone MARTINKEVINJUDI Primary Care Provider [phone] ELIJAH YU Traffic Clerk PEYTON CHAPMAN Sleep Medicine [facility] (JUAN MANUEL JONES) Orthopedic Surgeon CHIP COBIAN Manufacturing Accountant HEDY DEL VALLE Line Erector Assessment Encounter Date Assessment Date Assessment LastModified [...] panel, serum 2021 022 [email or web address] [facility], [address], [place], [address], 3 11:42:52 CMP, serum or plasma 2021 022 [email or web address] [facility], [address], [place], [address], 3 11:42:53 TSH, serum or plasma 2021 022 [email or web address] [facility], [address], [address], [place], [address], 3 11:42:52 HbA1c (hemoglob in A1c), blood 2021 022 [facility], [address], [address], [place], [address], 2 15:26:55 microalbu min, urine 2021 022 [facility], [address], [address], [place], [address], 2 16:13:00 CBC w/ auto diff 2021 022 [email or web address] [facility], [address], [address], [place], [address], 3 11:42:53 lipid panel, serum 2020 021 [facility], [address], [address], [place], [address], 1 11:56:41 HbA1c (hemoglob in A1c), blood 2020 021 [facility], [address], [place], [address], 1 14:36:27 CMP, serum or plasma 2020 021 [facility], [address], [place], [address], 1 11:56:39 TSH, serum or plasma 2020 021 [facility], [address], [place], [address], 1 12:03:41 HbA1c (hemoglob in A1c), blood 2020 021 [facility], [address], [place], [address], 1 11:41:24 Referral gastroent erologist referral - Constipat ion and uper GI issues . Also, pt. might be due for colonosco py. 2020 021 [email or web address] [facility], [address] [facility], [place], [address], 2 09:52:37 hematolog ist/oncol ogist referral - Progressi ve leukocyto sis, psoriatic arhtropat hy on biologics . 2019 020 [email or web address] Barillas MD, [address] [place], [address], 0 09:46:53 Procedures None recorded. Surgeries None recorded. Imaging MAMMO, screening , bilateral 2021 022 [email or web address] [facility] ([facility]), [address], [place], [address], 2 08:25:51 bone density - Estrogen deficienc y and chronic use of prednison e. 2020 021 [facility]), [address], [place], [address], 08:34:43 MAMMO, screening , bilateral 2020 021 [facility] ([facility]), [address], [place], [address], 08:34:24 Medication Orders Ventolin HFA 90 mcg/actua tion aerosol inhaler 2021 022 [id number], [address] [facility], [place], [address], 18:53:23 Patient TargetsNo targets recorded. Patient Instructions Encounter Date Encounter Id Patient Instructions Last Modified By Organization Details Last Modified Time 06/10/2020 [id number] prediabetes: car e instructions Not available 06/10/2020 12:11:53 eating healthy foods: care instructions Not available 06/10/2020 12:11:53 gastroesophageal reflux disease (GERD): care instructions Not available 06/10/2020 11:58:37 anxiety disorder : care instructions Not available 06/10/2020 11:59:22 high blood press ure: care instructions Not available 06/10/2020 12:10:55 dash diet: care instructions Not available 06/10/2020 12:10:55 12/27/2021 [id number] starting a weigh t loss plan: care instructions Not available 12/27/2021 16:01:30 albumin-creatini ne ratio: about this test Not available 12/27/2021 15:58:01 polycystic ovary syndrome: care instructions Not available 12/27/2021 15:27:18 dash diet: care instructions Not available 12/27/2021 16:01:30 Reason for Referral Progressive leukocytosis, ps oriatic arhtropathy on biologics. Referring Physician: Judi Martin, Internal Medicine, Encounter Date: 03/02/2020 Line Erector Referral for Altered bowel function Constipation and [...] of Clini karen and Appli ed Resea [facility] and Educa tion Volum e 43, Suppl [...] CoV-2 spike prote in inclu ding the needle felt making machine operator tor sheldon jose n (RBD) . Test perfo rmed by [facility], [address], [place] [address] Not Available [facility] (Centralized Electronic Ordering - All Locations) Patient Can Go To The Location Of Their Choice, [address] 11/18/2020 07:07:11 02/29/20 20 02/29/2020 endov enous ablat ion thera py, laser (PROC ) No observ ation record ed. Ariella Granado MD [address] [facility] [address], [place], [address], 03/01/2020 18:50:20 03/03/20 20 02/18/2020 MRI, lumba r spine , w/o contr ast No observ ation record ed. [email or web address] Not Available 2019 12:53:31 05/27/19 21 05/27/2020 XR, abdom en + pelvi s No observ ation record ed. [email or web address] [facility] [address], [place], [address], 05/30/2020 09:19:14 05/30/19 21 05/27/2020 XR, angio gram, pelvi c No observ ation record ed. [email or web address] [facility] Orders [address], [place], [address], 05/30/2020 11:27:46 07/13/1907/12/2020 DEXA, axial skele ton ====== ====== ====== ====== ====== ====== ====== ====== ====== ====== ===== Bone Densit y Report ====== ====== ====== ====== ====== ====== ====== ====== ====== ====== ===== Name: BASHIR Rose SUSANLOIDA jimenez ID: [id number] Age: 49 Sex: Female Ethnic ity: White Date of : 1970 ------ ------ ------ ------ ------ ------ ------ ------ ------ ------ ----- Indica tion: ZACARIAS CASTRO Referr sofi Marie er: MAY MARTIN Study: Bone densit ometry was [facility] med. Exam Date: July 12, 2020 Access ion number : [id number] Bone Densit y: ------ ------ ------ [...] [facility] (Outpt Imaging) [address] , [place], [address], 07/13/2020 10:40:58 07/13/19 21 07/12/2020 bone densi ty No observ ation record ed. [facility] Orders [address], [place], [address], 07/13/2020 10:40:58 07/14/19 21 07/12/2020 MAMMO , [...] Lay letter mailed to hunter jimenez WSN: [id number] Orderi ng Physic alex: May Martin Dictat ed By: Sadaf Chang MD, I Dictat ed Date/T rhina: 10:10 am Review ed By: Sadaf Chang MD, I Signed By: Sadaf Chang MD, I Signed Date/T rhina: 10:10 am Transc ribed By: CSB Transc riptio n Date/T rhina: 10:01 am Birads : Hunter jimenez Class: Outpat ient [email or web address] [facility] (Outpt Imaging) [address], [place], [address], 07/13/2020 15:59:32 07/14/19 21 07/12/2020 MAMMO , scree juliocesar, bilat eral No observ ation record ed. [email or web address] [facility] Orders [address], [place], [address], 07/13/2020 15:59:32 12/30/19 22 11/17/2021 trans -thor acic echoc ardio gram (TTE) (PROC ) No observ ation record ed. [facility] [address], [place], [address], 12/29/2021 14:58:26 Result Notes Documentation Provider Name and Address Organization Details Recorded Time Dexa, Axial Skeleton : Bone Density Report Name: SUSAN DE LEON Age: 49 Sex: Female Ethnicity: White Date of : 1970 Indication: POSTMENOPAUSAL. Referring Provider: JUDI MARTIN Study: Bone densitometry was performed. Exam Date: July 12, 2020 Accession number: [id number] Bone Density: Region BMD T-score Z-score Classification [...] Judi Martin PA-C [address], [place], [address], [facility] 07/12/2020 21:33:09 Mammo, Screening, Digital, Bilateral : [...] (Benign) Lay letter mailed to patient WSN: [id number] Ordering Physician: Judi Martin Dictated By: Sadaf Chang MD, I Dictated Date/Time: 07/13/20 10:10 am Reviewed By: Sadaf Chang MD, I Signed By: Sadaf Chang MD, I Signed Date/Time: 07/13/20 10:10 am Transcribed By: CHULA Spray Dyer Date/Time: 07/13/20 10:01 am Birads: Patient Class: Outpatient Irma iraheta [facility] 07/13/2020 15:59:32 Problems Name Problem SNOMED Code Status Onset Date Resolution Date Notes Provider Name and Address Organization Details Recorded Time Mixed hyperlip idemia 003856322 Active 2017 Judi JASON-C [address], [address], [facility] 8 15:40:00 Leukocyt osis 933977648 Completed 201707/17/2017 Judi JASON-C [address], [place], [address], [facility] 1 14:19:49 Asthma 369068679 Completed 201706/17/2017 Judi JASON-C [address], [place], [address], [facility] 8 16:13:58 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 Judi JASON-C [address], [place], [address], [facility] 8 15:41:06 Major depressi ve disorder 751120458 Completed 201706/17/2017 Judi Yunier JASON-C [address], [place], [address], [facility] 8 15:45:52 Generali zed anxiety disorder 90219639 Active 2017 Juid JASON-C [address], [place], [address], [facility] 8 15:42:16 Insomnia 877160101 Completed 201706/10/2020 Judi JASON-C [address], [place], [address], [facility] 1 12:10:13 Psoriasi s 1739298 Completed 201711/02/2019 Judi JASON-C [address], [place], [address], [facility] 0 11:06:51 Lyme disease 90452466 Active 2017 pos IgG +4 bands in 2011 and pos IgG and IgM in 2016. Judi Yunier JASON-C [address], [place], [address], [facility] 8 15:43:26 Glaucoma 00276407 Completed 201706/10/2020 Judi Martin PA-C [address], [place], [address], [facility] 1 12:10:31 Constipa tion 43002596 Active 2017 Judi Martin PA-C [address], [place], [address], [facility] 8 15:43:47 Primary dysthymi a 65513496 Active 2017 Judi Martin PA-C [address], [place], [address], [facility] 8 15:46:00 Nicotine dependen ce 84647644 Active 2017 Judi Martin PA-C [address], [place], [address], [facility] 8 15:46:26 Psoriati c arthriti s 197283277 Completed 201711/02/2019 Judi Martin PA-C [address], [place], [address], [facility] 0 11:06:59 Ocular rosacea 417558420 Active 2017 Judi Martin PA-C [address], [place], [address], [facility] 8 15:57:35 Mild intermit tent asthma 477864509 Completed 201712/08/2018 Judi Martin PA-C [address], [place], [address], [facility] 9 16:17:26 Benign essentia l hyperten agustín 4888606 Active 2017 [facility] 8 09:35:30 Thromboc ytopenic disorder 259658754 Active 2017 seen and evaluated by hem/onc. Need to do yearly CBC . Judi Martin PA-C [address], [place], [address], [facility] 0 11:07:53 Ventricu lar prematur e beats 82905648 Active 2017 [facility] 8 09:57:26 Environm ental allergy 708335966 Active 2017 Judi Martin PA-C [address], [place], [address], [facility] 8 11:21:54 Obstruct adonay sleep apnea syndrome 40643972 Active 2017 not using CPAP Judi Martin PA-C [address], [place], [address], [facility] 2 16:06:30 Psoriasi s with arthropa thy Active 2018 Judi Martin PA-C [address], [place], [address], [facility] 9 14:53:43 Leukocyt osis 618231916 Completed 201812/08/2018 Judi Martin PA-C [address], [place], [address], [facility] 1 14:19:49 Exacerba tion of intermit tent asthma 230778515 Completed 201808/07/2019 Judi Martin PA-C [address], [place], [address], [facility] 0 16:46:29 Allergic asthma 373764861 Active 2018 Judi Martin PA-C [address], [place], [address], [facility] 9 16:20:36 Venous stasis 48758984 Active 2018 Judi Martin PA-C [address], [place], [address], [facility] 9 16:35:54 Deviated nasal septum 348773638 Active 2018 Judi Martin PA-C [address], [place], [address], [facility] 9 16:47:06 Morbid obesity 955681720 Active 2018 [facility] 9 14:24:20 Prediabe rosa maria 460907365 Active 2019 Judi Martin PA-C [address], [place], [address], [facility] 0 15:21:17 Leukocyt osis 037547389 Active 2020 reactive secondary to psoriatic arthropfa thy, asthma flairs, prednison e, cellujlit is. Seen by hem/onc. Preston d. Judi Martin PA-C [address], [place], [address], [facility] 1 14:19:49 Irritabl e bowel syndrome 16527263 Active 2020 Judi Martin PA-C [address], [place], [address], [facility] 1 11:58:57 Pruritic disorder 384183892 Active 2020 Judi Martin PA-C [address], [place], [address], [facility] 1 12:01:06 Chronic pain syndrome 466015855 Active 2021 see rheumatol ogy notes from October of 2021 Judi Martin PA-C [address], [place], [address], [facility] 2 15:14:07 Subclini karen hypothyr oidism 23464706 Active 2021 Judi Martin PA-C [address] [facility] [address], [place], [address], [facility] 2 15:17:16 Problem Notes None recorded. Procedures Surgical History Date Name Laterality Status Provider Name and Address Organization Details Recorded Time 07/13/19 21 Most Recent Mammogram completed Irma Calixto [facility] 07/13/2020 15:58:44 08/05/19 19 Mammogram both breasts completed Alexandraphylicia Cueto [facility] 08/04/2018 16:21:51 05/28/19 19 injection of knee joint completed Alexandraphylicia Cueto [facility] 06/30/2018 16:22:25 02/05/20 18 injection completed Alexandraphylicia Cueto [facility] 08/29/2018 11:57:59 06/22/19 17 Date of Last Colonoscopy completed Debra Calvert [facility] 12/27/2021 15:06:00 06/18/19 17 Egd diagnostic brush wash completed Shana Hicks [facility] 06/29/2020 09:53:31 06/18/19 17 Colonoscopy completed Shana Hicks [facility] 06/29/2020 09:54:50 Hysterectomy completed Bridgett Barrios [facility] 06/17/2017 15:42:16 Imaging Results None recorded. Procedure Notes None recorded. Medical Equipment None Reported. Allergies Allergen ID Allergen Name Allergen Category Reaction Reaction Severity Criticality Documentation Date Start Date Code Code System Note Provider Name and Address Organization Details Recorded Time 50706 latex environme nt,medica tion rash severe Not available 06/17/2017 09516 91 RxNorm Bridgett iraheta [facility] 8 15:41:43 95768 Substance with sulfonami de structure and antibacte rial mechanism of action (substanc e) medicatio n dizziness Not available Not available 06/17/2017 71343 8003 SNOMED Bridgett Barrios null, [facility] 8 15:41:43 71831 Plaquenil medicatio n hallucina tions severe Not available 12/03/201756845 2 RxNorm Dayan KALANI Thakur, [facility] 1 11:04:06 70931 Celebrex medicatio n Not available Not available Not available 12/10/2018 32615 7 RxNorm conta ins sulfa Judi Yunier SANTAMARIA [address] [facility] [address], [facility] [place], [address], [facility] 9 10:40:07 Medications Name Sig Start Date [...] azelastine 137 mcg (0.1 %) nasal spray [place] 137 microgram s as needed by nasal [...] Updated DateTime 1 172.72 cm 41.1 kg/m2 340500. 94 g 87 /min 97 % 97 % 97.34 [degF] 121 mm[Hg] 83 mm[Hg] Dayan Thakur MA [facility] 1 11:19:09 Date Recorded Body height Provider Name an d Address Organization Details Last Updated DateTime 09/12/2020 172.72 cm Bri Centeno [place] [facility] 09/12/2020 13:54:32 Date Recorded Body height Body mass index (BMI) Body weight Oxygen saturation Oxygen saturation in Arterial blood by Pulse oximetry Heart rate Body temperature Systolic blood pressure Diastolic blood pressure Provider Name and Address Organization Details Last Updated DateTime 2 172.72 cm 41.2 kg/m2 041369. 53 g 98 % 98 % 73 /min 97.88 [degF] 125 mm[Hg] 75 mm[Hg] Debra Calvert MA [facility] 2 14:58:21 Date Recorded Body height Provider Name an d Address Organization Details Last Updated DateTime 03/02/2020 172.72 cm Demetria Colby MA [facility] 03/02/2020 10:53:27 Date Recorded Body height Provider Name an d Address Organization Details Last Updated DateTime 04/04/2020 172.72 cm Dayan Thakur MA [facility] 04/04/2020 14:36:36 Social History Question Answer Notes LastModified by Organizat ion Details LastModified Time Tobacco Smoking Status Former Smoker Liza iraheta [facility] 12/30/2019 10:19:51 Do You Have An Advance Directive? No [email or web address] Information not available 12/27/2021 Is Blood Transfusion Acceptable In An Emergency? No [email or web address] Information not available 12/27/2021 What Is Your Level Of Caffeine Consumption? Moderate Information not available 06/17/2017 How Much Tobacco Do You Chew? None Information not available 06/17/2017 What Type Of Diet Are You Following? SPECIFIC [email or web address] Information not available 12/27/2021 Which Illicit Or Recreational Drugs Have You Used? None Information not available 12/03/2017 When Did You Quit Smoking? 6-10yearssin celastciarshe tte Information not available 03/02/2020 Live Alone Or With Others? With Others Boyfriend [email or web address] Information not available 12/27/2021 Do You Take Precautions To Prevent Distracted Driving? No [email or web address] Information not available 12/27/2021 How Often Do You Need To Have Someone Help You When You Read Instructions, Pamphlets, Or Other Written Material From Your Doctor Or Pharmacy? Sometimes [email or web address] Information not available 12/27/2021 Have You Served [...] Gathering In The Last 10 Days? No [email or web address] Information not available 06/10/2020 What Was The Date Of Your Most Recent Tobacco Screening? 12/27/2021 [email or web address] Information not available 12/27/2021 How Many Children Do You Have? 0 Information not available 12/03/2017 Are You Sexually Active? No [email or web address] Information not available 12/08/2018 At What Age Did You Start Smoking Tobacco? 17 Information not available 12/03/2017 Are You Passively Exposed To Smoke? No [email or web address] Information not available 12/27/2021 How Much Tobacco Do You Smoke? No [email or web address] Information not available 12/27/2021 How Many Years Have You Smoked Tobacco? 12 On And Off Information not available 12/03/2017 Sex: Unknown Functional Status Question Answer Note LastModified by Organizat ion Details LastModified Time Do you or have you ever used any other forms of tobacco or nicotine? No [email or web address] Information not available 12/27/2021 What is your level of alcohol consumption? None Information not available 06/17/2017 Do you or have you ever used smokeless tobacco? Never used smokeless tobacco Information not available 03/02/2020 Are you currently employed? Yes Information not available 06/17/2017 Are you able to walk? YESWOREST [email or web address] Information not available 12/27/2021 Are you able to care for yourself? 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 Never used electronic cigarettes Information not available 12/27/2021 What is your exercise level? None due to injury / arthritis Information not available 12/03/2017 Mental Status None recorded. Family History Relationship Description Onset Age of this Age Resolved Age Notes LastModified by Organization Details LastModified Time Maternal Aunt Kidney disease 35 41 [email or web address] Not available 12/08 15:44:15 Mother Arthritis 60 [email or web address] Not availa ble 12/08/2018 15:44:15 Father Arthritis 30 [email or web address] Not available 12/27/2021 14:51:06 Maternal Grandfather Kidney disease 70 [email or web address] Not available 12/08 15:44:15 Brother History of [...] recombinant, quadrivalent, PF 7 completed Bridgett iraheta [facility] 06/17/2017 15:52:23 Tdap 3 completed Judi Martin PA-C [address], [address] 06/17/2017 16:10:56 Influenza, split virus, quadrivalent, preservative 0 completed KALANI Hickman [facility] 06/10/2020 11:17:31 Past Encounters Encounter ID Performer Location Encounter Start Date Encounter Closed Date Diagnosis/Indication Diagnosis SNOMED-CT Code Diagnosis ICD10 Code Diagnosis Note [id number] Judi Martin PA-C Main Office [address] [address] 06/17/2017 15:18:29 06/17/2017 16:40:55 Mixed hyperlipidemia 623722357 E78.2 Mild inter mittent asthma 811447592 J45.20 Stable. Continue montelukas t daily. Constipation 01133381 K5 9.00 Continue LInzess. F/u with Dr. Aguillon. Primary dysthymia 073811 05 F34.1 Continue Fluoxetine 20 mg. Psoriatic arthritis 1563 80058 L40.50 F/u with rheumatolo gist. Continue HUmira and Tramadol PRN. Leukocytosis 558510072 D 72.829 repeat labs Nicotine dependence 5629 4008 F17.200 Fatigue 00065191 R53.83 Body mass index 30+ - obesity 260523474 E66.01 Z68.41 Elevated blood-pressure reading without diagnosis of hypertension 251864400 R03.0 [id number] Judi Martin PA-C Main Office [address] [place] [address] 07/17/2017 08:45:31 07/17/2017 10:03:23 Nicotine dependence 64323543 F17.200 pt will start chantix that she was prescribed . Mixed hyperlipidemia 267 280347 E78.2 Pt will provide a fasting blood sample withing 3 months including direct LDL. Consider start of statins due to increased cardiovasc risks , PCOS/metab olic syndrome. Body mass index 40+ - severely obese 158749782 E66.01 Z68.41 pt agrees to see a nutritioni st and start follow low carb/ fat diet. Benign ess ential hypertension 1579087 I10 Blood pressure has been under 140/90 for past three weeks. pt instructed to continue to check bp daily and report any readings over 140/90. Pt instructed to seek medical attention in the even she developes CO, COB, dizziness. If BP becomes elevated continuous ly, will consider ACEI Rx. DASH diet is recommende d to follow and discussed. Thrombocyt openic disorder 500732948 D69.6 will refer to hematology for follow up and treatment. Ventricula r premature beats 08402489 I49.3 Will monitor, pt instructed to report continuous bouts of PVC/palpit ations. instructed to seek medical attention in the event she develops CP, SOB, CP radiation. [id number] Judi Martin PA-C Main Office [address] [place] [address] 12/03/2017 10:23:05 12/03/2017 12:01:26 Adult health examination 575629708 Z00.00 up to date on vaccines Benign ess ential hypertension 6875897 I10 stable on diet and with some weight loss. Continue monitoring . Ventricula r premature beats 43579048 I49.3 Will monitor, pt instructed to report continuous bouts of PVC/palpit ations. instructed to seek medical attention in the event she develops CP, SOB, CP radiation. Nicotine dependence 5629 4008 F17.200 Continue trying to quit on your own . Can also retry Chantix. Body mass index 30+ - obesity 681066465 E66.01 Z68.41 Mixed hyperlipidemia 267 945529 E78.2 Pt will provide a fasting blood sample including direct LDL. Consider start of statins due to increased cardiovasc risks , PCOS/metab olic syndrome. Insomnia 823314047 G47.0 0 stable and improved Snoring 04519685 R06.83 schedule for polysomnog crystal Mild inter mittent asthma 550039396 J45.20 Stable. Continue montelukas t daily.Vent jessica PRN. Primary dysthymia 448764 05 F34.1 Continue Fluoxetine 20 mg. Constipation 58982321 K5 9.00 Continue LInzess. F/u with Dr. Aguillon. Generalize d anxiety disorder 52285908 F41.1 continue meds [id number] Eduardo Martin PA-C Main Office [address] [address] [place] [address] 12/19/2017 11:26:28 12/19/2017 12:31:14 Acute pharyngitis 150921134 J02.9 likely d/t pnd - see below Acute sinusitis 19481954 J01.90 if cannot clear sxs, then consider ent eval, rec probiotics as well. 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 Warm compress BID, arm elevation. F/u 3-4 days if needed. [id number] Jaylan Olmedo MD Main Office [address] [facility] [address] [place] [address] 05/30/2018 14:11:00 05/30/2018 15:12:15 Menopausal flushing 215264052 N95.1 start small dose estradiol f/u in 1 m. Vaginal dryness 82554364 N89.8 Psoriasis with arthropathy 88726459 L40.50 sees rheum. Was not tried on COTE II. Will try celebrex daily to avoid overusing Advil which usually helps her if taken with Tramadol. [id number] Stephanie gunn MD Main Office [address] [facility] [address] [place] [address] 06/30/2018 08:37:11 06/30/2018 09:53:18 Leukocytosis 369606664 D72.829 repeat labs Exacerbati on of intermittent asthma 586813964 J45.21 if repeat CBC is stable , start Prednisone taper as directed for 10 days, Nebulizer at every 4-6 hrs or HFA. Essential hypertension 05513899 I10 Mixed hyperlipidemia 267 636475 E78.2 Pt will provide a fasting blood sample including direct LDL in 3 months. Consider start of statins due to increased cardiovasc risks , PCOS/metab olic syndrome. [id number] Stephanie gunn MD Main Office [address] [address] [place] [address] 07/07/2018 09:57:29 07/07/2018 10:56:12 Acute sinusitis 02278457 J01.90 Asthmatic bronchitis 405 108462 J45.909 R/o pneumonia. Chest XRAy as well as increase Prednisone back to 50 mg and start taper over . Nebulizer every 4 hrs and continue using ADvair D. [id number] Stephanie gunn MD Main Office [address] [address] [place] [address] 07/30/2018 15:08:49 07/30/2018 16:21:38 Benign essential hypertension 9133145 I10 Continue Lisinopril 10 mg daily, low sodium diet. Continue trying to lose weight. [id number] Khris Hartman MD Main Office [address] [facility] [address] [place] [address] 10/23/2018 13:21:21 10/23/2018 14:20:06 Pain of multiple joints 52425862 M25.50 check rheumatolo gy labs, pt sees rheumatolo gist in [place], will followup with her. Hs followup with Judi up coming Tick bite 25598943 S00.9 6XA check labs Fatigue 70698335 R53.83 Await lab testing to see if pt has tick borne illness, rest, hydration. Eruption 995400267 R21 pt sees dermatolog y has upcoming appointmen t. Thrombocyt openic disorder 466309936 D69.6 checking cbc for platelets [id number] Jaylan Olmedo MD Main Office [address] [facility] [address] [place] [address] 12/08/2018 15:28:43 12/08/2018 17:01:12 Adult health examination 884743933 Z00.00 up to date on vaccines Benign ess ential hypertension 9519603 I10 Continue Lisinopril 10 mg daily, low sodium diet. Continue trying to lose weight.rep eat labs. Allergic asthma 70300824 6 J45.909 Obstructiv e sleep apnea syndrome 59981694 G47.33 Mixed hyperlipidemia 267 709938 E78.2 Retest fasting lipids in 4 m. Generalize d anxiety disorder 19332903 F41.1 continue current meds Psoriasis with arthropathy 48606046 L40.50 continue prednisone taper. F/u wit rheum. Venous stasis 71391471 I 87.8 Body mass index 30+ - obesity 141418440 Z68.41 Morbid obesity 913272424 E66.01 [id number] Jaylan Olmedo MD Main Office [address] [facility] [address] [place] [address] 08/07/2019 13:18:32 08/10/2019 06:42:02 Psoriatic arthritis 621778310 L40.50 F/u with rheumatolo gist. Moderate p ersistent asthma 783679369 J45.40 Prednisone PRN for acute asthma. Pt. was encouraged to f/u with her pulmonary. Due to her asthma and psoriatic arthropath y she is at higher risk for mortality if exposed to and acquires COVID-19 infection. [id number] Jaylan Olmedo MD Telehe[facility] [address] [facility] [address] [place] [address] 11/02/2019 08:38:53 11/02/2019 15:40:33 Prediabetes 532534103 R73.03 retest labs. Mixed hyperlipidemia 267 700171 E78.2 Retest fasting lipids prior to physical in December. Pt. is willing to retry statins at smaller dose ifresults of fasting test show lipidelvat ion again. Inflammati on of sacroiliac joint 04722926 M46.1 Start prednisone taper as directed and muscle relaxant at HS. Continue heat and tens unit use. If pain does not sign. decrease or persists, pt. is given referral to [facility] for trigger point injections . [id number] Mayank Talley MD [facility] [address] [facility] [address] [facility] [place] [address] 12/30/2019 09:10:16 12/30/2019 13:02:39 Leukocytosis 807417507 D72.829 significan t leukocytos is and respirator y distress. ? asthma exacerb. with Prednisone effect on WBCs or acute infection, ? COVID,pneu monia. Pt. is immuno compromise d. Recommend to go to the ER for further testing. Acute resp iratory distress 026850904 R06.03 referred to the ER. [id number] Jaylan Olmedo MD [facility] [address] [facility] [address] [place] [address] 03/02/2020 09:21:32 03/02/2020 12:01:28 Psoriasis with arthropathy 88949903 L40.50 Continue current meds under rheumatolo gy. FMLA forms to be completed. Moderate p ersistent asthma 506195084 J45.40 Prednisone PRN for acute asthma. Pt. was encouraged to f/u with her pulmonary. Due to her asthma and psoriatic arthropath y she is at higher risk for mortality if exposed to and acquires COVID-19 infection. Venous stasis 40955666 I 87.8 complicate d by cellulitis post procedures . F/u with Dr. Granado Leukocytosis 155901648 D 72.829 Encouraged to have hem/onc consult. PT. has multiple comorbidit ies and immune suppressio n, on biologics. [id number] Jaylan Olmedo MD [facility] [address] [facility] [address] [place] [address] 04/04/2020 14:22:44 04/04/2020 15:50:41 Psoriasis 6831340 L40.9 flares despite biologic. Pt. has mahin with rheum and dermatolog y coming up/ ADvised to take zyrtec 10 mg by day and bendryl at HS and use topical steroids. PT. will discuss further with derm. tomorrow. [id number] Judi Martin PA-C Main Office [address] [facility] [address] [place] [address] 06/10/2020 10:59:58 06/10/2020 12:59:33 Adult health examination 804925390 Z00.00 up to date on vaccines Prediabetes 193661527 R7 3.03 retest labs. Polycystic ovary syndrome 670217668 E28.2 continue on spironolac tone. Thrombocyt openic disorder 680947805 D69.6 will refer to hematology for follow up and treatment. Primary dysthymia 957640 05 F34.1 Continue Fluoxetine 20 mg. Obstructiv e sleep apnea syndrome 97134925 G47.33 Morbid obesity 119421061 E66.01 Mixed hyperlipidemia 267 905985 E78.2 stable as of last year. Lyme disease 53672963 A6 9.20 stable. Leukocytosis 889134505 D 72.829 reactive in nature due to prednisone . Generalize d anxiety disorder 86039972 F41.1 continue current meds Constipation 17436095 K5 9.00 Continue Linzess. F/u with Dr. Aguillon. Allergic asthma 91433520 6 J45.909 Continue current meds. Screening for malignant neoplasm of breast 999492095 Z12.39 Altered adal wel function 86521621 R19.4 Irritable bowel syndrome 78446605 K58.9 alternatin g patter . takes Linzess. Overdue for GI visit. Last colonoscop y is unknown, but reports normal with 10 year recall. Gastroesop hageal reflux disease 893771961 K21.9 f/u with the GI . Continue PPI. Pruritic disorder 164933 002 L29.9 started after flu vaccine. Takes dapsone. Body mass index 40+ - severely obese 271925966 E66.01 Z68.41 Pt. is trying to lose weight by cutting down on carbs, but is limited in exercise due to psoriatic arthropath y. Screening for osteoporosis 355729374 Z13.820 refer for bone density scan. Benign ess ential hypertension 6683533 I10 Continue Lisinopril 10 mg daily. Weight gain 6468554 R63. 5 [id number] Judi Martin PA-C Tele[facility] [address] [facility] [address] [place] [address] 09/12/2020 12:41:27 09/12/2020 14:51:05 Moderate persistent asthma 371931765 J45.40 Stable extrinsic moderate asthma. Continue symbicort BID and montelukas t as well as claritin 10mg. F/u with allergy as scheduled. Benign ess ential hypertension 3879373 I10 Stable HTN. Continue Lisinopril 10 mg daily. Mixed hyperlipidemia 267 386458 E78.2 stable as of last year.repea t fasting lipids. Prediabetes 781119004 R7 3.03 retest labs. Pruritic disorder 128351 002 L29.9 f/u with allergy. [id number] Meera Orr MD Main Office [address] [facility] [address] [place] [address] 12/27/2021 14:49:27 12/27/2021 16:13:13 Adult health examination 940390369 Z00.00 Chronic pain syndrome 37 3307664 G89.4 Pt. reports inadequate pain control. Has multifacto rial chronic diffuse body pain and joint pain. Tramadol prescribed as BID by rheumatolo gist. I advised pt. to seek second opinion in [place] for her persistent chronic pain and swelling. Pt. is overall unsatisfie d with local pain and rheumatolo gic care. Screening for malignant neoplasm of breast 592223872 Z12.39 Screening for malignant neoplasm of cervix 640996345 Z12.4 Pt. had hysterecto my. Has PCOS. Not seeing [employer]. Allergic asthma 33987329 6 J45.909 Continue current meds. Benign ess ential hypertension 0041287 I10 continue low sodium diet. Body mass index 40+ - severely obese 724514060 E66.01 Z68.41 Pt. is trying to lose weight by cutting down on carbs, but is limited in exercise due to psoriatic arthropath y. Mixed hyperlipidemia 267 224123 E78.2 retest lipids Prediabetes 334563017 R7 3.03 retest labs. Obstructiv e sleep apnea syndrome 19754747 G47.33 not using CPAP. Osteoarthr itis of knee 967826573 M17.0 F/u with orthopedic s. Polycystic ovary syndrome 948525070 E28.2 continue on spironolac tone. Psoriasis with arthropathy 99356088 L40.50 F/u rheumatolo gy , local or in [place]. Thrombocyt openic disorder 217679906 D69.6 reactive thrombocyt openia Subclinica l hypothyroidism 93943382 E02 Generalize d anxiety disorder 07596893 F41.1 continue current meds Irritable bowel syndrome 13924839 K58.9 Continue LInzess Edema of l ower extremity 532422076 R60.0 Ventricula r premature beats 87076302 I49.3 echo done recently at [facility]. STable occasional palpitatio ns. Health Concerns Section Related Observation LastModified by Organization Detai ls LastModified Time None Recorded Concern Status LastModified by Organization Details LastModified Time None Recorded Advance Directives Directive N: Payers Insurance Date Sequence Insurance Name Policy Number Policy Clarke Covered Member ID Clarke Member ID Guarantor Name 12/08/2018 1 [facility] [id number] Susan De Leon [id number] Susan De Leon 01/15/2024 1 [facility] [id number] Susan De Leon [id number] Susan De Leon 12/27/2021 1 [facility] (PPO) [id number] Susan De Leon [id number] Susan De Leon 04/06/2018 PAYMENT PLAN Susan De Leon Notes Date Note Type Note Provider Name and Address Organization Details Recorded Time 03/02/2020 text/html 49 year old fema le for FMLA re applications. Pt. applied based on Dx of psoriatic arthropathy with frequent flares. Pt. sees credentialer monthly and is currently treated with biologic [...] to arthropathy and/or asthma. Judi Martin PA-C [address] [facility] [address], [place], [address], [facility] 03/02/2020 11:57:02 04/04/2020 text/html 49 year [...] the day causing sedation. Judi Martin PA-C [address] [facility] [address], [place], [address], [facility] 04/04/2020 15:18:29 06/10/2020 text/html Generic HPI TemplateReported bypatient.Notes:49 year old female for annual PE. Does not see [employer] as she had complete hysterectomy. Has ovaries in. Does not wish to see [employer]> REports perimenopausal symptoms with worsening hot flashes. Takes estradiol 0.5 mg but 2-3 times weekly only. Mammogram is overdue.Vaccines> Had flu vaccine and Tdap is up to date.Colonoscopy --- had one ? 5 years ago. NO reports in chart. Has IBS with alternating pattern and is on linzess. Was seen at [facility] GI. Continue with bowel trouble. On PPI.MDD and LACY. STable on fluoxetine. PHQ score is 0.Psoriatic arthropathy. On Xeljanz. Sees rheumatology regularly. Reports skin is better. On Ibuprofen and tramadol prn for arthropathy.Asthma. Stable at this time on Symbicort and ventolin.HTN is stable on lisinopril. Judi Martin PA-C [address] [facility] [address], [place], [address], [facility] 06/10/2020 13:54:38 09/12/2020 text/html Asthma F/UReport [...] old female for f/u.Psoriatic arthropathy followed at [facility].On Xeljanz for the past year. Doing better since 20 lb weight loss on weight watcher in the past 1-2 months.Hand and foot pruritis. Seen by neurology so far and has mahin. pending with allergy. IN the mean time , feet are not itchy any longer since pt. switched from tata to claritin. Judi Martin PA-C [address], [address], [facility] 09/12/2020 14:37:25 12/27/2021 text/html Generic HPI TemplateReported bypatient.Notes:51 year old female for annual physical.H/o psoriatic arthritis , sees credentialer at [facility], supposed to take Xeljanz but discontinue [...] Needs new A1c and lipids. Sierra iraheta, [facility] 12/28/2021 08:51:02 OBGyn Episode No OBEpisode recorded.
[2024-10-21 07:38] VITALS: BP 152/90; PULSE 81; RESP 16; O2SAT 98; BMI 39.8
== END 2024-10-21 08:10 | disposition home or self-care (01) ==
LOC: HO.RHE 07:30
PROVIDERS: PCP Preventive Medicine Public Health & General Preventive Medicine; Visit Provider Student in an Organized Health Care Education/Training Program
DX: L40.50 Arthropathic psoriasis, unspecified (principal); L40.9 Psoriasis, unspecified; M17.0 Bilateral primary osteoarthritis of knee; Z51.81 Encounter for therapeutic drug level monitoring; Z79.899 Other long term (current) drug therapy
CPT/HCPCS: 99213

== ENCOUNTER → 2024-10-21 07:29 | Outpatient (BNVA) | payer OTHER, SELFPAY | PROVIDERS: PCP Preventive Medicine Public Health & General Preventive Medicine; Visit Provider Student in an Organized Health Care Education/Training Program ==

== ENCOUNTER 2024-11-03 11:56 | Outpatient (REF) | payer OTHER, SELFPAY ==
--- NOTE | ~2024-11-03 | XR_ITS ---
Exam: Three-view bilateral hand x-rays INDICATION: Psoriasis, pain in the base of the first metacarpal TECHNIQUE: AP, ball-catcher's, and lateral view upper extremity, hand x-rays bilateral Prior: None FINDINGS: Right hand: Joint spaces are preserved. There is no periosteal new bone formation or erosions. First carpal metacarpal joint demonstrates moderate osteophytes and mild narrowing with sclerosis. Left hand: There is mild narrowing of the first carpal metacarpal joint and osteophytes with mild sclerosis. There is mild narrowing of the scaphoid trapezoid trapezium joint and minimal sclerosis. Otherwise, there is no joint space narrowing, erosions, or periosteal new bone formation. XR/XR Hand Bilat min 3v IMPRESSION: Right hand: Moderate first carpal metacarpal joint osteoarthritis. Left hand: Mild first carpal metacarpal joint osteoarthritis. Electronically signed by: Colton Olmedo MD 11/04/2024 11:16 AM EDT
--- NOTE | ~2024-11-03 | XR_ITS ---
Exam: 4-view bilateral wrists. TECHNIQUE: PA, oblique, lateral, and navicular spot view, upper extremity joint x-rays INDICATION: Psoriasis. Pain in first metacarpal base Prior: None FINDINGS: Right wrist: There is severe narrowing, sclerosis, and degenerative cystic change with marginal osteophytes involving the first carpal metacarpal joint. There are no erosions. Left wrist: There is moderate narrowing with sclerosis and marginal osteophytes involving the first carpal metacarpal joint. No abnormalities are evident. There are no erosions. There is no periosteal new bone formation. XR/XR Wrist Mg min 3V IMPRESSION: Right wrist demonstrates severe osteoarthritis of the first carpal metacarpal joint. Left wrist demonstrates moderate osteoarthritis of the first carpal metacarpal joint. Electronically signed by: Colton Olmedo MD 11/04/2024 10:48 AM EDT
--- NOTE | ~2024-11-03 | XR_ITS ---
Exam: Three-view bilateral ankle x-rays INDICATION: Ankle pain and swelling. Psoriasis Prior: None TECHNIQUE: AP, oblique, lateral view lower extremity joint FINDINGS: RIGHT ANKLE: There is no periosteal new bone formation or erosions. Ankle mortise is preserved. Small oval ossifications are seen distal to the medial malleolus. Talar dome is intact. There is a quadrilateral shaped ossification plantar to the distal end of calcaneus and calcaneal spurs. There are osteophytes in the anterior tibial plafonds. LEFT ANKLE: There is no periosteal new bone formation or erosive changes. Ankle mortise is congruent. Talar dome is intact. There is mild widening of the syndesmosis. There are marginal osteophytes involving the tibial plafond, anterior and posterior. There is an ossified involving the dorsal talonavicular joint. XR/XR Ankle Mg min 3V IMPRESSION: Right ankle: Osteophytes involving the anterior tibial plafond, chronic for signs symptoms of anterior impingement. Quadrilateral-shaped ossification plantar to the distal end of calcaneus, of uncertain origin or significance. Left ankle: There changes consistent with osteoarthritis involving the tibial plafond and talar navicular joint. Electronically signed by: Colton Olmedo MD 11/04/2024 11:13 AM EDT
--- NOTE | ~2024-11-03 | XR_ITS ---
Exam: Three-view bilateral feet x-rays TECHNIQUE: AP, oblique, lateral views lower extremity INDICATION: Psoriasis, bilateral plantar foot pain and ankle swelling Prior: None FINDINGS: RIGHT FOOT: There is a moderate enthesophyte at the plantar attachment onto calcaneus and a very small amount of bony proliferation at the Achilles attachment. There is questionable subtle erosive change along the plantar surface of the calcaneal spur adjacent to calcaneus. On lateral view, there is an osseous density plantar to the anterior aspect of calcaneus. It is only visible on the. Small marginal osteophytes are visible at the talonavicular joint. LEFT FOOT: There is a small plantar calcaneal enthesophyte. There are no definite erosions or periosteal new bone formation. Marginal osteophytes are present at the medial calcaneocuboid joint and talonavicular joint laterally. Small marginal osteophytes are seen at the medial cuneiform navicular articulation. XR/XR Foot Mg 3V Impression: Right foot: There is a plantar calcaneal spur with questionable subtle erosive change on the plantar surface that raises question of psoriatic arthritis/reactive arthritis. Otherwise, there is evidence of mild osteoarthritis of the talonavicular joint. There is a bony density or fragment along the plantar aspect of calcaneus of uncertain origin. Left foot: Plantar calcaneal spur. Mild changes of osteoarthritis involving the calcaneal cuboid, talonavicular, and medial cuneiform-navicular joints. Electronically signed by: Colton Olmedo MD 11/04/2024 11:01 AM EDT
--- OUTSIDE RECORDS SUMMARY | 2024-11-03 13:06 | XMS_ITS | Data Portability ---
Author Organization [facility], Main Office Address [address] [place] [address] Care Team Providers Care Fire And Explosion Investigator Name Role Phone JUDI MARTIN Primary Care Provider [phone] ELIJAH YU Cloth Neutralizer PEYTON CHAPMAN Sleep Medicine [facility] (JUAN MANUEL JONES) Orthopedic Surgeon CHIP COBIAN Director Speech And Hearing HEDY DEL VALLE Machine Hoop Maker Helper [phone] Assessment Encounter Date Assessment Date Assessment LastModified [...] panel, serum 2021 022 [email or web address] [facility], [address], [place], [address], 3 11:42:52 CMP, serum or plasma 2021 022 [email or web address] [facility], [address], [address], [place], [address], 3 11:42:53 TSH, serum or plasma 2021 022 [email or web address] [facility], [address], [address], [place], [address], 3 11:42:52 HbA1c (hemoglob in A1c), blood 2021 022 [facility], [address], [address], [place], [address], 2 15:26:55 microalbu min, urine 2021 022 [facility], [address], [address], [place], [address], 2 16:13:00 CBC w/ auto diff 2021 022 [email or web address] [facility], [address], [address], [place], [address], 3 11:42:53 lipid panel, serum 2020 021 [facility], [address], [address], [place], [address], 1 11:56:41 HbA1c (hemoglob in A1c), blood 2020 021 [facility], [address], [address], [place], [address], 1 14:36:27 CMP, serum or plasma 2020 021 [facility], [address], [address], [place], [address], 1 11:56:39 TSH, serum or plasma 2020 021 [facility], [address], [address], [place], [address], 1 12:03:41 HbA1c (hemoglob in A1c), blood 2020 [facility], [address], [address], [place], [address], 1 11:41:24 Referral gastroent erologist referral - Constipat ion and uper GI issues . Also, pt. might be due for colonosco py. 2020 021 [email or web address] [facility], [address], [place], [address], 2 09:52:37 hematolog ist/oncol ogist referral - Progressi ve leukocyto sis, psoriatic arhtropat hy on biologics . 2019 020 [email or web address] Barillas MD, [address] [place], [address], 0 09:46:53 Procedures None recorded. Surgeries None recorded. Imaging MAMMO, screening , bilateral 2021 022 [facility] ([facility]), [address], [place], [address], 2 08:25:51 bone density - Estrogen deficienc y and chronic use of prednison e. 2020 021 [facility]), [address], [place], [address], 08:34:43 MAMMO, screening , bilateral 2020 021 [facility]), [address], [place], [address], 08:34:24 Medication Orders Ventolin HFA 90 mcg/actua tion aerosol inhaler 2021 022 [id number], [address] [facility], [place], [address], 18:53:23 Patient TargetsNo targets recorded. Patient Instructions Encounter Date Encounter Id Patient Instructions Last Modified By Organization Details Last Modified Time 06/10/2020 [id number] prediabetes: car e instructions Not available 06/10/2020 12:11:53 eating healthy foods: care instructions Not available 06/10/2020 12:11:53 gastroesophageal reflux disease (GERD): care instructions Not available 06/10/2020 11:58:37 anxiety disorder : care instructions Not available 06/10/2020 11:59:22 high blood press ure: care instructions Not available 06/10/2020 12:10:55 dash diet: care instructions Not available 06/10/2020 12:10:55 12/27/2021 [id number] starting a weigh t loss plan: care instructions Not available 12/27/2021 16:01:30 albumin-creatini ne ratio: about this test Not available 12/27/2021 15:58:01 polycystic ovary syndrome: care instructions Not available 12/27/2021 15:27:18 dash diet: care instructions Not available 12/27/2021 16:01:30 Reason for Referral Progressive leukocytosis, ps oriatic arhtropathy on biologics. Referring Physician: Judi Martin, Internal Medicine, Encounter Date: 03/02/2020 Machine Hoop Maker Helper Referral for Altered bowel function Constipation and [...] Assoc iatio n (ADA) and the World [facility] izati on (WHO) recom mend the use of HbA1c to diagn ose diabe rosa maria using a thres hold of 6.5%. 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 Test perfo rmed by [facility], [address], [place] [address] Not Available [facility] (Centralized Electronic Ordering - All Locations) Patient Can Go To The Location Of Their Choice, [id number] 11/18/2020 07:07:11 02/29/20 20 02/29/2020 endov enous ablat ion thera py, laser (PROC ) No observ ation record ed. Ariella Granado MD [address] [facility] [address], [place], [address], 03/01/2020 18:50:20 03/03/20 20 02/18/2020 MRI, lumba r spine , w/o contr ast No observ ation record ed. [email or web address] Not Available 2019 12:53:31 05/27/19 21 05/27/2020 XR, abdom en + pelvi s No observ ation record ed. [email or web address] [facility] [address], [place], [address], 05/30/2020 09:19:14 01/25/05/27/2020 XR, angio gram, pelvi c No observ ation record ed. [email or web address] [facility] Orders [address], [place], [address], 05/30/2020 11:27:46 07/13/1907/12/2020 DEXA, axial skele ton ====== ====== ====== ====== ====== ====== ====== ====== ====== ====== ===== Bone Densit y Report ====== ====== ====== ====== ====== ====== ====== ====== ====== ====== ===== Name: ALEKSLYNN Rose SUSANLOIDA Campbell t ID: [id number] Age: 49 Sex: Female Ethnic ity: White Date of : 1970 ------ ------ ------ ------ ------ ------ ------ ------ ------ ------ ----- Indica tion: ZACARIAS CASTRO Referr sofi Marie er: MAY MARTIN Study: Bone densit ometry was [facility]. Exam Date: July 12, 2020 Access ion number : [id number] Bone Densit y: ------ ------ ------ [...] ------ ------ ------ ------ ------ ----- World [facility] Organi zation criter ia for BMD [...] (i.e. estrog en/hor solange therap y), Cynthia Fernandez Has the follow ing medica l condit [...] 3:29 pm Hunter jimenez Class: Outpat ient [facility] (Outpt Imaging) [address], [place], [address], 07/13/2020 10:40:58 07/13/19 21 07/12/2020 bone densi ty No observ ation record ed. [facility] Orders [address], [place], [address], 07/13/2020 10:40:58 07/14/19 21 07/12/2020 MAMMO , [...] Lay letter mailed to hunter jimenez WSN: [id number] Orderi ng Physic alex: May Martin Dictat ed By: Sadaf Chang MD, I Dictat ed Date/T rhina: 10:10 am Review ed By: Sadaf Chang MD, I Signed By: Sadaf Chang MD, I Signed Date/T rhina: 10:10 am Transc ribed By: CSB Transc riptio n Date/T rhina: 10:01 am Birads : Hunter jimenez Class: Outpat ient [email or web address] [facility] (Outpt Imaging) [address], [place], [address], 07/13/2020 15:59:32 07/14/19 21 07/12/2020 MAMMO , scree juliocesar, bilat eral No observ ation record ed. [email or web address] [facility] Orders [address], [place], [address], 07/13/2020 15:59:32 12/30/19 22 11/17/2021 trans -thor acic echoc ardio gram (TTE) (PROC ) No observ ation record ed. [facility] [address], [place], [address], 12/29/2021 14:58:26 Result Notes Documentation Provider Name and Address Organization Details Recorded Time Dexa, Axial Skeleton : Bone Density Report Name: SUSAN DE LEON Age: 49 Sex: Female Ethnicity: White Date of : 1970 Indication: POSTMENOPAUSAL. Referring Provider: JUDI MARTIN Study: Bone densitometry was performed. Exam Date: July 12, 2020 Accession number: [id number] Bone Density: Region BMD T-score Z-score Classification [...] Outpatient Judi Martin PA-C [address], [address], [facility] 07/12/2020 21:33:09 Mammo, Screening, Digital, Bilateral : [...] (Benign) Lay letter mailed to patient WSN: [id number] Ordering Physician: Judi Martin Dictated By: Sadaf Chang MD, I Dictated Date/Time: 07/13/20 10:10 am Reviewed By: Sadaf Chang MD, I Signed By: Sadaf Chang MD, I Signed Date/Time: 07/13/20 10:10 am Transcribed By: CHULA Kaiawhina Date/Time: 07/13/20 10:01 am Birads: Patient Class: Outpatient Irmachalino iraheta [facility] 07/13/2020 15:59:32 Problems Name Problem SNOMED Code Status Onset Date Resolution Date Notes Provider Name and Address Organization Details Recorded Time Mixed hyperlip idemia 862984255 Active 2017 Judi JASON-C [address], [address], [facility] 8 15:40:00 Leukocyt osis 388609321 Completed 201707/17/2017 Judi Martin PA-C [address], [place], [address], [facility] 1 14:19:49 Asthma 153104843 Completed 201706/17/2017 Judi Martin PA-C [address], [place], [address], [facility] 8 16:13:58 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 Judi Martin PA-C [address], [place], [address], [facility] 8 15:41:06 Major depressi ve disorder 724678431 Completed 201706/17/2017 Judi Martin PA-C [address], [place], [address], [facility] 8 15:45:52 Generali zed anxiety disorder 88139696 Active 2017 Judi Martin PA-C [address], [place], [address], [facility] 8 15:42:16 Insomnia 426166679 Completed 201706/10/2020 Judi Martin CASIE-C [address], [place], [address], [facility] 1 12:10:13 Psoriasi s 7250337 Completed 201711/02/2019 Judi Martin PA-C [address], [place], [address], [facility] 0 11:06:51 Lyme disease 79265678 Active 2017 pos IgG +4 bands in 2011 and pos IgG and IgM in 2015. Judi Martin PA-C [address], [place], [address], [facility] 8 15:43:26 Glaucoma 01882603 Completed 201706/10/2020 Judi Martin PA-C [address], [place], [address], [facility] 1 12:10:31 Constipa tion 30417338 Active 2017 Judi Martin PA-C [address], [place], [address], [facility] 8 15:43:47 Primary dysthymi a 81424654 Active 2017 Judi Martin PA-C [address], [place], [address], [facility] 8 15:46:00 Nicotine dependen ce 58342182 Active 2017 Judi Martin PA-C [address], [place], [address], [facility] 8 15:46:26 Psoriati c arthriti s 085729786 Completed 201711/02/2019 Judi Martin PA-C [address], [place], [address], [facility] 0 11:06:59 Ocular rosacea 424974371 Active 2017 Judi Martin PA-C [address], [place], [address], [facility] 8 15:57:35 Mild intermit tent asthma 111453491 Completed 201712/08/2018 Judi Martin PA-C [address], [place], [address], [facility] 9 16:17:26 Benign essentia l hyperten agustín 7655927 [facility] 09:35:30 Thromboc ytopenic disorder 913646074 Active 2017 seen and evaluated by hem/onc. Need to do yearly CBC . Judi Martin PA-C [address], [place], [address], [facility] 0 11:07:53 Ventricu lar prematur e beats 56511106 Active 2017 [facility] 8 09:57:26 Environm ental allergy 267365325 Active 2017 Judi Martin PA-C [address], [place], [address], [facility] 8 11:21:54 Obstruct adonay sleep apnea syndrome 16135988 Active 2017 not using CPAP Judi [address], [place], [address], [facility] 2 16:06:30 Psoriasi s with arthropa thy Active 2018 Judi Martin PA-C [address], [place], [address], [facility] 9 14:53:43 Leukocyt osis 880014914 Completed 201812/08/2018 Judi Martin PA-C [address], [place], [address], [facility] 1 14:19:49 Exacerba tion of intermit tent asthma 878900996 Completed 201808/07/2019 Judi Martin PA-C [address], [address], [facility] 0 16:46:29 Allergic asthma 905654063 Active 2018 [address], [place], [address], [facility] 9 16:20:36 Venous stasis 69577038 Active 2018 Judi Martin PA-C [address], [place], [address], [facility] 9 16:35:54 Deviated nasal septum 205727358 Active 2018 Judi Martin PA-C [address], [place], [address], [facility] 9 16:47:06 Morbid obesity 337672945 Active 2018 [facility] 14:24:20 Prediabe rosa maria 154757877 Active 2019 Judi Martin PA-C [address], [place], [address], [facility] 0 15:21:17 Leukocyt osis 588638211 Active 2020 reactive secondary to psoriatic arthropfa thy, asthma flairs, prednison e, cellujlit is. Seen by hem/onc. Preston fernandez. Judi Martin PA-C [address], [place], [address], [facility] 1 14:19:49 Irritabl e bowel syndrome 08487610 Active 2020 Judi Martin PA-C [address], [place], [address], [facility] 1 11:58:57 Pruritic disorder 852884673 Active 2020 Judi Martin PA-C [address], [place], [address], [facility] 1 12:01:06 Chronic pain syndrome 799050914 Active 2021 see rheumatol ogy notes from October of 2021 Judi Martin PA-C [address], [place], [address], [facility] 2 15:14:07 Subclini karen hypothyr oidism 28668649 Active 2021 Judi Martin PA-C [address], [facility] [place], [address], [facility] 2 15:17:16 Problem Notes None recorded. Procedures Surgical History Date Name Laterality Status Provider Name and Address Organization Details Recorded Time 07/13/19 21 Most Recent Mammogram completed Irma Calixto [facility] 07/13/2020 15:58:44 08/05/19 19 Mammogram both breasts completed Alexandra Cueto [facility] 08/04/2018 16:21:51 05/28/19 19 injection of knee joint completed Alexandraphylicia Cueto [facility] 06/30/2018 16:22:25 02/05/20 18 injection completed Alexandraphylicia Cueto [facility] 08/29/2018 11:57:59 06/22/19 17 Date of Last Colonoscopy completed Debra Calvert MA [facility] 12/27/2021 15:06:00 06/18/19 17 Egd diagnostic brush wash completed Shana Hicks [facility] 06/29/2020 09:53:31 06/18/19 17 Colonoscopy completed Shana Hicks [facility] 06/29/2020 09:54:50 Hysterectomy completed Bridgett Barrios [facility] 06/17/2017 15:42:16 Imaging Results None recorded. Procedure Notes None recorded. Medical Equipment None Reported. Allergies Allergen ID Allergen Name Allergen Category Reaction Reaction Severity Criticality Documentation Date Start Date Code Code System Note Provider Name and Address Organization Details Recorded Time 09493 latex environme nt,medica tion rash severe Not available 06/17/2017 08395 91 RxNorm Bridgett iraheta [facility] 8 15:41:43 52457 Substance with sulfonami de structure and antibacte rial mechanism of action (substanc e) medicatio n dizziness Not available Not available 06/17/2017 44871 8003 SNOMED Bridgett Barrios null, [facility] 8 15:41:43 39362 Plaquenil medicatio n hallucina tions severe Not available 12/03/201750229 2 RxNorm Dayan Thakur MA null, [facility] 1 11:04:06 60585 Celebrex medicatio n Not available Not available Not available 12/10/2018 81795 7 RxNorm conta ins sulfa Judi Yunier SANTAMARIA [address], [facility], [place], [address], [facility] 9 10:40:07 Medications Name Sig Start Date [...] azelastine 137 mcg (0.1 %) nasal spray [place] 137 microgram s as needed by nasal [...] Updated DateTime 1 172.72 cm 41.1 kg/m2 192265. 94 g 87 /min 97 % 97 % 97.34 [degF] 121 mm[Hg] 83 mm[Hg] Dayan Thakur MA [facility] 1 11:19:09 Date Recorded Body height Provider [...] Updated DateTime 2 172.72 cm 41.2 kg/m2 226083. 53 g 98 % 98 % 73 /min 97.88 [degF] 125 mm[Hg] 75 mm[Hg] Debra Calvert MA [facility] 2 14:58:21 Date Recorded Body height Provider Name an d Address Organization Details Last Updated DateTime 03/02/2020 172.72 cm Demetria Colby MA [facility] 03/02/2020 10:53:27 Date Recorded Body height Provider Name an d Address Organization Details Last Updated DateTime 04/04/2020 172.72 cm Dayan Thakur MA [facility] 04/04/2020 14:36:36 Social History Question Answer Notes LastModified by Organizat ion Details LastModified Time Tobacco Smoking Status Former Smoker Liza iraheta [facility] 12/30/2019 10:19:51 Do You Have An Advance Directive? No [email or web address] Information not available 12/27/2021 Is Blood Transfusion Acceptable In An Emergency? No [email or web address] Information not available 12/27/2021 What Is Your Level Of Caffeine Consumption? Moderate Information not available 06/17/2017 How Much Tobacco Do You Chew? None Information not available 06/17/2017 What Type Of Diet Are You Following? SPECIFIC Information not available 12/27/2021 Which Illicit Or Recreational Drugs Have You Used? None Information not available 12/03/2017 When Did You Quit Smoking? 6-10yearssin dillon tte Information not available 03/02/2020 Live Alone Or With Others? With Others Boyfriend [email or web address] Information not available 12/27/2021 Do You Take Precautions To Prevent Distracted Driving? No [email or web address] Information not available 12/27/2021 How Often Do You Need To Have Someone Help You When You Read Instructions, Pamphlets, Or Other Written Material From Your Doctor Or Pharmacy? Sometimes Information not available 12/27/2021 Have You Served [...] Gathering In The Last 10 Days? No [email or web address] Information not available 06/10/2020 What Was The Date Of Your Most Recent Tobacco Screening? 12/27/2021 [email or web address] Information not available 12/27/2021 How Many Children Do You Have? 0 Information not available 12/03/2017 Are You Sexually Active? No [email or web address] Information not available 12/08/2018 At What Age Did You Start Smoking Tobacco? 17 Information not available 12/03/2017 Are You Passively Exposed To Smoke? No [email or web address] Information not available 12/27/2021 How Much Tobacco Do You Smoke? No [email or web address] Information not available 12/27/2021 How Many Years Have You Smoked Tobacco? 12 On And Off Information not available 12/03/2017 Sex: Unknown Functional Status Question Answer Note LastModified by Organizat ion Details LastModified Time Do you or have you ever used any other forms of tobacco or nicotine? No [email or web address] Information not available 12/27/2021 What is your level of alcohol consumption? None Information not available 06/17/2017 Do you or have you ever used smokeless tobacco? Never used smokeless tobacco Information not available 03/02/2020 Are you currently employed? Yes Information not available 06/17/2017 Are you able to walk? YESWOREST [email or web address] Information not available 12/27/2021 Are you able to care for yourself? 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 Never used electronic cigarettes [email or web address] Information not available 12/27/2021 What is your exercise level? None due to injury / arthritis Information not available 12/03/2017 Mental Status None recorded. Family History Relationship Description Onset Age of this Age Resolved Age Notes LastModified by Organization Details LastModified Time Maternal Aunt Kidney disease 35 41 [email or web address] Not available 12/08 15:44:15 Mother Arthritis 60 [email or web address] Not availa ble 12/08/2018 15:44:15 Father Arthritis 30 [email or web address] Not available 12/27/2021 14:51:06 Maternal Grandfather Kidney disease 70 Not available 12/08 15:44:15 Brother History of malignant neoplasm of brain 22 27 [email or web address] Not available 12/08 15:50:41 Medical History Condition [...] recombinant, quadrivalent, PF 7 completed Bridgett iraheta [facility] 06/17/2017 15:52:23 Tdap 3 completed Judi Martin PA-C [address], [address] 06/17/2017 16:10:56 Influenza, split virus, quadrivalent, preservative 0 completed KALANI Hickman [facility] 06/10/2020 11:17:31 Past Encounters Encounter ID Performer Location Encounter Start Date Encounter Closed Date Diagnosis/Indication Diagnosis SNOMED-CT Code Diagnosis ICD10 Code Diagnosis Note [id number] Judi Martin PA-C Main Office [address] [address] 06/17/2017 15:18:29 06/17/2017 16:40:55 Mixed hyperlipidemia 967738565 E78.2 Mild inter mittent asthma 648881118 J45.20 Stable. Continue montelukas t daily. Constipation 62510366 K5 9.00 Continue LInzess. F/u with Dr. Aguillon. Primary dysthymia 808159 05 F34.1 Continue Fluoxetine 20 mg. Psoriatic arthritis 1563 32385 L40.50 F/u with rheumatolo gist. Continue HUmira and Tramadol PRN. Leukocytosis 342745410 D 72.829 repeat labs Nicotine dependence 5629 4008 F17.200 Fatigue 09168105 R53.83 Body mass index 30+ - obesity 240733579 E66.01 Z68.41 Elevated blood-pressure reading without diagnosis of hypertension 214574618 R03.0 [id number] Judi Martin PA-C Main Office [address] [facility] [address] [place] [address] 07/17/2017 08:45:31 07/17/2017 10:03:23 Nicotine dependence 71822115 F17.200 pt will start chantix that she was prescribed . Mixed hyperlipidemia 267 529409 E78.2 Pt will provide a fasting blood sample withing 3 months including direct LDL. Consider start of statins due to increased cardiovasc risks , PCOS/metab olic syndrome. Body mass index 40+ - severely obese 129891579 E66.01 Z68.41 pt agrees to see a nutritioni st and start follow low carb/ fat diet. Benign ess ential hypertension 5523879 I10 Blood pressure has been under 140/90 for past three weeks. pt instructed to continue to check bp daily and report any readings over 140/90. Pt instructed to seek medical attention in the even she developes CO, COB, dizziness. If BP becomes elevated continuous ly, will consider ACEI Rx. DASH diet is recommende d to follow and discussed. Thrombocyt openic disorder 603507991 D69.6 will refer to hematology for follow up and treatment. Ventricula r premature beats 94872316 I49.3 Will monitor, pt instructed to report continuous bouts of PVC/palpit ations. instructed to seek medical attention in the event she develops CP, SOB, CP radiation. [id number] Judi Martin PA-C Main Office [address] [place] [address] 12/03/2017 10:23:05 12/03/2017 12:01:26 Adult health examination 063557973 Z00.00 up to date on vaccines Benign ess ential hypertension 0114252 I10 stable on diet and with some weight loss. Continue monitoring . Ventricula r premature beats 25804188 I49.3 Will monitor, pt instructed to report continuous bouts of PVC/palpit ations. instructed to seek medical attention in the event she develops CP, SOB, CP radiation. Nicotine dependence 5629 4008 F17.200 Continue trying to quit on your own . Can also retry Chantix. Body mass index 30+ - obesity 001752290 E66.01 Z68.41 Mixed hyperlipidemia 267 400406 E78.2 Pt will provide a fasting blood sample including direct LDL. Consider start of statins due to increased cardiovasc risks , PCOS/metab olic syndrome. Insomnia 448236808 G47.0 0 stable and improved Snoring 46917619 R06.83 schedule for polysomnog crystal Mild inter mittent asthma 479962953 J45.20 Stable. Continue montelukas t daily.Vent jessica PRN. Primary dysthymia 691431 05 F34.1 Continue Fluoxetine 20 mg. Constipation 21699727 K5 9.00 Continue LInzess. F/u with Dr. Aguillon. Generalize d anxiety disorder 92490001 F41.1 continue meds [id number] Eduardo Martin PA-C Main Office [address] [facility] [address] [place] [address] 12/19/2017 11:26:28 12/19/2017 12:31:14 Acute pharyngitis 279773350 J02.9 likely d/t pnd - see below Acute sinusitis 06031253 J01.90 if cannot clear sxs, then consider ent eval, rec probiotics as well. 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 Warm compress BID, arm elevation. F/u 3-4 days if needed. [id number] Jaylan Olmedo MD Main Office [address] [facility] [address] [place] [address] 05/30/2018 14:11:00 05/30/2018 15:12:15 Menopausal flushing 818559922 N95.1 start small dose estradiol f/u in 1 m. Vaginal dryness 29451906 N89.8 Psoriasis with arthropathy 41216754 L40.50 sees rheum. Was not tried on COTE II. Will try celebrex daily to avoid overusing Advil which usually helps her if taken with Tramadol. [id number] Stephanie gunn MD Main Office [address] [facility] [address] [place] [address] 06/30/2018 08:37:11 06/30/2018 09:53:18 Leukocytosis 249007479 D72.829 repeat labs Exacerbati on of intermittent asthma 540709122 J45.21 if repeat CBC is stable , start Prednisone taper as directed for 10 days, Nebulizer at every 4-6 hrs or HFA. Essential hypertension 85032879 I10 Mixed hyperlipidemia 267 272588 E78.2 Pt will provide a fasting blood sample including direct LDL in 3 months. Consider start of statins due to increased cardiovasc risks , PCOS/metab olic syndrome. [id number] Stephanie gunn MD Main Office [address] [facility] [address] [place] [address] 07/07/2018 09:57:29 07/07/2018 10:56:12 Acute sinusitis 14307209 J01.90 Asthmatic bronchitis 405 250585 J45.909 R/o pneumonia. Chest XRAy as well as increase Prednisone back to 50 mg and start taper over . Nebulizer every 4 hrs and continue using ADvair D. [id number] Stephanie gunn MD Main Office [address] [facility] [address] [place] [address] 07/30/2018 15:08:49 07/30/2018 16:21:38 Benign essential hypertension 6203370 I10 Continue Lisinopril 10 mg daily, low sodium diet. Continue trying to lose weight. [id number] Khris Hartman MD Main Office [address] [facility] [address] [place] [address] 10/23/2018 13:21:21 10/23/2018 14:20:06 Pain of multiple joints 02636566 M25.50 check rheumatolo gy labs, pt sees rheumatolo gist in [place], will followup with her. Hs followup with Judi up coming Tick bite 12058547 S00.9 6XA check labs Fatigue 52276214 R53.83 Await lab testing to see if pt has tick borne illness, rest, hydration. Eruption 880380376 R21 pt sees dermatolog y has upcoming appointmen t. Thrombocyt openic disorder 200747750 D69.6 checking cbc for platelets 077149 Jaylan Olmedo MD Main Office [address] [facility] [address] [place] [address] 12/08/2018 15:28:43 12/08/2018 17:01:12 Adult health examination 471411818 Z00.00 up to date on vaccines Benign ess ential hypertension 7316878 I10 Continue Lisinopril 10 mg daily, low sodium diet. Continue trying to lose weight.rep eat labs. Allergic asthma 22158941 6 J45.909 Obstructiv e sleep apnea syndrome 37958164 G47.33 Mixed hyperlipidemia 267 437027 E78.2 Retest fasting lipids in 4 m. Generalize d anxiety disorder 47500766 F41.1 continue current meds Psoriasis with arthropathy 84734539 L40.50 continue prednisone taper. F/u wit rheum. Venous stasis 73995186 I 87.8 Body mass index 30+ - obesity 633784122 Z68.41 Morbid obesity 244764592 E66.01 [id number] Jaylan Olmedo MD Main Office [address] [address] [place] [address] 08/07/2019 13:18:32 08/10/2019 06:42:02 Psoriatic arthritis 185564819 L40.50 F/u with rheumatolo gist. Moderate p ersistent asthma 217147865 J45.40 Prednisone PRN for acute asthma. Pt. was encouraged to f/u with her pulmonary. Due to her asthma and psoriatic arthropath y she is at higher risk for mortality if exposed to and acquires COVID-19 infection. [id number] Jaylan Olmedo MD Telehealt h [address] [facility] [address] [place] [address] 11/02/2019 08:38:53 11/02/2019 15:40:33 Prediabetes 526871018 R73.03 retest labs. Mixed hyperlipidemia 267 239426 E78.2 Retest fasting lipids prior to physical in December. Pt. is willing to retry statins at smaller dose ifresults of fasting test show lipidelvat ion again. Inflammati on of sacroiliac joint 90844231 M46.1 Start prednisone taper as directed and muscle relaxant at HS. Continue heat and tens unit use. If pain does not sign. decrease or persists, pt. is given referral to [facility] for trigger point injections . [id number] Mayank Talley MD [facility] [address] [facility] [address] [place] [address] 12/30/2019 09:10:16 12/30/2019 13:02:39 Leukocytosis 270194711 D72.829 significan t leukocytos is and respirator y distress. ? asthma exacerb. with Prednisone effect on WBCs or acute infection, ? COVID,pneu monia. Pt. is immuno compromise d. Recommend to go to the ER for further testing. Acute resp iratory distress 030757908 R06.03 referred to the ER. [id number] Jaylan Olmedo MD [facility] [address] [facility] [address] [place] [address] 03/02/2020 09:21:32 03/02/2020 12:01:28 Psoriasis with arthropathy 08541091 L40.50 Continue current meds under rheumatolo gy. FMLA forms to be completed. Moderate p ersistent asthma 582825432 J45.40 Prednisone PRN for acute asthma. Pt. was encouraged to f/u with her pulmonary. Due to her asthma and psoriatic arthropath y she is at higher risk for mortality if exposed to and acquires COVID-19 infection. Venous stasis 17111869 I 87.8 complicate d by cellulitis post procedures . F/u with Dr. Granado Leukocytosis 179934261 D 72.829 Encouraged to have hem/onc consult. PT. has multiple comorbidit ies and immune suppressio n, on biologics. [id number] Jaylan Olmedo MD [facility] [address] [facility] [address] [place] [address] 04/04/2020 14:22:44 04/04/2020 15:50:41 Psoriasis 9633937 L40.9 flares despite biologic. Pt. has mahin with rheum and dermatolog y coming up/ ADvised to take zyrtec 10 mg by day and bendryl at HS and use topical steroids. PT. will discuss further with derm. tomorrow. [id number] Judi Martin PA-C Main Office [address] [facility] [address] [place] [address] 06/10/2020 10:59:58 06/10/2020 12:59:33 Adult health examination 697536024 Z00.00 up to date on vaccines Prediabetes 752034570 R7 3.03 retest labs. Polycystic ovary syndrome 230686453 E28.2 continue on spironolac tone. Thrombocyt openic disorder 855442026 D69.6 will refer to hematology for follow up and treatment. Primary dysthymia 749491 05 F34.1 Continue Fluoxetine 20 mg. Obstructiv e sleep apnea syndrome 82586340 G47.33 Morbid obesity 503065859 E66.01 Mixed hyperlipidemia 267 469721 E78.2 stable as of last year. Lyme disease 91640849 A6 9.20 stable. Leukocytosis 115732659 D 72.829 reactive in nature due to prednisone . Generalize d anxiety disorder 28173018 F41.1 continue current meds Constipation 26302141 K5 9.00 Continue Linzess. F/u with Dr. Aguillon. Allergic asthma 47315538 6 J45.909 Continue current meds. Screening for malignant neoplasm of breast 632966023 Z12.39 Altered adal wel function 18735689 R19.4 Irritable bowel syndrome 41709538 K58.9 alternatin g patter . takes Linzess. Overdue for GI visit. Last colonoscop y is unknown, but reports normal with 10 year recall. Gastroesop hageal reflux disease 521674940 K21.9 f/u with the GI . Continue PPI. Pruritic disorder 954626 002 L29.9 started after flu vaccine. Takes dapsone. Body mass index 40+ - severely obese 168472834 E66.01 Z68.41 Pt. is trying to lose weight by cutting down on carbs, but is limited in exercise due to psoriatic arthropath y. Screening for osteoporosis 147195839 Z13.820 refer for bone density scan. Benign ess ential hypertension 1052039 I10 Continue Lisinopril 10 mg daily. Weight gain 5585022 R63. 5 [id number] Judi Martin PA-C Telehealt h [address] [facility] [address] [place] [address] 09/12/2020 12:41:27 09/12/2020 14:51:05 Moderate persistent asthma 865577667 J45.40 Stable extrinsic moderate asthma. Continue symbicort BID and montelukas t as well as claritin 10mg. F/u with allergy as scheduled. Benign ess ential hypertension 1343488 I10 Stable HTN. Continue Lisinopril 10 mg daily. Mixed hyperlipidemia 267 185786 E78.2 stable as of last year.repea t fasting lipids. Prediabetes 237148173 R7 3.03 retest labs. Pruritic disorder 385877 002 L29.9 f/u with allergy. 285250 Meera Orr MD Main Office [address] [facility] [address] [facility] [place] [address] 12/27/2021 14:49:27 12/27/2021 16:13:13 Adult health examination 467005135 Z00.00 Chronic pain syndrome 37 2506667 G89.4 Pt. reports inadequate pain control. Has multifacto rial chronic diffuse body pain and joint pain. Tramadol prescribed as BID by rheumatolo gist. I advised pt. to seek second opinion in [place] for her persistent chronic pain and swelling. Pt. is overall unsatisfie d with local pain and rheumatolo gic care. Screening for malignant neoplasm of breast 544841197 Z12.39 Screening for malignant neoplasm of cervix 033802914 Z12.4 Pt. had hysterecto my. Has PCOS. Not seeing COMPUTER FORENSIC EXAMINER. Allergic asthma 80436094 6 J45.909 Continue current meds. Benign ess ential hypertension 3681683 I10 continue low sodium diet. Body mass index 40+ - severely obese 772360419 E66.01 Z68.41 Pt. is trying to lose weight by cutting down on carbs, but is limited in exercise due to psoriatic arthropath y. Mixed hyperlipidemia 267 036759 E78.2 retest lipids Prediabetes 059763424 R7 3.03 retest labs. Obstructiv e sleep apnea syndrome 33916029 G47.33 not using CPAP. Osteoarthr itis of knee 384395297 M17.0 F/u with orthopedic s. Polycystic ovary syndrome 372104167 E28.2 continue on spironolac tone. Psoriasis with arthropathy 10890129 L40.50 F/u rheumatolo gy , local or in [place]. Thrombocyt openic disorder 428413014 D69.6 reactive thrombocyt openia Subclinica l hypothyroidism 53290675 E02 Generalize d anxiety disorder 25641190 F41.1 continue current meds Irritable bowel syndrome 18807370 K58.9 Continue LInzess Edema of l ower extremity 876369774 R60.0 Ventricula r premature beats 99012498 I49.3 echo done recently at [facility]. STable occasional palpitatio ns. Health Concerns Section Related Observation LastModified by Organization Detai ls LastModified Time None Recorded Concern Status LastModified by Organization Details LastModified Time None Recorded Advance Directives Directive N: Payers Insurance Date Sequence Insurance Name Policy Number Policy Clarke Covered Member ID Clarke Member ID Guarantor Name 12/08/2018 1 [facility] [id number] Susan De Leon [id number] Susan De Leon 01/15/2024 1 [employer] [facility] (PPO) [id number] Susan De Leon [id number] Susan De Leon 12/27/2021 1 [facility] (PPO[facility] [id number] Susan De Leon [id number] Susan De Leon 04/06/2018 PAYMENT PLAN Susan De Leon Notes Date Note Type Note Provider Name and Address Organization Details Recorded Time 03/02/2020 text/html 49 year old fema le for FMLA re applications. Pt. applied based on Dx of psoriatic arthropathy with frequent flares. Pt. sees heel sprayer monthly and is currently treated with biologic [...] to arthropathy and/or asthma. Judi Martin PA-C [address] [facility] [address], [place], [address], [facility] 03/02/2020 11:57:02 04/04/2020 text/html 49 year [...] the day causing sedation. Judi Martin PA-C [address] [facility] [address], [place], [address], [facility] 04/04/2020 15:18:29 06/10/2020 text/html Generic HPI TemplateReported bypatient.Notes:49 year old female for annual PE. Does not see COMPUTER FORENSIC EXAMINER as she had complete hysterectomy. Has ovaries in. Does not wish to see COMPUTER FORENSIC EXAMINER> REports perimenopausal symptoms with worsening hot flashes. Takes estradiol 0.5 mg but 2-3 times weekly only. Mammogram is overdue.Vaccines> Had flu vaccine and Tdap is up to date.Colonoscopy --- had one ? 5 years ago. NO reports in chart. Has IBS with alternating pattern and is on linzess. Was seen at [facility]. Continue with bowel trouble. On PPI.MDD and LACY. STable on fluoxetine. PHQ score is 0.Psoriatic arthropathy. On Xeljanz. Sees rheumatology regularly. Reports skin is better. On Ibuprofen and tramadol prn for arthropathy.Asthma. Stable at this time on Symbicort and ventolin.HTN is stable on lisinopril. Judi Martin PA-C [address] [facility] [address], [place], [address], [facility] 06/10/2020 13:54:38 09/12/2020 text/html Asthma F/UReport ed [...] old female for f/u.Psoriatic arthropathy followed at [facility].On Xeljanz for the past year. Doing better since 20 lb weight loss on weight watcher in the past 1-2 months.Hand and foot pruritis. Seen by neurology so far and has mahin. pending with allergy. IN the mean time , feet are not itchy any longer since pt. switched from tata to claritin. Judi Martin PA-C [address], [address], [facility] 09/12/2020 14:37:25 12/27/2021 text/html Generic HPI TemplateReported bypatient.Notes:51 year old female for annual physical.H/o psoriatic arthritis , sees heel sprayer at [facility], supposed to take Xeljanz but discontinue [...] Needs new A1c and lipids. Sierra iraheta [facility] 12/28/2021 08:51:02 OBGyn Episode No OBEpisode recorded.
--- OUTSIDE RECORDS SUMMARY | 2024-11-03 13:06 | XMS_ITS | Patient Health Record ---
Author Organization [facility] Address [address] [place] [address] Care Team Providers Care Bomb Technician Name Role Phone Nikkie Kaufman Primary Care Provider Unavailab Erica Campuzano Unavailable [phone] Allergies Allergen (clinical drug ingredient) Drug/Non Drug [...] Date Status Physical Therapy . . . 2-3x/week; Duration: 3-4 weeks 03/19/2017 Not-Taking Hydroxychloroquine Sulfate 200 MG as directed Orally 2x a day Active Albuterol Active Estradiol 10 MCG 1 tablet Vaginal Two times a Week; Duration: 30 day(s) Active Spironolactone 100 MG 1 tablet Orally Active ASO Ankle/Foot Stablizing AFO As directed Wear Daily; Duration: as needed 04/01/2017 Not-Taking Doxycycline Not-Taki ng [...] dose 1 week per month) repeat each month; Duration: 28 Not-Taking Cosentyx Not-Taking Prednisone Not-Diana g LamISIL AT 1 % 1 application to affected area Externally Twice a day to affected areas on feet; Duration: 30 days 12/03/2017 Not-Taking Humira Not-Taking erythromycin ointmentfor eye N ot-Taking Ciclopirox Olamine 0.77 % 1 application to affected area Externally Twice a day to effected areas on feet; Duration: 30 days 09/25/2016 Not-Taking Work Note . . . Due to foot pain, patinet to be off of work for at least 5 work days up to 14 days 03/05/2017 Not-Taking Niacin Not-Taking Vitamin E Not-Taking Fish Oil Not-Taking DuoNeb Not-Taking Custom Orthotics as directed 08/29/2016 Not-Taking Tata Not-Taking Proventil Not-Taking Neurontin 300 MG 1 capsule Orally once a day; Duration: 30 day(s) 03/05/2017 Not-Taking ASO Ankle/Foot Stablizing AFO As directed Wear Daily; Duration: as needed 05/03/2017 Not-Taking Compression Stockings 20-30mm Hg as directed 05/28/2017 Not-Taking Zioptan Not-Taking Erythromycin Not-Mark ing Custom Orthotics as directed A ctive Singulair Not-Taking Biotin Not-Taking Vitamin C Active Vitamin D 1000 UNIT 1 tablet Orally Once a day Active Montelukast Sodium N ot-Taking Zinc Active levoFLOXacin Not-Mark ing Vitamin B Complex 1000 Not-Taking CoQ-10 Active AFO-Hinged as directed Wear Daily; Duration: as needed Not-Taking Work Note-Appointment . . . Pt had a scheduled appointment today; Duration: . 12/06/2021 Active Timolol Hemihydrate Not-Taking Jublia Not-Taking Amoxicillin Not-Pankaj ng Loratadine Not-Diana g Social History Tobacco Use: Social History [...] Problem Status W/U Status Risk Notes Problem Tarsal tunnel syndrome (06004066) Tarsal tunnel syndrome of left side (G57.52) Active confirmed Problem Localized, primary osteoarthritis of the ankle and/or foot (317141534) Osteoarthritis of left ankle and foot (M19.072) Active confirmed Problem Neuritis of left sural nerve (G57.82) Active confirmed Problem Psoriasis of nail (292092756) Psoriasis of nail (L40.9) Active confirmed Plan Of Treatment Pending [...] X ray : Foot, right 3V 01/18/2015 [id number] TENDON SHEATH/LIGAMENT 0 01/18/2015 X ray : Ankle, right 3V 05/03/2017 LFT 10/16/2016 CRP 03/12/2017 Insurance Providers Payer Name Payer Address Payer Phone Subscriber Number Group Number Insured Name Patient Relationship to Insured Coverage Start Date Coverage End Date [employer] Benefits [address] [address] [place] [address] [id number] Zahida Wagner Self - patient is the [...]
== END 2024-11-03 11:57 | disposition home or self-care (01) ==
LOC: HO.XRAY 11:56
PROVIDERS: PCP Preventive Medicine Public Health & General Preventive Medicine; Visit Provider Student in an Organized Health Care Education/Training Program
DX: L40.50 Arthropathic psoriasis, unspecified (principal)
CPT/HCPCS: 73110; 73130; 73610; 73630

== ENCOUNTER → 2024-11-03 12:04 | Outpatient (BNV) | payer OTHER, SELFPAY | PROVIDERS: PCP Preventive Medicine Public Health & General Preventive Medicine; Visit Provider Radiology Diagnostic Radiology | DX: M18.0 Bilateral primary osteoarthritis of first carpometacarpal joints (principal); M25.579 Pain in unspecified ankle and joints of unspecified foot; M19.079 Primary osteoarthritis, unspecified ankle and foot | CPT/HCPCS: 73110; 73130; 73610; 73630 ==

== ENCOUNTER 2024-11-30 12:25 | Outpatient (AMB) | payer OTHER, SELFPAY ==
--- OUTSIDE RECORDS SUMMARY | 2024-11-04 10:30 | XMS_ITS ---
Author Organization [facility] Address [address] [place] [address] Care Team Providers Care Freight Team Associate Name Role Phone Nikkie Kaufman Primary Care Provider Unavailab Erica Campuzano Unavailable [phone] Medications Medication SIG (Take, Route, Frequency, Duration) Notes Start Date End Date Status Albuterol Active Estradiol 10 MCG 1 tablet Vaginal Two times a Week; Duration: 30 day(s) Active Hydroxychloroquine Sulfate 200 MG as directed Orally 2x a day Active Spironolactone 100 MG 1 tablet Orally Active traMADol HCl Active levoFLOXacin Not-Mark ing Custom Orthotics as directed A ctive Loratadine Not-Takin g Montelukast Sodium N ot-Taking Amoxicillin Not-Taki ng Advair Diskus Not-Ta estephania Methotrexate Not-Mark ing Jublia Not-Taking Senna Not-Taking Clobetasol & Clobetasol Emul Not-Taking ASO Ankle/Foot Stablizing AFO As directed Wear Daily; Duration: as needed 04/01/2017 Not-Taking Doxycycline Not-Taki ng Work Note . . . Return to work on 04/03/17 for half days to start and can increase hours as tolerated 04/01/2017 Not-Taking Gabapentin Not-Takin g Prednisone Not-Takin g Work Note . . . Due to foot pain, patinet to be off of work for at least 5 work days up to 14 days 03/05/2017 Not-Taking Physical Therapy . . . 2-3x/week; Duration: 3-4 weeks 03/19/2017 Not-Taking Ciclopirox Olamine 0.77 % 1 application to affected area Externally Twice a day to effected areas on feet; Duration: 30 days 09/25/2016 Not-Taking Work Note . . . Patient is completely disabled from work until 04/01/17 03/19/2017 Not-Taking erythromycin ointmentfor eye N ot-Taking LamISIL 250 MG 1 tablet Orally Once a day for 7 days, STOP for 21 days (pulse dose 1 week per month) repeat each month; Duration: 28 Not-Taking Cosentyx Not-Taking Humira Not-Taking Prednisone Not-Takin g LamISIL AT 1 % 1 application to affected area Externally Twice a day to affected areas on feet; Duration: 30 days 12/03/2017 Not-Taking Erythromycin Not-Mark ing Fexofenadine HCl Not -Taking Tetracycline HCl Not -Taking Niacin Not-Taking Zioptan Not-Taking Tata Not-Taking ASO Ankle/Foot Stablizing AFO As directed Wear Daily; Duration: as needed 05/03/2017 Not-Taking Compression Stockings 20-30mm Hg as directed 05/28/2017 Not-Taking Proventil Not-Taking Neurontin 300 MG 1 capsule Orally once a day; Duration: 30 day(s) 03/05/2017 Not-Taking Vitamin E Not-Taking Custom Orthotics as directed 08/29/2016 Not-Taking Fish Oil Not-Taking DuoNeb Not-Taking Timolol Hemihydrate Not-Taking CoQ-10 Active AFO-Hinged as directed Wear Daily; Duration: as needed Not-Taking Zinc Active Vitamin B Complex 1000 Not-Taking Work Note-Appointment . . . Pt had a scheduled appointment today; Duration: . 12/06/2021 Active Vitamin C Active Vitamin D 1000 UNIT 1 tablet Orally Once a day Active Singulair Not-Taking Biotin Not-Taking Folic Acid Not-Takin g Linzess 145 MCG 1 capsule at least 30 minutes before the first meal of the day on an empty stomach Orally Once a day Not-Taking Azelastine-Fluticasone Active Fluoxetine 20 mg Not-Takin g ibuprofen Active Encounters Encounter Location Date Provider Diagnosis [facility] [place] [address] [place] [address] 11/04/2024 Erica Arnett Plan Of Treatment Next Appt Details Provider Name:Erica pantoja, 12/03/2024 03:00:00 PM, [address] [facility], [place], [address], Progress Notes * Zahida DE LEON LDOB:[birth year] (54 yo F)Acc No.[id number]:11/04/2024 Progress Note Patient: Zahida LAINEZ Provider: Emmie Arnett DPM :1970 A ge:54 Y S ex:Female Date:11/04/2024 Address:[address] [place], [place] [id number] Pcp:Nikkie Kaufman Subjective: * Chief Complaints: * * Medical History: * Medications: T aking Hydroxychloroquine Sulfate 200 MG Tablet as directed Orally , Notes to Pharmacist: 2x a day, Taking Albuterol , Taking Estradiol 10 MCG Tablet 1 tablet Vaginal Two times a Week , Taking Spironolactone 100 MG Tablet 1 tablet Orally , Taking traMADol HCl , Taking Azelastine-Fluticasone , Taking ibuprofen , Taking Vitamin C , Taking Vitamin D 1000 UNIT Tablet 1 tablet Orally Once a day , Taking Zinc , Taking CoQ-10 , Taking Work Note-Appointment . . . . Pt had a scheduled appointment today , Taking Custom Orthotics as directed , Not-Taking/PRN Linzess 145 MCG Capsule 1 capsule at least 30 minutes before the first meal of the day on an empty stomach Orally Once a day , Not-Taking/PRN Fluoxetine , Notes to Pharmacist: 20 mg, Not-Taking/PRN Folic Acid , Not-Taking/PRN Singulair , Not-Taking/PRN Biotin , Not-Taking/PRN Vitamin B Complex 1000 , Not-Taking/PRN AFO-Hinged as directed Wear Daily , Not-Taking/PRN Timolol Hemihydrate , Not-Taking/PRN Vitamin E , Not-Taking/PRN Fish Oil , Not-Taking/PRN DuoNeb , Not-Taking/PRN Custom Orthotics as directed , Not-Taking/PRN Tata , Not-Taking/PRN Proventil , Not-Taking/PRN Neurontin 300 MG Capsule 1 capsule Orally once a day , Not-Taking/PRN ASO Ankle/Foot Stablizing AFO As directed Wear Daily , Not-Taking/PRN Compression Stockings 20- 30mm Hg closed toe- knee high as directed , Not-Taking/PRN Zioptan , Not-Taking/PRN Erythromycin , Not-Taking/PRN Fexofenadine HCl , Not-Taking/PRN Tetracycline HCl , Not-Taking/PRN Niacin , Not-Taking/PRN LamISIL 250 MG Tablet 1 tablet Orally Once a day for 7 days, STOP for 21 days (pulse dose 1 week per month) repeat each month , Not-Taking/PRN Cosentyx , Not-Taking/PRN Prednisone , Not-Taking/PRN LamISIL AT 1 % Cream 1 application to affected area Externally Twice a day to affected areas on feet , Not-Taking/PRN Humira , Not-Taking/PRN erythromycin , Notes to Pharmacist: ointmentfor eye, Not-Taking/PRN Ciclopirox Olamine 0.77 % Cream 1 application to affected area Externally Twice a day to effected areas on feet , Not-Taking/PRN Work Note . . . . Due to foot pain, patinet to be off of work for at least 5 work days up to 14 days , Not-Taking/PRN Physical Therapy . . . . 2-3x/week , Not-Taking/PRN Work Note . . . . Patient is completely disabled from work until 04/01/17 , Not- Taking/PRN Work Note . . . . Return to work on 04/03/17 for half days to start and can increase hours as tolerated , Not-Taking/PRN ASO Ankle/Foot Stablizing AFO As directed Wear Daily , Not-Taking/PRN Doxycycline , Not-Taking/PRN Gabapentin , Not-Taking/PRN Prednisone , Not-Taking/PRN Advair Diskus , Not-Taking/PRN Methotrexate , Not-Taking/PRN Senna , Not-Taking/PRN Clobetasol & Clobetasol Emul , Not- Taking/PRN Jublia , Not-Taking/PRN Amoxicillin , Not-Taking/PRN Loratadine , Not-Taking/PRN Montelukast Sodium , Not-Taking/PRN levoFLOXacin Objective: * Vitals: Assessment: Plan: * Treatment: * Images: * The named appointment provid er may or may not be the originator of this progress note, and it is not deemed complete until electronically signed by the appointment provider. Sign off status: Pending * Provider: Emmie Arnett DPM Date: 11/04/2024 Generated for Danica boone/Aditya on: 11/30/2024 01:16 PM EDT
--- NOTE | 2024-11-30 12:58 | MHC.OFFWIV ---
Intake Vital Signs 11/30/24 12:59 Height 5 ft 7 in Weight 249 lb BMI 39.0 BP 120/66 Blood Pressure Location Rt brachial Position Sitting Pulse 79 Pulse Source Pulse Oximeter Temp 98.0 F Temp Source Oral Pulse Oximetry (%) 97 Oxygen Delivery Method Room Air Intake Visit Reasons: EP-having asthma attack Intake Note: presents with asthma flaring 9 days ago after exposure to mold Patient Tobacco Use Status: Former Tobacco user Allergies Sulfa (Sulfonamide Antibiotics) Allergy (Unknown, Verified 11/30/24 13:00) dizzy latex Allergy (Verified 11/30/24 13:00) rash famotidine Adverse Reaction (Intermediate, Verified 11/30/24 13:03) worsens GERD diclofenac Adverse Reaction (Mild, Verified 11/30/24 13:03) lack of efficacy HPI HPI Comments History of Present Illness Details History - The patient is a 54-year-old female presenting with exacerbation of asthma symptoms and bronchitis. - Asthma exacerbation was triggered by mold exposure while digging up old plants last week, leading to increased use of inhaler and nebulizer. - Symptoms include shortness of breath, wheezing, and cough, with phlegm production for one week. - The patient has a history of asthma and bronchitis, managed with albuterol and nebulizer treatments. - Inhalers and nebs are but she has been using them with limited success. Physical Exam General: Cooperative, healthy appearing, comfortable and no acute distress Orientation/consciousness: Patient oriented x3 Limitations: No limitations Head: Normal to inspection Ears: Hearing grossly normal bilaterally, external ears normal and TM's normal bilaterally Nose: Normal external nose present, Normal nares present and No nasal discharge present Face and sinus: Normal facial exam and Yes sinuses nontender Mouth: Normal oral and palatal mucosa present and moist mucous membranes Throat: Yes tonsils normal, Yes uvula midline. Posterior oropharynx erythema, no exudates Eyes: Appearance normal, both eyes and all related structures Neck: Normal visual inspection, full ROM Respiratory: insp/exp wheezes with decreased air movement. Normal respiratory effort, able to speak in complete sentences, Actively coughing, no respiratory distress, not tachypneic, no tripod positioning and no use of accessory muscles Cardiovascular: Regular rate and rhythm. Normal S1 and S2 Skin: No rashes or lesions noted Neuro: Patient oriented x3 Extremities: Normal to inspection and Yes no clubbing, cyanosis or edema [facility] Medical History (Updated 11/30/24 @ 13:37 by Nicci Reyes PA-C) Encounter for monitoring of hydroxychloroquine therapy Bilateral primary osteoarthritis of knee Left ankle pain Long-term current use of high risk medication other than anticoagulant PCOS (polycystic ovarian syndrome) Asthma Depression Glaucoma Lyme disease Surgical History History of hysterectomy Varicose vein of leg Social History Household Members: Significant Other Housing: House Are you a primary hearing healthcare practitioner to a significant other at home: No Do you presently have visiting nurse or other home services: No Alcohol intake: never Patient Tobacco Use Status: Former Tobacco user Second Hand Smoke Exposure: No service: No Current occupational status: employed 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 - Prescribe a new albuterol inhaler and Duoneb nebulizer solution to replace medications. - Initiate a course of prednisone 40 mg daily for 5 days to reduce inflammation and improve respiratory function, can try 20mg per day, if not enough, should take 40mg daily but important to stop at day 5. - Advise the patient to monitor symptoms and seek further medical attention if no improvement is noted. Patient was informed and verbally consented to the use of an ambient scribe for clinic note documentation during this visit Medications: New ipratropium-albuterol 0.5 mg-3 mg(2.5 mg base)/3 mL 3 mL inhalation Q6-8H PRN 90 mL 0RF wheezing albuterol sulfate 90 mcg/actuation (Ventolin HFA) 2 puffs inhalation Q4-6H PRN 8.5 grams 0RF shortness of breath or wheezing prednisone 40 mg (2 x 20 mg) PO QAM 10 tabs 0RF Coding Level of Care Code New Pt Level 3 (03707) Diagnoses Mild asthma exacerbation J45.901
[2024-11-30 12:59] VITALS: BP 120/66; PULSE 79; TEMP 36.7; O2SAT 97; BMI 39.0
--- OUTSIDE RECORDS SUMMARY | 2024-11-30 13:17 | XMS_ITS | Data Portability ---
Author Organization [facility], Main Office Address [address] [place] [address] Care Team Providers Care Gospel Singer Name Role Phone JUDI MARTIN Primary Care Provider [phone] ELIJAH YU Consumer Loan Processor [phone] PEYTON CHAPMAN Sleep Medicine [facility] (JUAN AMNUEL JONES) Orthopedic Surgeon CHIP COBIAN Corner Cutter Machine Operator HEDY DEL VALLE Alterations Workroom Clerk Assessment Encounter Date Assessment Date Assessment LastModified [...] panel, serum 2021 022 [email or web address] [facility], [address], [place], [address], 3 11:42:52 CMP, serum or plasma 2021 022 [email or web address] [facility], [address], [place], [address], 3 11:42:53 TSH, serum or plasma 2021 022 [email or web address] [facility], [address], [address], [place], [address], 3 11:42:52 HbA1c (hemoglob in A1c), blood 2021 022 BLANCO [facility], [address], [address], [place], [address], 2 15:26:55 microalbu min, urine 2021 022 BL[facility]CO [facility], [address], [address], [place], [address], 2 16:13:00 CBC w/ auto diff 2021 022 [email or web address] [facility], [address], [address], [place], [address], 3 11:42:53 lipid panel, serum 2020 021 BLANCO [facility], [address], [address], [place], [address], 1 11:56:41 HbA1c (hemoglob in A1c), blood 2020 021 [facility]CO [facility], [address], [place], [address], 1 14:36:27 CMP, serum or plasma 2020 021 [facility], [address], [address], [place], [address], 1 11:56:39 TSH, serum or plasma 2020 021 [facility], [address], [place], [address], 1 12:03:41 HbA1c (hemoglob in A1c), blood 2020 BLANCO [facility], [address], [place], [address], 1 11:41:24 Referral gastroent erologist referral - Constipat ion and uper GI issues . Also, pt. might be due for colonosco py. 2020 021 [email or web address] [facility], [address], [place], [address], 2 09:52:37 hematolog ist/oncol ogist referral - Progressi ve leukocyto sis, psoriatic arhtropat hy on biologics . 2019 020 [email or web address] Barillas MD, [address] [place], [address], 0 09:46:53 Procedures None recorded. Surgeries None recorded. Imaging MAMMO, screening , bilateral 2021 022 [email or web address] [facility] ([facility]), [address], [place], [address], 2 08:25:51 bone density - Estrogen deficienc y and chronic use of prednison e. 2020 021 [facility]), [address], [place], [address], 08:34:43 MAMMO, screening , bilateral 2020 021 [facility]), [address], [place], [address], 08:34:24 Medication Orders Ventolin HFA 90 mcg/actua tion aerosol inhaler 2021 022 [id number], [address], [place], [address], 18:53:23 Patient TargetsNo targets recorded. Patient Instructions Encounter Date Encounter Id Patient Instructions Last Modified By Organization Details Last Modified Time 06/10/2020 [id number] prediabetes: car e instructions Not available 06/10/2020 12:11:53 eating healthy foods: care instructions Not available 06/10/2020 12:11:53 gastroesophageal reflux disease (GERD): care instructions Not available 06/10/2020 11:58:37 anxiety disorder : care instructions Not available 06/10/2020 11:59:22 high blood press ure: care instructions Not available 06/10/2020 12:10:55 dash diet: care instructions Not available 06/10/2020 12:10:55 12/27/2021 [id number] starting a weigh t loss plan: care instructions Not available 12/27/2021 16:01:30 albumin-creatini ne ratio: about this test Not available 12/27/2021 15:58:01 polycystic ovary syndrome: care instructions Not available 12/27/2021 15:27:18 dash diet: care instructions Not available 12/27/2021 16:01:30 Reason for Referral Progressive leukocytosis, ps oriatic arhtropathy on biologics. Referring Physician: Judi Martin, Internal Medicine, Encounter Date: 03/02/2020 Alterations Workroom Clerk Referral for Altered bowel function Constipation [...] Assoc iatio n (ADA) and the World [facility] h Organ izati on (WHO) recom mend [...] CoV-2 spike prote in inclu ding the switchboard operator receptionist tor sheldon jose n (RBD) . Test perfo rmed by [facility], [address], [place] [address] Not Available [facility] (Centralized Electronic Ordering - All Locations) Patient Can Go To The Location Of Their Choice, [id number] 11/18/2020 07:07:11 02/29/20 20 02/29/2020 endov enous ablat ion thera py, laser (PROC ) No observ ation record ed. Ariella Granado MD [address] [facility] [address], [place], [address], 03/01/2020 18:50:20 03/03/20 20 02/18/2020 MRI, lumba r spine , w/o contr ast No observ ation record ed. [email or web address] Not Available 2019 12:53:31 05/27/19 21 05/27/2020 XR, abdom en + pelvi s No observ ation record ed. [email or web address] [facility] [address], [place], [address], 05/30/2020 09:19:14 01/25/05/27/2020 XR, angio gram, pelvi c No observ ation record ed. [facility] Imaging Orders [address], [place], [address], 05/30/2020 11:27:46 07/13/1907/12/2020 DEXA, axial skele ton ====== ====== ====== ====== ====== ====== ====== ====== ====== ====== ===== Bone Densit y Report ====== ====== ====== ====== ====== ====== ====== ====== ====== ====== ===== Name: ALEKSLYNN Rose SUSANLOIDA Campbell t ID: [id number] Age: 49 Sex: Female Ethnic ity: White Date of : 1970 ------ ------ ------ ------ ------ ------ ------ ------ ------ ------ ----- Indica tion: ZACARIAS CASTRO Referr sofi Marie er: MAY MARTIN Study: Bone densit ometry was [facility]. Exam Date: July 12, 2020 Access ion number : [id number] Bone Densit y: ------ ------ ------ [...] ------ ------ ------ ------ ----- World [facility] Organi zation criter ia for BMD [...] 3:29 pm Hunter jimenez Class: Outpat ient [facility] (Outpt Imaging) [address], [place], [address], 07/13/2020 10:40:58 07/13/19 21 07/12/2020 bone densi ty No observ ation record ed. [facility] Imaging Orders [address], [place], [address], 07/13/2020 10:40:58 07/14/19 21 07/12/2020 MAMMO , [...] Lay letter mailed to hunter jimenez WSN: [id number] Orderi ng Physic alex: May Martin Dictat ed By: Sadaf Chang MD, I Dictat ed Date/T rhina: 10:10 am Review ed By: Sadaf Chang MD, I Signed By: Sadaf Chang MD, I Signed Date/T rhina: 10:10 am Transc ribed By: CSB Transc riptio n Date/T rhina: 10:01 am Birads : Hunter jimenez Class: Outpat ient [email or web address] [facility] (Outpt Imaging) [address], [place], [address], 07/13/2020 15:59:32 07/14/19 21 07/12/2020 MAMMO , scree juliocesar, bilat eral No observ ation record ed. [email or web address] [facility] Imaging Orders [address], [place], [address], 07/13/2020 15:59:32 12/30/19 22 11/17/2021 trans -thor acic echoc ardio gram (TTE) (PROC ) No observ ation record ed. [facility] [address], [place], [address], 12/29/2021 14:58:26 Result Notes Documentation Provider Name and Address Organization Details Recorded Time Dexa, Axial Skeleton : Bone Density Report Name: SUSAN DE LEON Age: 49 Sex: Female Ethnicity: White Date of : 1970 Indication: POSTMENOPAUSAL. Referring Provider: JUDI MARTIN Study: Bone densitometry was performed. Exam Date: July 12, 2020 Accession number: [id number] Bone Density: Region BMD T-score Z-score Classification [...] Outpatient Judi Martin PA-C [address], [address], [facility] 07/12/2020 21:33:09 Mammo, Screening, Digital, Bilateral : [...] (Benign) Lay letter mailed to patient WSN: [id number] Ordering Physician: Judi Martin Dictated By: Sadaf Chang MD, I Dictated Date/Time: 07/13/20 10:10 am Reviewed By: Sadaf Chang MD, I Signed By: Sadaf Chang MD, I Signed Date/Time: 07/13/20 10:10 am Transcribed By: CHULA Park Interpretive Specialist Date/Time: 07/13/20 10:01 am Birads: Patient Class: Outpatient Irmachalino iraheta [facility] 07/13/2020 15:59:32 Problems Name Problem SNOMED Code Status Onset Date Resolution Date Notes Provider Name and Address Organization Details Recorded Time Mixed hyperlip idemia 436614529 Active 2017 Judi JASON-C [address], [place], [address], [facility] 8 15:40:00 Leukocyt osis 816810701 Completed 201707/17/2017 Judi Martin PA-C [address], [place], [address], [facility] 1 14:19:49 Asthma 554715615 Completed 201706/17/2017 Judi Martin PA-C [address], [place], [address], [facility] 8 16:13:58 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 Judi Martin PA-C [address], [place], [address], [facility] 8 15:41:06 Major depressi ve disorder 583004113 Completed 201706/17/2017 Judi Martin PA-C [address], [place], [address], [facility] 8 15:45:52 Generali zed anxiety disorder 49832911 Active 2017 Judi Martin PA-C [address], [place], [address], [facility] 8 15:42:16 Insomnia 913803870 Completed 201706/10/2020 Judi Martin CASIE-C [address], [place], [address], [facility] 1 12:10:13 Psoriasi s 1766207 Completed 201711/02/2019 Judi Martin PA-C [address], [place], [address], [facility] 0 11:06:51 Lyme disease 75317085 Active 2017 pos IgG +4 bands in 2011 and pos IgG and IgM in 2015. Judi Martin PA-C [address], [place], [address], [facility] 8 15:43:26 Glaucoma 84405621 Completed 201706/10/2020 Judi Martin PA-C [address], [place], [address], [facility] 1 12:10:31 Constipa tion 27470273 Active 2017 Judi Martin PA-C [address], [place], [address], [facility] 8 15:43:47 Primary dysthymi a 96291362 Active 2017 Judi Martin PA-C [address], [place], [address], [facility] 8 15:46:00 Nicotine dependen ce 48403558 Active 2017 Judi Martin PA-C [address], [place], [address], [facility] 8 15:46:26 Psoriati c arthriti s 773489291 Completed 201711/02/2019 Judi Martin PA-C [address], [place], [address], [facility] 0 11:06:59 Ocular rosacea 990097704 Active 2017 Judi Martin PA-C [address], [place], [address], [facility] 8 15:57:35 Mild intermit tent asthma 826899338 Completed 201712/08/2018 Judi Martin PA-C [address], [place], [address], [facility] 9 16:17:26 Benign essentia l hyperten agustín 7300369 [facility] 09:35:30 Thromboc ytopenic disorder 223036439 Active 2017 seen and evaluated by hem/onc. Need to do yearly CBC . Judi Martin PA-C [address], [place], [address], [facility] 0 11:07:53 Ventricu lar prematur e beats 02876793 [facility] 8 09:57:26 Environm ental allergy 484529438 Active 2017 Judi Martin PA-C [address], [place], [address], [facility] 8 11:21:54 Obstruct adonay sleep apnea syndrome 07511054 Active 2017 not using CPAP Judi [address], [place], [address], [facility] 2 16:06:30 Psoriasi s with arthropa thy Active 2018 Judi Martin PA-C [address], [place], [address], [facility] 9 14:53:43 Leukocyt osis 775545616 Completed 201812/08/2018 Judi Martin PA-C [address], [place], [address], [facility] 1 14:19:49 Exacerba tion of intermit tent asthma 496802676 Completed 201808/07/2019 Judi Martin PA-C [address], [address], [facility] 0 16:46:29 Allergic asthma 411674231 Active 2018 [address], [place], [address], [facility] 9 16:20:36 Venous stasis 88018261 Active 2018 Judi Martin PA-C [address], [place], [address], [facility] 9 16:35:54 Deviated nasal septum 444308251 Active 2018 Judi Martin PA-C [address], [place], [address], [facility] 9 16:47:06 Morbid obesity 849002721 [facility] 14:24:20 Prediabe rosa maria 160634026 Active 2019 Judi Martin PA-C [address], [place], [address], [facility] 0 15:21:17 Leukocyt osis 062139347 Active 2020 reactive secondary to psoriatic arthropfa thy, asthma flairs, prednison e, cellujlit is. Seen by hem/onc. Preston fernandez. Judi Martin PA-C [address], [place], [address], [facility] 1 14:19:49 Irritabl e bowel syndrome 57731669 Active 2020 Judi Martin PA-C [address], [place], [address], [facility] 1 11:58:57 Pruritic disorder 672960890 Active 2020 Judi Martin PA-C [address], [place], [address], [facility] 1 12:01:06 Chronic pain syndrome 597266072 Active 2021 see rheumatol ogy notes from October of 2021 Judi Martin PA-C [address], [place], [address], [facility] 2 15:14:07 Subclini karen hypothyr oidism 60539047 Active 2021 Judi Martin PA-C [address], [facility] [place], [address], [facility] 2 15:17:16 Problem Notes None recorded. Procedures Surgical History Date Name Laterality Status Provider Name and Address Organization Details Recorded Time 07/13/19 21 Most Recent Mammogram completed Irma Calixto [facility] 07/13/2020 15:58:44 08/05/19 19 Mammogram both breasts completed Alexandra Cueto [facility] 08/04/2018 16:21:51 05/28/19 19 injection of knee joint completed Alexandraphylicia Cueto [facility] 06/30/2018 16:22:25 02/05/20 18 injection completed Alexandraphylicia Cueto [facility] 08/29/2018 11:57:59 06/22/19 17 Date of Last Colonoscopy completed Debra Calvert MA [facility] 12/27/2021 15:06:00 06/18/19 17 Egd diagnostic brush wash completed Shana Hicks [facility] 06/29/2020 09:53:31 06/18/19 17 Colonoscopy [address]ana Hicks [facility] 06/29/2020 09:54:50 Hysterectomy completed Bridgett Barrios [facility] 06/17/2017 15:42:16 Imaging Results None recorded. Procedure Notes None recorded. Medical Equipment None Reported. Allergies Allergen ID Allergen Name Allergen Category Reaction Reaction Severity Criticality Documentation Date Start Date Code Code System Note Provider Name and Address Organization Details Recorded Time 37273 latex environme nt,medica tion rash severe Not available 06/17/2017 [address] [facility] 8 15:41:43 41225 Substance with sulfonami de structure and antibacte rial mechanism of action (substanc e) medicatio n dizziness Not available Not available 06/17/2017 91869 8003 SNOMED Bridgett Barrios null, [facility] 8 15:41:43 99856 Plaquenil medicatio n hallucina tions severe Not available 12/03/201708960 2 RxNorm Dayan Thakur MA null, [facility] 1 11:04:06 02547 Celebrex medicatio n Not available Not available Not available 12/10/2018 72706 7 RxNorm conta ins sulfa Judi Yunier SANTAMARIA [address], [facility], [place], [address], [facility] 9 10:40:07 Medications Name Sig Start Date [...] blood by Pulse oximetry Body temperature Systolic And Diastolic Provider Name and Address Organization Details Last Updated DateTime 1 172.72 cm 41.1 kg/m2 118850. 94 g 87 /min 97 % 97 % 97.34 [degF] 121/83 mm[Hg] Dayan Thakur MA [facility] 1 11:19:09 Date Recorded Body height Provider Name an d Address Organization Details Last Updated DateTime 09/12/2020 172.72 cm Bri Centeno MA [facility] 09/12/2020 13:54:32 Date Recorded Body height Body mass index (BMI) Body weight Oxygen saturation Oxygen saturation in Arterial blood by Pulse oximetry Heart rate Body temperature Systolic And Diastolic Provider Name and Address Organization Details Last Updated DateTime 2 172.72 cm 41.2 kg/m2 091143. 53 g 98 % 98 % 73 /min 97.88 [degF] 125/75 mm[Hg] Debra Calvert MA [facility] 2 14:58:21 Date Recorded Body height Provider Name an d Address Organization Details Last Updated DateTime 03/02/2020 172.72 cm Demetria Colby MA [facility] 03/02/2020 10:53:27 Date Recorded Body height Provider Name an d Address Organization Details Last Updated DateTime 04/04/2020 172.72 cm Dayan Thakur MA [facility] 04/04/2020 14:36:36 Social History Question Answer Notes LastModified by Organizat ion Details LastModified Time Tobacco Smoking Status Former Smoker Liza iraheta [facility] 12/30/2019 10:19:51 Do You Have An Advance Directive? No Information not available 12/27/2021 Is Blood Transfusion Acceptable In An Emergency? No [email or web address] Information not available 12/27/2021 What Is Your [...] Alone Or With Others? With Others Boyfriend [email or web address] Information not available 12/27/2021 Do You Take Precautions To Prevent Distracted Driving? No Information not available 12/27/2021 How Often Do You Need To Have Someone Help You When You Read Instructions, Pamphlets, Or Other Written Material From Your Doctor Or Pharmacy? Sometimes [email or web address] Information not available 12/27/2021 Have You Served [...] Of Your Most Recent Tobacco Screening? 12/27/2021 [email or web address] Information not available 12/27/2021 How Many Children Do You Have? 0 Information not available 12/03/2017 Are You Sexually Active? No [email or web address] Information not available 12/08/2018 At What Age Did You Start Smoking Tobacco? 17 Information not available 12/03/2017 Are You Passively Exposed To Smoke? No [email or web address] Information not available 12/27/2021 How Much Tobacco Do You Smoke? No [email or web address] Information not available 12/27/2021 How Many Years Have You Smoked Tobacco? 12 On And Off Information not available 12/03/2017 Sex: Unknown Functional Status Question Answer Note LastModified by Organizat ion Details LastModified Time Do you or have you ever used any other forms of tobacco or nicotine? No [email or web address] Information not available 12/27/2021 What is your level of alcohol consumption? None Information not available 06/17/2017 Do you or have you ever used smokeless tobacco? Never used smokeless tobacco Information not available 03/02/2020 Are you currently employed? Yes Information not available 06/17/2017 Are you able to walk? YESWOREST [email or web address] Information not available 12/27/2021 Are you able to care for yourself independently ? 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 Never used electronic cigarettes [email or web address] Information not available 12/27/2021 What is your exercise level? None due to injury / arthritis Information not available 12/03/2017 Mental Status None recorded. Family History Relationship Description Onset Age of this Age Resolved Age Notes LastModified by Organization Details LastModified Time Maternal Aunt Kidney disease 35 41 [email or web address] Not available 12/08 15:44:15 Mother Arthritis 60 [email or web address] Not availa ble 12/08/2018 15:44:15 Father Arthritis 30 [email or web address] Not available 12/27/2021 14:51:06 Maternal Grandfather Kidney disease 70 Not available 12/08 15:44:15 Brother History of malignant neoplasm of brain 22 27 [email or web address] Not available 12/08 15:50:41 Medical History Condition [...] recombinant, quadrivalent, PF [address] [facility] 06/17/2017 15:52:23 Tdap 3 completed Judi Martin PA-C [address], [address] 06/17/2017 16:10:56 Influenza, split virus, quadrivalent, preservative [address] [facility] 06/10/2020 11:17:31 Past Encounters Encounter ID Performer Location Encounter Start Date Encounter Closed Date Diagnosis/Indication Diagnosis SNOMED-CT Code Diagnosis ICD10 Code Diagnosis Note [id number] Judi Martin PA-C Main Office [address] [facility] [address] [place] [address] 06/17/2017 15:18:29 06/17/2017 16:40:55 Mixed hyperlipidemia 509599069 E78.2 Mild inter mittent asthma 313159486 J45.20 Stable. Continue montelukas t daily. Constipation 79285677 K5 9.00 Continue LInzess. F/u with Dr. Aguillon. Primary dysthymia 379074 05 F34.1 Continue Fluoxetine 20 mg. Psoriatic arthritis 1563 46494 L40.50 F/u with rheumatolo gist. Continue HUmira and Tramadol PRN. Leukocytosis 396642844 D 72.829 repeat labs Nicotine dependence 5629 4008 F17.200 Fatigue 28851205 R53.83 Body mass index 30+ - obesity 698921595 E66.01 Z68.41 Elevated blood-pressure reading without diagnosis of hypertension 201768186 R03.0 [id number] Judi Martin PA-C Main Office [address] [facility] [address] [facility] [place] [address] 07/17/2017 08:45:31 07/17/2017 10:03:23 Nicotine dependence 02211048 F17.200 pt will start chantix that she was prescribed . Mixed hyperlipidemia 267 386213 E78.2 Pt will provide a fasting blood sample withing 3 months including direct LDL. Consider start of statins due to increased cardiovasc risks , PCOS/metab olic syndrome. Body mass index 40+ - severely obese 563760876 E66.01 Z68.41 pt agrees to see a nutritioni st and start follow low carb/ fat diet. Benign ess ential hypertension 3631807 I10 Blood pressure has been under 140/90 for past three weeks. pt instructed to continue to check bp daily and report any readings over 140/90. Pt instructed to seek medical attention in the even she developes CO, COB, dizziness. If BP becomes elevated continuous ly, will consider ACEI Rx. DASH diet is recommende d to follow and discussed. Thrombocyt openic disorder 666631568 D69.6 will refer to hematology for follow up and treatment. Ventricula r premature beats 26013061 I49.3 Will monitor, pt instructed to report continuous bouts of PVC/palpit ations. instructed to seek medical attention in the event she develops CP, SOB, CP radiation. [id number] Judi Martin PA-C Main Office [address] [facility] [address] [place] [address] 12/03/2017 10:23:05 12/03/2017 12:01:26 Adult health examination 696497536 Z00.00 up to date on vaccines Benign ess ential hypertension 7484088 I10 stable on diet and with some weight loss. Continue monitoring . Ventricula r premature beats 36378166 I49.3 Will monitor, pt instructed to report continuous bouts of PVC/palpit ations. instructed to seek medical attention in the event she develops CP, SOB, CP radiation. Nicotine dependence 5629 4008 F17.200 Continue trying to quit on your own . Can also retry Chantix. Body mass index 30+ - obesity 189129912 E66.01 Z68.41 Mixed hyperlipidemia 267 265980 E78.2 Pt will provide a fasting blood sample including direct LDL. Consider start of statins due to increased cardiovasc risks , PCOS/metab olic syndrome. Insomnia 791400378 G47.0 0 stable and improved Snoring 94234777 R06.83 schedule for polysomnog crystal Mild inter mittent asthma 246597400 J45.20 Stable. Continue montelukas t daily.Vent jessica PRN. Primary dysthymia 431540 05 F34.1 Continue Fluoxetine 20 mg. Constipation 68944854 K5 9.00 Continue LInzess. F/u with Dr. Aguillon. Generalize d anxiety disorder 57848773 F41.1 continue meds [id number] Eduardo Martin PA-C Main Office [address] [place] [address] 12/19/2017 11:26:28 12/19/2017 12:31:14 Acute pharyngitis [id number] J02.9 likely d/t pnd - see below Acute sinusitis 08808730 J01.90 if cannot clear sxs, then consider ent eval, rec probiotics as well. 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 Warm compress BID, arm elevation. F/u 3-4 days if needed. [id number] Jaylan Olmedo MD Main Office [address] [place] [address] 05/30/2018 14:11:00 05/30/2018 15:12:15 Menopausal flushing 334893208 N95.1 start small dose estradiol f/u in 1 m. Vaginal dryness 52294480 N89.8 Psoriasis with arthropathy 94657543 L40.50 sees rheum. Was not tried on COTE II. Will try celebrex daily to avoid overusing Advil which usually helps her if taken with Tramadol. [id number] Stephanie gunn MD Main Office [address] [address] [place] [address] 06/30/2018 08:37:11 06/30/2018 09:53:18 Leukocytosis 838084437 D72.829 repeat labs Exacerbati on of intermittent asthma 481029069 J45.21 if repeat CBC is stable , start Prednisone taper as directed for 10 days, Nebulizer at every 4-6 hrs or HFA. Essential hypertension 39027831 I10 Mixed hyperlipidemia 267 816599 E78.2 Pt will provide a fasting blood sample including direct LDL in 3 months. Consider start of statins due to increased cardiovasc risks , PCOS/metab olic syndrome. [id number] Stephanie gunn MD Main Office [address] [address] [place] [address] 07/07/2018 09:57:29 07/07/2018 10:56:12 Acute sinusitis 93887610 J01.90 Asthmatic bronchitis 405 819402 J45.909 R/o pneumonia. Chest XRAy as well as increase Prednisone back to 50 mg and start taper over . Nebulizer every 4 hrs and continue using ADvair D. [id number] Stephanie gunn MD Main Office [address] [address] [place] [address] 07/30/2018 15:08:49 07/30/2018 16:21:38 Benign essential hypertension 1711714 I10 Continue Lisinopril 10 mg daily, low sodium diet. Continue trying to lose weight. [id number] Khris Hartman MD Main Office [address] [address] [place] [address] 10/23/2018 13:21:21 10/23/2018 14:20:06 Pain of multiple joints 18418042 M25.50 check rheumatolo gy labs, pt sees rheumatolo gist in [place], will followup with her. Hs followup with Judi up coming Tick bite 27279267 S00.9 6XA check labs Fatigue 48583790 R53.83 Await lab testing to see if pt has tick borne illness, rest, hydration. Eruption 425611246 R21 pt sees dermatolog y has upcoming appointmen t. Thrombocyt openic disorder 510440020 D69.6 checking cbc for platelets [id number] Jaylan Olmedo MD Main Office [address] [facility] [address] [place] [address] 12/08/2018 15:28:43 12/08/2018 17:01:12 Adult health examination 343320132 Z00.00 up to date on vaccines Benign ess ential hypertension 8917734 I10 Continue Lisinopril 10 mg daily, low sodium diet. Continue trying to lose weight.rep eat labs. Allergic asthma 74380575 6 J45.909 Obstructiv e sleep apnea syndrome 59239473 G47.33 Mixed hyperlipidemia 267 508304 E78.2 Retest fasting lipids in 4 m. Generalize d anxiety disorder 18120439 F41.1 continue current meds Psoriasis with arthropathy 26323927 L40.50 continue prednisone taper. F/u wit rheum. Venous stasis 13961387 I 87.8 Body mass index 30+ - obesity 926979674 Z68.41 Morbid obesity 914251973 E66.01 [id number] Jaylan Olmedo MD Main Office [address] [facility] [address] [place] [address] 08/07/2019 13:18:32 08/10/2019 06:42:02 Psoriatic arthritis 982727713 L40.50 F/u with rheumatolo gist. Moderate p ersistent asthma 477853971 J45.40 Prednisone PRN for acute asthma. Pt. was encouraged to f/u with her pulmonary. Due to her asthma and psoriatic arthropath y she is at higher risk for mortality if exposed to and acquires COVID-19 infection. [id number] Jaylan Olmedo MD [facility] [address] [facility] [address] [place] [address] 11/02/2019 08:38:53 11/02/2019 15:40:33 Prediabetes 211597738 R73.03 retest labs. Mixed hyperlipidemia 267 084277 E78.2 Retest fasting lipids prior to physical in December. Pt. is willing to retry statins at smaller dose ifresults of fasting test show lipidelvat ion again. Inflammati on of sacroiliac joint 21807688 M46.1 Start prednisone taper as directed and muscle relaxant at HS. Continue heat and tens unit use. If pain does not sign. decrease or persists, pt. is given referral to [facility] for trigger point injections . [id number] Mayank Talley MD [facility] [address] [facility] [address] [place] [address] 12/30/2019 09:10:16 12/30/2019 13:02:39 Leukocytosis 878804033 D72.829 significan t leukocytos is and respirator y distress. ? asthma exacerb. with Prednisone effect on WBCs or acute infection, ? COVID,pneu monia. Pt. is immuno compromise d. Recommend to go to the ER for further testing. Acute resp iratory distress 040891313 R06.03 referred to the ER. [id number] Jaylan Olmedo MD [facility] [address] [facility] [address] [facility] [place] [address] 03/02/2020 09:21:32 03/02/2020 12:01:28 Psoriasis with arthropathy 08226123 L40.50 Continue current meds under rheumatolo gy. FMLA forms to be completed. Moderate p ersistent asthma 535363467 J45.40 Prednisone PRN for acute asthma. Pt. was encouraged to f/u with her pulmonary. Due to her asthma and psoriatic arthropath y she is at higher risk for mortality if exposed to and acquires COVID-19 infection. Venous stasis 26607406 I 87.8 complicate d by cellulitis post procedures . F/u with Dr. Granado Leukocytosis 694795903 D 72.829 Encouraged to have hem/onc consult. PT. has multiple comorbidit ies and immune suppressio n, on biologics. [id number] Jaylan Olmedo MD [facility] [address] [facility] [address] [place] [address] 04/04/2020 14:22:44 04/04/2020 15:50:41 Psoriasis 1220502 L40.9 flares despite biologic. Pt. has mahin with rheum and dermatolog y coming up/ ADvised to take zyrtec 10 mg by day and bendryl at HS and use topical steroids. PT. will discuss further with derm. tomorrow. [id number] Judi Martin PA-C Main Office [address] [facility] [address] [place] [address] 06/10/2020 10:59:58 06/10/2020 12:59:33 Adult health examination 159760968 Z00.00 up to date on vaccines Prediabetes 174378382 R7 3.03 retest labs. Polycystic ovary syndrome 730896103 E28.2 continue on spironolac tone. Thrombocyt openic disorder 815552432 D69.6 will refer to hematology for follow up and treatment. Primary dysthymia 895492 05 F34.1 Continue Fluoxetine 20 mg. Obstructiv e sleep apnea syndrome 12695168 G47.33 Morbid obesity 464680044 E66.01 Mixed hyperlipidemia 267 319764 E78.2 stable as of last year. Lyme disease 01350535 A6 9.20 stable. Leukocytosis 832672304 D 72.829 reactive in nature due to prednisone . Generalize d anxiety disorder 24207941 F41.1 continue current meds Constipation 78713490 K5 9.00 Continue Linzess. F/u with Dr. Aguillon. Allergic asthma 06927681 6 J45.909 Continue current meds. Screening for malignant neoplasm of breast 228904635 Z12.39 Altered adal wel function 68820176 R19.4 Irritable bowel syndrome 22355098 K58.9 alternatin g jody . takes Linzess. Overdue for GI visit. Last colonoscop y is unknown, but reports normal with 10 year recall. Gastroesop hageal reflux disease 068463968 K21.9 f/u with the GI . Continue PPI. Pruritic disorder 094870 002 L29.9 started after flu vaccine. Takes dapsone. Body mass index 40+ - severely obese 174321747 E66.01 Z68.41 Pt. is trying to lose weight by cutting down on carbs, but is limited in exercise due to psoriatic arthropath y. Screening for osteoporosis 590553251 Z13.820 refer for bone density scan. Benign ess ential hypertension 2865939 I10 Continue Lisinopril 10 mg daily. Weight gain 2345695 R63. 5 [id number] Judi Martin PA-C [facility] [address] [facility] [address] [place] [address] 09/12/2020 12:41:27 09/12/2020 14:51:05 Moderate persistent asthma 596761657 J45.40 Stable extrinsic moderate asthma. Continue symbicort BID and montelukas t as well as claritin 10mg. F/u with allergy as scheduled. Benign ess ential hypertension 8152980 I10 Stable HTN. Continue Lisinopril 10 mg daily. Mixed hyperlipidemia 267 489853 E78.2 stable as of last year.repea t fasting lipids. Prediabetes 959962231 R7 3.03 retest labs. Pruritic disorder 958903 002 L29.9 f/u with allergy. [id number] Meera Orr MD Main Office [address] [place] [address] 12/27/2021 14:49:27 12/27/2021 16:13:13 Adult health examination 284108861 Z00.00 Chronic pain syndrome 37 2670590 G89.4 Pt. reports inadequate pain control. Has multifacto rial chronic diffuse body pain and joint pain. Tramadol prescribed as BID by rheumatolo gist. I advised pt. to seek second opinion in [place] for her persistent chronic pain and swelling. Pt. is overall unsatisfie d with local pain and rheumatolo gic care. Screening for malignant neoplasm of breast 627248729 Z12.39 Screening for malignant neoplasm of cervix 291616898 Z12.4 Pt. had hysterecto my. Has PCOS. Not seeing [facility]. Allergic asthma 79047063 6 J45.909 Continue current meds. Benign ess ential hypertension 4531734 I10 continue low sodium diet. Body mass index 40+ - severely obese 236826951 E66.01 Z68.41 Pt. is trying to lose weight by cutting down on carbs, but is limited in exercise due to psoriatic arthropath y. Mixed hyperlipidemia 267 587524 E78.2 retest lipids Prediabetes 631164304 R7 3.03 retest labs. Obstructiv e sleep apnea syndrome 91212885 G47.33 not using CPAP. Osteoarthr itis of knee 461977626 M17.0 F/u with orthopedic s. Polycystic ovary syndrome 778680133 E28.2 continue on spironolac tone. Psoriasis with arthropathy 73869309 L40.50 F/u rheumatolo gy , local or in [place]. Thrombocyt openic disorder 691419193 D69.6 reactive thrombocyt openia [facility] hypothyroidism 10689656 E02 Generalize d anxiety disorder 86570375 F41.1 continue current meds Irritable bowel syndrome 66911754 K58.9 Continue LInzess Edema of l ower extremity 538242542 R60.0 Ventricula r premature beats 32898002 I49.3 echo done recently at [facility]. STable occasional palpitatio ns. Health Concerns Section Related Observation LastModified by Organization Detai ls LastModified Time None Recorded Concern Status LastModified by Organization Details LastModified Time None Recorded Advance Directives Directive N: Payers Insurance Date Sequence Insurance Name Policy Number Policy Clarke Covered Member ID Clarke Member ID Guarantor Name 12/08/2018 1 [facility] [id number] Susan De Leon [id number] Susan De Leon 01/15/2024 1 [employer] [facility] ([place] [id number] Susan De Leon [id number] Susan De Leon 12/27/2021 1 [facility] (PP[facility] [id number] Susan De Leon [id number] Susan De Leon 04/06/2018 PAYMENT PLAN Susan De Leon OBGyn Episode No OBEpisode recorded.
== END 2024-11-30 13:55 | disposition home or self-care (01) ==
PROVIDERS: PCP Preventive Medicine Public Health & General Preventive Medicine; Visit Provider Physician Assistant
DX: J45.901 Unspecified asthma with (acute) exacerbation (principal)

== ENCOUNTER 2024-12-02 07:19 | Outpatient (REF) | payer OTHER, SELFPAY ==
--- OUTSIDE RECORDS SUMMARY | 2024-11-04 10:30 | XMS_ITS ---
Author Organization [facility] Address [address] [place] [address] Care Team Providers Care Tool Room Supervisor Name Role Phone Nikkie Kaufman Primary Care Provider Unavailab Erica Campuzano Unavailable [phone] Medications Medication SIG (Take, Route, Frequency, Duration) [...] Active Encounters Encounter Location Date Provider Diagnosis [facility] [place] [address] [place] [address] 11/04/2024 Erica Arnett Plan Of Treatment Next Appt Details Provider Name:Erica pantoja, 12/03/2024 03:00:00 PM, [address] [facility], [place], [address], Progress Notes * Zahida DE LEON LDOB:[birth year] (54 yo F)Acc No.[id number]:11/04/2024 Progress Note Patient: Zahida LAINEZ Provider: Emmie Arnett DPM :1970 A ge:54 Y S ex:Female Date:11/04/2024 Address:[address] [place], [place] [id number] Pcp:Nikkie Kaufman Subjective: * Chief Complaints: * [...] Date: 11/04/2024 Generated for Danica boone/Aditya on: 12/02/2024 07:22 AM EDT
[2024-12-02 11:06] LABS: Alanine Aminotransferase 29 U/L (0-31); Albumin Level 4.7 g/dL (3.5-5.0); Alkaline Phosphatase 77 U/L (39-117); Anion Gap 13 (12-20); Aspartate Amino Transferase 22 U/L (5-31); Blood Urea Nitrogen 16 mg/dL (9-16); Calcium 9.2 mg/dL (8.4-10.2); Carbon Dioxide 24 mmol/L (22-29); Chloride 108 mmol/L (96-108); Cholesterol 199 mg/dL (<200); Estimated Glomerular Filt Rate > 60; HDL Cholesterol 41 mg/dL (>40); Potassium 4.4 mmol/L (3.3-5.1); Sodium 141 mmol/L (135-145); Total Protein 7.1 g/dL (6.5-8.0); Triglycerides 188 mg/dL (<150)
[2024-12-02 11:12] LABS: Ferritin 67 ng/mL (10-250); Free T4 (Free Thyroxine) 1.02 ng/dL (0.71-1.85); Thyroid Stimulating Hormone 1.99 uIU/mL (0.32-4.0)
[2024-12-02 13:07] LABS: Hemoglobin A1C 121.2188 umol/L; Total Hemoglobin (HGBA1C) 3717.9436 umol/L
[2024-12-03 05:44] LABS: Follicle Stimulating Hormone 33.6 mIU/mL
[2024-12-05 13:17] LABS: Copper, plasma 117 mcg/dL (70-175)
[2024-12-06 16:58] LABS: Testosterone, Free 1.2 pg/mL (0.1-6.4)
[2024-12-09 23:38] LABS: Estradiol Ultra Sensitive 64 pg/mL
== END 2024-12-02 07:20 | disposition home or self-care (01) ==
LOC: HO.LAB 07:19
PROVIDERS: PCP Preventive Medicine Public Health & General Preventive Medicine; Visit Provider Preventive Medicine Public Health & General Preventive Medicine
DX: N95.1 Menopausal and female climacteric states (principal); E03.9 Hypothyroidism, unspecified; R73.09 Other abnormal glucose; E53.8 Deficiency of other specified B group vitamins; E55.9 Vitamin D deficiency, unspecified; E61.8 Deficiency of other specified nutrient elements; E61.0 Copper deficiency; E61.1 Iron deficiency; Z78.9 Other specified health status
CPT/HCPCS: 36415; 80053; 80061; 82306; 82525; 82670; 82728; 83001; 83036; 83525; 84402; 84403; 84425; 84439; 84443; 84481; 84630; 86141